=== PATIENT | female | born 1945 | race Caucasian/White ===

== ENCOUNTER → 2016-05-19 | Outpatient (CLI) | payer MEDICARE, BC ==
[2016-05-19 16:35] LABS: Blood Urea Nitrogen 18 mg/dL (7-17); Non-African American GFR(MDRD) >60 (>60 ml/min/1.73 sqM)
--- NOTE | 2016-05-19 19:07 | CT ---
EXAMINATION TYPE: CT abdomen pelvis w con DATE OF EXAM: 05/19/2016 6:02 PM HISTORY: Lower Abdominal and pelvic pain for [address] DLP: 3894.5mGycm Automated Exposure Control for Dose Reduction was Utilized. CONTRAST: CT scan of the abdomen and pelvis is performed with oral and with IV Contrast, patient injected with 100 mL of Omnipaque 300. COMPARISON: None. FINDINGS: LUNG BASES: There is 2.3 x 1.6 cm low dense lesion posterior left lung base appears to split pleura s ign suggestive of small localized fluid collection. No intraluminal air is seen to suggest empyema wh ich cannot be completely excluded on this study. Clinical correlation advised. LIVER/GB: Cholecystectomy clips are noted PANCREAS: No significant abnormality is seen. SPLEEN: No significant abnormality is seen. ADRENALS: No significant abnormality is seen. KIDNEYS: There are some simple appearing small cysts scattered throughout both kidneys BOWEL: Oral contrast reaches level of the transverse colon. There is no suspicious small or large bow el dilatation. UTERUS/ADNEXA: No gross abnormality seen. LYMPH NODES: No greater than 1cm abdominal or pelvic lymph nodes are appreciated. OSSEOUS STRUCTURES: Some multilevel spurring in the visualized lower thoracic spine is present. OTHER: There has been prior ventral wall hernia repair. There is persistent widemouth eventration wit hout distinct hernia defect in the midline of the mid to lower abdominal wall. Overlying vertical sca r and multiple coils related to surgical repair are noted. IMPRESSION: 1. There has been prior ventral wall hernia repair surgery with widemouth eventration identified at s ite of surgery but no definitive defect suggests recurrent ventral wall hernia. Eventration contains nonobstructed small bowel loops. 2. Attention to left lung base as noted above.
== END ==
LOC: RADCTMAIN 16:00
PROVIDERS: ATTEND Internal Medicine Geriatric Medicine
DX: R10.30 Lower abdominal pain, unspecified (principal); Z98.890 Other specified postprocedural states
CPT/HCPCS: 82565; 84520; 74177; 36415; Q9967

== ENCOUNTER 2016-05-29 08:58 | Emergency (ER) | payer MEDICARE, BC ==
[2016-05-29] MEDS ORDERED: SODIUM CHLORIDE 0.9% 1,000 ML IV STA (09:09)
[2016-05-29] MEDS ORDERED: METOCLOPRAMIDE 5 MG/ML 2 ML VIAL IVP STA (09:09)
[2016-05-29] MEDS ORDERED: DICYCLOMINE 10 MG/ML 2 ML AMP IM STA (09:09)
--- NOTE | 2016-05-29 09:12 | ED ---
General Adult HPI - General Chief complaint: Nausea/Vomiting/Diarrhea Stated complaint: Flu symptoms Time Seen by Provider: 05/29/16 09:05 Source: patient, RN notes reviewed Mode of arrival: wheelchair Limitations: no limitations - History of Present Illness Initial comments: 71-year-old female presents to the emergency Department chief complaint of nausea vomiting and diarrhea. Patient states she's had the symptoms for about 5 days. Patient states she only has vomiting after she eats but she was able to keep a piece of toast down last night. Patient states that she continues to have the diarrhea. Patient states she does not really have abdominal pain she just feels off. Patient states she does have diabetes and she noticed that her sugars became almost like because she is not eating. Patient states she's had on-and-off fevers at this as well. Patient denies any pain at this time. Patient states she is not getting better so she thought that she should be seen. Patient denies any recent fever, chills, shortness of breath, chest pain, back pain, abdominal pain, numbness or tingling, dysuria or hematuria, constipation, headaches or visual changes, or any other current symptoms. - Related Data Home Medications Medication Instructions Recorded Confirmed Atorvastatin [Lipitor] 20 mg PO HS 11/12/15 05/29/16 Insulin Glargine [Lantus] 60 unit SQ HS 11/12/15 05/29/16 Gabapentin [Neurontin] 300 mg PO TID 05/29/16 05/29/16 Losartan Potassium 100 mg PO DAILY 05/29/16 05/29/16 metFORMIN HCL 1,000 mg PO HS 05/29/16 05/29/16 Previous Rx's Medication Instructions Recorded Ciprofloxacin HCl [Cipro] 500 mg PO Q12HR #14 tablet 05/29/16 Dicyclomine [Bentyl] 10 mg PO TID #20 capsule 05/29/16 Ondansetron Odt [Zofran ODT] 4 mg PO Q8HR PRN #20 tab 05/29/16 Allergies Allergy/AdvReac Type Severity Reaction Status Date / Time cephalexin Allergy Rash/Hives, Verified 05/29/16 10:55 redness, swelling Review of Systems ROS Statement: Those systems with pertinent positive or pertinent negative responses have been documented in the HPI. ROS Other: All systems not noted in ROS Statement are negative. Past Medical History Past Medical History: Cancer, Diabetes Mellitus, Hyperlipidemia, Hypertension Additional Past Medical History / Comment(s): hx. lung cancer 2007, recent kidney infection now resolved History of Any Multi-Drug Resistant Organisms: None Reported Past Surgical History: Cholecystectomy, Hernia Repair Additional Past Surgical History / Comment(s): partial lobectomy 2008 Past Anesthesia/Blood Transfusion Reactions: No Reported Reaction Past Psychological History: No Psychological Hx Reported Smoking Status: Never smoker Past Alcohol Use History: None Reported Past Drug Use History: None Reported - Past Family History Mother Family Medical History: Cancer General Exam - General Exam Comments Initial Comments: General: The patient is awake and alert, in no distress, and does not appear acutely ill. Eye: Pupils are equal, round and reactive to light, extra-ocular movements are intact; there is normal conjunctiva bilaterally. No signs of icterus. Ears, nose, mouth and throat: There are moist mucous membranes and no oral lesions. Neck: The neck is supple, there is no tenderness. Cardiovascular: There is a regular rate and rhythm. No murmur, rub or gallop is appreciated. Respiratory: Lungs are clear to auscultation, respirations are non-labored, breath sounds are equal. No wheezes, stridor, rales, or rhonchi. Gastrointestinal: Soft, non-distended, non-tender abdomen without masses or organomegaly noted. There is no rebound or guarding present. No CVA tenderness. Bowel sounds are unremarkable. Back: There is no tenderness to palpation in the midline. There is no obvious deformity. No rashes noted. Musculoskeletal: Normal ROM, no tenderness, There is no pedal edema. There is no calf tenderness or swelling. Sensation intact. Pulses equal bilaterally 2+. Neurological: CN II-XII intact, There are no obvious motor or sensory deficits. Coordination appears grossly intact. Speech is normal. Skin: Skin is warm and dry and no rashes or lesions are noted. Psychiatric: Cooperative, appropriate mood & affect, normal judgment. Limitations: no limitations Course Vital Signs 05/29/16 09:00 Temperature 97.5 F L Pulse Rate 87 Respiratory 16 Rate Blood Pressure 162/83 O2 Sat by Pulse 93 L Oximetry EKG Findings - EKG Comments: EKG Findings:: normal sinus rhythm 83 bpm, normal axis, no atopy, no S-T depressions or elevations, Medical Decision Making - Medical Decision Making 71-year-old emergency room chief complaint of nausea vomiting and diarrhea. This time CAT scan results were reviewed. At this time the patient's CAT scan does not show any new or changing symptoms. We did discuss all patient's findings and she states that she has been informed of the past. At this time patient's blood work is also negative she is negative for C. diff. This time we discussed patient most likely has a gastroenteritis type picture. We discussed with give her nausea medication for home and cramping abdominal pain medication. We discussed close follow-up with her doctor and return parameters. Patient stated that she understood and all her questions have been answered. She will be discharged home. - Lab Data Result diagrams: 05/29/16 09:30 05/29/16 09:30 Lab Results 05/29/16 05/29/16 05/29/16 Range/Units 09:30 09:30 09:30 WBC (3.8-10.6) k/uL RBC (3.80-5.40) m/uL Hgb (11.4-16.0) gm/dL Hct (34.0-46.0) % MCV (80.0-100.0) fL MCH (25.0-35.0) pg MCHC (31.0-37.0) g/dL RDW (11.5-15.5) % Plt Count (150-450) k/uL Neutrophils % % Lymphocytes % % Monocytes % % Eosinophils % % Basophils % % Neutrophils # (1.3-7.7) k/uL Lymphocytes # (1.0-4.8) k/uL Monocytes # (0-1.0) k/uL Eosinophils # (0-0.7) k/uL Basophils # (0-0.2) k/uL Sodium 143 (137-145) mmol/L Potassium 4.1 (3.5-5.1) mmol/L Chloride 107 (98-107) mmol/L Carbon Dioxide 26 (22-30) mmol/L Anion Gap 10 mmol/L BUN 22 H (7-17) mg/dL Creatinine 0.92 (0.52-1.04) mg/dL Est GFR (MDRD) Af Amer >60 (>60 ml/min/1.73 sqM) Est GFR (MDRD) Non-Af 60 (>60 ml/min/1.73 sqM) Glucose 99 (74-99) mg/dL Plasma Lactic Acid Terrell 1.0 (0.7-2.0) mmol/L Calcium 9.5 (8.4-10.2) mg/dL Total Bilirubin 1.3 (0.2-1.3) mg/dL AST 34 (14-36) U/L ALT 36 (9-52) U/L Alkaline Phosphatase 176 H (38-126) U/L Troponin I (0.000-0.034) ng/mL Total Protein 7.3 (6.3-8.2) g/dL Albumin 3.8 (3.5-5.0) g/dL Amylase <30 L (30-110) U/L Lipase 71 (23-300) U/L Urine Color Urine Appearance (Clear) Urine pH (5.0-8.0) Ur Specific Stanton (1.001-1.035) Urine Protein (Negative) Urine Glucose (UA) (Negative) Urine Ketones (Negative) Urine Blood (Negative) Urine Nitrite (Negative) Urine Bilirubin (Negative) Urine Urobilinogen (<2.0) mg/dL Ur Leukocyte Esterase (Negative) Urine RBC (0-5) /hpf Urine WBC (0-5) /hpf Ur Squamous Epith Cells (0-4) /hpf Urine Bacteria (None) /hpf Hyaline Casts (0-2) /lpf Urine Mucus (None) /hpf Acetone, Qual Negative (Negative) C. difficile (EIA) Intrp (Negative) Influenza Type A RNA Not Detected (Not Detectd) Influenza Type B (PCR) Not Detected (Not Detectd) 05/29/16 05/29/16 05/29/16 Range/Units 09:30 09:30 11:17 WBC 8.4 (3.8-10.6) k/uL RBC 4.61 (3.80-5.40) m/uL Hgb 13.4 (11.4-16.0) gm/dL Hct 42.1 (34.0-46.0) % MCV 91.4 (80.0-100.0) fL MCH 29.1 (25.0-35.0) pg MCHC 31.8 (31.0-37.0) g/dL RDW 14.9 (11.5-15.5) % Plt Count 288 (150-450) k/uL Neutrophils % 71 % Lymphocytes % 21 % Monocytes % 5 % Eosinophils % 1 % Basophils % 0 % Neutrophils # 5.9 (1.3-7.7) k/uL Lymphocytes # 1.8 (1.0-4.8) k/uL Monocytes # 0.4 (0-1.0) k/uL Eosinophils # 0.1 (0-0.7) k/uL Basophils # 0.0 (0-0.2) k/uL Sodium (137-145) mmol/L Potassium (3.5-5.1) mmol/L Chloride (98-107) mmol/L Carbon Dioxide (22-30) mmol/L Anion Gap mmol/L BUN (7-17) mg/dL Creatinine (0.52-1.04) mg/dL Est GFR (MDRD) Af Amer (>60 ml/min/1.73 sqM) Est GFR (MDRD) Non-Af (>60 ml/min/1.73 sqM) Glucose (74-99) mg/dL Plasma Lactic Acid Terrell (0.7-2.0) mmol/L Calcium (8.4-10.2) mg/dL Total Bilirubin (0.2-1.3) mg/dL AST (14-36) U/L ALT (9-52) U/L Alkaline Phosphatase (38-126) U/L Troponin I <0.012 (0.000-0.034) ng/mL Total Protein (6.3-8.2) g/dL Albumin (3.5-5.0) g/dL Amylase (30-110) U/L Lipase (23-300) U/L Urine Color Urine Appearance (Clear) Urine pH (5.0-8.0) Ur Specific Stanton (1.001-1.035) Urine Protein (Negative) Urine Glucose (UA) (Negative) Urine Ketones (Negative) Urine Blood (Negative) Urine Nitrite (Negative) Urine Bilirubin (Negative) Urine Urobilinogen (<2.0) mg/dL Ur Leukocyte Esterase (Negative) Urine RBC (0-5) /hpf Urine WBC (0-5) /hpf Ur Squamous Epith Cells (0-4) /hpf Urine Bacteria (None) /hpf Hyaline Casts (0-2) /lpf Urine Mucus (None) /hpf Acetone, Qual (Negative) C. difficile (EIA) Intrp Negative (Negative) Influenza Type A RNA (Not Detectd) Influenza Type B (PCR) (Not Detectd) 05/29/16 Range/Units 12:18 WBC (3.8-10.6) k/uL RBC (3.80-5.40) m/uL Hgb (11.4-16.0) gm/dL Hct (34.0-46.0) % MCV (80.0-100.0) fL MCH (25.0-35.0) pg MCHC (31.0-37.0) g/dL RDW (11.5-15.5) % Plt Count (150-450) k/uL Neutrophils % % Lymphocytes % % Monocytes % % Eosinophils % % Basophils % % Neutrophils # (1.3-7.7) k/uL Lymphocytes # (1.0-4.8) k/uL Monocytes # (0-1.0) k/uL Eosinophils # (0-0.7) k/uL Basophils # (0-0.2) k/uL Sodium (137-145) mmol/L Potassium (3.5-5.1) mmol/L Chloride (98-107) mmol/L Carbon Dioxide (22-30) mmol/L Anion Gap mmol/L BUN (7-17) mg/dL Creatinine (0.52-1.04) mg/dL Est GFR (MDRD) Af Amer (>60 ml/min/1.73 sqM) Est GFR (MDRD) Non-Af (>60 ml/min/1.73 sqM) Glucose (74-99) mg/dL Plasma Lactic Acid Terrell (0.7-2.0) mmol/L Calcium (8.4-10.2) mg/dL Total Bilirubin (0.2-1.3) mg/dL AST (14-36) U/L ALT (9-52) U/L Alkaline Phosphatase (38-126) U/L Troponin I (0.000-0.034) ng/mL Total Protein (6.3-8.2) g/dL Albumin (3.5-5.0) g/dL Amylase (30-110) U/L Lipase (23-300) U/L Urine Color Yellow Urine Appearance Cloudy H (Clear) Urine pH 5.5 (5.0-8.0) Ur Specific Stanton 1.021 (1.001-1.035) Urine Protein 1+ H (Negative) Urine Glucose (UA) Negative (Negative) Urine Ketones 1+ H (Negative) Urine Blood Negative (Negative) Urine Nitrite Negative (Negative) Urine Bilirubin 1+ H (Negative) Urine Urobilinogen 2.0 (<2.0) mg/dL Ur Leukocyte Esterase Negative (Negative) Urine RBC 1 (0-5) /hpf Urine WBC 1 (0-5) /hpf Ur Squamous Epith Cells 3 (0-4) /hpf Urine Bacteria Rare H (None) /hpf Hyaline Casts 26 H (0-2) /lpf Urine Mucus Few H (None) /hpf Acetone, Qual (Negative) C. difficile (EIA) Intrp (Negative) Influenza Type A RNA (Not Detectd) Influenza Type B (PCR) (Not Detectd) - Radiology Data Radiology results: report reviewed, image reviewed Disposition Clinical Impression: Diarrhea, Nausea & vomiting, UTI (urinary tract infection) Disposition: HOME SELF-CARE Condition: Stable Instructions: Acute Diarrhea (ED) Additional Instructions: Please use medication as discussed. Please follow up with family doctor if symptoms have not improved over the next two days. Please return to the emergency room if your symptoms increase or worsen or for any other concerns. Prescriptions: Ciprofloxacin HCl [Cipro] 500 mg PO Q12HR #14 tablet Dicyclomine [Bentyl] 10 mg PO TID #20 capsule Ondansetron Odt [Zofran ODT] 4 mg PO Q8HR PRN #20 tab PRN Reason: Nausea Referrals: Mitra Malik MD [Primary Care Provider] - 1-2 days Time of Disposition: 13:04
[2016-05-29 10:02] LABS: Basophils % (A) 0 %; CH 29.4; CHCM 32.4; Eosinophils # (A) 0.1 k/uL (0-0.7); Eosinophils % (A) 1 %; HCT 42.1 % (34.0-46.0); HDW 2.81; HGB 13.4 gm/dL (11.4-16.0); Luc # (Auto) 0.14; Luc % (Auto) 2; Lymphocytes # (A) 1.8 k/uL (1.0-4.8); Lymphocytes % (A) 21 %; MCH 29.1 pg (25.0-35.0); MCHC 31.8 g/dL (31.0-37.0); MCV 91.4 fL (80.0-100.0); Mean Platelet Volume 6.9; Monocytes # (A) 0.4 k/uL (0-1.0); Monocytes % (A) 5 %; Neutrophils # (A) 5.9 k/uL (1.3-7.7); Neutrophils % (A) 71 %; RBC 4.61 m/uL (3.80-5.40); RDW 14.9 % (11.5-15.5); WBC 8.4 k/uL (3.8-10.6); WBC (Perox) 8.43
[2016-05-29 10:21] LABS: ALT 36 U/L (9-52); AST 34 U/L (14-36); Alkaline Phosphatase 176 U/L (38-126); Amylase <30 U/L (30-110); Anion Gap 10 mmol/L; Blood Urea Nitrogen 22 mg/dL (7-17); Calcium 9.5 mg/dL (8.4-10.2); Carbon Dioxide 26 mmol/L (22-30); Chloride 107 mmol/L (98-107); Glucose 99 mg/dL (74-99); Non-African American GFR(MDRD) 60 (>60 ml/min/1.73 sqM); Potassium 4.1 mmol/L (3.5-5.1); Sodium 143 mmol/L (137-145); Total Bilirubin 1.3 mg/dL (0.2-1.3); Total Protein 7.3 g/dL (6.3-8.2)
--- NOTE | 2016-05-29 11:00 | CT ---
EXAMINATION TYPE: CT abdomen pelvis wo con DATE OF EXAM: 05/29/2016 10:33 AM COMPARISON: 05/19/2016 HISTORY: 71-year-old female Generalized abdominal pain. Flu like symptoms CT DLP: 2558.60 mGycm. Automated exposure control for dose reduction was used. TECHNIQUE: Contiguous axial scanning of the abdomen and pelvis without IV contrast. Coronal and sagit bronson reconstructions performed. FINDINGS: The heart is mildly enlarged without pericardial effusion. A 4 mm right lower lobe pulmonary nodule i s unchanged from 05/19/2016 as is the 3.1 cm localized low density masslike lesion posterior left cost ophrenic angle possibly loculated pleural fluid. Noncontrast appearance of the liver, adrenal glands, spleen, and atrophic pancreas show no gross abno rmality. No dilated small bowel, free fluid, or free air. A couple sigmoid diverticula. No pericolonic inflammatory change. Suggestion of prior ventral abdominal wall hernia repair. However, there is redemonstrated rectus abd ominis diastases of the infraumbilical portion with a focal bulging and separation of the rectus abdo minis muscles by 9.8 cm. Some small bowel loops are present within the bulging defect. No obstructive changes or abnormal fluid collection is seen. There is some low-density areas in the left retroperitoneum, one at the level of the aortic bifurcati on measuring 6.8 x 4.0 x 2.4 cm measured on coronal and axial series. This measured 6.8 x 3.5 x 2.2 c m on 05/19/2016, not significantly changed. Additional similar area is seen in the left superior retro peritoneum just below the level of the kidneys measuring 4.8 x 2.2 x 2.1 cm versus 4.3 x 2.6 x 2.2 cm on 05/19/2016. Again, not significantly changed. Redemonstrated subcentimeter hypodense lesions within the kidneys to small for accurate CT characteri zation, likely cysts. Bladder is nondistended. Uterus is visualized. No adnexal mass seen. No abnormal fluid collection pel vis. Bones: Degenerative changes at the hips and lower lumbar spine. No osseous destructive process. IMPRESSION: 1. Redemonstrated prior infraumbilical ventral abdominal wall hernia repair though with persisting r ectus diastases. The bulging defect containing some small bowel loops as seen previously. No obstruct dai or inflammatory changes. 2. A couple hypodense masslike areas along the left retroperitoneum measuring up to 6.8 cm, not sign ificantly changed from 05/19/2016. Exact etiology is unclear. Findings could represent postinflammator y residua suggest from a prior episode of pancreatitis. Other differential considerations include lym phangiomas and schwannomas. A 3 month follow-up exam can be performed to reassess. If further imaging evaluation is desired at this time, contrast enhanced MRI can be considered. 3. Stable low density 3.1 cm collection in the left posterior costophrenic angle possibly loculated fluid. Clinical correlation needed to exclude a small empyema as mentioned previously. 4. A 4 mm right lower lobe pulmonary nodule is also unchanged from recent exam. This can also be woodrow ssessed at 3 months with the addition of a contrast enhanced CT chest.
[2016-05-29 12:45] LABS: Appearance,Urine Cloudy (Clear); Bacteria,Urine Rare /hpf; Bilirubin,Urine 1+ (Negative); Glucose,Urine (UA) Negative (Negative); Ketones,Urine 1+ (Negative); Leukocyte Esterase,Urine Negative (Negative); Mucus,Urine Few /hpf; Nitrite,Urine Negative (Negative); PH, Urine 5.5 (5.0-8.0); Particle Count 14824; Protein,Urine 1+ (Negative); RBC,Urine 1 /hpf (0-5); Specific Gravity,Urine 1.021 (1.001-1.035); Squamous Epithelial Cell,Urine 3 /hpf (0-4); UA Billing (MACRO vs. MICRO) MICRO; WBC,Urine 1 /hpf (0-5)
[2016-05-29 13:46] VITALS: BP 136/63; PULSE 68; RESP 18; TEMP 98.2
== END 2016-05-29 13:51 | disposition home or self-care (01) ==
LOC: EC 08:58
DX: R11.2 Nausea with vomiting, unspecified (principal); R19.7 Diarrhea, unspecified; N39.0 Urinary tract infection, site not specified; I10 Essential (primary) hypertension; E11.9 Type 2 diabetes mellitus without complications; E78.5 Hyperlipidemia, unspecified; Z85.118 Personal history of other malignant neoplasm of bronchus and lung; Z90.49 Acquired absence of other specified parts of digestive tract; Z79.4 Long term (current) use of insulin; Z79.84 Long term (current) use of oral hypoglycemic drugs; Z79.899 Other long term (current) drug therapy; Z88.1 Allergy status to other antibiotic agents
CPT/HCPCS: 96361 ×5; 96372 ×2; 96374 ×2; 99284 ×2; 36415; 93005; 80053; 82150; 82009; 83605; 83690; 84484; 85025; 81001; 87040; 87324; 87086; 87045; 87046; 87502; 74176; J0500; J2765

== ENCOUNTER → 2016-05-31 | Outpatient (CLI) | payer MEDICARE, BC ==
--- NOTE | 2016-05-31 14:08 | CT ---
EXAMINATION TYPE: CT chest w con DATE OF EXAM: 05/31/2016 1:41 PM COMPARISON: NONE HISTORY: Mal Tavares of [place] Bronch of Lung Cancer CT DLP: 802 mGycm, Automated exposure control for dose reduction was used. CONTRAST: Performed injected with 100 ml mL of Omnipaque 300. TECHNIQUE: Axial images were obtained at 5 mm thick sections. Reconstructed images are reviewed on t he computer in the coronal plane. FINDINGS: Portion of the thyroid visualized is normal. There appears to be a small loculated fluid collection in the posterior medial left lung base. This w as present previously may be slightly larger measuring 3.6 cm. There is a 0.5 cm nodular density in t he periphery of the right lower lung field. Series 3 image 31. Pleural-based nodularity is along the posterior lateral right lung measuring 0.5 cm in depth. Series 3 image 23. There is a 0.6 cm nodulari ty within the right middle lobe. Series 3 image 18. No enlarged mediastinal or hilar adenopathy is evident. The ascending aorta diameter at the level o f the main pulmonary artery is 4.0 cm. The main pulmonary artery diameter at the bifurcation is 2.8 cm. There is a pretracheal lymph node measuring 1.4 cm in transverse dimension. This has central low dens ity likely related to a fatty hilum. A few shotty lymph nodes are also present within the mediastinum . Limited CT sections are obtained through the upper abdomen. There is a 2.0 cm cyst measuring 0 Hounsf ield units on the posterior superior right kidney. Cholecystectomy clips are present. IMPRESSIONS: 1. Stable appearing small nodularities within the right lung. 2. Slight enlargement of a low-density posterior medial lung bases collection. 3. Prominent lymph node with a large fatty hilum within the mediastinum.
== END | disposition home or self-care (01) ==
LOC: RADCTMAIN 12:28
PROVIDERS: ATTEND Internal Medicine
DX: R91.8 Other nonspecific abnormal finding of lung field (principal); R93.8 Abnormal findings on diagnostic imaging of other specified body structures; C34.90 Malignant neoplasm of unspecified part of unspecified bronchus or lung
CPT/HCPCS: 71260; Q9967

== ENCOUNTER → 2019-04-24 | Outpatient (CLI) | payer MEDICARE, BC ==
--- NOTE | 2019-04-24 15:25 | BD ---
EXAMINATION TYPE: Axial Bone Density DATE OF EXAM: 04/24/2019 COMPARISON: NONE CLINICAL HISTORY: Height: 63 inches Weight: 290 FRAX RISK QUESTIONS: Alcohol (3 or more units per day): no Family History (Parent hip fracture): no Glucocorticoids (More than 3mos): no (Ex: prednisone, prednisolone, methylprednisolone, dexamethasone, and hydrocortisone). History of Fracture in Adulthood: no Secondary Osteoporosis: 1. Type 1 Diabetes: no 2. Hyperthyroidism: no 3. Menopause before 45: no 4. Malnutrition: no 5. Chronic liver disease: no Rheumatoid Arthritis: no Current Tobacco Use: no RISK FACTORS HISTORY OF: Family History of Osteoporosis: no Active: somewhat Diet low in dairy products/other sources of calcium: no Postmenopausal woman: yes Take estrogen and/or progesterone medications: no Lost more than 2 inches in height since high school: no Frequent falls: no Poor Health: fair Hyperparathyroidism: no Adrenal Insufficiency: no MEDICATIONS: Prednisone or other steroids: no Thyroid Medications:no Osteoporosis Medications: no Additional Medications: blood pressure med, diabetes med Additional History: history of lung CA 14 years ago; type 2 diabetic EXAM MEASUREMENTS: Bone mineral densitometry was performed using the [employer] System. Bone mineral density as measured about the Lumbar spine is: ----- L1-L4(G/cm2): 1.135 T Score Values are as follows: ----- L2: -1.5 ----- L3: -0.1 ----- L4: 0.0 ----- L1-L4: -0.4 Bone mineral density BASELINE Bone mineral density about the R hip (g/cm2): 0.769 Bone mineral density about the L hip (g/cm2): 0.837 T Score values are as follows: -----R Neck: -1.9 -----L Neck: -1.4 -----R Total: -1.3 -----L Total: -0.6 Bone mineral density BASELINE IMPRESSION: Osteopenia (T Score between -2.5 and -1). There is slightly increased risk of fracture and the patient may be considered for treatment. Re-Screen 2-5 years. NOTE: T-SCORE=SD OF THE YOUNG ADULT MEAN.
--- NOTE | 2019-04-25 10:56 | MM ---
Reason for exam: screening (asymptomatic). Last mammogram was performed 4 years ago. History: Patient is postmenopausal and has history of other cancer at age 60. Benign excisional biopsy of the left breast, 1967. Physical Findings: A clinical breast exam by your physician is recommended on an annual basis and results should be correlated with mammographic findings. MG 3D Screening Mammo W/Cad Bilateral CC and MLO view(s) were taken. Prior study comparison: April 09, 2015, bilateral MG 3d screening mammo w/cad. July 02, 2013, bilateral MG screening mammo w CAD. Finding: There are typically benign circumscribed round oval few stable masses in both breasts. No suspicious abnormality. No significant changes in finding since April 09, 2015 and July 02, 2013. ASSESSMENT: Benign, BI-RAD 2 RECOMMENDATION: Routine screening mammogram of both breasts in 1 year.
== END ==
LOC: RADMAMWWP 07:54
PROVIDERS: ATTEND Internal Medicine
DX: Z12.31 Encounter for screening mammogram for malignant neoplasm of breast (principal); M85.80 Other specified disorders of bone density and structure, unspecified site
CPT/HCPCS: 77063; 77067; 77080

== ENCOUNTER 2019-12-14 20:21 | Emergency (ER) | payer MEDICARE, BC ==
[2019-12-14 20:44] LABS: Glucose,Whole Blood 99 mg/dL (75-99)
[2019-12-14 21:42] LABS: Glucose,Whole Blood 83 mg/dL (75-99)
[2019-12-14 21:47] LABS: Anisocytosis Slight; Basophils % (A) 0 %; Eosinophils # (A) 0.1 k/uL (0-0.7); Eosinophils % (A) 1 %; HCT 36.5 % (34.0-46.0); HGB 11.7 gm/dL (11.4-16.0); Hypochromasia Slight; Lymphocytes # (A) 2.1 k/uL (1.0-4.8); Lymphocytes % (A) 19 %; MCH 33.4 pg (25.0-35.0); MCHC 32.1 g/dL (31.0-37.0); MCV 103.9 fL (80.0-100.0); Macrocytosis Moderate; Mean Platelet Volume 7.2; Monocytes # (A) 0.5 k/uL (0-1.0); Monocytes % (A) 4 %; Neutrophils # (A) 8.4 k/uL (1.3-7.7); Neutrophils % (A) 75 %; Platelet Count 316 k/uL (150-450); RBC 3.52 m/uL (3.80-5.40); RDW 16.8 % (11.5-15.5); WBC 11.3 k/uL (3.8-10.6)
[2019-12-14 21:54] LABS: Albumin 3.2 g/dL (3.5-5.0); Calcium 8.7 mg/dL (8.4-10.2); Potassium 4.5 mmol/L (3.5-5.1); Total Protein 6.6 g/dL (6.3-8.2)
[2019-12-14 22:00] LABS: Amorphous Sediment,Urine Rare /hpf; Appearance,Urine Turbid (Clear); Bacteria,Urine Many /hpf; Bilirubin,Urine Negative (Negative); Blood,Urine Moderate (Negative); Color,Urine Yellow; Glucose,Urine (UA) Negative (Negative); Ketones,Urine Negative (Negative); Leukocyte Esterase,Urine Large (Negative); Nitrite,Urine Negative (Negative); Protein,Urine Trace (Negative); RBC,Urine 44 /hpf (0-5); Specific Gravity,Urine 1.014 (1.001-1.035); Squamous Epithelial Cell,Urine 6 /hpf (0-4); WBC,Urine 48 /hpf (0-5)
--- NOTE | 2019-12-14 22:14 | ED ---
Recheck HPI - General Chief Complaint: Recheck/Abnormal Lab/Rx Stated Complaint: diabetic, type 2 Time Seen by Provider: 12/14/19 20:56 Source: patient Mode of arrival: wheelchair Limitations: no limitations - History of Present Illness Initial Comments: 74 year-old female patient presents to the emergency department today for evaluation of low blood sugar. Patient states throughout the day today she has had a few low readings. States when she woke this morning is around 50, later in the afternoon is 76. Patient states starts to get shaky when he gets low. States she is eating and drinking without difficulty. Denies any nausea or vomiting. Denies any weight loss. States that she did take her usual oral medication as well as her Lantus this evening. Currently having no symptoms. She is concerned she may have a UTI due to frequency and dysuria. Denies any fever or chills. Denies back pain. Patient denies any recent rash, cough, josette rtness of breath, chest pain, abdominal pain, diarrhea, constipation, back pain, numbness, tingling, dizziness, weakness, headache, visual changes, or any other complaints. - Related Data Home Medications Medication Instructions Recorded Confirmed Insulin Glargine [Lantus] 60 unit SQ PC-SUPPER 11/12/15 12/14/19 Losartan Potassium 100 mg PO W/SUPPER 05/29/16 12/14/19 Atorvastatin [Lipitor] 40 mg PO W/SUPPER 12/14/19 12/14/19 Metoprolol Succinate [Toprol XL] 25 mg PO W/SUPPER 12/14/19 12/14/19 Repaglinide 1 mg PO BID-W/MEALS 12/14/19 12/14/19 Previous Rx's Medication Instructions Recorded Nitrofurantoin Monohyd/M-Cryst 100 mg PO Q12HR #14 cap 12/14/19 [Macrobid] Allergies Allergy/AdvReac Type Severity Reaction Status Date / Time cephalexin Allergy Rash/Hives, Verified 12/14/19 21:59 redness, swelling Review of Systems ROS Statement: Those systems with pertinent positive or pertinent negative responses have been documented in the HPI. ROS Other: All systems not noted in ROS Statement are negative. Past Medical History Past Medical History: Cancer, Diabetes Mellitus, Hyperlipidemia, Hypertension Additional Past Medical History / Comment(s): hx. lung cancer 2007, recent kidney infection now resolved History of Any Multi-Drug Resistant Organisms: None Reported Past Surgical History: Cholecystectomy, Hernia Repair Additional Past Surgical History / Comment(s): partial lobectomy 2008 Past Anesthesia/Blood Transfusion Reactions: No Reported Reaction Past Psychological History: No Psychological Hx Reported Smoking Status: Never smoker Past Alcohol Use History: None Reported Past Drug Use History: None Reported - Past Family History Mother Family Medical History: Cancer General Exam Limitations: no limitations General appearance: alert, in no apparent distress, other (This is a well-developed, well-nourished elderly female patient in no acute distress. Vital signs upon presentation are temperature 98.2F, pulse 86, respirations 20, blood pressure 196/91, pulse ox 96% on room air.) Respiratory exam: Present: normal lung sounds bilaterally. Absent: respiratory distress, wheezes, rales, rhonchi, stridor Cardiovascular Exam: Present: regular rate, normal rhythm, normal heart sounds. Absent: systolic murmur, diastolic murmur, rubs, gallop, clicks GI/Abdominal exam: Present: soft, normal bowel sounds. Absent: distended, tenderness, guarding, rebound, rigid Neurological exam: Present: alert, oriented X3, CN II-XII intact Psychiatric exam: Present: normal affect, normal mood Skin exam: Present: warm, dry, intact, normal color. Absent: rash Course Vital Signs 12/14/19 12/14/19 20:38 22:43 Temperature 98.2 F 98.6 F Pulse Rate 86 79 Respiratory 20 18 Rate Blood Pressure 196/91 139/89 O2 Sat by Pulse 96 98 Oximetry Medical Decision Making - Medical Decision Making 74 year-old female patient presents to the emergency department today for evaluation of low blood sugar. Physical examination was unremarkable. Labs reviewed and did reveal normal blood sugar at this time. We did do several Accu-Cheks which were also normal. Urinalysis was positive for infection. We'll start Macrobid for her last cultures. She will be discharged with instructions to check blood sugar frequently throughout the night. She is instructed to skip her oral doses of medication tomorrow and to follow-up with her primary care physician as soon as possible. Return parameters were discussed in detail. She verbalizes understanding and agrees with this plan. - Lab Data Result diagrams: 12/14/19 21:24 12/14/19 21:24 Lab Results 12/14/19 12/14/19 12/14/19 Range/Units 20:42 21:24 21:24 WBC 11.3 H (3.8-10.6) k/uL RBC 3.52 L (3.80-5.40) m/uL Hgb 11.7 (11.4-16.0) gm/dL Hct 36.5 (34.0-46.0) % MCV 103.9 H (80.0-100.0) fL MCH 33.4 (25.0-35.0) pg MCHC 32.1 (31.0-37.0) g/dL RDW 16.8 H (11.5-15.5) % Plt Count 316 (150-450) k/uL Neutrophils % 75 % Lymphocytes % 19 % Monocytes % 4 % Eosinophils % 1 % Basophils % 0 % Neutrophils # 8.4 H (1.3-7.7) k/uL Lymphocytes # 2.1 (1.0-4.8) k/uL Monocytes # 0.5 (0-1.0) k/uL Eosinophils # 0.1 (0-0.7) k/uL Basophils # 0.0 (0-0.2) k/uL Hypochromasia Slight Anisocytosis Slight Macrocytosis Moderate Sodium (137-145) mmol/L Potassium (3.5-5.1) mmol/L Chloride (98-107) mmol/L Carbon Dioxide (22-30) mmol/L Anion Gap mmol/L BUN (7-17) mg/dL Creatinine (0.52-1.04) mg/dL Est GFR (CKD-EPI)AfAm (>60 ml/min/1.73 sqM) Est GFR (CKD-EPI)NonAf (>60 ml/min/1.73 sqM) Glucose (74-99) mg/dL POC Glucose (mg/dL) 99 (75-99) mg/dL POC Glu Mental Health Practitioner ID Calcium (8.4-10.2) mg/dL Total Bilirubin (0.2-1.3) mg/dL AST (14-36) U/L ALT (4-34) U/L Alkaline Phosphatase (38-126) U/L Total Protein (6.3-8.2) g/dL Albumin (3.5-5.0) g/dL Urine Color Yellow Urine Appearance Turbid H (Clear) Urine pH 6.0 (5.0-8.0) Ur Specific [place] 1.014 (1.001-1.035) Urine Protein Trace H (Negative) Urine Glucose (UA) Negative (Negative) Urine Ketones Negative (Negative) Urine Blood Moderate H (Negative) Urine Nitrite Negative (Negative) Urine Bilirubin Negative (Negative) Urine Urobilinogen 6.0 (<2.0) mg/dL Ur Leukocyte Esterase Large H (Negative) Urine RBC 44 H (0-5) /hpf Urine WBC 48 H (0-5) /hpf Ur Squamous Epith Cells 6 H (0-4) /hpf Amorphous Sediment Rare H (None) /hpf Urine Bacteria Many H (None) /hpf 12/14/19 12/14/19 12/14/19 Range/Units 21:24 21:41 22:34 WBC (3.8-10.6) k/uL RBC (3.80-5.40) m/uL Hgb (11.4-16.0) gm/dL Hct (34.0-46.0) % MCV (80.0-100.0) fL MCH (25.0-35.0) pg MCHC (31.0-37.0) g/dL RDW (11.5-15.5) % Plt Count (150-450) k/uL Neutrophils % % Lymphocytes % % Monocytes % % Eosinophils % % Basophils % % Neutrophils # (1.3-7.7) k/uL Lymphocytes # (1.0-4.8) k/uL Monocytes # (0-1.0) k/uL Eosinophils # (0-0.7) k/uL Basophils # (0-0.2) k/uL Hypochromasia Anisocytosis Macrocytosis Sodium 139 (137-145) mmol/L Potassium 4.5 (3.5-5.1) mmol/L Chloride 105 (98-107) mmol/L Carbon Dioxide 31 H (22-30) mmol/L Anion Gap 3 mmol/L BUN 17 (7-17) mg/dL Creatinine 1.03 (0.52-1.04) mg/dL Est GFR (CKD-EPI)AfAm 61 (>60 ml/min/1.73 sqM) Est GFR (CKD-EPI)NonAf 53 (>60 ml/min/1.73 sqM) Glucose 86 (74-99) mg/dL POC Glucose (mg/dL) 83 101 H (75-99) mg/dL POC Glu Mental Health Practitioner ID Ren Ponce Steven Calcium 8.7 (8.4-10.2) mg/dL Total Bilirubin 1.0 (0.2-1.3) mg/dL AST 32 (14-36) U/L ALT 16 (4-34) U/L Alkaline Phosphatase 210 H (38-126) U/L Total Protein 6.6 (6.3-8.2) g/dL Albumin 3.2 L (3.5-5.0) g/dL Urine Color Urine Appearance (Clear) Urine pH (5.0-8.0) Ur Specific [place] (1.001-1.035) Urine Protein (Negative) Urine Glucose (UA) (Negative) Urine Ketones (Negative) Urine Blood (Negative) Urine Nitrite (Negative) Urine Bilirubin (Negative) Urine Urobilinogen (<2.0) mg/dL Ur Leukocyte Esterase (Negative) Urine RBC (0-5) /hpf Urine WBC (0-5) /hpf Ur Squamous Epith Cells (0-4) /hpf Amorphous Sediment (None) /hpf Urine Bacteria (None) /hpf Disposition Clinical Impression: Diabetic hypoglycemia, Urinary tract infection Disposition: HOME SELF-CARE Condition: Good Instructions (If sedation given, give patient instructions): Urinary Tract Infection in Women (ED), Hypoglycemia in a Person with Diabetes (ED), What to Do if Your Blood Sugar is Low (ED) Additional Instructions: Take medications as directed. Follow-up with your primary care physician for recheck in 1-2 days. Check blood sugar frequency throughout the night tonight. Return to the emergency department immediately for any new, worsening, or concerning symptoms. Prescriptions: Nitrofurantoin Monohyd/M-Cryst [Macrobid] 100 mg PO Q12HR #14 cap Is patient prescribed a controlled substance at d/c from ED?: No Referrals: Mitra Malik MD [Primary Care Provider] - 1-2 days Time of Disposition: 22:19
[2019-12-14] MEDS ORDERED: NITROFURANTOIN MONOHYD/M-CRYST 100 MG CAP PO STA (22:17)
[2019-12-14 22:36] LABS: Glucose,Whole Blood 101 mg/dL (75-99)
[2019-12-14 22:45] VITALS: BP 139/89; PULSE 79; RESP 18; TEMP 98.6
== END 2019-12-14 22:45 | disposition home or self-care (01) ==
LOC: EC 20:21
DX: E11.649 Type 2 diabetes mellitus with hypoglycemia without coma (principal); N39.0 Urinary tract infection, site not specified; I10 Essential (primary) hypertension; E78.5 Hyperlipidemia, unspecified; Z79.899 Other long term (current) drug therapy; Z79.4 Long term (current) use of insulin; Z88.1 Allergy status to other antibiotic agents; Z85.118 Personal history of other malignant neoplasm of bronchus and lung
CPT/HCPCS: 36415; 80053; 81001; 85025; 87086; 99283

== ENCOUNTER → 2020-01-02 | Outpatient (CLI) | payer MEDICARE, BC ==
--- NOTE | 2020-01-02 09:09 | CT ---
EXAMINATION TYPE: CT chest w con DATE OF EXAM: 01/02/2020 COMPARISON: 05/31/2016 HISTORY: Right lung cancer CT DLP: 781 mGycm Automated exposure control for dose reduction was used. CONTRAST: CT scan of the chest is performed with IV Contrast, patient injected with 100 ml mL of Isovue 300. FINDINGS: LUNGS: Stable pleural-based loculated collection left lung base measuring 2.8 cm versus 3.6 cm previo usly. Pleural-based nodularity right upper lobe image 25 measures 9 mm and is stable relative to the prior study. Small left parenchymal nodule right lower lobe measures 3 mm image 33 and is also unchan ged. No additional nodules identified. Postoperative changes about the right hilum. MEDIASTINUM: There are no greater than 1 cm hilar or mediastinal lymph nodes. No pericardial effusi on is seen. Thoracic aorta is of normal caliber. The heart is not enlarged. UPPER ABDOMEN: No significant abnormality appreciated. OTHER: No additional significant abnormality is seen. IMPRESSION: 1. Postoperative changes about the right hilum without definite evidence for recurrence. As noted the re couple of scattered nodules as well as a small loculated collection left lung base which is slight ly smaller in size
== END | disposition home or self-care (01) ==
LOC: RADCTMAIN 07:06
PROVIDERS: ATTEND Internal Medicine
DX: R91.8 Other nonspecific abnormal finding of lung field (principal); Z98.890 Other specified postprocedural states; C34.91 Malignant neoplasm of unspecified part of right bronchus or lung
CPT/HCPCS: 71260; Q9967

== ENCOUNTER 2020-11-23 12:12 | Inpatient (IN) | payer MEDICARE, BC ==
[2020-11-23] MEDS ORDERED: SODIUM CHLORIDE 0.9% 500 ML 500 ML IV STA (12:23)
--- NOTE | 2020-11-23 12:27 | ED ---
General Adult HPI - General Stated complaint: Weakness Time Seen by Provider: 11/23/20 12:15 Source: patient, RN notes reviewed, old records reviewed - History of Present Illness Initial comments: This is a 75-year-old female presents emergency department with past medical history significant for cancer over 10 years ago. Patient states over the last 3 days she's been feeling extremely weak and she thinks it might be a urinary tract infection because she's had burning with urination. Patient states she has had the cold vaccine but did not get the blister. Patient denies any fever chills or cough per patient denies any chest pain difficult breathing shortest breath per patient denies any back pain. Patient denies any abdominal pain patient denies nausea vomiting diarrhea. - Related Data Home Medications Medication Instructions Recorded Confirmed Losartan Potassium 100 mg PO HS 05/29/16 11/23/20 Atorvastatin [Lipitor] 40 mg PO HS 12/14/19 11/23/20 Metoprolol Succinate [Toprol XL] 25 mg PO HS 12/14/19 11/23/20 Repaglinide 1 mg PO AC-BID 12/14/19 11/23/20 Insulin Glargine,Hum.rec.anlog 60 unit SQ HS 11/23/20 11/23/20 [Lantus Solostar Pen] Allergies Allergy/AdvReac Type Severity Reaction Status Date / Time cephalexin Allergy Rash/Hives, Verified 11/23/20 14:20 redness, swelling Review of Systems ROS Statement: Those systems with pertinent positive or pertinent negative responses have been documented in the HPI. ROS Other: All systems not noted in ROS Statement are negative. Past Medical History Past Medical History: Cancer, Diabetes Mellitus, Hyperlipidemia, Hypertension Additional Past Medical History / Comment(s): hx. lung cancer 2006, recent kidney infection now resolved History of Any Multi-Drug Resistant Organisms: None Reported Past Surgical History: Cholecystectomy, Hernia Repair Additional Past Surgical History / Comment(s): partial lobectomy 2008 Past Anesthesia/Blood Transfusion Reactions: No Reported Reaction Past Psychological History: No Psychological Hx Reported Smoking Status: Never smoker Past Alcohol Use History: None Reported Past Drug Use History: None Reported - Past Family History Mother Family Medical History: Cancer General Exam - General Exam Comments Initial Comments: GENERAL: Patient is well-developed and well-nourished. Patient is nontoxic and well- hydrated and is in mild distress. ENT: Neck is soft and supple. No significant lymphadenopathy is noted. Oropharynx is clear. Moist mucous membranes. Neck has full range of motion without eliciting any pain. EYES: The sclera were anicteric and conjunctiva were pink and moist. Extraocular movements were intact and pupils were equal round and reactive to light. Eyelids were unremarkable. PULMONARY: Unlabored respirations. Good breath sounds bilaterally. No audible rales rhonchi or wheezing was noted. CARDIOVASCULAR: There is a regular rate and rhythm without any murmurs gallops or rubs. ABDOMEN: Soft and nontender with normal bowel sounds. SKIN: Skin is clear with no lesions or rashes and otherwise unremarkable. NEUROLOGIC: Patient is alert and oriented x3. Cranial nerves II through XII are grossly intact. Motor and sensory are also intact. Normal speech, volume and content. Symmetrical smile. MUSCULOSKELETAL: Normal extremities with adequate strength and full range of motion. No lower extremity swelling or edema. No calf tenderness. LYMPHATICS: No significant lymphadenopathy is noted PSYCHIATRIC: Normal psychiatric evaluation. Course Vital Signs 11/23/20 12:18 Temperature 97.6 F Pulse Rate 68 Respiratory 22 Rate Blood Pressure 202/85 O2 Sat by Pulse 95 Oximetry Medical Decision Making - Medical Decision Making EKG shows normal sinus rhythm at 67 bpm MI interval is 144 tresses 86 Q-T in tervals 408 QTC is 431 per patient's EKG shows no ST segment elevation or depression. Chest x-ray shows acute pulmonary edema. Patient states she's had no history of this. I gave the patient Nitropaste Vasotec and Lasix at this point in time. I spoke with Dr. Malik he agreed to admit the patient admitted the patient wrote admitting orders. I continued Lasix and Nitropaste on the floor. - Lab Data Result diagrams: 11/23/20 12:28 11/23/20 12:28 Lab Results 11/23/20 11/23/20 11/23/20 Range/Units 12:28 12:28 12:28 WBC 9.3 (3.8-10.6) k/uL RBC 3.17 L (3.80-5.40) m/uL Hgb 10.0 L (11.4-16.0) gm/dL Hct 31.6 L (34.0-46.0) % MCV 99.6 (80.0-100.0) fL MCH 31.5 (25.0-35.0) pg MCHC 31.6 (31.0-37.0) g/dL RDW 17.1 H (11.5-15.5) % Plt Count 236 (150-450) k/uL MPV 7.6 Neutrophils % 82 % Lymphocytes % 12 % Monocytes % 4 % Eosinophils % 2 % Basophils % 0 % Neutrophils # 7.6 (1.3-7.7) k/uL Lymphocytes # 1.1 (1.0-4.8) k/uL Monocytes # 0.3 (0-1.0) k/uL Eosinophils # 0.1 (0-0.7) k/uL Basophils # 0.0 (0-0.2) k/uL Anisocytosis Slight Macrocytosis Slight Sodium 141 (137-145) mmol/L Potassium 4.4 (3.5-5.1) mmol/L Chloride 106 (98-107) mmol/L Carbon Dioxide 34 H (22-30) mmol/L Anion Gap 1 mmol/L BUN 20 H (7-17) mg/dL Creatinine 0.72 (0.52-1.04) mg/dL Est GFR (CKD-EPI)AfAm >90 (>60 ml/min/1.73 sqM) Est GFR (CKD-EPI)NonAf 82 (>60 ml/min/1.73 sqM) Glucose 76 (74-99) mg/dL Plasma Lactic Acid [place] (0.7-2.0) mmol/L Calcium 8.2 L (8.4-10.2) mg/dL Total Bilirubin 1.1 (0.2-1.3) mg/dL AST 23 (14-36) U/L ALT 16 (4-34) U/L Alkaline Phosphatase 197 H (38-126) U/L Total Protein 5.8 L (6.3-8.2) g/dL Albumin 2.7 L (3.5-5.0) g/dL Urine Color Yellow Urine Appearance Clear (Clear) Urine pH 5.5 (5.0-8.0) Ur Specific [place] 1.015 (1.001-1.035) Urine Protein Trace H (Negative) Urine Glucose (UA) Negative (Negative) Urine Ketones Negative (Negative) Urine Blood Negative (Negative) Urine Nitrite Negative (Negative) Urine Bilirubin Negative (Negative) Urine Urobilinogen <2.0 (<2.0) mg/dL Ur Leukocyte Esterase Negative (Negative) Coronavirus (PCR) (Not Detectd) 11/23/20 11/23/20 Range/Units 12:28 12:28 WBC (3.8-10.6) k/uL RBC (3.80-5.40) m/uL Hgb (11.4-16.0) gm/dL Hct (34.0-46.0) % MCV (80.0-100.0) fL MCH (25.0-35.0) pg MCHC (31.0-37.0) g/dL RDW (11.5-15.5) % Plt Count (150-450) k/uL MPV Neutrophils % % Lymphocytes % % Monocytes % % Eosinophils % % Basophils % % Neutrophils # (1.3-7.7) k/uL Lymphocytes # (1.0-4.8) k/uL Monocytes # (0-1.0) k/uL Eosinophils # (0-0.7) k/uL Basophils # (0-0.2) k/uL Anisocytosis Macrocytosis Sodium (137-145) mmol/L Potassium (3.5-5.1) mmol/L Chloride (98-107) mmol/L Carbon Dioxide (22-30) mmol/L Anion Gap mmol/L BUN (7-17) mg/dL Creatinine (0.52-1.04) mg/dL Est GFR (CKD-EPI)AfAm (>60 ml/min/1.73 sqM) Est GFR (CKD-EPI)NonAf (>60 ml/min/1.73 sqM) Glucose (74-99) mg/dL Plasma Lactic Acid [place] 0.6 L (0.7-2.0) mmol/L Calcium (8.4-10.2) mg/dL Total Bilirubin (0.2-1.3) mg/dL AST (14-36) U/L ALT (4-34) U/L Alkaline Phosphatase (38-126) U/L Total Protein (6.3-8.2) g/dL Albumin (3.5-5.0) g/dL Urine Color Urine Appearance (Clear) Urine pH (5.0-8.0) Ur Specific [place] (1.001-1.035) Urine Protein (Negative) Urine Glucose (UA) (Negative) Urine Ketones (Negative) Urine Blood (Negative) Urine Nitrite (Negative) Urine Bilirubin (Negative) Urine Urobilinogen (<2.0) mg/dL Ur Leukocyte Esterase (Negative) Coronavirus (PCR) Not Detected (Not Detectd) Critical Care Time Critical Care Time: Yes Total Critical Care Time: 35 Disposition Clinical Impression: Hypertensive urgency, Acute pulmonary edema, Anemia Disposition: ADMITTED IP TO THIS HOSP Referrals: Mitra Malik MD [Primary Care Provider] - 1-2 days Time of Disposition: 14:35
[2020-11-23 13:12] LABS: Appearance,Urine Clear (Clear); Bilirubin,Urine Negative (Negative); Blood,Urine Negative (Negative); Color,Urine Yellow; Glucose,Urine (UA) Negative (Negative); Ketones,Urine Negative (Negative); Leukocyte Esterase,Urine Negative (Negative); Nitrite,Urine Negative (Negative); PH, Urine 5.5 (5.0-8.0); Protein,Urine Trace (Negative); Specific Gravity,Urine 1.015 (1.001-1.035); Urobilinogen,Urine <2.0 mg/dL (<2.0)
[2020-11-23 13:23] LABS: ALT 16 U/L (4-34); AST 23 U/L (14-36); African American GFR (CKD) >90 (>60 ml/min/1.73 sqM); Albumin 2.7 g/dL (3.5-5.0); Alkaline Phosphatase 197 U/L (38-126); Anion Gap 1 mmol/L; Blood Urea Nitrogen 20 mg/dL (7-17); Calcium 8.2 mg/dL (8.4-10.2); Carbon Dioxide 34 mmol/L (22-30); Chloride 106 mmol/L (98-107); Glucose 76 mg/dL (74-99); Non-African American GFR(CKD) 82 (>60 ml/min/1.73 sqM); Potassium 4.4 mmol/L (3.5-5.1); Sodium 141 mmol/L (137-145); Total Bilirubin 1.1 mg/dL (0.2-1.3); Total Protein 5.8 g/dL (6.3-8.2)
[2020-11-23 13:24] LABS: Anisocytosis Slight; Basophils % (A) 0 %; Eosinophils # (A) 0.1 k/uL (0-0.7); Eosinophils % (A) 2 %; HCT 31.6 % (34.0-46.0); Lymphocytes # (A) 1.1 k/uL (1.0-4.8); Lymphocytes % (A) 12 %; MCH 31.5 pg (25.0-35.0); MCHC 31.6 g/dL (31.0-37.0); MCV 99.6 fL (80.0-100.0); Macrocytosis Slight; Mean Platelet Volume 7.6; Monocytes # (A) 0.3 k/uL (0-1.0); Monocytes % (A) 4 %; Neutrophils # (A) 7.6 k/uL (1.3-7.7); Neutrophils % (A) 82 %; Platelet Count 236 k/uL (150-450); RBC 3.17 m/uL (3.80-5.40); RDW 17.1 % (11.5-15.5); WBC 9.3 k/uL (3.8-10.6)
--- NOTE | 2020-11-23 13:27 | XR ---
EXAMINATION TYPE: XR chest 2V DATE OF EXAM: 11/23/2020 COMPARISON: Chest x-ray November 13, 2015. Chest CT January 02, 2020 HISTORY: History of lung cancer with weakness TECHNIQUE: Frontal and lateral views of the chest are obtained. FINDINGS: Exam suboptimal secondary to large body habitus. Persisting cardiomegaly with new moderate central vascular congestion and small bilateral pleural effusions including fluid layering along the fissures along with mild/moderate interstitial edema on background chronic parenchymal changes. [place] us structures are intact IMPRESSION: Findings consistent with CHF exacerbation as there is cardiomegaly with moderate central vascular congestion along with mild to moderate interstitial edema and small bilateral pleural effus ions are all identified.
[2020-11-23] MEDS ORDERED: hydrALAZINE HCL 20 MG/ML 1 ML VIAL IVP STA (13:48)
[2020-11-23] MEDS ORDERED: NITROGLYCERIN OINT 1 INCH/GM PACKET TOPICAL STA (14:29)
[2020-11-23] MEDS ORDERED: FUROSEMIDE 10 MG/ML 4 ML VIAL IV STA (14:29)
[2020-11-23] MEDS ORDERED: ENALAPRILAT 1.25 MG/ML 1 ML VIAL IVP STA (14:29)
[2020-11-23] MEDS: ENALAPRILAT 1.25 MG/ML 1 ML VIAL IVP SCH ×2 (15:17→21:07)
[2020-11-23] MEDS: FUROSEMIDE 10 MG/ML 4 ML VIAL IV SCH ×2 (15:17→23:00)
[2020-11-23 17:40] LABS: Glucose,Whole Blood 61 mg/dL (75-99)
[2020-11-23 17:40] LABS: Glucose,Whole Blood 69 mg/dL (75-99)
[2020-11-23 17:50] LABS: Glucose,Whole Blood 116 mg/dL (75-99)
[2020-11-23] MEDS: NITROGLYCERIN OINT 1 INCH/GM PACKET TOPICAL SCH ×2 (18:15→21:26)
[2020-11-23 20:41] LABS: Glucose,Whole Blood 136 mg/dL (75-99)
[2020-11-23] MEDS ORDERED: hydrALAZINE HCL 20 MG/ML 1 ML VIAL IVP PRN (20:53)
[2020-11-23] MEDS ORDERED: MELATONIN 5 MG TABLET PO PRN (20:53)
[2020-11-23] MEDS ORDERED: INSULIN DETEMIR (LEVEMIR) 100 UNIT/ML SYR SQ SCH (21:00)
[2020-11-23] MEDS ORDERED: REPAGLINIDE 1 MG TAB PO SCH (21:00)
[2020-11-23] MEDS ORDERED: LOSARTAN 50 MG TAB PO SCH (21:00)
[2020-11-23] MEDS: INSULIN ASPART (NovoLOG) 100 UNIT/ML VIAL SQ SCH (21:10)
[2020-11-23] MEDS: METOPROLOL SUCCINATE (ER) 25 MG TAB.ER.24H PO SCH (21:26)
[2020-11-23] MEDS: ATORVASTATIN 40 MG TAB PO SCH (21:26)
[2020-11-24 05:46] LABS: Glucose,Whole Blood 48 mg/dL (75-99)
[2020-11-24] MEDS: INSULIN ASPART (NovoLOG) 100 UNIT/ML VIAL SQ SCH ×4 (05:53→20:43)
[2020-11-24] MEDS: FUROSEMIDE 10 MG/ML 4 ML VIAL IV SCH (06:22)
[2020-11-24 06:28] LABS: Glucose,Whole Blood 63 mg/dL (75-99)
[2020-11-24 06:28] LABS: Glucose,Whole Blood 89 mg/dL (75-99)
[2020-11-24] MEDS: NITROGLYCERIN OINT 1 INCH/GM PACKET TOPICAL SCH (09:39)
[2020-11-24] MEDS: VALSARTAN 160 MG TAB PO SCH ×2 (10:49→20:43)
[2020-11-24 11:39] LABS: Glucose,Whole Blood 141 mg/dL (75-99)
--- NOTE | 2020-11-24 12:06 | P.CRDCN ---
History of Present Illness History of present illness: HISTORY OF PRESENTING ILLNESS This is a pleasant 75-year-old female past medical history significant for lung cancer, partial lobectomy, type 2 diabetes, hyperlipidemia, hypertension. 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 We have been asked to see in consultation for acute pulmonary edema and hypertensive urgency. Patient presents to the emergency department with symptoms of weakness, fatigue and dysuria. She denies any symptoms of chest pain, shortness of breath, palpitations, fevers, chills, cough, nausea, vomiting, abdominal pain, syncope. She denies history of [place], stroke, coronary disease. She denies tobacco use. She states she is compliant with her medication. On admission patient was hypertensive blood pressure 202/85, heart rate 60, afebrile, maintaining saturations on 2 L nasal cannula. Patient was given a 500 mL IV fluids bolus, started on IV Lasix, given IV h ydralazine, IV Vasotec, and home dose of losartan, and nitro paste. Patient with 3.7 L urine output yesterday and 1.3L urine output today at this time. DIAGNOSTICS EKG reveals sinus rhythm, heart rate 67 with nonspecific T-wave abnormalities Chest xray findings consistent with CHF exacerbation, cardiomegaly, moderate central vascular congestion, mild to moderate interstitial edema, small bilate ral pleural effusions. Laboratory reviewed, WBC 9.3, hemoglobin 10, platelets 236, sodium 141, potas sium 4.1, BUN 20, serum creatinine 0.7, proBNP 1670, troponin negative 1, albumin 2.7, UA negative, COVID-19 PCR negative Current daily medications include atorvastatin 40 mg daily, losartan 100 mg n ightly, metoprolol succinate 25 mg nightly, insulin REVIEW OF SYSTEMS At the time of my exam: CONSTITUTIONAL: +weakness Denies fever or chills. CARDIOVASCULAR: Denies chest pain, shortness of breath, orthopnea, PND or palpitations. RESPIRATORY: Denies cough. GASTROINTESTINAL: Denies abdominal pain, diarrhea, constipation, nausea or vomiting. MUSCULOSKELETAL: Denies myalgias. NEUROLOGIC: Denies numbness, tingling, headacbe or weakness. ENDOCRINE: Denies fatigue, weight change, polydipsia or polyurina. GENITOURINARY: +burning, Denies hematuria or urgency with micturation. HEMATOLOGIC: Denies history of anemia or bleeding. PHYSICAL EXAMINATION Blood pressure 151/70, heart 73, afebrile, T-max percent 2 L nasal cannula CONSTITUTIONAL: No apparent distress. HEENT: Head is normocephalic. Pupils are equal, round. Sclerae anicteric. Mucous membranes of the mouth are moist. No JVD. No carotid bruit. CHEST EXAMINATION: Lungs are clear to auscultation. No chest wall tenderness is noted on palpation or with deep breathing. HEART EXAMINATION: Regular rate and rhythm. S1, S2 heard. ABDOMEN: Soft, nontender. Positive bowel sounds. EXTREMITIES: 2+ peripheral pulses, mild bilateral lower extremity edema and no calf tenderness. NEUROLOGIC EXAMINATION: Patient is awake, alert and oriented x3. ASSESSMENT Hypertensive urgency Acute heart failure exacerbation, unclear diastolic vs systolic- echocardiogram pending History of lung cancer Type 2 Diabetes Hyperlipidemia History of hypertension PLAN -Obtain 2D echocardiogram -Discontinue Losartan, Start Valsartan 160mg BID -Stop nitroglycerin paste -Patient with significant urine output, appears clinically improved on exam, will stop IV Lasix and start PO Lasix 40mg daily -Continue metoprolol succinate -Monitor patient's blood pressure -Monitor patient's renal function and electrolytes -Further recommendations based on clinical course Nurse Practitioner note has been reviewed, I agree with a documented findings and plan of care. Patient was seen and examined. Past Medical History Past Medical History: Cancer, Diabetes Mellitus, Hyperlipidemia, Hypertension Additional Past Medical History / Comment(s): hx. lung cancer 2006, recent kidney infection now resolved History of Any Multi-Drug Resistant Organisms: None Reported Past Surgical History: Cholecystectomy, Hernia Repair Additional Past Surgical History / Comment(s): partial lobectomy 2007 Past Anesthesia/Blood Transfusion Reactions: No Reported Reaction Past Psychological History: No Psychological Hx Reported Smoking Status: Never smoker Past Alcohol Use History: None Reported Past Drug Use History: None Reported - Past Family History Mother Family Medical History: Cancer Medications and Allergies Home Medications Medication Instructions Recorded Confirmed Type Losartan Potassium 100 mg PO HS 05/29/16 11/23/20 History Atorvastatin [Lipitor] 40 mg PO HS 12/14/19 11/23/20 History Metoprolol Succinate [Toprol XL] 25 mg PO HS 12/14/19 11/23/20 History Repaglinide 1 mg PO AC-BID 12/14/19 11/23/20 History Insulin Glargine,Hum.rec.anlog 60 unit SQ HS 11/23/20 11/23/20 History [Lantus Solostar Pen] Allergies Allergy/AdvReac Type Severity Reaction Status Date / Time cephalexin Allergy Rash/Hives, Verified 11/23/20 14:20 redness, swelling Physical Exam Vitals: Vital Signs Temp Pulse Pulse Resp BP BP Pulse Ox 11/24/20 08:40 97.9 F 11/24/20 08:26 73 20 151/78 97 11/24/20 08:00 20 11/24/20 04:00 98.2 F 63 18 125/61 96 11/24/20 02:00 77 18 11/23/20 23:27 98.2 F 77 18 151/65 95 11/23/20 20:00 98.2 F 81 18 173/79 94 L 11/23/20 16:33 74 24 153/79 97 11/23/20 16:00 98.1 F 76 79 18 154/69 194/76 98 11/23/20 15:30 85 22 156/73 99 11/23/20 15:00 76 20 144/69 96 11/23/20 14:30 71 24 167/74 100 11/23/20 14:00 60 22 197/77 99 11/23/20 13:30 64 22 197/85 98 11/23/20 13:00 78 22 196/92 95 11/23/20 12:25 24 11/23/20 12:18 97.6 F 68 22 202/85 95 Intake and Output 11/23/20 11/24/20 11/24/20 22:59 06:59 14:59 Intake Total 360 490 240 Output Total 1500 2200 Balance -1140 -1710 240 Intake: IV 10 0.9 10 Oral 360 480 240 Output: Urine 1500 2200 Other: Voiding Method Indwelling Catheter Indwelling Catheter Indwelling Catheter Weight 136.078 kg 180 kg Results 11/23/20 12:28 11/23/20 12:28 Cardiac Enzymes 11/23/20 11/23/20 Range/Units 12:28 14:33 AST 23 (14-36) U/L Troponin I <0.012 (0.000-0.034) ng/mL CBC 11/23/20 Range/Units 12:28 WBC 9.3 (3.8-10.6) k/uL RBC 3.17 L (3.80-5.40) m/uL Hgb 10.0 L (11.4-16.0) gm/dL Hct 31.6 L (34.0-46.0) % Plt Count 236 (150-450) k/uL Comprehensive Metabolic Panel 11/23/20 Range/Units 12:28 Sodium 141 (137-145) mmol/L Potassium 4.4 (3.5-5.1) mmol/L Chloride 106 (98-107) mmol/L Carbon Dioxide 34 H (22-30) mmol/L BUN 20 H (7-17) mg/dL Creatinine 0.72 (0.52-1.04) mg/dL Glucose 76 (74-99) mg/dL Calcium 8.2 L (8.4-10.2) mg/dL AST 23 (14-36) U/L ALT 16 (4-34) U/L Alkaline Phosphatase 197 H (38-126) U/L Total Protein 5.8 L (6.3-8.2) g/dL Albumin 2.7 L (3.5-5.0) g/dL Current Medications Generic Name Dose Route Start Last Admin Trade Name Freq PRN Reason Stop Dose Admin Atorvastatin Calcium 40 mg 11/23/20 21:00 11/23/20 21:26 Atorvastatin 40 Mg Tab PO 40 mg HS FAITH Administration Furosemide 40 mg 11/25/20 09:00 Furosemide 40 Mg Tab PO DAILY FAITH Hydralazine HCl 20 mg 11/23/20 20:53 Hydralazine Hcl 20 Mg/Ml 1 Ml Vial IVP Q4HR PRN Blood Pressure - High Insulin Aspart 0 unit 11/23/20 21:00 11/24/20 05:53 Insulin Aspart (Novolog) 100 Unit/Ml Vial SQ Not Given ACHS [facility] Protocol Insulin Detemir 36 unit 11/24/20 21:00 Insulin Detemir (Levemir) 100 Unit/Ml Syr SQ HS FAITH Melatonin 5 mg 11/23/20 20:53 11/23/20 23:00 Melatonin 5 Mg Tablet PO 5 mg HS PRN Administration Insomnia Metoprolol Succinate 25 mg 11/23/20 21:00 11/23/20 21:26 Metoprolol Succinate (Er) 25 Mg Tab.Er.24h PO 25 mg HS FAITH Administration Valsartan 160 mg 11/24/20 10:30 11/24/20 10:49 Valsartan 160 Mg Tab PO 160 mg BID FAITH Administration Intake and Output 11/23/20 11/24/20 11/24/20 22:59 06:59 14:59 Intake Total 360 490 240 Output Total 1500 2200 Balance -1140 -1710 240 Intake: IV 10 0.9 10 Oral 360 480 240 Output: Urine 1500 2200 Other: Voiding Method Indwelling Catheter Indwelling Catheter Indwelling Catheter Weight 136.078 kg 180 kg 11/23/20 12:28 11/23/20 12:28
[2020-11-24 15:49] VITALS: BMI 52.0
[2020-11-24 16:24] LABS: Glucose,Whole Blood 174 mg/dL (75-99)
[2020-11-24 20:16] LABS: Glucose,Whole Blood 173 mg/dL (75-99)
[2020-11-24] MEDS: INSULIN DETEMIR (LEVEMIR) 100 UNIT/ML SYR SQ SCH (20:43)
[2020-11-24] MEDS: METOPROLOL SUCCINATE (ER) 25 MG TAB.ER.24H PO SCH (20:43)
[2020-11-24] MEDS: ATORVASTATIN 40 MG TAB PO SCH (20:43)
[2020-11-25 05:56] LABS: Glucose,Whole Blood 68 mg/dL (75-99)
[2020-11-25 06:16] LABS: Glucose,Whole Blood 75 mg/dL (75-99)
[2020-11-25] MEDS: INSULIN ASPART (NovoLOG) 100 UNIT/ML VIAL SQ SCH ×4 (06:18→20:37)
[2020-11-25 08:47] LABS: ALT 15 U/L (4-34); AST 23 U/L (14-36); African American GFR (CKD) >90 (>60 ml/min/1.73 sqM); Albumin 2.6 g/dL (3.5-5.0); Alkaline Phosphatase 186 U/L (38-126); Anion Gap 3 mmol/L; Blood Urea Nitrogen 20 mg/dL (7-17); Calcium 8.5 mg/dL (8.4-10.2); Carbon Dioxide 39 mmol/L (22-30); Chloride 98 mmol/L (98-107); Glucose 66 mg/dL (74-99); Non-African American GFR(CKD) 80 (>60 ml/min/1.73 sqM); Potassium 4.4 mmol/L (3.5-5.1); Sodium 140 mmol/L (137-145); Total Bilirubin 1.1 mg/dL (0.2-1.3); Total Protein 5.6 g/dL (6.3-8.2)
[2020-11-25] MEDS: VALSARTAN 160 MG TAB PO SCH ×2 (08:55→20:37)
[2020-11-25] MEDS: FUROSEMIDE 40 MG TAB PO SCH (08:55)
--- NOTE | 2020-11-25 09:42 | P.HPIM ---
History of Present Illness H&P Date: 11/24/20 HISTORY OF PRESENT ILLNESS This is a 75-year-old female patient of with past medical history of hypertension and hypertensive cardio vascular disease, hyperlipidemia, diabetes mellitus type 2 with diabetic polyneuropathy, obesity with obstructive sleep apnea obesity hypoventilation syndrome, history of non-small cell lung cancer status post right lobectomy, COPD, chronic hypoxic respiratory failure on home O2 at 2 L nasal cannula. Patient is not currently taking Lasix at home as she states she ran out. She does not think that she has increased sodium intake but has been getting Meals on Wheels which usually does not have salt added. She developed shortness of breath on Tuesday and was feeling horrible over the weekend and waited until yesterday to come into the hospital for evaluation. She has been started on IV Lasix and states that she is urinating well. She denies having any chest pain. She does have shortness of breath which is slightly improved today. She does complain of her feet swelling. Kay catheter was placed in the emergency center. Regarding farxiga which patient was started on in the office, this was too expensive at the time and she now states that she is in the donut hole. Patient presented to [facility] emergency center for evaluation. She was found to be afebrile, heart rate 68, blood pressure initial ly 202/85, pulse ox 95% on room air. EKG was a sinus rhythm with nonspecific T- wave abnormalities. WBC 9.3, hemoglobin 10, platelet count 236. Sodium 141, potassium 4.1, chloride 106, CO2 34. BUN 20, creatinine 0.7. ProBNP 1670. Troponin negative 1. Hemoglobin A1c 5.8. Lactic acid 0.6. AST 23, ALT 16, alkaline phosphatase 197. Albumin 2.7. Urinalysis was negative for infection. Covid 19 PCR not detected. Chest x-ray revealed CHF, cardiomegaly, moderate central vascular congestion, mild to moderate interstitial edema, small bilateral pleural effusions. Patient was started on IV Lasix, Nitro-Bid and admitted to the cardiac stepdown unit, consult with cardiology requested. REVIEW OF SYSTEMS Constitutional: No fever, no chills, no night sweats. No weight change. Reports weakness, Reports fatigue or lethargy. No daytime sleepiness. EENT: No headache. No blurred vision or double vision, no loss of vision. No loss of Hearing, no ringing in the ears, no dizziness. No nasal drainage or congestion. No epistaxis. No sore throat. Lungs: Reports shortness of breath, cough, no sputum production. No wheezing. Cardiovascular: No chest pain, reports lower extremity edema. No palpitations. No paroxysmal nocturnal dyspnea. No orthopnea. No lightheadedness or dizziness. No syncopal episodes. Abdominal: No abdominal pain. No nausea, vomiting. No diarrhea. No constipation. No bloody or tarry stools.. No loss of appetite. Genitourinary: No dysuria, increased frequency, urgency. No urinary retention. Musculoskeletal: No myalgias. No muscle weakness, no gait dysfunction, no frequent falls. No back pain. No neck pain. Integumentary: No wounds, no lesions. No rash or pruritus. No unusual bruising. Neurologic: No aphasia. No facial droop. No change in mentation. No head injury. No headache. No paralysis. No paresthesia. Psychiatric: Reports depression. Reports anxiety. No mood swings. Endocrine: No abnormal blood sugars. No weight change. No excessive sweating or thirst. No cold intolerance. MEDICAL HISTORY Hypertension with hypertensive cardiovascular disease Hyperlipidemia Diabetes mellitus type 2 Diabetic polyneuropathy Obesity with obstructive sleep apnea and obesity hypoventilation syndrome History of non-small cell lung cancer status post right lobectomy COPD Hypoxic respiratory failure on home O2 at 2 L nasal cannula Morbid obesity with BMI of 44 SURGICAL HISTORY Partial lobectomy in 2008 Cholecystectomy Hernia repair Left nasal skin cancer excision SOCIAL HISTORY No tobacco use, no alcohol, marijuana or illicit drug use. Patient's recently moved to [facility] where he is being transitioned to long-term care. DME and place includes oxygen, nebulizer, glucometer, walker. FAMILY HISTORY Father at age 71 from emphysema. Mother at age 52 from cervical cancer. Patient has 3 brothers and one has from myocardial infarction, one with motor vehicle accident and third was stabbed to . Patient has 2 sisters and one from a myocardial infarction and the other one from dementia. Patient has one son that at age 52 from myocardial infarction. Patient has one daughter healthy with no major medical problems. PHYSICAL EXAMINATION Gen: This is a 75-year-old female, morbidly obese, resting in bed with minimal respiratory distress. HEENT: Head is atraumatic, normocephalic. Pupils equal, round. Sclerae is anicteric. Conjunctivae pink. Oral mucous membranes slightly dry. NECK: Supple. No JVD. No lymphadenopathy. No thyromegaly. LUNGS: Diminished breath sounds throughout, minimal expiratory wheeze. No intercostal retractions. Mild accessory muscle usage HEART: First heart sound is depressed, second heart sound is normal, 2/6 systolic ejection murmur at the left sternal border. No S3, no S4, no JVP. ABDOMEN: Soft. Bowel sounds are present. No masses. No tenderness. EXTREMITIES: No pedal edema. No calf tenderness. 1+ bilateral lower extremity edema NEUROLOGICAL: Patient is awake, alert and oriented x3. Cranial nerves 2 through 12 are grossly intact. ASSESSMENT AND PLAN 1. Acute diastolic heart failure patient is on IV Lasix 40 mg every 8 hours, echocardiogram ordered, cardiology consult, monitor I&O and daily weights, monitor electrolytes and renal function. 2. Hypertensive urgency. Patient was started on nitroglycerin ointment in the emergency center. Continue losartan 100 mg daily, Toprol-XL 25 mg at bedtime. 3. Hypertension, hypertensive cardiovascular disease. Continue as in #2. 4. Hyperlipidemia. Continue Lipitor 40 mg at bedtime. 5. Diabetes mellitus type 2 uncontrolled with hypoglycemia. Lantus decreased to 36 units at bedtime, continue NovoLog scale before meals and at bedtime. Hold Prandin. Patient had tried first farxiga and was unable to afford. May reassess this in the office. 6. Diabetic neuropathy. 7. Obesity with obstructive sleep apnea and obesity hypoventilation syndrome. 8. Chronic hypoxic respiratory failure on home O2 at 2 L nasal cannula. 9. COPD, stable without exacerbation. 10. History of non-small cell lung cancer status post right lobectomy, stable. 11. GI prophylaxis. Protonix. 12. DVT prophylaxis. Heparin subcu. 13 COVID-19 testing negative. Patient has been hospitalized during a pandemic. Patient will be admitted to the hospital for a minimum of 2 night stay. DISCHARGE PLAN To be determined. PT and OT consults. Impression and plan of care have been directed as dictated by the signing ph ysician. Patricia Villegas nurse practitioner acting as scribe for signing physician. Past Medical History Past Medical History: Cancer, Diabetes Mellitus, Hyperlipidemia, Hypertension Additional Past Medical History / Comment(s): hx. lung cancer 2007, recent kidney infection now resolved History of Any Multi-Drug Resistant Organisms: None Reported Past Surgical History: Cholecystectomy, Hernia Repair Additional Past Surgical History / Comment(s): partial lobectomy 2008 Past Anesthesia/Blood Transfusion Reactions: No Reported Reaction Past Psychological History: No Psychological Hx Reported Smoking Status: Never smoker Past Alcohol Use History: None Reported Past Drug Use History: None Reported - Past Family History Mother Family Medical History: Cancer Medications and Allergies Home Medications Medication Instructions Recorded Confirmed Type Losartan Potassium 100 mg PO HS 05/29/16 11/23/20 History Atorvastatin [Lipitor] 40 mg PO HS 12/14/19 11/23/20 History Metoprolol Succinate [Toprol XL] 25 mg PO HS 12/14/19 11/23/20 History Repaglinide 1 mg PO AC-BID 12/14/19 11/23/20 History Insulin Glargine,Hum.rec.anlog 60 unit SQ HS 11/23/20 11/23/20 History [Lantus Solostar Pen] Allergies Allergy/AdvReac Type Severity Reaction Status Date / Time cephalexin Allergy Rash/Hives, Verified 11/23/20 14:20 redness, swelling Physical Exam Vitals: Vital Signs Temp Pulse Pulse Resp BP BP Pulse Ox 11/24/20 04:00 98.2 F 63 18 125/61 96 11/24/20 02:00 77 18 11/23/20 23:27 98.2 F 77 18 151/65 95 11/23/20 20:00 98.2 F 81 18 173/79 94 L 11/23/20 16:33 74 24 153/79 97 11/23/20 16:00 98.1 F 76 79 18 154/69 194/76 98 11/23/20 15:30 85 22 156/73 99 11/23/20 15:00 76 20 144/69 96 11/23/20 14:30 71 24 167/74 100 11/23/20 14:00 60 22 197/77 99 11/23/20 13:30 64 22 197/85 98 11/23/20 13:00 78 22 196/92 95 11/23/20 12:25 24 11/23/20 12:18 97.6 F 68 22 202/85 95 Intake and Output 11/23/20 11/24/20 11/24/20 22:59 06:59 14:59 Intake Total 360 490 Output Total 1500 2200 Balance -1140 -1710 Intake: IV 10 0.9 10 Oral 360 480 Output: Urine 1500 2200 Other: Voiding Method Indwelling Catheter Indwelling Catheter Weight 136.078 kg 180 kg Results CBC & Chem 7: 11/23/20 12:28 11/25/20 07:34 Labs: Abnormal Lab Results - Last 24 Hours (Table) 11/23/20 11/23/20 11/23/20 Range/Units 12:28 12:28 12:28 RBC 3.17 L (3.80-5.40) m/uL Hgb 10.0 L (11.4-16.0) gm/dL Hct 31.6 L (34.0-46.0) % RDW 17.1 H (11.5-15.5) % Carbon Dioxide 34 H (22-30) mmol/L BUN 20 H (7-17) mg/dL POC Glucose (mg/dL) (75-99) mg/dL Plasma Lactic Acid Terrell (0.7-2.0) mmol/L Calcium 8.2 L (8.4-10.2) mg/dL Alkaline Phosphatase 197 H (38-126) U/L Total Protein 5.8 L (6.3-8.2) g/dL Albumin 2.7 L (3.5-5.0) g/dL Urine Protein Trace H (Negative) 11/23/20 11/23/20 11/23/20 Range/Units 12:28 17:10 17:27 RBC (3.80-5.40) m/uL Hgb (11.4-16.0) gm/dL Hct (34.0-46.0) % RDW (11.5-15.5) % Carbon Dioxide (22-30) mmol/L BUN (7-17) mg/dL POC Glucose (mg/dL) 69 L 61 L (75-99) mg/dL Plasma Lactic Acid Terrell 0.6 L (0.7-2.0) mmol/L Calcium (8.4-10.2) mg/dL Alkaline Phosphatase (38-126) U/L Total Protein (6.3-8.2) g/dL Albumin (3.5-5.0) g/dL Urine Protein (Negative) 11/23/20 11/23/20 11/24/20 Range/Units 17:47 20:36 05:44 RBC (3.80-5.40) m/uL Hgb (11.4-16.0) gm/dL Hct (34.0-46.0) % RDW (11.5-15.5) % Carbon Dioxide (22-30) mmol/L BUN (7-17) mg/dL POC Glucose (mg/dL) 116 H 136 H 48 L (75-99) mg/dL Plasma Lactic Acid Terrell (0.7-2.0) mmol/L Calcium (8.4-10.2) mg/dL Alkaline Phosphatase (38-126) U/L Total Protein (6.3-8.2) g/dL Albumin (3.5-5.0) g/dL Urine Protein (Negative) 11/24/20 Range/Units 06:01 RBC (3.80-5.40) m/uL Hgb (11.4-16.0) gm/dL Hct (34.0-46.0) % RDW (11.5-15.5) % Carbon Dioxide (22-30) mmol/L BUN (7-17) mg/dL POC Glucose (mg/dL) 63 L (75-99) mg/dL Plasma Lactic Acid Terrell (0.7-2.0) mmol/L Calcium (8.4-10.2) mg/dL Alkaline Phosphatase (38-126) U/L Total Protein (6.3-8.2) g/dL Albumin (3.5-5.0) g/dL Urine Protein (Negative) Thrombosis Risk Factor Assmnt - Choose All That Apply Each Risk Factor Represents 3 Points: Age 75 years or older, Family history of DVT/PE Thrombosis Risk Factor Assessment Total Risk Factor Score: 6 Thrombosis Risk Factor Assessment Level: High Risk
--- NOTE | 2020-11-25 09:49 | P.PN ---
Subjective Progress Note Date: 11/25/20 HISTORY OF PRESENT ILLNESS This is a 75-year-old female patient of with past medical history of hypertension and hypertensive cardio vascular disease, hyperlipidemia, diabetes mellitus type 2 with diabetic polyneuropathy, obesity with obstructive sleep apnea obesity hypoventilation syndrome, history of non-small cell lung cancer status post right lobectomy, COPD, chronic hypoxic respiratory failure on home O2 at 2 L nasal cannula. Patient is not currently taking Lasix at home as she states she ran out. She does not think that she has increased sodium intake but has been getting Meals on Wheels which usually does not have salt added. She developed shortness of breath on Tuesday and was feeling horrible over the weekend and waited until yesterday to come into the hospital for evaluation. She has been started on IV Lasix and states that she is urinating well. She denies having any chest pain. She does have shortness of breath which is slightly improved today. She does complain of her feet swelling. Kya catheter was placed in the emergency center. Regarding farxiga which patient was started on in the office, this was too expensive at the time and she now states that she is in the donut hole. Patient presented to [facility] emergency center for evaluation. She was found to be afebrile, heart rate 68, blood pressure initially 202/85, pulse ox 95% on room air. EKG was a sinus rhythm with nonspecific T-wave abnormalities. WBC 9.3, hemoglobin 10, platelet count 236. Sodium 141, potassium 4.1, chloride 106, CO2 34. BUN 20, creatinine 0.7. ProBNP 1670. Troponin negative 1. Hemoglobin A1c 5.8. Lactic acid 0.6. AST 23, ALT 16, alkaline phosphatase 197. Albumin 2.7. Urinalysis was negative for infection. Covid 19 PCR not detected. Chest x-ray revealed CHF, cardiomegaly, moderate central vascular congestion, mild to moderate interstitial edema, small bilateral pleural effusions. Patient was started on IV Lasix, Nitro-Bid and admitted to the cardiac stepdown unit, consult with cardiology requested. 11/25: Patient has been seen by cardiology and losartan has been changed to valsartan and nitro paste discontinued. IV Lasix changed to oral Lasix at 40 mg daily. Echocardiogram has been obtained and report is pending. Blood sugar was low this morning at 68 for breakfast but we'll plan to continue Lantus at the decreased dose of 36 units at bedtime. She has been afebrile, heart rate 71, blood pressure 159/69, pulse ox 98% on 2 L nasal cannula. Kay catheter will be removed today. Patient has decreased edema to the lower extremity, continues to have significant shortness of breath with very minimal activity. She states she did take a shower this morning. No bowel movement today but did have one ye sterday. Patient has home O2 but is requesting an [employer] portable O2 concentrator for home. log yard manager consult added for this. Patient plan is to return home without home care. Documented weights are inconsistent. Plan to monitor patient another day and probable discharge home tomorrow. REVIEW OF SYSTEMS Constitutional: No fever, no chills, no night sweats. No weight change. Reports weakness, Reports fatigue or lethargy. No daytime sleepiness. EENT: No headache. No blurred vision or double vision, no loss of vision. No loss of Hearing, no ringing in the ears, no dizziness. No nasal drainage or congestion. No epistaxis. No sore throat. Lungs: Reports shortness of breath, cough, no sputum production. No wheezing. Reports shortness of breath with minimal activity. Cardiovascular: No chest pain, reports lower extremity edema. No palpitations. No paroxysmal nocturnal dyspnea. No orthopnea. No lightheadedness or dizziness. No syncopal episodes. Abdominal: No abdominal pain. No nausea, vomiting. No diarrhea. No constipation. No bloody or tarry stools.. No loss of appetite. Genitourinary: No dysuria, increased frequency, urgency. No urinary retention. Musculoskeletal: No myalgias. No muscle weakness, no gait dysfunction, no frequent falls. No back pain. No neck pain. Integumentary: No wounds, no lesions. No rash or pruritus. No unusual bruising. Neurologic: No aphasia. No facial droop. No change in mentation. No head injury. No headache. No paralysis. No paresthesia. Psychiatric: Reports depression. Reports anxiety. No mood swings. Endocrine: Noted abnormal blood sugars. No weight change. No excessive sweating or thirst. PHYSICAL EXAMINATION Gen: This is a 75-year-old female, morbidly obese, resting in bed with minimal respiratory distress. HEENT: Head is atraumatic, normocephalic. Pupils equal, round. Sclerae is anicteric. Conjunctivae pink. Oral mucous membranes slightly dry. NECK: Supple. No JVD. No lymphadenopathy. No thyromegaly. LUNGS: Diminished breath sounds throughout, minimal expiratory wheeze. Mild intercostal retractions. Mild accessory muscle usage HEART: First heart sound is depressed, second heart sound is normal, 2/6 systolic ejection murmur at the left sternal border. No S3, no S4, no JVP. ABDOMEN: Soft. Bowel sounds are present. No masses. No tenderness. EXTREMITIES: No pedal edema. No calf tenderness. Trace bilateral lower extremity edema NEUROLOGICAL: Patient is awake, alert and oriented x3. Cranial nerves 2 through 12 are grossly intact. ASSESSMENT AND PLAN 1. Acute diastolic heart failure. IV Lasix transitioned to oral 40 mg daily, echocardiogram report is pending, cardiology consult, monitor I&O and daily weights, monitor electrolytes and renal function. 2. Hypertensive urgency. Patient was started on nitroglycerin ointment in the emergency center. Continue losartan transitioned to valsartan at 160 mg daily, Toprol-XL 25 mg at bedtime. 3. Hypertension, hypertensive cardiovascular disease. Continue as in #2. 4. Hyperlipidemia. Continue Lipitor 40 mg at bedtime. 5. Diabetes mellitus type 2 uncontrolled with hypoglycemia. Continue decreased dose of Lantus 36 units at bedtime, continue NovoLog scale before meals and at bedtime. Hold Prandin. Patient had tried farxiga and was unable to afford. May reassess this in the office. 6. Diabetic neuropathy. 7. Obesity with obstructive sleep apnea and obesity hypoventilation syndrome. 8. Chronic hypoxic respiratory failure on home O2 at 2 L nasal cannula. Patient is requesting [employer] portable concentrator. log yard manager consult added for this. 9. COPD, stable without exacerbation. 10. History of non-small cell lung cancer status post right lobectomy, stable. 11. GI prophylaxis. Protonix. 12. DVT prophylaxis. Heparin subcu. 13. COVID-19 testing negative. Patient has been hospitalized during a pandemic . DISCHARGE PLAN Home on Tuesday. PT and OT consults. Impression and plan of care have been directed as dictated by the signing physician. Patricia Villegas nurse practitioner acting as scribe for signing physician. Objective - Vital Signs Vital signs: Vital Signs Temp 97.8 F 11/24/20 20:00 Pulse 71 11/25/20 03:36 Resp 18 11/25/20 03:36 BP 124/67 11/25/20 03:36 Pulse Ox 98 11/25/20 03:36 Intake & Output 11/24/20 11/25/20 11/25/20 18:59 06:59 18:59 Intake Total 960 Output Total 1950 1500 Balance -990 -1500 Weight 137.3 kg 118.5 kg Intake: Oral 960 Output: Urine 1950 1500 Other: Voiding Method Indwelling Catheter Indwelling Catheter # Voids 1 - Labs CBC & Chem 7: 11/23/20 12:28 11/25/20 07:34 Labs: Abnormal Lab Results - Last 24 Hours (Table) 11/24/20 11/24/20 11/24/20 Range/Units 11:37 16:22 20:15 POC Glucose (mg/dL) 141 H 174 H 173 H (75-99) mg/dL 11/25/20 Range/Units 05:54 POC Glucose (mg/dL) 68 L (75-99) mg/dL
[2020-11-25 12:25] LABS: Glucose,Whole Blood 97 mg/dL (75-99)
--- NOTE | 2020-11-25 14:10 | P.PN ---
Subjective Progress Note Date: 11/25/20 HISTORY OF PRESENT ILLNESS: This is a pleasant 75-year-old female past medical history significant for lung cancer, partial lobectomy, type 2 diabetes, hyperlipidemia, hypertension. She does not follow with a mill tender. We have been asked to see in consultation for acute pulmonary edema and hypertensive urgency. Patient presents to the emergency department with symptoms of weakness, fatigue and dysuria. She denies any symptoms of chest pain, shortness of breath, palpitations, fevers, chills, cough, nausea, vomiting, abdominal pain, syncope. She denies history of MO, s desike, coronary disease. She denies tobacco use. She states she is compliant with her medication. On admission patient was hypertensive blood pressure 202/85, heart rate 60, afebrile, maintaining saturations on 2 L nasal cannula. Patient was given a 500 mL IV fluids bolus, started on IV Lasix, given IV hydralazine, IV Vasotec, and home dose of losartan, and nitro paste. Patient with 3.7 L urine output yesterday and 1.3L urine output today at this time. DIAGNOSTICS EKG reveals sinus rhythm, heart rate 67 with nonspecific T-wave abnormalities Chest xray findings consistent with CHF exacerbation, cardiomegaly, moderate central vascular congestion, mild to moderate interstitial edema, small bilateral pleural effusions. Laboratory reviewed, WBC 9.3, hemoglobin 10, platelets 236, sodium 141, potassium 4.1, BUN 20, serum creatinine 0.7, proBNP 1670, troponin negative 1, albumin 2.7, UA negative, COVID-19 PCR negative Current daily medications include atorvastatin 40 mg daily, losartan 100 mg nightly, metoprolol succinate 25 mg nightly, insulin 11/25/2020 Patient examined at the bedside with Dr. Montesinos. Patient denies chest pain or pressure. She denies shortness of breath. Patient's blood pressures have significantly improved. Echocardiogram completed revealed ejection fraction 55- 60%. PHYSICAL EXAM: VITAL SIGNS: Reviewed. GENERAL: Well-developed in no acute distress. NECK: Supple. No JVD or thyromegaly LUNGS: Respirations even and unlabored. Lungs essentially clear to auscultation bilaterally. HEART: Regular rate and rhythm. S1 and S2 heard. EXTREMITIES: Normal range of motion. No clubbing or cyanosis. Peripheral pulses intact. No lower extremity edema ASSESSMENT: Hypertensive urgency Acute diastolic heart failure exacerbation History of lung cancer Type 2 Diabetes Hyperlipidemia History of hypertension PLAN: Continue current cardiac medications Patient is stable from a cardiac standpoint Patient may follow up outpatient with Dr. Montesinos in 4-6 weeks We will sign off Please reconsult if needed. Nurse practitioner note has been reviewed by physician. Signing provider agrees with the documented findings, assessment, and plan of care. Objective - Vital Signs Vital signs: Vital Signs Temp 97.4 F L 11/25/20 12:00 Pulse 69 11/25/20 12:00 Resp 20 11/25/20 12:00 BP 185/71 11/25/20 12:00 Pulse Ox 97 11/25/20 12:00 Intake & Output 11/24/20 11/25/20 11/25/20 18:59 06:59 18:59 Intake Total 960 118 Output Total 1950 1500 725 Balance -990 -1500 -607 Weight 137.3 kg 118.5 kg Intake: Oral 960 118 Output: Urine 1950 1500 725 Uretheral (Kay) 225 Other: Voiding Method Indwelling Catheter Indwelling Catheter Indwelling Catheter # Voids 1 - Labs CBC & Chem 7: 11/23/20 12:28 11/25/20 07:34 Labs: Abnormal Lab Results - Last 24 Hours (Table) 11/24/20 11/24/20 11/25/20 Range/Units 16:22 20:15 05:54 Carbon Dioxide (22-30) mmol/L BUN (7-17) mg/dL Glucose (74-99) mg/dL POC Glucose (mg/dL) 174 H 173 H 68 L (75-99) mg/dL Alkaline Phosphatase (38-126) U/L Total Protein (6.3-8.2) g/dL Albumin (3.5-5.0) g/dL 11/25/20 Range/Units 07:34 Carbon Dioxide 39 H (22-30) mmol/L BUN 20 H (7-17) mg/dL Glucose 66 L (74-99) mg/dL POC Glucose (mg/dL) (75-99) mg/dL Alkaline Phosphatase 186 H (38-126) U/L Total Protein 5.6 L (6.3-8.2) g/dL Albumin 2.6 L (3.5-5.0) g/dL
[2020-11-25 16:46] LABS: Glucose,Whole Blood 148 mg/dL (75-99)
[2020-11-25] MEDS: HEPARIN SODIUM,PORCINE/PF 5,000 UNIT/0.5 ML SYRINGE SQ SCH (17:07)
[2020-11-25 19:41] LABS: Glucose,Whole Blood 165 mg/dL (75-99)
[2020-11-25] MEDS: METOPROLOL SUCCINATE (ER) 25 MG TAB.ER.24H PO SCH (20:37)
[2020-11-25] MEDS: ATORVASTATIN 40 MG TAB PO SCH (20:37)
[2020-11-25] MEDS: INSULIN DETEMIR (LEVEMIR) 100 UNIT/ML SYR SQ SCH (22:02)
[2020-11-26] MEDS: HEPARIN SODIUM,PORCINE/PF 5,000 UNIT/0.5 ML SYRINGE SQ SCH ×3 (00:17→16:17)
[2020-11-26 03:56] LABS: Glucose,Whole Blood 92 mg/dL (75-99)
[2020-11-26 06:50] LABS: Glucose,Whole Blood 98 mg/dL (75-99)
[2020-11-26] MEDS ORDERED: PANTOPRAZOLE 40 MG TABLET PO SCH (07:30)
[2020-11-26] MEDS: INSULIN ASPART (NovoLOG) 100 UNIT/ML VIAL SQ SCH ×2 (07:34→12:16)
[2020-11-26] MEDS: VALSARTAN 160 MG TAB PO SCH (08:54)
[2020-11-26] MEDS: FUROSEMIDE 40 MG TAB PO SCH (08:54)
[2020-11-26 11:43] LABS: Glucose,Whole Blood 141 mg/dL (75-99)
--- NOTE | 2020-11-26 14:14 | P.DS ---
Providers Date of admission: 11/23/20 14:37 Expected date of discharge: 11/26/20 Attending physician: Mitra Malik Primary care physician: Mitra Malik Hospital Course: HISTORY OF PRESENT ILLNESS This is a 75-year-old female patient of with past medical history of hypertension and hypertensive cardio vascular disease, hyperlipidemia, diabetes mellitus type 2 with diabetic polyneuropathy, obesity with obstructive sleep apnea obesity hypoventilation syndrome, history of non-small cell lung cancer status post right lobectomy, COPD, chronic hypoxic respiratory failure on home O2 at 2 L nasal cannula. Patient is not currently taking Lasix at home as she states she ran out. She does not think that she has increased sodium intake but has been getting Meals on Wheels which usually does not have salt added. She developed shortness of breath on Tuesday and was feeling horrible over the weekend and waited until yesterday to come into the hospital for evaluation. She has been started on IV Lasix and states that she is urinating well. She denies having any chest pain. She does have shortness of breath which is slightly improved today. She does complain of her feet swelling. Kay catheter was placed in the emergency center. Regarding farxiga which patient was started on in the office, this was too expensive at the time and she now states that she is in the donut hole. Patient presented to [facility] emergency center for evaluation. She was found to be afebrile, heart rate 68, blood pressure initially 202/85, pulse ox 95% on room air. EKG was a sinus rhythm with nonspecific T-wave abnormalities. WBC 9.3, hemoglobin 10, platelet count 236. Sodium 141, potassium 4.1, chloride 106, CO2 34. BUN 20, creatinine 0.7. ProBNP 1670. Troponin negative 1. Hemoglobin A1c 5.8. Lactic acid 0.6. AST 23, ALT 16, alkaline phosphatase 197. Albumin 2.7. Urinalysis was negative for infection. Covid 19 PCR not detected. Chest x-ray revealed CHF, cardiomegaly, moderate central vascular congestion, mild to moderate interstitial edema, small bilateral pleural effusions. Patient was started on IV Lasix, Nitro-Bid and admitted to the cardiac stepdown unit, consult with cardiology requested. 11/25: Patient has been seen by cardiology and losartan has been changed to valsartan and nitro paste discontinued. IV Lasix changed to oral Lasix at 40 mg daily. Echocardiogram has been obtained and report is pending. Blood sugar was low this morning at 68 for breakfast but we'll plan to continue Lantus at the decreased dose of 36 units at bedtime. She has been afebrile, heart rate 71, blood pressure 159/69, pulse ox 98% on 2 L nasal cannula. Kay catheter will be removed today. Patient has decreased edema to the lower extremity, continues to have significant shortness of breath with very minimal activity. She states she did take a shower this morning. No bowel movement today but did have one yesterday. Patient has home O2 but is requesting an [employer] portable O2 concentrator for home. import customer service manager consult added for this. Patient plan is to return home without home care. Documented weights are inconsistent. Plan to monitor patient another day and probable discharge home tomorrow. 11/26: Patient denies any new complaints but has generalized stability and shortness of breath with minimal activity. She is interested in subacute rehab. Cardiology has signed off her case as of yesterday with plan to follow-up with Dr. Montesinos in 4-6 weeks. Blood sugars are running 98-165 which is improved and patient will remain on the lower dose of long-acting insulin. Patient will be discharged to [facility] today in stable condition. ASSESSMENT AND PLAN 1. Acute diastolic heart failure. 2. Hypertensive urgency. 3. Hypertension, hypertensive cardiovascular disease. 4. Hyperlipidemia. 5. Diabetes mellitus type 2 uncontrolled with hypoglycemia. 6. Diabetic neuropathy. 7. Obesity with obstructive sleep apnea and obesity hypoventilation syndrome. 8. Chronic hypoxic respiratory failure on home O2 at 2 L nasal cannula. 9. COPD, stable without exacerbation. 10. History of non-small cell lung cancer status post right lobectomy, stable. 11. COVID-19 testing negative. Patient has been hospitalized during a pandemic. DISCHARGE PLAN [facility]. Impression and plan of care have been directed as dictated by the signing physician. Patricia Villegas nurse practitioner acting as scribe for signing physician. Patient Condition at Discharge: Good Plan - Discharge Summary New Discharge Prescriptions: New Valsartan [Diovan] 160 mg PO BID #60 tab Melatonin 5 mg PO HS PRN tablet PRN Reason: Insomnia INSULIN ASPART (NovoLOG) [NovoLOG (formulary)] 0 unit SQ ACHS ml Furosemide [Lasix] 40 mg PO DAILY #30 tab Continue Metoprolol Succinate [Toprol XL] 25 mg PO HS Atorvastatin [Lipitor] 40 mg PO HS Changed Insulin Glargine,Hum.rec.anlog [Lantus Solostar Pen] 36 unit SQ HS #0 Discontinued Losartan Potassium 100 mg PO HS Repaglinide 1 mg PO AC-BID Discharge Medication List Atorvastatin [Lipitor] 40 mg PO HS 12/14/19 [History] Metoprolol Succinate [Toprol XL] 25 mg PO HS 12/14/19 [History] Furosemide [Lasix] 40 mg PO DAILY #30 tab 11/26/20 [Rx] INSULIN ASPART (NovoLOG) [NovoLOG (formulary)] 0 unit SQ ACHS ml 11/26/20 [Rx] Insulin Glargine,Hum.rec.anlog [Lantus Solostar Pen] 36 unit SQ HS #0 11/26/20 [Rx] Melatonin 5 mg PO HS PRN tablet 11/26/20 [Rx] Valsartan [Diovan] 160 mg PO BID #60 tab 11/26/20 [Rx] Follow up Appointment(s)/Referral(s): Mitra Malik MD [Primary Care Provider] - 1 Week (at [facility]) Discharge Disposition: TRANSFER TO SNF/ECF
[2020-11-26 14:20] VITALS: BP 176/78; PULSE 78; RESP 18; TEMP 98
--- NOTE | 2020-11-27 12:43 | ECHOF ---
Referral Reason:LV function MEASUREMENTS -------- HEIGHT: 162.6 cm WEIGHT: 179.6 kg BP: 125/61 RVIDd: 3.9 cm (< 3.3) IVSd: 1.5 cm (0.6 - 1.1) LVIDd: 5.2 cm (3.9 - 5.3) LVPWd: 1.3 cm (0.6 - 1.1) IVSs: 1.7 cm LVIDs: 3.4 cm LVPWs: 1.6 cm Ao Diam: 3.2 cm (2.0 - 3.7) AV Cusp: 1.2 cm (1.5 - 2.6) LA Diam: 3.9 cm (2.7 - 3.8) MV EXCURSION: 17.297 mm (> 18.000) MV EF SLOPE: 62 mm/s (70 - 150) EPSS: 0.8 cm MV E Ollie: 0.76 m/s MV DecT: 244 ms MV A Ollie: 1.00 m/s MV E/A Ratio: 0.76 AV maxP.43 mmHg AV meanP.35 mmHg RAP: 5.00 mmHg RVSP: 17.06 mmHg FINDINGS -------- Sinus rhythm. This was a technically difficult study with suboptimal views. The left ventricular size is normal. There is moderate concentric left ventricular hypertrophy. O verall left ventricular systolic function is normal with, an EF between 55 - 60 %. The right ventricle is mild to moderately enlarged. The left atrial size is normal. The right atrium was not well visualized. 5.0mg of Lumason was utilized for enhancement of images Interatrial and interventricular septum intact. The aortic valve was not well visualized. Trace to mild aortic regurgitation. There is mild aorti c stenosis present. Peak/mean gradient across the Aortic Valve is 24.43mmHg / 13.35mmHg. The mitral valve was not well visualized. There is trace mitral regurgitation. The tricuspid valve was not well visualized. Mild tricuspid regurgitation present. There is no ev idence of pulmonary hypertension. The right ventricular systolic pressure, as measured by Doppler, is 17.06mmHg. The pulmonic valve was not well visualized. The aortic root size is normal. IVC Not well visulized. There is a trivial pericardial effusion present. CONCLUSIONS -------- 1. The left ventricular size is normal. 2. There is moderate concentric left ventricular hypertrophy. 3. Overall left ventricular systolic function is normal with, an EF between 55 - 60 %. 4. The right ventricle is mild to moderately enlarged. 5. The left atrial size is normal. 6. Trace to mild aortic regurgitation. 7. There is mild aortic stenosis present. 8. Peak/mean gradient across the Aortic Valve is 24.43mmHg / 13.35mmHg. 9. The mitral valve was not well visualized. 10. There is trace mitral regurgitation. 11. The tricuspid valve was not well visualized. 12. Mild tricuspid regurgitation present. 13. There is a trivial pericardial effusion present. SECTION WEAVER: Gill Leon RDCS
== END 2020-11-26 17:24 | DRG 304 ==
LOC: EC 12:12 → 3SCARD 14:37 → 4SSUR 11-25 23:47
PROVIDERS: ADMIT Internal Medicine; ATTEND Internal Medicine
DX: I16.0 Hypertensive urgency (principal); I50.33 Acute on chronic diastolic (congestive) heart failure; J96.11 Chronic respiratory failure with hypoxia; E66.2 Morbid (severe) obesity with alveolar hypoventilation; Z68.43 Body mass index [BMI] 50.0-59.9, adult; E11.649 Type 2 diabetes mellitus with hypoglycemia without coma; E11.42 Type 2 diabetes mellitus with diabetic polyneuropathy; D64.9 Anemia, unspecified; I11.0 Hypertensive heart disease with heart failure; J44.9 Chronic obstructive pulmonary disease, unspecified; Z79.4 Long term (current) use of insulin; Z20.822 Contact with and (suspected) exposure to COVID-19; G47.33 Obstructive sleep apnea (adult) (pediatric); E78.5 Hyperlipidemia, unspecified; Z99.81 Dependence on supplemental oxygen; Z79.84 Long term (current) use of oral hypoglycemic drugs; Z79.899 Other long term (current) drug therapy; Z85.118 Personal history of other malignant neoplasm of bronchus and lung; Z90.2 Acquired absence of lung [part of]; Z87.440 Personal history of urinary (tract) infections; Z90.49 Acquired absence of other specified parts of digestive tract; Z87.19 Personal history of other diseases of the digestive system; Z85.828 Personal history of other malignant neoplasm of skin; Z98.890 Other specified postprocedural states; Z71.3 Dietary counseling and surveillance; Z88.1 Allergy status to other antibiotic agents; Z82.5 Family history of asthma and other chronic lower respiratory diseases; Z80.49 Family history of malignant neoplasm of other genital organs; Z82.49 Family history of ischemic heart disease and other diseases of the circulatory system; Z81.8 Family history of other mental and behavioral disorders
CPT/HCPCS: 36415; 71046; 80053; 81003; 83036; 83605; 83880; 84484; 85025; 87635; 93005; 93306; 96374; 99291

== ENCOUNTER → 2023-01-18 | Outpatient (CLI) | payer MEDICARE, BC ==
--- NOTE | 2023-01-18 21:45 | US ---
EXAMINATION TYPE: US venous doppler duplex LE RT DATE OF EXAM: 01/18/2023 11:02 AM COMPARISON: NONE CLINICAL INDICATION: Female, 77 years old with history of M79.604 RIGHT LEG PAIN; Right leg pain x ye sterday. No injury. No redness or swelling. Not on blood thinners. No hx DVT. SIDE PERFORMED: Right TECHNIQUE: The lower extremity deep venous system is examined utilizing real time linear array sonog stuart with graded compression, doppler sonography and color-flow sonography. VESSELS IMAGED: Common Femoral Vein Deep Femoral Vein Greater Saphenous Vein * Femoral Vein Popliteal Vein Small Saphenous Vein * Proximal Calf Veins (* superficial vessels) Right Leg: Negative for DVT IMPRESSION: 1. Right lower extremity ultrasound negative for deep venous thrombosis.
== END | disposition home or self-care (01) ==
LOC: RADUSWWP 10:39
PROVIDERS: ATTEND Internal Medicine
DX: M79.604 Pain in right leg (principal)

== ENCOUNTER 2023-01-20 06:46 | Inpatient (IN) | payer MEDICARE, BC ==
--- NOTE | 2023-01-20 07:19 | ED ---
Fall HPI - General Chief Complaint: Fall Stated Complaint: Fall Time Seen by Provider: 01/20/23 06:49 Source: patient, EMS, RN notes reviewed Mode of arrival: EMS Limitations: no limitations - History of Present Illness Initial Comments: 77-year-old female presents emergency Department chief complaint of a fall. Patient states she fell onto her right hip. Patient had no head injury no loss conscious. Patient complains pain that region unable to move her right hip. She is not requesting any pain meds states she has her pain control at this time. Patient denies any blood thinners. - Related Data Home Medications Medication Instructions Recorded Confirmed Atorvastatin [Lipitor] 40 mg PO HS 12/14/19 01/20/23 Aspirin EC [Ecotrin Low Dose] 81 mg PO DAILY 10/15/22 01/20/23 Ezetimibe [Zetia] 10 mg PO DAILY 10/15/22 01/20/23 Insulin Glargine,Hum.rec.anlog 54 unit SQ HS 10/15/22 01/20/23 [Lantus Solostar Pen] Irbesartan [Avapro] 300 mg PO DAILY 10/15/22 01/20/23 Baclofen 10 mg PO BID PRN 01/20/23 01/20/23 Sennosides [Senokot] 8.6 mg PO BID PRN 01/20/23 01/20/23 Torsemide [Demadex] 20 mg PO DAILY 01/20/23 01/20/23 Previous Rx's Medication Instructions Recorded carvediloL [Coreg] 6.25 mg PO BID-W/MEALS #60 tab 10/20/22 Famotidine [Pepcid] 20 mg PO DAILY #30 tab 10/22/22 Budesonide-Formot 160-4.5 Mcg 2 puff INHALATION BID #1 each 10/24/22 [Symbicort 160-4.5 Mcg Inhaler] Ipratropium-Albuterol Nebulize 3 ml INHALATION RT-QID #360 ml 10/24/22 [Duoneb 0.5 mg-3 mg/3 ml Soln] Allergies Allergy/AdvReac Type Severity Reaction Status Date / Time cephalexin Allergy Rash/Hives, Verified 01/20/23 07:58 redness, swelling Review of Systems ROS Statement: Those systems with pertinent positive or pertinent negative responses have been documented in the HPI. ROS Other: All systems not noted in ROS Statement are negative. Past Medical History Past Medical History: Cancer, Diabetes Mellitus, Hyperlipidemia, Hypertension Additional Past Medical History / Comment(s): hx. lung cancer 2007, recent kidney infection now resolved History of Any Multi-Drug Resistant Organisms: None Reported Past Surgical History: Cholecystectomy, Hernia Repair Additional Past Surgical History / Comment(s): partial lobectomy 2007 Past Anesthesia/Blood Transfusion Reactions: No Reported Reaction Past Psychological History: No Psychological Hx Reported Smoking Status: Never smoker Past Alcohol Use History: None Reported Past Drug Use History: None Reported - Past Family History Mother Family Medical History: Cancer General Exam Limitations: no limitations General appearance: alert, in no apparent distress Head exam: Present: atraumatic, normocephalic, normal inspection Eye exam: Present: normal appearance, PERRL, EOMI. Absent: scleral icterus, conjunctival injection, periorbital swelling Respiratory exam: Present: normal lung sounds bilaterally. Absent: respiratory distress, wheezes, rales, rhonchi, stridor Cardiovascular Exam: Present: regular rate, normal rhythm, normal heart sounds. Absent: systolic murmur, diastolic murmur, rubs, gallop, clicks Extremities exam: Present: other (Right leg shortened, rotated, tenderness the right hip neurovascular intact. Limited range of motion) Neurological exam: Present: alert, oriented X3 Course Vital Signs 01/20/23 01/20/23 01/20/23 06:47 08:16 09:00 Temperature 97.4 F L Pulse Rate 62 63 68 Respiratory 18 16 16 Rate Blood Pressure 109/74 109/79 145/68 O2 Sat by Pulse 96 98 95 Oximetry Medical Decision Making - Medical Decision Making Was pt. sent in by a medical professional or institution (, PA, INDUSTRIAL MANAGEMENT TEACHER, urgent care, hospital, or intermediate...) When possible be specific @ -No Did you speak to anyone other than the patient for history (EMS, parent, family, police, friend...)? What history was obtained from this source @ -No Did you review nursing and triage notes (agree or disagree)? Why? @ -I reviewed and agree with nursing and triage notes Were old charts reviewed (outside hosp., previous admission, EMS record, old EKG, old radiological studies, urgent care reports/EKG's, intermediate records)? Report findings @ -No old charts were reviewed Differential Diagnosis (chest pain, altered mental status, abdominal pain women, abdominal pain men, vaginal bleeding, weakness, fever, dyspnea, syncope, headache, dizziness, GI bleed, back pain, seizure, CVA, palpatations, mental health, musculoskeletal)? @ -[Fall, hip contusion, hip fracture EKG interpreted by me (3pts min.). @ -As above X-rays interpreted by me (1pt min.). @ -Chest x-ray one view shows no acute process, x-ray right hip and AP pelvis showing right IT fracture, x-ray right femur shows right proximal femur fracture CT interpreted by me (1pt min.). @ -None done U/S interpreted by me (1pt. min.). @ -None done What testing was considered but not performed or refused? (CT, X-rays, U/S, labs)? Why? @ -None What meds were considered but not given or refused? Why? @ -None Did you discuss the management of the patient with other professionals (professionals i.e. , PA, INDUSTRIAL MANAGEMENT TEACHER, lab, RT, psych nurse, neonatal social worker, turret lathe operator, teacher, accounting officer, case management specialist)? Give summary @ -Case discussed with orthopedics accepts admission. Was smoking cessation discussed for >3mins.? @ -No Was critical care preformed (if so, how long)? @ -No Were there social determinants of health that impacted care today? How? (Homelessness, low income, unemployed, alcoholism, drug addiction, transportation, low edu. Level, literacy, decrease access to med. care, senior care, rehab)? @ -No Was there de-escalation of care discussed even if they declined (Discuss DNR or withdrawal of care, Hospice)? DNR status @ -No What co-morbidities impacted this encounter? (DM, HTN, Smoking, COPD, CAD, Cancer, CVA, ARF, Chemo, Hep., AIDS, mental health diagnosis, sleep apnea, morbid obesity)? @ -None Was patient admitted / discharged? Hospital course, mention meds given and route, prescriptions, significant lab abnormalities, going to OR and other pertinent info. @ -Admitted patient has a right IT fracture. Patient be admitted to orthopedics with consult to internal medicine/medical management and surgical clearance Undiagnosed new problem with uncertain prognosis? @ -No Drug Therapy requiring intensive monitoring for toxicity (Heparin, Nitro, Insulin, Cardizem)? @ -No Were any procedures done? @ -No Diagnosis/symptom? @ -Fall, right IT fracture Acute, or Chronic, or Acute on Chronic? @ -Acute Uncomplicated (without systemic symptoms) or Complicated (systemic symptoms)? @ -Complicated Side effects of treatment? @ -No Exacerbation, Progression, or Severe Exacerbation? @ -No Poses a threat to life or bodily function? How? (Chest pain, [place], [place], pneumonia, PE, COPD, DKA, ARF, appy, cholecystitis, CVA, Diverticulitis, Homicidal, Suicidal, threat to staff... and all critical care pts) @ -Yes patient has surgical risk - Lab Data Result diagrams: 01/20/23 07:57 01/20/23 07:57 - EKG Data -: EKG Interpreted by Me EKG Comments: EKG performed at 18:06 sinus rhythm with rate of 66 PA 148 QRS 98 QT /QTC 433/447 Disposition Clinical Impression: Fall, Closed right hip fracture Disposition: ADMITTED IP TO THIS HOSP Condition: Fair Time of Disposition: 07:19
[2023-01-20] MEDS ORDERED: ONDANSETRON 4 MG/2 ML VIAL IVP PRN (07:21)
[2023-01-20] MEDS ORDERED: HYDROcodone/APAP 5-325MG 1 EACH TAB PO PRN (07:21)
[2023-01-20] MEDS ORDERED: NALOXONE 0.4 MG/ML 1 ML VIAL IV PRN (07:21)
--- NOTE | 2023-01-20 07:31 | XR ---
EXAMINATION TYPE: XR Hip RT and AP Pelvis, XR Femur RT 1 View DATE OF EXAM: 01/20/2023 CLINICAL HISTORY: pain TECHNIQUE: AP and frogleg views of the right hip are obtained. 2 views of the right femur are also s ubmitted. COMPARISON: None. FINDINGS: Right sided intertrochanteric fracture noted. There is involvement of the greater and lesse r trochanters. Severe degenerative joint space narrowing. No additional fracture seen within the fiel d-of-view. IMPRESSION: 1. Sided intertrochanteric fracture.
--- NOTE | 2023-01-20 07:40 | XR ---
EXAMINATION TYPE: XR chest 1V DATE OF EXAM: 01/20/2023 HISTORY: Shortness of breath. COMPARISON: 10/17/2022 TECHNIQUE: Single view of the chest is submitted. FINDINGS: Demonstrated are scattered senescent parenchymal change. There is no evidence for focal infiltrate. Parenchymal scarring right medial lung base is unchanged. The heart is stable. Hilar and mediastinal structures are within normal limits. Degenerative changes are seen of the dorsal spine. IMPRESSION: 1. Chronic changes without evidence for acute pulmonary disease.
[2023-01-20 08:09] LABS: Basophils % (A) 0 %; Eosinophils # (A) 0.2 k/uL (0-0.7); Eosinophils % (A) 1 %; HCT 39.3 % (34.0-46.0); HGB 12.8 gm/dL (11.4-16.0); Lymphocytes # (A) 1.6 k/uL (1.0-4.8); Lymphocytes % (A) 7 %; MCH 32.5 pg (25.0-35.0); MCHC 32.6 g/dL (31.0-37.0); MCV 99.6 fL (80.0-100.0); Mean Platelet Volume 7.7; Monocytes # (A) 0.6 k/uL (0-1.0); Monocytes % (A) 3 %; Neutrophils # (A) 19.9 k/uL (1.3-7.7); Neutrophils % (A) 89 %; Platelet Count 281 k/uL (150-450); RBC 3.94 m/uL (3.80-5.40); RDW 13.5 % (11.5-15.5); WBC 22.5 k/uL (3.8-10.6)
[2023-01-20 08:19] LABS: ALT 19 U/L (4-34); AST 25 U/L (14-36); African American GFR (CKD) 54 (>60 ml/min/1.73 sqM); Albumin 3.4 g/dL (3.5-5.0); Alkaline Phosphatase 210 U/L (38-126); Anion Gap 4 mmol/L; Blood Urea Nitrogen 29 mg/dL (7-17); Calcium 9.2 mg/dL (8.4-10.2); Carbon Dioxide 38 mmol/L (22-30); Chloride 100 mmol/L (98-107); Glucose 172 mg/dL (74-99); Magnesium 1.6 mg/dL (1.6-2.3); Non-African American GFR(CKD) 46 (>60 ml/min/1.73 sqM); Potassium 4.7 mmol/L (3.5-5.1); Sodium 142 mmol/L (137-145); Total Bilirubin 1.3 mg/dL (0.2-1.3); Total Protein 6.2 g/dL (6.3-8.2)
[2023-01-20 08:29] LABS: INR 0.9 (<1.2); Prothrombin Time 10.2 sec (10.0-12.5)
[2023-01-20 08:55] LABS: Partial Thromboplastin Time 21.7 sec (22.0-30.0)
[2023-01-20] MEDS: HYDROmorphone 0.5 MG/0.5 ML SYRINGE IVP PRN ×2 (09:10→22:11)
--- NOTE | 2023-01-20 09:21 | P.HPOR ---
History of Present Illness H&P Date: 01/20/23 Chief Complaint: Recent fall with trauma History of Presenting Illness Patient is a pleasant 77-year-old female who presented to the ER after a fall at home. Patient reports that she was ambulated into the restroom when she fell di rectly onto her right hip. Patient denies hitting her head or any loss of consciousness. Patient reports that she does live with her grandson. Patient denies any numbness or tingling to the right lower extremity. She states she is normally independent, using no assistive devices. Patient does have a past medical history of lung cancer in 2006, diabetes, hyperlipidemia, and hypertension. She reports that she has an orthopedic history of a left knee replacement performed in 2003 at [facility] by Dr. Anderson. Informed patient that the left hip x-ray demonstrated an acute right femoral in tertrochanteric fracture with mild displacement. Discussed with patient the need for surgical intervention of a right hip IT nail fixation, risks and benefits have been discussed. Patient would like to proceed with surgical intervention. Consent will be obtained prior to procedure. Review of Systems Pertinent positives and negatives as discussed in HPI, a complete review of systems was performed and all other systems are negative. Physical Examination Inspection: Negative for any open fractures, ecchymosis, significant erythema/ulcers. Sensation: Sensation is equal, symmetric, bilaterally intact throughout the upper and lower extremities Palpation: Nontender to palpation throughout bilateral upper and left lower extremity and throughout spine exam, Tender to palpation over the right hip. Range of motion: Patient does have full range of motion bilateral upper and left lower extremities on exam, Patient has limited range of motion of the right hip due to fracture and pain. Right lower extremity is externally rotated. Motor: 5/5 in all major motor groups in the bilateral upper and 4/5 in the left lower extremity, 3/5 in the right lower extremity. Plantar flexion, Dorsi flexion, EHL, and FHL is intact. Special tests: Log roll maneuver of the right lower extremity reproduces pain. Neurovascular: Radial pulse intact, 2+ bilaterally. Cap refill under 3 seconds in digits upper extremities. Assessment and Plan Fall with trauma Left femoral intertrochanteric fracture Multiple comorbidities -Consult place for Dr. Malik for medical management and surgical clearance -Surgery scheduled for tomorrow 01/21/2023 for right hip IM nail fixation -Nothing by mouth at midnight -Kay catheter to be placed due to immobilization -Continue with pain management, IV morphine, tramadol, may utilize ice packs. -Appreciate Team management and recommendations I reviewed and discussed this case with my attending Dr. Hughes, whom has reviewed this chart and films and is in agreement with assessment and plan of care as outlined above. I have personally seen and examined the patient, performed the documentation and the assessment and plan as written. Number of minutes spent on the visit: 20m. Past Medical History Past Medical History: Cancer, Diabetes Mellitus, Hyperlipidemia, Hypertension Additional Past Medical History / Comment(s): hx. lung cancer 2006, recent kidney infection now resolved History of Any Multi-Drug Resistant Organisms: None Reported Past Surgical History: Cholecystectomy, Hernia Repair Additional Past Surgical History / Comment(s): partial lobectomy 2007 Past Anesthesia/Blood Transfusion Reactions: No Reported Reaction Past Psychological History: No Psychological Hx Reported Smoking Status: Never smoker Past Alcohol Use History: None Reported Past Drug Use History: None Reported - Past Family History Mother Family Medical History: Cancer Medications and Allergies Home Medications Medication Instructions Recorded Confirmed Type Atorvastatin [Lipitor] 40 mg PO HS 12/14/19 01/20/23 History Aspirin EC [Ecotrin Low Dose] 81 mg PO DAILY 10/15/22 01/20/23 History Ezetimibe [Zetia] 10 mg PO DAILY 10/15/22 01/20/23 History Insulin Glargine,Hum.rec.anlog 54 unit SQ HS 10/15/22 01/20/23 History [Lantus Solostar Pen] Irbesartan [Avapro] 300 mg PO DAILY 10/15/22 01/20/23 History carvediloL [Coreg] 6.25 mg PO BID-W/MEALS #60 tab 10/20/22 01/20/23 Rx Famotidine [Pepcid] 20 mg PO DAILY #30 tab 10/22/22 01/20/23 Rx Budesonide-Formot 160-4.5 Mcg 2 puff INHALATION BID #1 each 10/24/22 01/20/23 Rx [Symbicort 160-4.5 Mcg Inhaler] Ipratropium-Albuterol Nebulize 3 ml INHALATION RT-QID #360 ml 10/24/22 01/20/23 Rx [Duoneb 0.5 mg-3 mg/3 ml Soln] Baclofen 10 mg PO BID PRN 01/20/23 01/20/23 History Sennosides [Senokot] 8.6 mg PO BID PRN 01/20/23 01/20/23 History Torsemide [Demadex] 20 mg PO DAILY 01/20/23 01/20/23 History Allergies Allergy/AdvReac Type Severity Reaction Status Date / Time cephalexin Allergy Rash/Hives, Verified 01/20/23 07:58 redness, swelling Results - Labs Labs: Abnormal Lab Results - Last 24 Hours (Table) 01/20/23 Range/Units 07:57 WBC 22.5 H (3.8-10.6) k/uL Neutrophils # 19.9 H (1.3-7.7) k/uL H & H 01/20/23 Range/Units 07:57 Hgb 12.8 (11.4-16.0) gm/dL Hct 39.3 (34.0-46.0) % Result Diagrams: 01/20/23 07:57 01/20/23 07:57
[2023-01-20 09:23] LABS: Amorphous Sediment,Urine Rare /hpf; Appearance,Urine Cloudy (Clear); Bacteria,Urine Rare /hpf; Bilirubin,Urine Negative (Negative); Blood,Urine Negative (Negative); Color,Urine Light Yellow; Glucose,Urine (UA) Negative (Negative); Hyaline Casts,Urine 9 /lpf (0-2); Ketones,Urine Negative (Negative); Leukocyte Esterase,Urine Negative (Negative); Mucus,Urine Rare /hpf; Nitrite,Urine Negative (Negative); Protein,Urine Negative (Negative); RBC,Urine <1 /hpf (0-5); Specific Gravity,Urine 1.011 (1.001-1.035); Squamous Epithelial Cell,Urine 2 /hpf (0-4); Urobilinogen,Urine <2.0 mg/dL (<2.0); WBC,Urine 1 /hpf (0-5)
[2023-01-20] MEDS ORDERED: SENNOSIDES 8.6 MG TAB PO PRN (19:28)
[2023-01-20] MEDS ORDERED: BACLOFEN 10 MG TAB PO PRN (19:28)
[2023-01-20 20:09] LABS: Glucose,Whole Blood 148 mg/dL (70-110)
[2023-01-20] MEDS ORDERED: DEXTROSE 5%-0.45% NACL 1,000 ML IV SCH (20:15)
[2023-01-20] MEDS ORDERED: NON FORMULARY DRUG (Insulin Glargine,Hum.Rec.Anlog [Lantus Solostar Pen] 100 UNIT/ML Each) SQ SCH (21:00)
[2023-01-20] MEDS: ATORVASTATIN 40 MG TAB PO SCH (21:32)
[2023-01-20] MEDS: SYMBICORT 160-4.5 MCG INHALER INHALATION SCH (21:36)
[2023-01-20] MEDS: IPRATROPIUM-ALBUTEROL 3 ML NEB INHALATION SCH (21:37)
[2023-01-20 21:39] LABS: Glucose,Whole Blood 170 mg/dL (70-110)
[2023-01-20] MEDS: INSULIN ASPART (NovoLOG) 100 UNIT/ML VIAL SQ SCH (21:42)
[2023-01-20] MEDS: INSULIN DETEMIR (LEVEMIR) 100 UNIT/ML SYR SQ SCH (22:25)
[2023-01-20 23:44] LABS: Glucose,Whole Blood 213 mg/dL (70-110)
[2023-01-21] MEDS ORDERED: SODIUM CHLORIDE 0.9% 500 ML 500 ML IV ONE ×2 (00:18→02:30)
[2023-01-21] MEDS: DEXTROSE 5%-0.45% NACL 1,000 ML IV SCH ×3 (02:45→23:31)
[2023-01-21] MEDS ORDERED: KETOROLAC 15 MG/ML 1 ML VIAL IVP PRN (03:14)
--- NOTE | 2023-01-21 06:27 | P.CONS ---
History of Present Illness - Reason for Consult Consult date: 01/20/23 Medical management Requesting physician: Todd Hughes - Chief Complaint Right IT hip fracture - History of Present Illness HISTORY OF PRESENT ILLNESS: This is a 77-year-old female with a previous medical history significant for hypertension and hypertensive cardiovascular disease, hyperlipidemia, diabetes mellitus type 2, obesity, osteoarthritis, chronic low b ack pain, chronic kidney disease stage 3b, patient was seen in my office for annual on his visit on 12/17/2022, she was complaining of increased pain in the right lower extremity was described as a pain in the right hip as well as increased pain in the back of the leg radiating to the knee suggestive of radiculopathy due to spondylosis of the lumbar spine as well as osteoarthritis of the right hip, she was placed on baclofen 10 mg to take it at night before bedtime along with the Tylenol and she was advised to place heat pads on the lumbar spine as well, and reevaluate in about a week from now, she was given x- rays for evaluation as well, patient apparently was doing fine up until according to her daughter was at the bedside she has been more sleepy so she was started on baclofen, currently her grandson lives with her, patient woke up in the morning at 5:00 in the morning today and she wants to go to the bathroom and apparently she had an accident and slipped and her PT, and she landed on the right side of her hip, patient could not get up by herself, her grandson came to try to help her out she did not want to go to the hospital they were both apparently developed however her son eventually called EMS who came and brought her to the ER had an x-ray of the pelvis and the right hip showed right sided intertrochanteric fracture with involvement of both greater and lesser trochanters she was admitted under orthopedic surgery for asked to see the patient for preoperative medical clearance and medical management. REVIEW OF SYSTEMS: Constitutional: No documented fever, no chills, no night sweats. No weight change. No weakness, fatigue or lethargy. No daytime sleepiness. EENT: No headache. No blurred vision or double vision, no loss of vision. No loss of Hearing, no ringing in the ears, no dizziness. No nasal drainage or congestion. No epistaxis. No sore throat. Lungs: minimal shortness of breath, no cough, no sputum production. No wheezing. Reports dyspnea with activity. Cardiovascular: No chest pain, no lower extremity edema. No palpitations. No paroxysmal nocturnal dyspnea. No orthopnea. No lightheadedness or dizziness. No syncopal episodes. Abdominal: Reports no abdominal pain. No nausea, vomiting. No diarrhea. No constipation. No bloody or tarry stools reports loss of appetite. Genitourinary: No dysuria, increased frequency, urgency. No urinary retention. Musculoskeletal: No myalgias. positive for muscle weakness, positive for gait dysfunction, no frequent falls. positive for back pain. No neck pain. Integumentary: No wounds, no lesions. No rash or pruritus. No unusual bruising. No change in hair or nails. Neurologic: No aphasia. No facial droop. No change in mentation. No head injury. No headache. No paralysis. No paresthesia. Psychiatric: No depression. No anxiety. No mood swings. Endocrine: No abnormal blood sugars. No weight change. PAST MEDICAL HISTORY: Hypertension and hypertensive cardiovascular disease. Hyperlipidemia. Obesity. Diabetes mellitus type 2. COPD. History of lung cancer status post lobectomy 2007. Osteoarthritis. Osteoporosis. Spondylosis of the lumbar spine. PAST SURGICAL HISTORY: Partial lobectomy 2008 Cholecystectomy Hernia repair Skin cancer from the nose SOCIAL HISTORY: Patient is lifelong nonsmoker, she denies any alcohol ingestion, she uses a walker for ambulation, currently her grandson lives with her. FAMILY HISTORY: Father at age 71 from emphysema, mother at age of 52 from cervical cancer, patient had 3 brothers one from [place] one from motor vehicle accident and the third one on the side step to , patient had 2 sisters one from [place] and the other one from dementia, patient has one daughter and one son are healthy, her daughter lives in [facility] PHYSICAL EXAMINATION: General: 77-year-old female laying in bed with right hip pain. HEENT: Head is atraumatic, normocephalic, pupils were equal round reactive to light and recommendation, extraocular muscle movement were intact, sclera nonicteric, conjunctivae were pale, mucous membranes of the mouth are somewhat dry. Neck: Supple, no JVP, normal carotid upstroke bilaterally, no lymphadenopathy. Chest: Decreased breath sounds at the bases, few rhonchi, no expiratory wheezes, no chest wall tenderness, no intercostal retractions. Heart: First heart sound is normal, second heart sound is normal there is systolic ejection murmur 2/6 in the left sternal border Abdomen: Soft, nontender, nondistended, positive bowel sounds. Extremities: There is no edema no calf tenderness DP +1 bilaterally, right lower extremity is shorter and externally rotated Neurologic examination: Patient is awake alert and oriented X3, cranial nerves II-12 appear grossly intact, muscle power were 5 out of 5 in upper extremities and 5 out of 5 in bilateral lower extremities, deep tendon reflexes normal bilaterally. ASSESSMENT AND PLAN: 1. Status post a slip and fall with right intertrochanteric hip fracture with involvement of the greater and lesser trochanters. Patient has been admitted under orthopedic surgery, she is scheduled to go for surgical intervention tomorrow morning, patient did have a chest x-ray that did not show evidence of acute of normalities, total EKG showed normal sinus rhythm with frequent PVCs, patient does not appear to have any acute heart failure at this time, she does not have any unstable angina, patient did have an echocardiogram and her last hospital admission within few month ago, she did have a normal ejection fraction, therefore there is indication for the proposed surgical intervention at this point, patient is going for moderate risk surgery risk is a bit more than average due to her underlying comorbidities and her weight, surgery may carry the risk of few Occasions that the patient is aware of wheezing to malathi d. 2. Hypertension and hypertensive cardiovascular disease. Continue patient on carvedilol 6.25 mg orally twice every day, losartan 100 mg once every day, monitor the patient very closely. 3. Mixed hyperlipidemia. Continue patient on atorvastatin 40 mg daily, as well as ezetimibe 10 mg once every day. 4. COPD. Continue patient on Symbicort 160/4.5 g 2 puffs in remission twice every day, continue DuoNeb treatment nebulization 4 times every day, continue oxygen support. 5. Chronic diastolic heart failure appears stable at this time. Continue carvedilol 6.25 mg orally twice every day as well as losartan 100 mg orally once every day. 6. History of remote lung cancer status post partial lobectomy in 2007 7. Osteoarthritis. Continue current pain management. 8. Osteopenia/osteoporosis 9. Diabetes mellitus type 2. Decrease Lantus to 40 units at bedtime, start the patient on IV fluid in the form of D5 half-normal saline at 75 mL an hour, monitor the patient very closely , we'll start the patient on sliding scale insulin. 10. DVT prophylaxis. We will start the patient on Lovenox 30 mg subcutaneously every 12 hours postoperatively. 11. GI prophylaxis. Continue famotidine 20 mg orally once every day 12. Chronic kidney disease stage III. Appears stable at this time, avoid hypotension and nephrotoxins 13. Thank you for the consultation we will follow the patient along with you. Past Medical History Past Medical History: Cancer, Diabetes Mellitus, Hyperlipidemia, Hypertension Additional Past Medical History / Comment(s): hx. lung cancer 2006, recent kidney infection now resolved History of Any Multi-Drug Resistant Organisms: None Reported Past Surgical History: Cholecystectomy, Hernia Repair Additional Past Surgical History / Comment(s): partial lobectomy 2007 Past Anesthesia/Blood Transfusion Reactions: No Reported Reaction Past Psychological History: No Psychological Hx Reported Smoking Status: Never smoker Past Alcohol Use History: None Reported Past Drug Use History: None Reported - Past Family History Mother Family Medical History: Cancer Medications and Allergies Home Medications Medication Instructions Recorded Confirmed Type Atorvastatin [Lipitor] 40 mg PO HS 12/14/19 01/20/23 History Aspirin EC [Ecotrin Low Dose] 81 mg PO DAILY 10/15/22 01/20/23 History Ezetimibe [Zetia] 10 mg PO DAILY 10/15/22 01/20/23 History Insulin Glargine,Hum.rec.anlog 54 unit SQ HS 10/15/22 01/20/23 History [Lantus Solostar Pen] Irbesartan [Avapro] 300 mg PO DAILY 10/15/22 01/20/23 History carvediloL [Coreg] 6.25 mg PO BID-W/MEALS #60 tab 10/20/22 01/20/23 Rx Famotidine [Pepcid] 20 mg PO DAILY #30 tab 10/22/22 01/20/23 Rx Budesonide-Formot 160-4.5 Mcg 2 puff INHALATION BID #1 each 10/24/22 01/20/23 Rx [Symbicort 160-4.5 Mcg Inhaler] Ipratropium-Albuterol Nebulize 3 ml INHALATION RT-QID #360 ml 10/24/22 01/20/23 Rx [Duoneb 0.5 mg-3 mg/3 ml Soln] Baclofen 10 mg PO BID PRN 01/20/23 01/20/23 History Sennosides [Senokot] 8.6 mg PO BID PRN 01/20/23 01/20/23 History Torsemide [Demadex] 20 mg PO DAILY 01/20/23 01/20/23 History Allergies Allergy/AdvReac Type Severity Reaction Status Date / Time cephalexin Allergy Rash/Hives, Verified 01/20/23 07:58 redness, swelling Physical Exam Vitals: Vital Signs Temp Pulse Resp BP Pulse Ox 01/20/23 18:37 61 20 136/72 99 01/20/23 17:00 60 16 116/60 98 01/20/23 16:00 80 16 117/65 98 01/20/23 15:00 60 16 132/70 95 01/20/23 13:00 53 L 16 109/74 96 01/20/23 11:00 60 20 106/60 95 01/20/23 10:00 97.6 F 52 L 18 109/74 98 01/20/23 09:00 68 16 145/68 95 01/20/23 08:16 63 16 109/79 98 01/20/23 06:47 97.4 F L 62 18 109/74 96 Intake and Output 01/20/23 01/20/23 01/20/23 06:59 14:59 22:59 Other: Weight 125.645 kg Results CBC & Chem 7: 01/20/23 07:57 01/20/23 07:57 Labs: Abnormal Lab Results - Last 24 Hours (Table) 01/20/23 01/20/23 01/20/23 Range/Units 07:57 07:57 07:57 WBC 22.5 H (3.8-10.6) k/uL Neutrophils # 19.9 H (1.3-7.7) k/uL APTT 21.7 L (22.0-30.0) sec Carbon Dioxide 38 H (22-30) mmol/L BUN 29 H (7-17) mg/dL Creatinine 1.13 H (0.52-1.04) mg/dL Glucose 172 H (74-99) mg/dL Alkaline Phosphatase 210 H (38-126) U/L Total Protein 6.2 L (6.3-8.2) g/dL Albumin 3.4 L (3.5-5.0) g/dL Urine Appearance (Clear) Amorphous Sediment (None) /hpf Urine Bacteria (None) /hpf Hyaline Casts (0-2) /lpf Urine Mucus (None) /hpf 01/20/23 Range/Units 08:17 WBC (3.8-10.6) k/uL Neutrophils # (1.3-7.7) k/uL APTT (22.0-30.0) sec Carbon Dioxide (22-30) mmol/L BUN (7-17) mg/dL Creatinine (0.52-1.04) mg/dL Glucose (74-99) mg/dL Alkaline Phosphatase (38-126) U/L Total Protein (6.3-8.2) g/dL Albumin (3.5-5.0) g/dL Urine Appearance Cloudy H (Clear) Amorphous Sediment Rare H (None) /hpf Urine Bacteria Rare H (None) /hpf Hyaline Casts 9 H (0-2) /lpf Urine Mucus Rare H (None) /hpf
[2023-01-21] MEDS: IPRATROPIUM-ALBUTEROL 3 ML NEB INHALATION SCH ×4 (08:07→19:44)
[2023-01-21] MEDS: SYMBICORT 160-4.5 MCG INHALER INHALATION SCH ×2 (08:07→19:44)
[2023-01-21] MEDS: carvediloL 6.25 MG TAB PO SCH ×2 (08:09→17:43)
[2023-01-21 08:10] LABS: Basophils % (A) 0 %; Eosinophils # (A) 0.1 k/uL (0-0.7); Eosinophils % (A) 1 %; HCT 34.8 % (34.0-46.0); HGB 11.3 gm/dL (11.4-16.0); Hypochromasia Slight; Lymphocytes # (A) 1.1 k/uL (1.0-4.8); Lymphocytes % (A) 8 %; MCH 33.1 pg (25.0-35.0); MCHC 32.6 g/dL (31.0-37.0); MCV 101.5 fL (80.0-100.0); Macrocytosis Slight; Mean Platelet Volume 7.8; Monocytes # (A) 0.6 k/uL (0-1.0); Monocytes % (A) 5 %; Neutrophils # (A) 11.6 k/uL (1.3-7.7); Neutrophils % (A) 86 %; Platelet Count 231 k/uL (150-450); RBC 3.42 m/uL (3.80-5.40); RDW 13.5 % (11.5-15.5); WBC 13.4 k/uL (3.8-10.6)
[2023-01-21] MEDS: EZETIMIBE 10 MG TAB PO SCH (08:22)
[2023-01-21] MEDS: FAMOTIDINE 20 MG TAB PO SCH (08:22)
[2023-01-21 08:33] LABS: ALT 105 U/L (4-34); AST 103 U/L (14-36); African American GFR (CKD) 18 (>60 ml/min/1.73 sqM); Albumin 2.8 g/dL (3.5-5.0); Albumin/Globulin Ratio 1.1; Alkaline Phosphatase 203 U/L (38-126); Anion Gap 10 mmol/L; Blood Urea Nitrogen 48 mg/dL (7-17); Carbon Dioxide 27 mmol/L (22-30); Chloride 102 mmol/L (98-107); Globulin 2.6 g/dL; Glucose 190 mg/dL (74-99); Non-African American GFR(CKD) 16 (>60 ml/min/1.73 sqM); Potassium 4.8 mmol/L (3.5-5.1); Sodium 139 mmol/L (137-145); Total Bilirubin 1.6 mg/dL (0.2-1.3); Total Protein 5.4 g/dL (6.3-8.2)
[2023-01-21 08:37] LABS: Glucose,Whole Blood 176 mg/dL (70-110)
[2023-01-21] MEDS: INSULIN ASPART (NovoLOG) 100 UNIT/ML VIAL SQ SCH ×4 (08:43→23:35)
[2023-01-21] MEDS ORDERED: LOSARTAN 50 MG TAB PO SCH (09:00)
[2023-01-21] MEDS ORDERED: HYDROmorphone 0.5 MG/0.5 ML SYRINGE IVP ONE (09:01)
[2023-01-21 12:38] LABS: Glucose,Whole Blood 191 mg/dL (70-110)
--- NOTE | 2023-01-21 14:26 | P.PN ---
Subjective Progress Note Date: 01/21/23 HISTORY OF PRESENT ILLNESS: This is a 77-year-old female with a previous medical history signif icant for hypertension and hypertensive cardiovascular disease, hyperlipidemia, diabetes mellitus type 2, obesity, osteoarthritis, chronic low back pain, chronic kidney disease stage 3b, patient was seen in my office for annual on his visit on 12/17/2022, she was complaining of increased pain in the right lower extremity was described as a pain in the right hip as well as increased pain in the back of the leg radiating to the knee suggestive of radiculopathy due to spondylosis of the lumbar spine as well as osteoarthritis of the right hip, she was placed on baclofen 10 mg to take it at night before bedtime along with the Tylenol and she was advised to place heat pads on the lumbar spine as well, and reevaluate in about a week from now, she was given x-rays for evaluation as well, patient apparently was doing fine up until yesterday according to her daughter was at the bedside she has been more sleepy so she was started on baclofen, currently her grandson lives with her, patient woke up in the morning at 5:00 in the morning today and she wants to go to the bathroom and apparently she had an accident and slipped and her PT, and she landed on the right side of her hip, patient could not get up by herself, her grandson came to try to help her out she did not want to go to the hospital they were both apparently developed however her son eventually called EMS who came and brought her to the ER had an x-ray of the pelvis and the right hip showed right sided intertrochanteric fracture with involvement of both greater and lesser trochanters she was admitted under orthopedic surgery for asked to see the patient for preoperative medical clearance and medical management. 01/21: Patient is scheduled for right hip IM nail fixation today. Blood pressure 127/65, heart rate in the 70s, pulse ox 97% on room air. Repeat blood work reveals hemoglobin of 11.3, WBC 13.4, platelet count 231. Lactulose are normal. BUN 40 creatinine 2.75. Liver function tests have Ifrah as well with total bilirubin 1.6, AST 103, ALT 105, alkaline phosphatase is 203. Labile glucose running between 176 and 213. REVIEW OF SYSTEMS: Constitutional: No documented fever, no chills, no night sweats. No weight change. No weakness, fatigue or lethargy. No daytime sleepiness. EENT: No headache. No blurred vision or double vision, no loss of vision. No loss of Hearing, no ringing in the ears, no dizziness. No nasal drainage or congestion. No epistaxis. No sore throat. Lungs: minimal shortness of breath, no cough, no sputum production. No wheezing. Reports dyspnea with activity. Cardiovascular: No chest pain, no lower extremity edema. No palpitations. No paroxysmal nocturnal dyspnea. No orthopnea. No lightheadedness or dizziness. No syncopal episodes. Abdominal: Reports no abdominal pain. No nausea, vomiting. No diarrhea. No constipation. No bloody or tarry stools reports loss of appetite. Genitourinary: No dysuria, increased frequency, urgency. No urinary retention. Musculoskeletal: No myalgias. positive for muscle weakness, positive for gait dysfunction, no frequent falls. positive for back pain. No neck pain. Integumentary: No wounds, no lesions. No rash or pruritus. No unusual bruising. No change in hair or nails. Neurologic: No aphasia. No facial droop. No change in mentation. No head injury. No headache. No paralysis. No paresthesia. Psychiatric: No depression. No anxiety. No mood swings. Endocrine: No abnormal blood sugars. No weight change. PHYSICAL EXAMINATION: General: 77-year-old female laying in bed with right hip pain. HEENT: Head is atraumatic, normocephalic, pupils were equal round reactive to light and recommendation, extraocular muscle movement were intact, sclera nonicteric, conjunctivae were pale, mucous membranes of the mouth are somewhat dry. Neck: Supple, no JVP, normal carotid upstroke bilaterally, no lymphadenopathy. Chest: Decreased breath sounds at the bases, few rhonchi, no expiratory wheezes, no chest wall tenderness, no intercostal retractions. Heart: First heart sound is normal, second heart sound is normal there is systolic ejection murmur 2/6 in the left sternal border Abdomen: Soft, nontender, nondistended, positive bowel sounds. Extremities: There is no edema no calf tenderness DP +1 bilaterally, right lower extremity is shorter and externally rotated Neurologic examination: Patient is awake alert and oriented X3, cranial nerves II-12 appear grossly intact, muscle power were 5 out of 5 in upper extremities and 5 out of 5 in bilateral lower extremities, deep tendon reflexes normal bilaterally. ASSESSMENT AND PLAN: 1. Status post a slip and fall with right intertrochanteric hip fracture with involvement of the greater and lesser trochanters. Patient has been admitted under orthopedic surgery, she is scheduled to go for surgical intervention tomorrow morning, patient did have a chest x-ray that did not show evidence of acute of normalities, total EKG showed normal sinus rhythm with frequent PVCs, patient does not appear to have any acute heart failure at this time, she does not have any unstable angina, patient did have an echocardiogram and her last hospital admission within few month ago, she did have a normal ejection fraction, therefore there is indication for the proposed surgical intervention at this point, patient is going for moderate risk surgery risk is a bit more than average due to her underlying comorbidities and her weight, surgery may carry the risk of few Occasions that the patient is aware of wheezing to proceed.Current pain management, PT and OT per orthopedics. Incentive spirometry to reduce incidence of atelectasis and hospital-acquired pneumonia. 2. Acute kidney injury. She'll be started on IV fluids, losartan discontinued and monitor renal function closely. 3. Hypertension and hypertensive cardiovascular disease. Continue patient on carvedilol 6.25 mg orally twice every day, losartan 100 mg once every day, monitor the patient very closely. 4. Mixed hyperlipidemia. Continue patient on atorvastatin 40 mg daily, as well as ezetimibe 10 mg once every day. 5. COPD. Continue patient on Symbicort 160/4.5 g 2 puffs in remission twice every day, continue DuoNeb treatment nebulization 4 times every day, continue oxygen support. 6. Chronic diastolic heart failure appears stable at this time. Continue carvedilol 6.25 mg orally twice every day as well as losartan 100 mg orally once every day. 7. History of remote lung cancer status post partial lobectomy in 2007 8. Osteoarthritis. Continue current pain management. 9. Osteopenia/osteoporosis 10. Diabetes mellitus type 2. Decrease Lantus to 40 units at bedtime, start the patient on IV fluid in the form of D5 half-normal saline at 75 mL an hour, monitor the patient very closely , we'll start the patient on sliding scale insulin. 11. DVT prophylaxis. We will start the patient on Lovenox 30 mg subcutaneously every 12 hours postoperatively. 12. GI prophylaxis. Continue famotidine 20 mg orally once every day 13. Chronic kidney disease stage III. Appears stable at this time, avoid hypotension and nephrotoxins 14. Thank you for the consultation we will follow the patient along with you. Impression and plan of care have been directed as dictated by the signing physician. Patricia Villegas nurse practitioner acting as scribe for signing physician. Objective - Vital Signs Vital signs: Vital Signs Temp 97.6 F 01/20/23 10:00 Pulse 75 01/21/23 13:31 Resp 18 01/21/23 13:31 BP 127/65 01/21/23 13:31 Pulse Ox 97 01/21/23 13:31 FiO2 - Labs CBC & Chem 7: 01/21/23 07:39 01/21/23 07:39 Labs: Abnormal Lab Results - Last 24 Hours (Table) 01/20/23 01/20/23 01/20/23 Range/Units 20:07 21:37 23:36 WBC (3.8-10.6) k/uL RBC (3.80-5.40) m/uL Hgb (11.4-16.0) gm/dL MCV (80.0-100.0) fL Neutrophils # (1.3-7.7) k/uL BUN (7-17) mg/dL Creatinine (0.52-1.04) mg/dL Glucose (74-99) mg/dL POC Glucose (mg/dL) 148 H 170 H 213 H (70-110) mg/dL Calcium (8.4-10.2) mg/dL Total Bilirubin (0.2-1.3) mg/dL AST (14-36) U/L ALT (4-34) U/L Alkaline Phosphatase (38-126) U/L Total Protein (6.3-8.2) g/dL Albumin (3.5-5.0) g/dL 01/21/23 01/21/23 01/21/23 Range/Units 07:39 07:39 08:35 WBC 13.4 H (3.8-10.6) k/uL RBC 3.42 L (3.80-5.40) m/uL Hgb 11.3 L (11.4-16.0) gm/dL MCV 101.5 H (80.0-100.0) fL Neutrophils # 11.6 H (1.3-7.7) k/uL BUN 48 H (7-17) mg/dL Creatinine 2.75 H (0.52-1.04) mg/dL Glucose 190 H (74-99) mg/dL POC Glucose (mg/dL) 176 H (70-110) mg/dL Calcium 8.0 L (8.4-10.2) mg/dL Total Bilirubin 1.6 H (0.2-1.3) mg/dL AST 103 H (14-36) U/L ALT 105 H (4-34) U/L Alkaline Phosphatase 203 H (38-126) U/L Total Protein 5.4 L (6.3-8.2) g/dL Albumin 2.8 L (3.5-5.0) g/dL 01/21/23 Range/Units 12:36 WBC (3.8-10.6) k/uL RBC (3.80-5.40) m/uL Hgb (11.4-16.0) gm/dL MCV (80.0-100.0) fL Neutrophils # (1.3-7.7) k/uL BUN (7-17) mg/dL Creatinine (0.52-1.04) mg/dL Glucose (74-99) mg/dL POC Glucose (mg/dL) 191 H (70-110) mg/dL Calcium (8.4-10.2) mg/dL Total Bilirubin (0.2-1.3) mg/dL AST (14-36) U/L ALT (4-34) U/L Alkaline Phosphatase (38-126) U/L Total Protein (6.3-8.2) g/dL Albumin (3.5-5.0) g/dL
[2023-01-21 16:50] LABS: Glucose,Whole Blood 116 mg/dL (70-110)
[2023-01-21] MEDS ORDERED: LACTATED RINGERS 1,000 ML IV ONE ×2 (18:10→19:30)
[2023-01-21 18:21] LABS: Glucose,Whole Blood 110 mg/dL (70-110)
[2023-01-21] MEDS ORDERED: ONDANSETRON 4 MG/2 ML VIAL IVP ONE (18:27)
[2023-01-21] MEDS ORDERED: DEXAMETHASONE SOD PHOSPHATE 4 MG/ML 1 ML VIAL IVP ONE (18:28)
[2023-01-21] MEDS ORDERED: fentaNYL (PF) 50 MCG/ML 2 ML AMP ONE (18:37)
[2023-01-21] MEDS ORDERED: ePHEDrine 50 MG/ML 1 ML VIAL ONE (18:37)
[2023-01-21] MEDS ORDERED: SUCCINYLCHOLINE CHLORIDE 200 MG/10 ML VIAL IV ONE (18:37)
[2023-01-21] MEDS ORDERED: PROPOFOL 10 MG/ML 20 ML VIAL IV ONE (18:37)
[2023-01-21] MEDS ORDERED: LIDOCAINE 1% INJ 10MG/ML (20 ML MDV) ONE (18:37)
[2023-01-21] MEDS ORDERED: SODIUM CHLORIDE 0.9% 50 ML with ceFAZolin 2,000 MG IV ONE ×2 (18:52)
[2023-01-21] MEDS ORDERED: NALOXONE 0.4 MG/ML 1 ML VIAL IV PRN (20:19)
[2023-01-21] MEDS ORDERED: MAGNESIUM HYDROXIDE 2,400 MG/30 ML CUP PO PRN (20:19)
--- NOTE | 2023-01-21 20:55 | XR ---
EXAMINATION TYPE: XR Hip Limited RT DATE OF EXAM: 01/21/2023 COMPARISON: None HISTORY: Hip pain TECHNIQUE: AP right hip FINDINGS: Hip pinning has been placed into the femoral head. Medullary fixation lisa is present. No ne w fractures are evident. There is loss of joint space at the right hip. IMPRESSION: 1. Status post right hip pin. No new fractures evident
[2023-01-21] MEDS ORDERED: SENNOSIDES-DOCUSATE SODIUM 1 EACH TAB PO SCH (21:00)
--- NOTE | 2023-01-21 21:33 | XR ---
Fluoroscopy INDICATION: Pain FINDINGS: Fluoroscopy time: 53 seconds. Total dose area product (DAP) in uGy*m?, mGy*cm? (or similar): 7.3675 Images obtained: 4. IMPRESSION: 1. Documentation of fluoroscopy.
[2023-01-21 21:36] LABS: Glucose,Whole Blood 92 mg/dL (70-110)
--- NOTE | 2023-01-21 21:45 | P.OP ---
Date of Procedure: 01/21/23 Preoperative Diagnosis: Right hip intertrochanteric proximal femur fracture Postoperative Diagnosis: Right hip intertrochanteric proximal femur fracture Procedure(s) Performed: Right hip intertrochanteric proximal femur fracture intramedullary nailing Implants: 1.) [id number] IMN 2.) 40x5mm distal locking screw 3.) A 10.5x 100mm lag screw Anesthesia: spinal Surgeon: Todd [facility] [employer] Guest Service Agent #1: Dorina Lara Estimated Blood Loss (ml): 300 Pathology: none sent Condition: stable Disposition: PACU Description of Procedure: This is a 77 year old female who sustained a right intertrochanteric hip fracture after a fall from standing and presents today for surgical intervention. Risks and benefits of surgery were discussed with the patient including bleeding, damage to surrounding tissue, infection, need for further s urgery as well as risks of anesthesia including pulmonary embolism and even and the patient wished to proceed with surgical intervention. The patient was seen in the pre-operative area by myself. Consent and H&P were completed and updated. The correct extremity was marked in the pre-operative area by myself and all other questions were answered. Operative Narrative: The patient was brought to the operating room by the department of anesthesia. Spinal anesthesia was performed. The patient was then transferred to the [place] traction table. All sung prominences were well padded. Timeout was performed indicating the correct patient, procedure and laterality and all in the room were in agreement. Closed reduction maneuver was performed consisting of traction, adduction and internal rotation. The patient was then prepped and draped in normal sterile fashion. A 5cm longitudinal incision was made 3 finger breadths above the level of the greater trochanter. The gluteal fascia was split with scalpel and blunt fingertip dissection was taken down to the tip of the greater trochanter. A starting awl was then used to initiate the starting point at the tip of the greater trochanter, inline with the medullary canal on AP and lateral views. Awl was then advanced. Ball tip guide wire was then entered through the awl and intramedullary placement was confirmed on X-ray. Opening reamer was then used to ream over the guide wire down to the level of the lesser trochanter. A 12.5 mm reamer was then used to ream the entire length of the femur. A Raisa [id number] IMN was then inserted over the ball tip guidewire and impacted to the appropriate depth. Lag screw guide was then placed and skin incision was made along the lateral aspect of the femur, IT fascia was split and guidewire sleeve was inserted down to bone. Threaded k-wire was then advanced through the femoral neck to subchondral bone of the femoral head without penetrating the cortex and confirmed on AP/Lat views. Size was measured at 100mm. Drill was then set to 100mm and over drilling was performed. A 10.5x 100mm lag screw was then inserted to an appropriate TAD distance. Guide pin was then removed. Set screw was then placed proximally and a quarter back turn was performed and there was a small amount of play when lag screw was twisted indicating correct seating of the set screw in the lag screw rivets. Distal locking attachment was then set to static locking. Drilling was performed and measured with depth gauge. A 40x5mm distal locking screw was then placed. Final imaging was taken confirming appropriate reduction of fracture. Wounds were irrigated with sterile saline. Gluteal and IT fascia was closed with 0 vicryl suture, followed by subcutaneous closure with 2-0 vicryl suture and parul and a sterile optifoam dressing. The patient was then awoken by the department of anesthesia and transferred to PACU in stable condition. Dorina Burgos NP was present for the case and assisted in hardware placement and fracture reduction. -Todd Hughes DO Orthopedic Surgeon
[2023-01-21] MEDS: SODIUM CHLORIDE 0.9% 1,000 ML IV SCH (22:38)
[2023-01-21 23:06] LABS: Glucose,Whole Blood 138 mg/dL (70-110)
[2023-01-21] MEDS: ceFAZolin 3 GM in SODIUM CHLORIDE 0.9% 100 ML IVPB SCH (23:28)
[2023-01-21] MEDS: ATORVASTATIN 40 MG TAB PO SCH (23:28)
[2023-01-21] MEDS: INSULIN DETEMIR (LEVEMIR) 100 UNIT/ML SYR SQ SCH (23:37)
[2023-01-22] MEDS: SODIUM CHLORIDE 0.9% 1,000 ML IV SCH ×2 (04:24→10:04)
[2023-01-22 06:51] LABS: Glucose,Whole Blood 251 mg/dL (70-110)
[2023-01-22] MEDS: INSULIN ASPART (NovoLOG) 100 UNIT/ML VIAL SQ SCH ×4 (07:05→21:17)
[2023-01-22] MEDS: carvediloL 6.25 MG TAB PO SCH ×2 (07:05→18:44)
[2023-01-22] MEDS ORDERED: ENOXAPARIN 40 MG/0.4 ML SYRINGE SQ SCH (09:00)
[2023-01-22] MEDS: SYMBICORT 160-4.5 MCG INHALER INHALATION SCH ×2 (09:22→18:52)
[2023-01-22] MEDS: IPRATROPIUM-ALBUTEROL 3 ML NEB INHALATION SCH ×4 (09:22→18:52)
[2023-01-22 09:37] LABS: Basophils # (A) 0.03 X 10*3/uL (0.00-0.10); Basophils % (A) 0.1 %; Eosinophils # (A) 0 X 10*3/uL (0.04-0.35); Eosinophils % (A) 0 %; HCT 29.5 % (37.2-46.3); HGB 9.6 g/dL (12.0-15.0); Lymphocytes # (A) 0.58 X 10*3/uL (0.90-5.00); Lymphocytes % (A) 2.8 %; MCH 32.7 pg (27.0-32.0); MCHC 32.5 g/dL (32.0-37.0); MCV 100.3 FL (80.0-97.0); Mean Platelet Volume 10.3 FL (9.5-12.2); Monocytes # (A) 0.73 X 10*3/uL (0.20-1.00); Monocytes % (A) 3.5 %; NRBC Per 100 WBC 0 X 10*3/uL (0.00-0.01); Platelet Count 180 X 10*3/uL (140-440); RBC 2.94 X 10*6/uL (4.10-5.20); WBC 21.06 X 10*3/uL (4.50-10.00)
--- NOTE | 2023-01-22 09:42 | P.PN ---
Subjective Progress Note Date: 01/22/23 HISTORY OF PRESENT ILLNESS: This is a 77-year-old female with a previous medical history signif icant for hypertension and hypertensive cardiovascular disease, hyperlipidemia, diabetes mellitus type 2, obesity, osteoarthritis, chronic low back pain, chronic kidney disease stage 3b, patient was seen in my office for annual on his visit on 12/17/2022, she was complaining of increased pain in the right lower extremity was described as a pain in the right hip as well as increased pain in the back of the leg radiating to the knee suggestive of radiculopathy due to spondylosis of the lumbar spine as well as osteoarthritis of the right hip, she was placed on baclofen 10 mg to take it at night before bedtime along with the Tylenol and she was advised to place heat pads on the lumbar spine as well, and reevaluate in about a week from now, she was given x-rays for evaluation as well, patient apparently was doing fine up until yesterday according to her daughter was at the bedside she has been more sleepy so she was started on baclofen, currently her grandson lives with her, patient woke up in the morning at 5:00 in the morning today and she wants to go to the bathroom and apparently she had an accident and slipped and her PT, and she landed on the right side of her hip, patient could not get up by herself, her grandson came to try to help her out she did not want to go to the hospital they were both apparently developed however her son eventually called EMS who came and brought her to the ER had an x-ray of the pelvis and the right hip showed right sided intertrochanteric fracture with involvement of both greater and lesser trochanters she was admitted under orthopedic surgery for asked to see the patient for preoperative medical clearance and medical management. 01/21: Patient is scheduled for right hip IM nail fixation today. Blood pressure 127/65, heart rate in the 70s, pulse ox 97% on room air. Repeat blood work reveals hemoglobin of 11.3, WBC 13.4, platelet count 231. Lactulose are normal. BUN 40 creatinine 2.75. Liver function tests have Ifrah as well with total bilirubin 1.6, AST 103, ALT 105, alkaline phosphatase is 203. Labile glucose running between 176 and 213. 01/22: Patient is seen today in follow-up. She states she is not having any yessi n. She has a Kay catheter was slightly dark urine. She's been on IV fluids due to acute kidney injury and we will add in a consult for nephrology. Heart rate is 108, blood pressure 113/60, pulse ox 94% on 2 L. Morning laboratory studies are pending. Patient is on Lovenox for DVT prophylaxis. REVIEW OF SYSTEMS: Constitutional: No documented fever, no chills, no night sweats. No weight penelope nge. No weakness, fatigue or lethargy. No daytime sleepiness. EENT: No headache. No blurred vision or double vision, no loss of vision. No loss of Hearing, no ringing in the ears, no dizziness. No nasal drainage or congestion. No epistaxis. No sore throat. Lungs: minimal shortness of breath, no cough, no sputum production. No wheezing. Reports dyspnea with activity. Cardiovascular: No chest pain, no lower extremity edema. No palpitations. No paroxysmal nocturnal dyspnea. No orthopnea. No lightheadedness or dizziness. No syncopal episodes. Abdominal: Reports no abdominal pain. No nausea, vomiting. No diarrhea. No constipation. No bloody or tarry stools reports loss of appetite. Genitourinary: No dysuria, increased frequency, urgency. No urinary retention. Musculoskeletal: No myalgias. positive for muscle weakness, positive for gait dysfunction, no frequent falls. positive for back pain. No neck pain. Integumentary: No wounds, no lesions. No rash or pruritus. No unusual bruising. No change in hair or nails. Neurologic: No aphasia. No facial droop. No change in mentation. No head injury. No headache. No paralysis. No paresthesia. Psychiatric: No depression. No anxiety. No mood swings. Endocrine: No abnormal blood sugars. No weight change. PHYSICAL EXAMINATION: General: 77-year-old female laying in bed no acute distress. HEENT: Head is atraumatic, normocephalic, pupils were equal round reactive to light and recommendation, extraocular muscle movement were intact, sclera nonicteric, conjunctivae were pale, mucous membranes of the mouth are somewhat dry. Neck: Supple, no JVP, normal carotid upstroke bilaterally, no lymphadenopathy. Chest: Decreased breath sounds at the bases, few rhonchi, no expiratory wheezes, no chest wall tenderness, no intercostal retractions. Heart: First heart sound is normal, second heart sound is normal there is systolic ejection murmur 2/6 in the left sternal border Abdomen: Soft, nontender, nondistended, positive bowel sounds. Extremities: There is no edema no calf tenderness DP +1 bilaterally, dressing in place to the right hip Neurologic examination: Patient is awake alert and oriented X3, cranial nerves II-12 appear grossly intact, muscle power were 5 out of 5 in upper extremities and 5 out of 5 in bilateral lower extremities, deep tendon reflexes normal bilaterally. ASSESSMENT AND PLAN: 1. Status post a slip and fall with right intertrochanteric hip fracture with involvement of the greater and lesser trochanters status post IM nail. Continue incentive serology to reduce incidence of atelectasis and hospital-acquired pneumonia, continue pain management per orthopedics, continue activity, PT and OT per orthopedics. Continue DVT prophylaxis with aspirin 81 mg twice daily. 2. Acute kidney injury. She'll be started on IV fluids, losartan discontinued and monitor renal function closely. Consult added for nephrology. 3. Hypertension and hypertensive cardiovascular disease. Continue patient on carvedilol 6.25 mg orally twice every day, losartan 100 mg once every day-on h old, monitor the patient very closely. 4. Mixed hyperlipidemia. Continue patient on atorvastatin 40 mg daily, as well as ezetimibe 10 mg once every day. 5. COPD. Continue patient on Symbicort 160/4.5 g 2 puffs in remission twice every day, continue DuoNeb treatment nebulization 4 times every day, continue oxygen support. 6. Chronic diastolic heart failure appears stable at this time. Continue carvedilol 6.25 mg orally twice every day, Hold losartan 100 mg orally once every day. 7. History of remote lung cancer status post partial lobectomy in 2007 8. Osteoarthritis. Continue current pain management. 9. Osteopenia/osteoporosis 10. Diabetes mellitus type 2. Continue Lantus to 40 units at bedtime, sliding scale insulin. 11. DVT prophylaxis. Continue subcu Lovenox. 12. GI prophylaxis. Continue famotidine 20 mg orally once every day 13. Chronic kidney disease stage III. Appears stable at this time, avoid hypotension and nephrotoxins Impression and plan of care have been directed as dictated by the signing physician. Patricia Villegas nurse practitioner acting as scribe for signing physician. Objective - Vital Signs Vital signs: Vital Signs Temp 98.4 F 01/22/23 07:27 Pulse 92 01/22/23 09:22 Resp 19 01/22/23 07:27 BP 113/60 01/22/23 07:27 Pulse Ox 94 L 01/22/23 07:27 FiO2 Intake & Output 01/21/23 01/22/23 01/22/23 18:59 06:59 18:59 Intake Total 850 750 800 Output Total 450 Balance 850 300 800 Weight 125.645 kg Intake: IV 850 750 Intake, IV Titration 800 Amount Dextrose 5%-0.45% NaCl 1, 800 000 ml @ 100 mls/hr IV . Q10H [facility] Rx#:[id number] Output: Urine 150 Estimated Blood Loss 300 Other: Voiding Method Indwelling Catheter - Labs CBC & Chem 7: 01/21/23 07:39 01/21/23 07:39 Labs: Abnormal Lab Results - Last 24 Hours (Table) 01/21/23 01/21/23 01/21/23 Range/Units 12:36 16:48 23:05 POC Glucose (mg/dL) 191 H 116 H 138 H (70-110) mg/dL 01/22/23 Range/Units 06:49 POC Glucose (mg/dL) 251 H (70-110) mg/dL
[2023-01-22] MEDS: EZETIMIBE 10 MG TAB PO SCH (10:03)
[2023-01-22] MEDS: DEXTROSE 5%-0.45% NACL 1,000 ML IV SCH (10:03)
[2023-01-22] MEDS: FAMOTIDINE 20 MG TAB PO SCH (10:03)
[2023-01-22] MEDS: ceFAZolin 3 GM in SODIUM CHLORIDE 0.9% 100 ML IVPB SCH (10:19)
[2023-01-22 11:20] LABS: Glucose,Whole Blood 212 mg/dL (70-110)
[2023-01-22] MEDS: HYDROcodone/APAP 7.5-325MG 1 EACH TAB PO PRN ×2 (11:28→21:14)
[2023-01-22 11:45] LABS: ALT 170 U/L (4-34); AST 221 U/L (14-36); African American GFR (CKD) 16 (>60 ml/min/1.73 sqM); Albumin 2.4 g/dL (3.5-5.0); Anion Gap 9 mmol/L; Blood Urea Nitrogen 58 mg/dL (7-17); Calcium 7.2 mg/dL (8.4-10.2); Carbon Dioxide 24 mmol/L (22-30); Chloride 100 mmol/L (98-107); Globulin 2.5 g/dL; Glucose 210 mg/dL (74-99); Non-African American GFR(CKD) 14 (>60 ml/min/1.73 sqM); Potassium 4.8 mmol/L (3.5-5.1); Sodium 133 mmol/L (137-145); Total Bilirubin 1.6 mg/dL (0.2-1.3); Total Protein 4.9 g/dL (6.3-8.2)
[2023-01-22 11:46] LABS: Alkaline Phosphatase 318 U/L (38-126)
--- NOTE | 2023-01-22 14:27 | P.PN ---
Subjective Progress Note Date: 01/22/23 Principal diagnosis: Right hip IT fracture The patient was seen and examined by myself today. She is resting comfortably in bed. Physical therapy has not been by yet but is ordered. She's been moving the toes and ankles and states her pain has been controlled. She denies any numbness or tingling. Objective - Vital Signs Vital signs: Vital Signs Temp 97.4 F L 01/22/23 12:50 Pulse 90 01/22/23 13:13 Resp 19 01/22/23 12:50 BP 117/72 01/22/23 12:50 Pulse Ox 95 01/22/23 12:50 FiO2 Intake & Output 01/21/23 01/22/23 01/22/23 18:59 06:59 18:59 Intake Total 850 750 800 Output Total 450 Balance 850 300 800 Weight 125.645 kg Intake: IV 850 750 Intake, IV Titration 800 Amount Dextrose 5%-0.45% NaCl 1, 800 000 ml @ 100 mls/hr IV . Q10H [facility] Rx#:[id number] Output: Urine 150 Estimated Blood Loss 300 Other: Voiding Method Indwelling Catheter Indwelling Catheter - Exam RLE: Dressings are clean, dry and intact with no shadowing. EHL, FHL, ankle plantarflexion, ankle dorsiflexion 5/5 Strength. Cap refill to toes less than 3 seconds. 2+ out of 4. Dorsal pedal pulses palpated. - Labs CBC & Chem 7: 01/22/23 07:03 01/22/23 07:03 Labs: Abnormal Lab Results - Last 24 Hours (Table) 01/21/23 01/21/23 01/22/23 Range/Units 16:48 23:05 06:49 WBC (4.50-10.00) X 10*3/uL RBC (4.10-5.20) X 10*6/uL Hgb (12.0-15.0) g/dL Hct (37.2-46.3) % MCV (80.0-97.0) FL MCH (27.0-32.0) pg Neutrophils # (1.80-7.70) X 10*3/uL Lymphocytes # (0.90-5.00) X 10*3/uL Eosinophils # (0.04-0.35) X 10*3/uL Sodium (137-145) mmol/L BUN (7-17) mg/dL Creatinine (0.52-1.04) mg/dL Glucose (74-99) mg/dL POC Glucose (mg/dL) 116 H 138 H 251 H (70-110) mg/dL Calcium (8.4-10.2) mg/dL Total Bilirubin (0.2-1.3) mg/dL AST (14-36) U/L ALT (4-34) U/L Alkaline Phosphatase (38-126) U/L Total Protein (6.3-8.2) g/dL Albumin (3.5-5.0) g/dL 01/22/23 01/22/23 01/22/23 Range/Units 07:03 07:03 11:19 WBC 21.06 H (4.50-10.00) X 10*3/uL RBC 2.94 L (4.10-5.20) X 10*6/uL Hgb 9.6 L (12.0-15.0) g/dL Hct 29.5 L (37.2-46.3) % MCV 100.3 H (80.0-97.0) FL MCH 32.7 H (27.0-32.0) pg Neutrophils # 19.60 H (1.80-7.70) X 10*3/uL Lymphocytes # 0.58 L (0.90-5.00) X 10*3/uL Eosinophils # 0 L (0.04-0.35) X 10*3/uL Sodium 133 L (137-145) mmol/L BUN 58 H (7-17) mg/dL Creatinine 3.00 H (0.52-1.04) mg/dL Glucose 210 H (74-99) mg/dL POC Glucose (mg/dL) 212 H (70-110) mg/dL Calcium 7.2 L (8.4-10.2) mg/dL Total Bilirubin 1.6 H (0.2-1.3) mg/dL AST 221 H (14-36) U/L ALT 170 H (4-34) U/L Alkaline Phosphatase 318 H (38-126) U/L Total Protein 4.9 L (6.3-8.2) g/dL Albumin 2.4 L (3.5-5.0) g/dL Assessment and Plan Assessment: 1.) POD 1 Right hip IT fracture cephalomedullary nailing Plan: 1.) WBAT with walker 2.) PT 3.) DVT prophylaxis with Lovenox 4.) Pain control -Todd Hughes DO Orthopedic Surgeon
[2023-01-22 16:45] LABS: Glucose,Whole Blood 219 mg/dL (70-110)
--- NOTE | 2023-01-22 18:34 | FL ---
Fluoroscopy INDICATION: Pain FINDINGS: Fluoroscopy time: 53 seconds. Total dose area product (DAP) in uGy*m?, mGy*cm? (or similar): 7.3675 Images obtained: 2. IMPRESSION: 1. Documentation of fluoroscopy.
[2023-01-22 20:15] LABS: Glucose,Whole Blood 243 mg/dL (70-110)
[2023-01-22] MEDS: ATORVASTATIN 40 MG TAB PO SCH (21:14)
[2023-01-22] MEDS: INSULIN DETEMIR (LEVEMIR) 100 UNIT/ML SYR SQ SCH (21:17)
[2023-01-23 05:54] LABS: Glucose,Whole Blood 154 mg/dL (70-110)
[2023-01-23] MEDS: HYDROcodone/APAP 7.5-325MG 1 EACH TAB PO PRN ×3 (06:29→18:47)
[2023-01-23] MEDS: INSULIN ASPART (NovoLOG) 100 UNIT/ML VIAL SQ SCH ×4 (06:30→21:02)
[2023-01-23] MEDS: SODIUM CHLORIDE 0.9% 1,000 ML IV SCH ×2 (08:40→18:47)
[2023-01-23] MEDS: ENOXAPARIN 30 MG/0.3 ML SYRINGE SQ SCH (08:41)
[2023-01-23] MEDS: carvediloL 6.25 MG TAB PO SCH (08:41)
[2023-01-23] MEDS: FAMOTIDINE 20 MG TAB PO SCH (08:41)
[2023-01-23] MEDS: EZETIMIBE 10 MG TAB PO SCH (08:41)
[2023-01-23] MEDS: SYMBICORT 160-4.5 MCG INHALER INHALATION SCH ×2 (09:35→21:28)
[2023-01-23] MEDS: IPRATROPIUM-ALBUTEROL 3 ML NEB INHALATION SCH ×4 (09:35→21:29)
[2023-01-23 10:35] LABS: HCT 29.4 % (34.0-46.0); Hypochromasia Slight; MCH 32.6 pg (25.0-35.0); Macrocytosis Slight; Mean Platelet Volume 8.4; Platelet Count 146 k/uL (150-450); RBC 2.89 m/uL (3.80-5.40); RDW 13.7 % (11.5-15.5); WBC 9.8 k/uL (3.8-10.6)
[2023-01-23 10:55] LABS: HGB 9.4 gm/dL (11.4-16.0)
[2023-01-23 11:37] LABS: Glucose,Whole Blood 187 mg/dL (70-110)
--- NOTE | 2023-01-23 11:59 | P.NPCON ---
History of Present Illness - Reason for Consult acute renal failure - History of Present Illness patient is a 77-year-old female with history of hypertension, type 2 diabetes, obesity. Patient was admitted to the hospital with complaints of pain in the right lower extremity and hip area. She was found to have right intertrochanteric fracture and is status post right hip intramedullary nailing for proximal femur fracture on 01/21/2023. CK D stage III documented with previous creatinine ranging between 1.1-1.2 mg/dL but as low as 0.8 on 10/15/2022 Patient's creatinine increased from 1.1 on 01/20/2023 to 3.0 yesterday. Patient has an indwelling Kay catheter with 24-hour output documented at 300 mL. Blood pressure is noted to be low with systolic blood pressure in the 70s and 80s on 01/21/2023. Patient was also maintained on Toradol and losartan which are now appropriately discontinued. Review of Systems As per HPI Past Medical History Past Medical History: Cancer, Diabetes Mellitus, Hyperlipidemia, Hypertension Additional Past Medical History / Comment(s): hx. lung cancer 2006, recent kid lorenzo infection now resolved History of Any Multi-Drug Resistant Organisms: None Reported Past Surgical History: Cholecystectomy, Hernia Repair Additional Past Surgical History / Comment(s): partial lobectomy 2007 Past Anesthesia/Blood Transfusion Reactions: No Reported Reaction Past Psychological History: No Psychological Hx Reported Smoking Status: Never smoker Past Alcohol Use History: None Reported Past Drug Use History: None Reported - Past Family History Mother Family Medical History: Cancer Medications and Allergies Home Medications Medication Instructions Recorded Confirmed Type Atorvastatin [Lipitor] 40 mg PO HS 12/14/19 01/20/23 History Aspirin EC [Ecotrin Low Dose] 81 mg PO DAILY 10/15/22 01/20/23 History Ezetimibe [Zetia] 10 mg PO DAILY 10/15/22 01/20/23 History Insulin Glargine,Hum.rec.anlog 54 unit SQ HS 10/15/22 01/20/23 History [Lantus Solostar Pen] Irbesartan [Avapro] 300 mg PO DAILY 10/15/22 01/20/23 History carvediloL [Coreg] 6.25 mg PO BID-W/MEALS #60 tab 10/20/22 01/20/23 Rx Famotidine [Pepcid] 20 mg PO DAILY #30 tab 10/22/22 01/20/23 Rx Budesonide-Formot 160-4.5 Mcg 2 puff INHALATION BID #1 each 10/24/22 01/20/23 Rx [Symbicort 160-4.5 Mcg Inhaler] Ipratropium-Albuterol Nebulize 3 ml INHALATION RT-QID #360 ml 10/24/22 01/20/23 Rx [Duoneb 0.5 mg-3 mg/3 ml Soln] Baclofen 10 mg PO BID PRN 01/20/23 01/20/23 History Sennosides [Senokot] 8.6 mg PO BID PRN 01/20/23 01/20/23 History Torsemide [Demadex] 20 mg PO DAILY 01/20/23 01/20/23 History Allergies Allergy/AdvReac Type Severity Reaction Status Date / Time cephalexin Allergy Rash/Hives, Verified 01/20/23 07:58 redness, swelling Physical Exam Vitals: Vital Signs Temp Pulse Pulse Pulse Resp BP BP 01/23/23 09:45 101 H 01/23/23 09:38 01/23/23 09:36 99 01/23/23 08:28 98.0 F 77 19 145/67 01/23/23 02:47 97.7 F 88 16 111/68 01/22/23 20:13 97.6 F 79 18 107/53 01/22/23 18:59 87 01/22/23 18:52 88 01/22/23 16:53 88 01/22/23 16:42 88 01/22/23 13:13 90 01/22/23 13:00 88 01/22/23 12:50 97.4 F L 77 19 117/72 Pulse Ox 01/23/23 09:45 01/23/23 09:38 95 01/23/23 09:36 01/23/23 08:28 94 L 01/23/23 02:47 95 01/22/23 20:13 98 01/22/23 18:59 01/22/23 18:52 01/22/23 16:53 01/22/23 16:42 01/22/23 13:13 01/22/23 13:00 01/22/23 12:50 95 Intake and Output 1201/23/23 01/23/23 22:59 06:59 14:59 Output Total 300 350 Balance -300 -350 Output: Urine 300 350 Other: Voiding Method Indwelling Catheter Patient is awake, comfortable, in no acute distress Alert oriented 3 Examination of the heart S1 and S2 Examination of the lungs bilateral breath sounds are heard Abdomen is soft obese nontender Examination of lower extremities shows no significant edema [employer] [employer] exam grossly intact Results - Lab Results Most recent lab results Calcium 7.2 mg/dL (8.4-10.2) L 01/22/23 07:03 Magnesium 1.6 mg/dL (1.6-2.3) 01/20/23 07:57 01/23/23 08:57 01/22/23 07:03 Assessment and Plan Assessment: 1. Acute kidney injury, ATN currently with indwelling Kay catheter. Urine output is low if this is documented accurately. Etiology of ATN is hypotension in the setting of use of NSAIDs and angiotensin receptor blockers, both are currently appropriately discontinued. Ultrasound of the kidneys is pending. UA was benign on 01/20/2023. 2. Status post intramedullary nailing for right hip femoral fracture on 01/21/2023 3. Hypertension currently off of losartan and maintained on low-dose carvedilol Plan: Continue off of losartan Continue to avoid NSAIDs Follow-up on ultrasound of the kidneys Continue with IV fluids Decrease Coreg further to 3.125 mg twice a day. Thank you for the consultation. We will continue to follow the patient with you during her hospitalization
[2023-01-23 12:12] LABS: ALT 60 U/L (4-34); AST 89 U/L (14-36); African American GFR (CKD) 17 (>60 ml/min/1.73 sqM); Albumin 2.5 g/dL (3.5-5.0); Alkaline Phosphatase 271 U/L (38-126); Anion Gap 13 mmol/L; Blood Urea Nitrogen 73 mg/dL (7-17); Calcium 7.3 mg/dL (8.4-10.2); Carbon Dioxide 19 mmol/L (22-30); Chloride 100 mmol/L (98-107); Globulin 2.5 g/dL; Glucose 146 mg/dL (74-99); Non-African American GFR(CKD) 15 (>60 ml/min/1.73 sqM); Potassium 4.6 mmol/L (3.5-5.1); Sodium 132 mmol/L (137-145); Total Bilirubin 0.8 mg/dL (0.2-1.3)
--- NOTE | 2023-01-23 13:56 | P.PN ---
Subjective Progress Note Date: 01/23/23 HISTORY OF PRESENT ILLNESS: This is a 77-year-old female with a previous medical history signif icant for hypertension and hypertensive cardiovascular disease, hyperlipidemia, diabetes mellitus type 2, obesity, osteoarthritis, chronic low back pain, chronic kidney disease stage 3b, patient was seen in my office for annual on his visit on 12/17/2022, she was complaining of increased pain in the right lower extremity was described as a pain in the right hip as well as increased pain in the back of the leg radiating to the knee suggestive of radiculopathy due to spondylosis of the lumbar spine as well as osteoarthritis of the right hip, she was placed on baclofen 10 mg to take it at night before bedtime along with the Tylenol and she was advised to place heat pads on the lumbar spine as well, and reevaluate in about a week from now, she was given x-rays for evaluation as well, patient apparently was doing fine up until yesterday according to her daughter was at the bedside she has been more sleepy so she was started on baclofen, currently her grandson lives with her, patient woke up in the morning at 5:00 in the morning today and she wants to go to the bathroom and apparently she had an accident and slipped and her PT, and she landed on the right side of her hip, patient could not get up by herself, her grandson came to try to help her out she did not want to go to the hospital they were both apparently developed however her son eventually called EMS who came and brought her to the ER had an x-ray of the pelvis and the right hip showed right sided intertrochanteric fracture with involvement of both greater and lesser trochanters she was admitted under orthopedic surgery for asked to see the patient for preoperative medical clearance and medical management. 01/21: Patient is scheduled for right hip IM nail fixation today. Blood pressure 127/65, heart rate in the 70s, pulse ox 97% on room air. Repeat blood work reveals hemoglobin of 11.3, WBC 13.4, platelet count 231. Lactulose are normal. BUN 40 creatinine 2.75. Liver function tests have Ifrah as well with total bilirubin 1.6, AST 103, ALT 105, alkaline phosphatase is 203. Labile glucose running between 176 and 213. 01/22: Patient is seen today in follow-up. She states she is not having any yessi n. She has a Kay catheter was slightly dark urine. She's been on IV fluids due to acute kidney injury and we will add in a consult for nephrology. Heart rate is 108, blood pressure 113/60, pulse ox 94% on 2 L. Morning laboratory studies are pending. Patient is on Lovenox for DVT prophylaxis. 01/23: Patient is laying down in bed appears to be a bit more short of breath today, she continues to have the middle of urine output, she continues to be on IV fluid, nephrology consultation was placed but is not done yet, continue to monitor the patient CMP, avoid nephrotoxins, patient was taken off Toradol, she was taken off losartan, we will continue to monitor the patient very closely, physical therapy evaluation, patient has been admitted under orthopedic surgery and will continue to follow the patient very closely. REVIEW OF SYSTEMS: Constitutional: No documented fever, no chills, no night sweats. No weight change. No weakness, fatigue or lethargy. No daytime sleepiness. EENT: No headache. No blurred vision or double vision, no loss of vision. No loss of Hearing, no ringing in the ears, no dizziness. No nasal drainage or congestion. No epistaxis. No sore throat. Lungs: minimal shortness of breath, no cough, no sputum production. No wheezing. Reports dyspnea with activity. Cardiovascular: No chest pain, no lower extremity edema. No palpitations. No paroxysmal nocturnal dyspnea. No orthopnea. No lightheadedness or dizziness. No syncopal episodes. Abdominal: Reports no abdominal pain. No nausea, vomiting. No diarrhea. No constipation. No bloody or tarry stools reports loss of appetite. Genitourinary: No dysuria, increased frequency, urgency. No urinary retention. Musculoskeletal: No myalgias. positive for muscle weakness, positive for gait dysfunction, no frequent falls. positive for back pain. No neck pain. Integumentary: No wounds, no lesions. No rash or pruritus. No unusual bruising. No change in hair or nails. Neurologic: No aphasia. No facial droop. No change in mentation. No head injury. No headache. No paralysis. No paresthesia. Psychiatric: No depression. No anxiety. No mood swings. Endocrine: No abnormal blood sugars. No weight change. PHYSICAL EXAMINATION: General: 77-year-old female laying in bed no acute distress. HEENT: Head is atraumatic, normocephalic, pupils were equal round reactive to light and recommendation, extraocular muscle movement were intact, sclera nonicteric, conjunctivae were pale, mucous membranes of the mouth are somewhat dry. Neck: Supple, no JVP, normal carotid upstroke bilaterally, no lymphadenopathy. Chest: Decreased breath sounds at the bases, few rhonchi, no expiratory wheezes, no chest wall tenderness, no intercostal retractions. Heart: First heart sound is normal, second heart sound is normal there is systolic ejection murmur 2/6 in the left sternal border Abdomen: Soft, nontender, nondistended, positive bowel sounds. Extremities: There is no edema no calf tenderness DP +1 bilaterally, dressing in place to the right hip Neurologic examination: Patient is awake alert and oriented X3, cranial nerves II-12 appear grossly intact, muscle power were 5 out of 5 in upper extremities and 5 out of 5 in bilateral lower extremities, deep tendon reflexes normal bilaterally. ASSESSMENT AND PLAN: 1. Status post a slip and fall with right intertrochanteric hip fracture with involvement of the greater and lesser trochanters status post IM nail. Continue incentive serology to reduce incidence of atelectasis and hospital-acquired pneumonia, continue pain management per orthopedics, continue activity, PT and OT per orthopedics. Continue DVT prophylaxis with aspirin 81 mg twice daily. 2. Acute kidney injury on chronic kidney disease stage 3a. 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 Discontinued started yesterday, continue IV fluid resuscitation the form of normal saline at 75 mL an hour, monitor input and output, nephrology consultation was placed. 3. Hypertension and hypertensive cardiovascular disease. Continue patient on carvedilol 6.25 mg orally twice every day, we will continue to monitor the patient blood pressure very closely. 4. Mixed hyperlipidemia. Continue patient on atorvastatin 40 mg daily, as well as ezetimibe 10 mg once every day. 5. COPD. Continue patient on Symbicort 160/4.5 g 2 puffs in remission twice every day, continue DuoNeb treatment nebulization 4 times every day, continue oxygen support. 6. Chronic diastolic heart failure appears stable at this time. Continue carvedilol 6.25 mg orally twice every day. 7. History of remote lung cancer status post partial lobectomy in 2007 8. Osteoarthritis. Continue current pain management. 9. Osteopenia/osteoporosis.stable at this time. The patient will need to be placed on Prolia as outpatient 10. Diabetes mellitus type 2. Continue Lantus to 40 units at bedtime, sliding scale insulin. 11. DVT prophylaxis. Continue Lovenox 30 milligrams subcutaneously every 24 hours. 12. GI prophylaxis. Continue famotidine 20 mg orally once every day 13. Guarded prognosis. Objective - Vital Signs Vital signs: Vital Signs Temp 98.0 F 01/23/23 08:28 Pulse 101 H 01/23/23 09:45 Resp 19 01/23/23 08:28 BP 145/67 01/23/23 08:28 Pulse Ox 95 01/23/23 09:38 FiO2 Intake & Output 01/22/23 01/23/23 01/23/23 18:59 06:59 18:59 Intake Total 800 Output Total 300 350 Balance 500 -350 Weight 125.645 kg Intake: Intake, IV Titration 800 Amount Dextrose 5%-0.45% NaCl 1, 800 000 ml @ 100 mls/hr IV . Q10H [facility] Rx#:[id number] Output: Urine 300 350 Other: Voiding Method Indwelling Catheter Indwelling Catheter - Labs CBC & Chem 7: 01/23/23 08:57 01/22/23 07:03 Labs: Abnormal Lab Results - Last 24 Hours (Table) 01/22/23 01/22/23 01/22/23 Range/Units 07:03 16:43 20:14 RBC (3.80-5.40) m/uL Hgb (11.4-16.0) gm/dL Hct (34.0-46.0) % MCV (80.0-100.0) fL Plt Count (150-450) k/uL Sodium 133 L (137-145) mmol/L BUN 58 H (7-17) mg/dL Creatinine 3.00 H (0.52-1.04) mg/dL Glucose 210 H (74-99) mg/dL POC Glucose (mg/dL) 219 H 243 H (70-110) mg/dL Calcium 7.2 L (8.4-10.2) mg/dL Total Bilirubin 1.6 H (0.2-1.3) mg/dL AST 221 H (14-36) U/L ALT 170 H (4-34) U/L Alkaline Phosphatase 318 H (38-126) U/L Total Protein 4.9 L (6.3-8.2) g/dL Albumin 2.4 L (3.5-5.0) g/dL 01/23/23 01/23/23 Range/Units 05:51 08:57 RBC 2.89 L (3.80-5.40) m/uL Hgb 9.4 L D (11.4-16.0) gm/dL Hct 29.4 L (34.0-46.0) % MCV 102.0 H (80.0-100.0) fL Plt Count 146 L (150-450) k/uL Sodium (137-145) mmol/L BUN (7-17) mg/dL Creatinine (0.52-1.04) mg/dL Glucose (74-99) mg/dL POC Glucose (mg/dL) 154 H (70-110) mg/dL Calcium (8.4-10.2) mg/dL Total Bilirubin (0.2-1.3) mg/dL AST (14-36) U/L ALT (4-34) U/L Alkaline Phosphatase (38-126) U/L Total Protein (6.3-8.2) g/dL Albumin (3.5-5.0) g/dL
--- NOTE | 2023-01-23 14:35 | XR ---
EXAMINATION TYPE: XR chest 1V DATE OF EXAM: 01/23/2023 COMPARISON: 01/20/2023 INDICATION: Difficulty in breathing TECHNIQUE: Single frontal view of the chest is obtained. FINDINGS: The heart size is enlarged. The pulmonary vasculature is normal. Some patchy infiltrate in the right lower lobe. Some retrocardiac infiltrate is developing. There is partial silhouetting the left diaphragm. IMPRESSION: 1. Worsening bibasilar infiltrates. Follow-up is recommended.
--- NOTE | 2023-01-23 15:08 | US ---
EXAMINATION TYPE: US kidneys/renal and bladder DATE OF EXAM: 01/23/2023 COMPARISON: CT 2016 CLINICAL INDICATION: Female, 77 years old with history of katiuska; KATIUSKA EXAM MEASUREMENTS: Right Kidney: 11.5 x 6.0 x 5.9 cm Left Kidney: 11.6 x 5.8 x 6.5 cm Very limited due to gas and patient body habitus. Right Kidney: Hypoechoic area seen upper pole likely a simple cyst measurin.5 x 2.8 x 3.1 cm. Hypoechoic area seen lateral lower pole likely a cyst measurin.9 x 2.0 x 1.6 cm. Left Kidney: No hydronephrosis or masses seen. Limited. Bladder: Unable to visualize. Bilateral Jets seen: No IMPRESSION: Right renal cysts
[2023-01-23] MEDS: traMADol 50 MG TAB PO PRN ×2 (15:28→21:01)
[2023-01-23 16:45] LABS: Glucose,Whole Blood 195 mg/dL (70-110)
[2023-01-23] MEDS: carvediloL 3.125 MG TAB PO SCH (17:15)
--- NOTE | 2023-01-23 19:41 | P.PN ---
Subjective Progress Note Date: 01/23/23 Principal diagnosis: Fall with trauma Right IT fracture Patient seen and examined this morning. Patient is resting comfortably in bed. She reports she has not worked with physical therapy over the weekend. RN presented in room and stated that they had gotten her to the chair yesterday, Tolerated activity well although with an unsteady gait with walker. Kay catheter is intact and patent. Patient reports that her pain is moderately controlled on current regimen. Medications will be reviewed, discussed with patient and limited options due to acute kidney injury. Surgical incisions to the right hip and thigh, dressings are clean dry and intact. Informed patient that physical therapy and occupational therapy will be N to work with her tomorrow morning. Patient is looking forward to progress with her recovery. Patient is wanting to go home with home care. Discussed with her possible subacute rehab pending physical therapy evaluation. No acute concerns at this time Objective - Vital Signs Vital signs: Vital Signs Temp 98.0 F 01/23/23 08:28 Pulse 101 H 01/23/23 09:45 Resp 19 01/23/23 08:28 BP 145/67 01/23/23 08:28 Pulse Ox 95 01/23/23 09:38 FiO2 Intake & Output 01/22/23 01/23/23 01/23/23 18:59 06:59 18:59 Intake Total 800 Output Total 300 350 Balance 500 -350 Weight 125.645 kg Intake: Intake, IV Titration 800 Amount Dextrose 5%-0.45% NaCl 1, 800 000 ml @ 100 mls/hr IV . Q10H [facility] Rx#:[id number] Output: Urine 300 350 Other: Voiding Method Indwelling Catheter Indwelling Catheter - Exam Right lower extremity: Dressings are clean, dry and intact with no shadowing. EHL, FHL, ankle plantarflexion, ankle dorsiflexion 5/5 Strength. Cap refill to toes less than 3 seconds. 2+ out of 4. Dorsal pedal pulses palpated. - Labs CBC & Chem 7: 01/23/23 08:57 01/23/23 08:57 Labs: Abnormal Lab Results - Last 24 Hours (Table) 01/22/23 01/22/23 01/22/23 Range/Units 07:03 11:19 16:43 RBC (3.80-5.40) m/uL Hgb (11.4-16.0) gm/dL Hct (34.0-46.0) % MCV (80.0-100.0) fL Plt Count (150-450) k/uL Sodium 133 L (137-145) mmol/L BUN 58 H (7-17) mg/dL Creatinine 3.00 H (0.52-1.04) mg/dL Glucose 210 H (74-99) mg/dL POC Glucose (mg/dL) 212 H 219 H (70-110) mg/dL Calcium 7.2 L (8.4-10.2) mg/dL Total Bilirubin 1.6 H (0.2-1.3) mg/dL AST 221 H (14-36) U/L ALT 170 H (4-34) U/L Alkaline Phosphatase 318 H (38-126) U/L Total Protein 4.9 L (6.3-8.2) g/dL Albumin 2.4 L (3.5-5.0) g/dL 01/22/23 01/23/23 01/23/23 Range/Units 20:14 05:51 08:57 RBC 2.89 L (3.80-5.40) m/uL Hgb 9.4 L D (11.4-16.0) gm/dL Hct 29.4 L (34.0-46.0) % MCV 102.0 H (80.0-100.0) fL Plt Count 146 L (150-450) k/uL Sodium (137-145) mmol/L BUN (7-17) mg/dL Creatinine (0.52-1.04) mg/dL Glucose (74-99) mg/dL POC Glucose (mg/dL) 243 H 154 H (70-110) mg/dL Calcium (8.4-10.2) mg/dL Total Bilirubin (0.2-1.3) mg/dL AST (14-36) U/L ALT (4-34) U/L Alkaline Phosphatase (38-126) U/L Total Protein (6.3-8.2) g/dL Albumin (3.5-5.0) g/dL Assessment and Plan Assessment: Postop day 2: Right hip IM nail fixation Fall with trauma Right IT fracture Plan: -Appreciate taxation consultant and team management. -Activity: Ambulate QID, OOB all meals, up and about, limit lifting bending twi sting to less than 5 lbs. Use walker or cane if needed for stability. -Daily PT/OT, increase ambulation strength and balance. -Pain control: Adequate at this time -Meds: reviewed -GI ppx: senna, Miralax -Kay Catheter per Nephrology recommendations -DVT PPX: Lovenox -Hygiene: Shower today. Maintain dressing clean and dry. -Encourage IS 10x/hr -Dispo: Anticipate discharge home with home care versus subacute rehab when medically cleared. *I reviewed and discussed this case with my attending Dr. Hughes, whom has reviewed this chart and films and is in agreement with assessment and plan of care as outlined above. I have personally seen and examined the patient, performed the documentation and the assessment and plan as written. Number of minutes spent on the visit: 20m.
[2023-01-23 20:15] LABS: Glucose,Whole Blood 229 mg/dL (70-110)
[2023-01-23] MEDS: ATORVASTATIN 40 MG TAB PO SCH (21:02)
[2023-01-23] MEDS: INSULIN DETEMIR (LEVEMIR) 100 UNIT/ML SYR SQ SCH (21:02)
[2023-01-24] MEDS: HYDROcodone/APAP 7.5-325MG 1 EACH TAB PO PRN ×3 (03:51→21:07)
[2023-01-24 05:35] LABS: Glucose,Whole Blood 137 mg/dL (70-110)
[2023-01-24] MEDS: INSULIN ASPART (NovoLOG) 100 UNIT/ML VIAL SQ SCH ×4 (06:12→21:08)
[2023-01-24] MEDS: traMADol 50 MG TAB PO PRN ×2 (06:25→17:03)
[2023-01-24] MEDS: carvediloL 3.125 MG TAB PO SCH ×2 (06:25→18:20)
--- NOTE | 2023-01-24 07:17 | P.PN ---
Subjective Progress Note Date: 01/24/23 Principal diagnosis: Fall with trauma Right IT fracture Patient seen and examined this morning. Patient is resting comfortably in bed. She reports her pain is managed on current regimen. Kay catheter is intact and patent. Surgical incisions to the right hip and thigh, dressings are clean dry and intact. Informed patient that physical therapy and occupational therapy will be in to work with her this morning. Patient is looking forward to progress with her recovery. Nursing staff is reporting patient is a max x2 assist to chair at bedside. Patient will benefit from IONA at discharge. No acute concerns at this time Objective - Vital Signs Vital signs: Vital Signs Temp 97.5 F L 01/24/23 01:13 Pulse 86 01/24/23 01:13 Resp 18 01/24/23 01:13 BP 150/79 01/24/23 01:13 Pulse Ox 97 01/24/23 01:13 FiO2 Intake & Output 01/23/23 01/24/23 01/24/23 18:59 06:59 18:59 Intake Total 900 Output Total 1050 1000 Balance -150 -1000 Intake: Intake, IV Titration 900 Amount Sodium Chloride 0.9% 1, 900 000 ml @ 75 mls/hr IV . [id number] [facility] Rx#:[id number] Output: Urine 1050 1000 Other: Voiding Method Indwelling Catheter Indwelling Catheter - Exam Right lower extremity: Dressings are clean, dry and intact with no shadowing. EHL, FHL, ankle plantarflexion, ankle dorsiflexion 5/5 Strength. Cap refill to toes less than 3 seconds. 2+ out of 4. Dorsal pedal pulses palpated. - Labs CBC & Chem 7: 01/23/23 08:57 01/23/23 08:57 Labs: Abnormal Lab Results - Last 24 Hours (Table) 01/23/23 01/23/23 01/23/23 Range/Units 08:57 08:57 11:35 RBC 2.89 L (3.80-5.40) m/uL Hgb 9.4 L D (11.4-16.0) gm/dL Hct 29.4 L (34.0-46.0) % MCV 102.0 H (80.0-100.0) fL Plt Count 146 L (150-450) k/uL Sodium 132 L (137-145) mmol/L Carbon Dioxide 19 L (22-30) mmol/L BUN 73 H (7-17) mg/dL Creatinine 2.88 H (0.52-1.04) mg/dL Glucose 146 H (74-99) mg/dL POC Glucose (mg/dL) 187 H (70-110) mg/dL Calcium 7.3 L (8.4-10.2) mg/dL AST 89 H (14-36) U/L ALT 60 H (4-34) U/L Alkaline Phosphatase 271 H (38-126) U/L Total Protein 5.0 L (6.3-8.2) g/dL Albumin 2.5 L (3.5-5.0) g/dL 01/23/23 01/23/23 01/24/23 Range/Units 16:44 20:13 05:34 RBC (3.80-5.40) m/uL Hgb (11.4-16.0) gm/dL Hct (34.0-46.0) % MCV (80.0-100.0) fL Plt Count (150-450) k/uL Sodium (137-145) mmol/L Carbon Dioxide (22-30) mmol/L BUN (7-17) mg/dL Creatinine (0.52-1.04) mg/dL Glucose (74-99) mg/dL POC Glucose (mg/dL) 195 H 229 H 137 H (70-110) mg/dL Calcium (8.4-10.2) mg/dL AST (14-36) U/L ALT (4-34) U/L Alkaline Phosphatase (38-126) U/L Total Protein (6.3-8.2) g/dL Albumin (3.5-5.0) g/dL Assessment and Plan Assessment: Postop day 3: Right hip IM nail fixation Fall with trauma Right IT fracture Plan: -Appreciate design and sales consultant and team management. -Activity: Ambulate QID, OOB all meals, up and about, limit lifting bending twisting to less than 5 lbs. Use walker or cane if needed for stability. -Daily PT/OT, increase ambulation strength and balance. -Pain control: Adequate at this time -Meds: reviewed -GI ppx: senna, Miralax -Kay Catheter per Nephrology recommendations -DVT PPX: Lovenox -Hygiene: Shower today. Maintain dressing clean and dry. -Encourage IS 10x/hr -Dispo: Patient is cleared from Orthopedic standpoint for discharge when medically stable. *I reviewed and discussed this case with my attending Dr. Hughes, whom has reviewed this chart and films and is in agreement with assessment and plan of care as outlined above. I have personally seen and examined the patient, performed the documentation and the assessment and plan as written. Number of minutes spent on the visit: 20m.
[2023-01-24] MEDS: FAMOTIDINE 20 MG TAB PO SCH (08:20)
[2023-01-24] MEDS: EZETIMIBE 10 MG TAB PO SCH (08:20)
[2023-01-24] MEDS: ENOXAPARIN 30 MG/0.3 ML SYRINGE SQ SCH (08:20)
[2023-01-24 08:38] LABS: Basophils # (A) 0.02 X 10*3/uL (0.00-0.10); Basophils % (A) 0.2 %; Eosinophils # (A) 0.25 X 10*3/uL (0.04-0.35); Eosinophils % (A) 2.9 %; HCT 27.8 % (37.2-46.3); HGB 8.8 g/dL (12.0-15.0); Lymphocytes # (A) 1.02 X 10*3/uL (0.90-5.00); Lymphocytes % (A) 11.7 %; MCHC 31.7 g/dL (32.0-37.0); MCV 101.1 FL (80.0-97.0); Mean Platelet Volume 10.8 FL (9.5-12.2); Monocytes # (A) 0.86 X 10*3/uL (0.20-1.00); Monocytes % (A) 9.9 %; NRBC Per 100 WBC 0 X 10*3/uL (0.00-0.01); Neutrophils # (A) 6.51 X 10*3/uL (1.80-7.70); Neutrophils % (A) 74.8 %; Platelet Count 141 X 10*3/uL (140-440); RBC 2.75 X 10*6/uL (4.10-5.20); RDW 13.2 % (11.5-14.5)
[2023-01-24] MEDS: SYMBICORT 160-4.5 MCG INHALER INHALATION SCH ×2 (09:14→21:12)
[2023-01-24] MEDS: IPRATROPIUM-ALBUTEROL 3 ML NEB INHALATION SCH ×4 (09:14→21:12)
[2023-01-24 09:21] LABS: ALT 35 U/L (8-44); AST 52 U/L (13-35); Albumin 2.5 g/dL (3.8-4.9); Albumin/Globulin Ratio 1.14 Ratio (1.60-3.17); Alkaline Phosphatase 282 U/L (41-126); BUN/Creat Ratio 25.65 Ratio (12.00-20.00); Blood Urea Nitrogen 66.7 mg/dL (9.0-27.0); Calcium 7.9 mg/dL (8.7-10.3); Carbon Dioxide 21.3 mmol/L (21.6-31.8); Chloride 100 mmol/L (96-109); Globulin 2.2 g/dL (1.6-3.3); Glucose 131 mg/dL (70-110); Potassium 5.2 mmol/L (3.5-5.5); Sodium 132 mmol/L (135-145); Total Bilirubin 0.6 mg/dL (0.3-1.2); Total Protein 4.7 g/dL (6.2-8.2)
[2023-01-24 11:40] LABS: Glucose,Whole Blood 193 mg/dL (70-110)
--- NOTE | 2023-01-24 11:43 | P.PN ---
Subjective Patient is seen for f/u for KATIUSKA. Maintained on IVF. Renal function is improving. UOP 2.0 Lfor 24 hrs. No significant complaints today. Objective - Vital Signs Vital signs: Vital Signs Temp 97.4 F L 01/24/23 07:33 Pulse 92 01/24/23 09:28 Resp 19 01/24/23 08:20 BP 149/66 01/24/23 07:33 Pulse Ox 96 01/24/23 09:17 FiO2 Intake & Output 01/23/23 01/24/23 01/24/23 18:59 06:59 18:59 Intake Total 900 Output Total 1050 1000 Balance -150 -1000 Intake: Intake, IV Titration 900 Amount Sodium Chloride 0.9% 1, 900 000 ml @ 75 mls/hr IV . [id number] [facility] Rx#:[id number] Output: Urine 1050 1000 Other: Voiding Method Indwelling Catheter Indwelling Catheter Indwelling Catheter - Exam Patient is awake, comfortable, in no acute distress Alert oriented 3 Examination of the heart S1 and S2 Examination of the lungs bilateral breath sounds are heard Abdomen is soft obese nontender Examination of lower extremities shows no significant edema [employer] exam grossly intact - Labs CBC & Chem 7: 01/24/23 05:58 01/24/23 05:58 Labs: Abnormal Lab Results - Last 24 Hours (Table) 01/23/23 01/23/23 01/23/23 Range/Units 08:57 16:44 20:13 RBC (4.10-5.20) X 10*6/uL Hgb (12.0-15.0) g/dL Hct (37.2-46.3) % MCV (80.0-97.0) [place] MCHC (32.0-37.0) g/dL Sodium 132 L (137-145) mmol/L Carbon Dioxide 19 L (22-30) mmol/L BUN 73 H (7-17) mg/dL Creatinine 2.88 H (0.52-1.04) mg/dL Est GFR (CKD-EPI) (>=60) BUN/Creatinine Ratio (12.00-20.00) Ratio Glucose 146 H (74-99) mg/dL POC Glucose (mg/dL) 195 H 229 H (70-110) mg/dL Calcium 7.3 L (8.4-10.2) mg/dL AST 89 H (14-36) U/L ALT 60 H (4-34) U/L Alkaline Phosphatase 271 H (38-126) U/L Total Protein 5.0 L (6.3-8.2) g/dL Albumin 2.5 L (3.5-5.0) g/dL Albumin/Globulin Ratio (1.60-3.17) Ratio 01/24/23 01/24/23 01/24/23 Range/Units 05:34 05:58 05:58 RBC 2.75 L (4.10-5.20) X 10*6/uL Hgb 8.8 L (12.0-15.0) g/dL Hct 27.8 L (37.2-46.3) % MCV 101.1 H (80.0-97.0) FL MCHC 31.7 L (32.0-37.0) g/dL Sodium 132 L (137-145) mmol/L Carbon Dioxide 21.3 L (22-30) mmol/L BUN 66.7 H (7-17) mg/dL Creatinine 2.6 H (0.52-1.04) mg/dL Est GFR (CKD-EPI) 18 L (>=60) BUN/Creatinine Ratio 25.65 H (12.00-20.00) Ratio Glucose 131 H (74-99) mg/dL POC Glucose (mg/dL) 137 H (70-110) mg/dL Calcium 7.9 L (8.4-10.2) mg/dL AST 52 H (14-36) U/L ALT (4-34) U/L Alkaline Phosphatase 282 H (38-126) U/L Total Protein 4.7 L (6.3-8.2) g/dL Albumin 2.5 L (3.5-5.0) g/dL Albumin/Globulin Ratio 1.14 L (1.60-3.17) Ratio Assessment and Plan Assessment: 1. Acute kidney injury, ATN, non oliguric, currently with indwelling Kay catheter. Urine output has imprvoved. Etiology of ATN is hypotension in the setting of use of NSAIDs and angiotensin receptor blockers, both are currently appropriately discontinued. Ultrasound of the kidneys shows no evidence of hydronephrosis. UA was benign on 01/20/2023. 2. Status post intramedullary nailing for right hip femoral fracture on 01/21/2023 3. Hypertension currently off of losartan and maintained on low-dose carvedilol Plan: Continue off of losartan Continue to avoid NSAIDs Continue with IV fluids Decreased Coreg further to 3.125 mg twice a day. avoid any nephrotoxic agents.
[2023-01-24 16:46] LABS: Glucose,Whole Blood 219 mg/dL (70-110)
[2023-01-24 19:53] LABS: Glucose,Whole Blood 210 mg/dL (70-110)
[2023-01-24] MEDS: SODIUM CHLORIDE 0.9% 1,000 ML IV SCH (21:03)
[2023-01-24] MEDS: INSULIN DETEMIR (LEVEMIR) 100 UNIT/ML SYR SQ SCH (21:08)
[2023-01-24] MEDS: ATORVASTATIN 40 MG TAB PO SCH (21:08)
[2023-01-25] MEDS: traMADol 50 MG TAB PO PRN ×2 (01:04→06:46)
[2023-01-25] MEDS: HYDROcodone/APAP 7.5-325MG 1 EACH TAB PO PRN ×3 (03:02→15:48)
[2023-01-25 05:59] LABS: Glucose,Whole Blood 174 mg/dL (70-110)
[2023-01-25] MEDS: SODIUM CHLORIDE 0.9% 1,000 ML IV SCH ×2 (06:21→12:42)
[2023-01-25] MEDS: carvediloL 3.125 MG TAB PO SCH ×2 (06:46→17:17)
[2023-01-25] MEDS: INSULIN ASPART (NovoLOG) 100 UNIT/ML VIAL SQ SCH ×3 (06:50→17:17)
--- NOTE | 2023-01-25 07:17 | P.PN ---
Subjective Progress Note Date: 01/24/23 HISTORY OF PRESENT ILLNESS: This is a 77-year-old female with a previous medical history signif icant for hypertension and hypertensive cardiovascular disease, hyperlipidemia, diabetes mellitus type 2, obesity, osteoarthritis, chronic low back pain, chronic kidney disease stage 3b, patient was seen in my office for annual on his visit on 12/17/2022, she was complaining of increased pain in the right lower extremity was described as a pain in the right hip as well as increased pain in the back of the leg radiating to the knee suggestive of radiculopathy due to spondylosis of the lumbar spine as well as osteoarthritis of the right hip, she was placed on baclofen 10 mg to take it at night before bedtime along with the Tylenol and she was advised to place heat pads on the lumbar spine as well, and reevaluate in about a week from now, she was given x-rays for evaluation as well, patient apparently was doing fine up until yesterday according to her daughter was at the bedside she has been more sleepy so she was started on baclofen, currently her grandson lives with her, patient woke up in the morning at 5:00 in the morning today and she wants to go to the bathroom and apparently she had an accident and slipped and her PT, and she landed on the right side of her hip, patient could not get up by herself, her grandson came to try to help her out she did not want to go to the hospital they were both apparently developed however her son eventually called EMS who came and brought her to the ER had an x-ray of the pelvis and the right hip showed right sided intertrochanteric fracture with involvement of both greater and lesser trochanters she was admitted under orthopedic surgery for asked to see the patient for preoperative medical clearance and medical management. 01/21: Patient is scheduled for right hip IM nail fixation today. Blood pressure 127/65, heart rate in the 70s, pulse ox 97% on room air. Repeat blood work reveals hemoglobin of 11.3, WBC 13.4, platelet count 231. Lactulose are normal. BUN 40 creatinine 2.75. Liver function tests have Ifrah as well with total bilirubin 1.6, AST 103, ALT 105, alkaline phosphatase is 203. Labile glucose running between 176 and 213. 01/22: Patient is seen today in follow-up. She states she is not having any yessi n. She has a Kay catheter was slightly dark urine. She's been on IV fluids due to acute kidney injury and we will add in a consult for nephrology. Heart rate is 108, blood pressure 113/60, pulse ox 94% on 2 L. Morning laboratory studies are pending. Patient is on Lovenox for DVT prophylaxis. 01/23: Patient is laying down in bed appears to be a bit more short of breath today, she continues to have the middle of urine output, she continues to be on IV fluid, nephrology consultation was placed but is not done yet, continue to monitor the patient CMP, avoid nephrotoxins, patient was taken off Toradol, she was taken off losartan, we will continue to monitor the patient very closely, physical therapy evaluation, patient has been admitted under orthopedic surgery and will continue to follow the patient very closely. 01/24: Patient denies any new concerns. Her pain is controlled. She's been afebrile, heart rate 75, blood pressure 149/66, pulse ox 95% on 2 L nasal cannula. Repeat blood work reveals hemoglobin of 8.8. Sodium 132, potassium 5.2. BUN 66 creatinine 2.6. Discharge planning is for [facility]. If repeat blood work in the morning is showing improving renal function, plan for discharge to [facility]. Nephrology is following. Patient has remained off losartan and continued on IV fluids. Chest x-ray performed yesterday revealed worsening bibasilar infiltrates. Renal ultrasound revealed right renal cyst. REVIEW OF SYSTEMS: Constitutional: No documented fever, no chills, no night sweats. No weight change. No weakness, fatigue or lethargy. No daytime sleepiness. EENT: No headache. No blurred vision or double vision, no loss of vision. No loss of Hearing, no ringing in the ears, no dizziness. No nasal drainage or congestion. No epistaxis. No sore throat. Lungs: minimal shortness of breath, no cough, no sputum production. No wheezing. Reports dyspnea with activity. Cardiovascular: No chest pain, no lower extremity edema. No palpitations. No paroxysmal nocturnal dyspnea. No orthopnea. No lightheadedness or dizziness. No syncopal episodes. Abdominal: Reports no abdominal pain. No nausea, vomiting. No diarrhea. No constipation. No bloody or tarry stools reports loss of appetite. Genitourinary: No dysuria, increased frequency, urgency. No urinary retention. Musculoskeletal: No myalgias. positive for muscle weakness, positive for gait dysfunction, no frequent falls. positive for back pain. No neck pain. Integumentary: No wounds, no lesions. No rash or pruritus. No unusual bruising. No change in hair or nails. Neurologic: No aphasia. No facial droop. No change in mentation. No head injury. No headache. No paralysis. No paresthesia. Psychiatric: No depression. No anxiety. No mood swings. Endocrine: No abnormal blood sugars. No weight change. PHYSICAL EXAMINATION: General: 77-year-old female laying in bed no acute distress. HEENT: Head is atraumatic, normocephalic, pupils were equal round reactive to l ight and recommendation, extraocular muscle movement were intact, sclera nonicteric, conjunctivae were pale, mucous membranes of the mouth are somewhat dry. Neck: Supple, no JVP, normal carotid upstroke bilaterally, no lymphadenopathy. Chest: Decreased breath sounds at the bases, few rhonchi, no expiratory wheezes, no chest wall tenderness, no intercostal retractions. Heart: First heart sound is normal, second heart sound is normal there is systolic ejection murmur 2/6 in the left sternal border Abdomen: Soft, nontender, nondistended, positive bowel sounds. Extremities: There is no edema no calf tenderness DP +1 bilaterally, dressing in place to the right hip Neurologic examination: Patient is awake alert and oriented X3, cranial nerves II-12 appear grossly intact, muscle power were 5 out of 5 in upper extremities and 5 out of 5 in bilateral lower extremities, deep tendon reflexes normal bilaterally. ASSESSMENT AND PLAN: 1. Status post a slip and fall with right intertrochanteric hip fracture with involvement of the greater and lesser trochanters status post IM nail. Continue incentive serology to reduce incidence of atelectasis and hospital-acquired pneumonia, continue pain management per orthopedics, continue activity, PT and OT per orthopedics. Continue DVT prophylaxis with aspirin 81 mg twice daily. 2. Acute kidney injury on chronic kidney disease stage 3a. Likely due to vasomotor nephropathy . Discontinued started yesterday, continue IV fluid resuscitation the form of normal saline at 75 mL an hour, monitor input and output, nephrology consultation was placed. 3. Hypertension and hypertensive cardiovascular disease. Continue patient on carvedilol 6.25 mg orally twice every day, we will continue to monitor the patient blood pressure very closely. 4. Mixed hyperlipidemia. Continue patient on atorvastatin 40 mg daily, as well as ezetimibe 10 mg once every day. 5. COPD. Continue patient on Symbicort 160/4.5 g 2 puffs in remission twice every day, continue DuoNeb treatment nebulization 4 times every day, continue oxygen support. 6. Chronic diastolic heart failure appears stable at this time. Continue carvedilol 6.25 mg orally twice every day. 7. History of remote lung cancer status post partial lobectomy in 2007 8. Osteoarthritis. Continue current pain management. 9. Osteopenia/osteoporosis.stable at this time. The patient will need to be placed on Prolia as outpatient 10. Diabetes mellitus type 2. Continue Lantus to 40 units at bedtime, sliding scale insulin. 11. DVT prophylaxis. Continue Lovenox 30 milligrams subcutaneously every 24 hours. 12. GI prophylaxis. Continue famotidine 20 mg orally once every day 13. Guarded prognosis. Impression and plan of care have been directed as dictated by the signing physician. Patricia Villegas nurse practitioner acting as scribe for signing physician. Objective - Vital Signs Vital signs: Vital Signs Temp 97.4 F L 01/24/23 07:33 Pulse 72 01/24/23 12:34 Resp 19 01/24/23 08:20 BP 149/66 01/24/23 07:33 Pulse Ox 96 01/24/23 09:17 FiO2 Intake & Output 01/23/23 01/24/23 01/24/23 18:59 06:59 18:59 Intake Total 900 Output Total 1050 1000 900 Balance -150 -1000 -900 Intake: Intake, IV Titration 900 Amount Sodium Chloride 0.9% 1, 900 000 ml @ 75 mls/hr IV . [id number] [facility] Rx#:[id number] Output: Urine 1050 1000 900 Other: Voiding Method Indwelling Catheter Indwelling Catheter Indwelling Catheter - Labs CBC & Chem 7: 01/24/23 05:58 01/24/23 05:58 Labs: Abnormal Lab Results - Last 24 Hours (Table) 01/23/23 01/23/23 01/24/23 Range/Units 16:44 20:13 05:34 RBC (4.10-5.20) X 10*6/uL Hgb (12.0-15.0) g/dL Hct (37.2-46.3) % MCV (80.0-97.0) FL MCHC (32.0-37.0) g/dL Sodium (135-145) mmol/L Carbon Dioxide (21.6-31.8) mmol/L BUN (9.0-27.0) mg/dL Creatinine (0.6-1.5) mg/dL Est GFR (CKD-EPI) (>=60) BUN/Creatinine Ratio (12.00-20.00) Ratio Glucose (70-110) mg/dL POC Glucose (mg/dL) 195 H 229 H 137 H (70-110) mg/dL Calcium (8.7-10.3) mg/dL AST (13-35) U/L Alkaline Phosphatase (41-126) U/L Total Protein (6.2-8.2) g/dL Albumin (3.8-4.9) g/dL Albumin/Globulin Ratio (1.60-3.17) Ratio 01/24/23 01/24/23 01/24/23 Range/Units 05:58 05:58 11:39 RBC 2.75 L (4.10-5.20) X 10*6/uL Hgb 8.8 L (12.0-15.0) g/dL Hct 27.8 L (37.2-46.3) % MCV 101.1 H (80.0-97.0) FL MCHC 31.7 L (32.0-37.0) g/dL Sodium 132 L (135-145) mmol/L Carbon Dioxide 21.3 L (21.6-31.8) mmol/L BUN 66.7 H (9.0-27.0) mg/dL Creatinine 2.6 H (0.6-1.5) mg/dL Est GFR (CKD-EPI) 18 L (>=60) BUN/Creatinine Ratio 25.65 H (12.00-20.00) Ratio Glucose 131 H (70-110) mg/dL POC Glucose (mg/dL) 193 H (70-110) mg/dL Calcium 7.9 L (8.7-10.3) mg/dL AST 52 H (13-35) U/L Alkaline Phosphatase 282 H (41-126) U/L Total Protein 4.7 L (6.2-8.2) g/dL Albumin 2.5 L (3.8-4.9) g/dL Albumin/Globulin Ratio 1.14 L (1.60-3.17) Ratio
[2023-01-25 07:48] VITALS: RESP 20
[2023-01-25] MEDS: ENOXAPARIN 30 MG/0.3 ML SYRINGE SQ SCH (08:37)
[2023-01-25] MEDS: FAMOTIDINE 20 MG TAB PO SCH (08:38)
[2023-01-25] MEDS: EZETIMIBE 10 MG TAB PO SCH (08:38)
[2023-01-25] MEDS: SYMBICORT 160-4.5 MCG INHALER INHALATION SCH (08:43)
[2023-01-25] MEDS: IPRATROPIUM-ALBUTEROL 3 ML NEB INHALATION SCH ×3 (08:43→15:25)
[2023-01-25] MEDS: NYSTATIN 100,000 UNIT/GM POWD 15 GM TOPICAL SCH ×2 (10:51→15:14)
[2023-01-25 11:21] LABS: ALT 30 U/L (8-44); AST 33 U/L (13-35); Albumin 2.6 g/dL (3.8-4.9); Albumin/Globulin Ratio 1.24 Ratio (1.60-3.17); Alkaline Phosphatase 274 U/L (41-126); BUN/Creat Ratio 32.68 Ratio (12.00-20.00); Blood Urea Nitrogen 62.1 mg/dL (9.0-27.0); Calcium 8.4 mg/dL (8.7-10.3); Carbon Dioxide 23.2 mmol/L (21.6-31.8); Chloride 105 mmol/L (96-109); Globulin 2.1 g/dL (1.6-3.3); Glucose 153 mg/dL (70-110); Potassium 5.3 mmol/L (3.5-5.5); Sodium 137 mmol/L (135-145); Total Bilirubin 0.5 mg/dL (0.3-1.2); Total Protein 4.7 g/dL (6.2-8.2)
--- NOTE | 2023-01-25 11:28 | P.PN ---
Subjective Patient is seen for f/u for [facility]. Maintained on IVF. Renal function is improving. Serum creatinine down to 1.9 mg/dL today. UOP 2.9 Lfor 24 hrs. No significant complaints today. Objective - Vital Signs Vital signs: Vital Signs Temp 98.2 F 01/25/23 07:33 Pulse 92 01/25/23 08:55 Resp 20 01/25/23 07:33 BP 124/67 01/25/23 07:33 Pulse Ox 96 01/25/23 07:33 FiO2 Intake & Output 01/24/23 01/25/23 01/25/23 18:59 06:59 18:59 Intake Total 900 Output Total 1600 1300 Balance -1600 -400 Intake: Intake, IV Titration 900 Amount Sodium Chloride 0.9% 1, 900 000 ml @ 75 mls/hr IV . [id number] [facility] Rx#:[id number] Output: Urine 1600 1300 Other: Voiding Method Indwelling Catheter Indwelling Catheter Indwelling Catheter - Exam Patient is awake, comfortable, in no acute distress Alert oriented 3 Examination of the heart S1 and S2 Examination of the lungs bilateral breath sounds are heard Abdomen is soft obese nontender Examination of lower extremities shows no significant edema [employer] exam grossly intact - Labs CBC & Chem 7: 01/24/23 05:58 01/25/23 06:34 Labs: Abnormal Lab Results - Last 24 Hours (Table) 01/24/23 01/24/23 01/24/23 Range/Units 11:39 16:44 19:52 BUN (9.0-27.0) mg/dL Creatinine (0.6-1.5) mg/dL Est GFR (CKD-EPI) (>=60) BUN/Creatinine Ratio (12.00-20.00) Ratio Glucose (70-110) mg/dL POC Glucose (mg/dL) 193 H 219 H 210 H (70-110) mg/dL Calcium (8.7-10.3) mg/dL Alkaline Phosphatase (41-126) U/L Total Protein (6.2-8.2) g/dL Albumin (3.8-4.9) g/dL Albumin/Globulin Ratio (1.60-3.17) Ratio 01/25/23 01/25/23 Range/Units 05:58 06:34 BUN 62.1 H (9.0-27.0) mg/dL Creatinine 1.9 H (0.6-1.5) mg/dL Est GFR (CKD-EPI) 27 L (>=60) BUN/Creatinine Ratio 32.68 H (12.00-20.00) Ratio Glucose 153 H (70-110) mg/dL POC Glucose (mg/dL) 174 H (70-110) mg/dL Calcium 8.4 L (8.7-10.3) mg/dL Alkaline Phosphatase 274 H (41-126) U/L Total Protein 4.7 L (6.2-8.2) g/dL Albumin 2.6 L (3.8-4.9) g/dL Albumin/Globulin Ratio 1.24 L (1.60-3.17) Ratio Assessment and Plan Assessment: 1. Acute kidney injury, ATN, non oliguric, currently with indwelling Kay catheter. Urine output has improved. Etiology of ATN is hypotension in the setting of use of NSAIDs and angiotensin receptor blockers, both are currently appropriately discontinued. Ultrasound of the kidneys shows no evidence of hydronephrosis. UA was benign on 01/20/2023. 2. Status post intramedullary nailing for right hip femoral fracture on 01/21/2023 3. Hypertension currently off of losartan and maintained on low-dose carvedilol Plan: Continue off of losartan Continue to avoid NSAIDs Stable for discharge from nephrology standpoint.
[2023-01-25 11:38] LABS: Glucose,Whole Blood 181 mg/dL (70-110)
[2023-01-25 13:52] VITALS: BP 121/64; TEMP 97.7
[2023-01-25 15:50] VITALS: PULSE 92
--- NOTE | 2023-01-25 15:52 | P.DS ---
Providers Date of admission: 01/20/23 07:31 Expected date of discharge: 01/25/23 Attending physician: Mitra Malik Consults: 01/20/23 07:21 Consult Physician Urgent Consulting Provider: Todd Hughes Consult Reason/Comments: Medical management, surgical clearance Do you want consulting provider notified?: Yes 01/22/23 09:35 Consult Physician Routine Consulting Provider: Liya Haines Consult Reason/Comments: jeanna Do you want consulting provider notified?: Yes Primary care physician: Mitra Malik Hospital Course: HISTORY OF PRESENT ILLNESS: This is a 77-year-old female with a previous medical history significant for hypertension and hypertensive cardiovascular disease, hyperlipidemia, diabetes mellitus type 2, obesity, osteoarthritis, chronic low back pain, chronic kidney disease stage 3b, patient was seen in my office for annual on his visit on 12/17/2022, she was complaining of increased pain in the right lower extremity was described as a pain in the right hip as well as increased pain in the back of the leg radiating to the knee suggestive of radiculopathy due to spondylosis of the lumbar spine as well as osteoarthritis of the right hip, she was placed on baclofen 10 mg to take it at night before bedtime along with the Tylenol and she was advised to place heat pads on the lumbar spine as well, and reevaluate in about a week from now, she was given x- rays for evaluation as well, patient apparently was doing fine up until yesterday according to her daughter was at the bedside she has been more sleepy so she was started on baclofen, currently her grandson lives with her, patient woke up in the morning at 5:00 in the morning today and she wants to go to the bathroom and apparently she had an accident and slipped and her PT, and she l anded on the right side of her hip, patient could not get up by herself, her grandson came to try to help her out she did not want to go to the hospital they were both apparently developed however her son eventually called EMS who came and brought her to the ER had an x-ray of the pelvis and the right hip showed right sided intertrochanteric fracture with involvement of both greater and lesser trochanters she was admitted under orthopedic surgery for asked to see the patient for preoperative medical clearance and medical management. 01/21: Patient is scheduled for right hip IM nail fixation today. Blood pressure 127/65, heart rate in the 70s, pulse ox 97% on room air. Repeat blood work reveals hemoglobin of 11.3, WBC 13.4, platelet count 231. Lactulose are normal. BUN 40 creatinine 2.75. Liver function tests have Ifrah as well with total bilirubin 1.6, AST 103, ALT 105, alkaline phosphatase is 203. Labile glucose running between 176 and 213. 01/22: Patient is seen today in follow-up. She states she is not having any pain. She has a Kay catheter was slightly dark urine. She's been on IV fluids due to acute kidney injury and we will add in a consult for nephrology. Heart rate is 108, blood pressure 113/60, pulse ox 94% on 2 L. Morning laboratory studies are pending. Patient is on Lovenox for DVT prophylaxis. 01/23: Patient is laying down in bed appears to be a bit more short of breath today, she continues to have the middle of urine output, she continues to be on IV fluid, nephrology consultation was placed but is not done yet, continue to monitor the patient CMP, avoid nephrotoxins, patient was taken off Toradol, she was taken off losartan, we will continue to monitor the patient very closely, physical therapy evaluation, patient has been admitted under orthopedic surgery and will continue to follow the patient very closely. 01/24: Patient denies any new concerns. Her pain is controlled. She's been afebrile, heart rate 75, blood pressure 149/66, pulse ox 95% on 2 L nasal cannula. Repeat blood work reveals hemoglobin of 8.8. Sodium 132, potassium 5.2. BUN 66 creatinine 2.6. Discharge planning is for [facility]. If repeat blood work in the morning is showing improving renal function, plan for discharge to [facility]. Nephrology is following. Patient has remained off losartan and continued on IV fluids. Chest x-ray performed yesterday revealed worsening bibasilar infiltrates. Renal ultrasound revealed right renal cyst. 01/25: Repeat blood work reveals electrolytes are normal. BUN 62 creatinine 1.9. Labile blood glucose running between 174 and 210. Total bilirubin 0.5, AST 33, ALT 30, alkaline phosphatase 274. Patient has been seen today by nephrology and cleared for discharge. Discharge plan is for subacute rehab at [facility]. Pat ient will be discharged today in stable condition. DISCHARGE DIAGNOSES: 1. Status post a slip and fall with right intertrochanteric hip fracture with involvement of the greater and lesser trochanters status post IM nail. 2. Acute kidney injury on chronic kidney disease stage 3a. Likely due to vasomotor nephropathy . 3. Hypertension and hypertensive cardiovascular disease. 4. Mixed hyperlipidemia. 5. COPD. 6. Chronic diastolic heart failure appears stable at this time. 7. History of remote lung cancer status post partial lobectomy in 2007 8. Osteoarthritis. 9. Osteopenia/osteoporosis. 10. Diabetes mellitus type 2. Discharge plan: [facility] for subacute rehab Greater than 35 minutes was utilized and coordinating patient's discharge. Impression and plan of care have been directed as dictated by the signing physician. Patricia Villegas nurse practitioner acting as scribe for signing physician. Patient Condition at Discharge: Stable Plan - Discharge Summary Discharge Rx Participant: Yes New Discharge Prescriptions: New Enoxaparin [Lovenox] 30 mg SQ DAILY #14 each Nystatin 100,000 Unit/gm Powd [Mycostatin Powder] 1 applic TOPICAL TID 10 Days each HYDROcodone/APAP 7.5-325MG [[place] 7.5-325] 1 each PO Q6H PRN #12 tab PRN Reason: Pain Scale 6 To 10 traMADol HCl [Ultram] 50 mg PO Q6HR PRN #12 tab PRN Reason: Pain Scale 1 To 5 INSULIN ASPART (NovoLOG) [NovoLOG (formulary)] 0 unit SQ ACHS each Continue Atorvastatin [Lipitor] 40 mg PO HS Aspirin EC [Ecotrin Low Dose] 81 mg PO DAILY Ezetimibe [Zetia] 10 mg PO DAILY Famotidine [Pepcid] 20 mg PO DAILY #30 tab Ipratropium-Albuterol Nebulize [Duoneb 0.5 mg-3 mg/3 ml Soln] 3 ml INHALATION RT-QID #360 ml Sennosides [Senokot] 8.6 mg PO BID #0 Insulin Glargine,Hum.rec.anlog [Lantus Solostar Pen] 54 unit SQ HS carvediloL [Coreg] 6.25 mg PO BID-W/MEALS #60 tab Budesonide-Formot 160-4.5 Mcg [Symbicort 160-4.5 Mcg Inhaler] 2 puff INHALATION BID #1 each Baclofen 10 mg PO BID PRN PRN Reason: Muscle Spasm Torsemide [Demadex] 20 mg PO DAILY Discontinued Irbesartan [Avapro] 300 mg PO DAILY Discharge Medication List Atorvastatin [Lipitor] 40 mg PO HS 12/14/19 [History] Aspirin EC [Ecotrin Low Dose] 81 mg PO DAILY 10/15/22 [History] Ezetimibe [Zetia] 10 mg PO DAILY 10/15/22 [History] Insulin Glargine,Hum.rec.anlog [Lantus Solostar Pen] 54 unit SQ HS 10/15/22 [History] carvediloL [Coreg] 6.25 mg PO BID-W/MEALS #60 tab 10/20/22 [Rx] Famotidine [Pepcid] 20 mg PO DAILY #30 tab 10/22/22 [Rx] Budesonide-Formot 160-4.5 Mcg [Symbicort 160-4.5 Mcg Inhaler] 2 puff INHALATION BID #1 each 10/24/22 [Rx] Ipratropium-Albuterol Nebulize [Duoneb 0.5 mg-3 mg/3 ml Soln] 3 ml INHALATION RT-QID #360 ml 10/24/22 [Rx] Baclofen 10 mg PO BID PRN 01/20/23 [History] Torsemide [Demadex] 20 mg PO DAILY 01/20/23 [History] Enoxaparin [Lovenox] 30 mg SQ DAILY #14 each 01/25/23 [Rx] HYDROcodone/APAP 7.5-325MG [[place] 7.5-325] 1 each PO Q6H PRN #12 tab 01/25/23 [Rx] INSULIN ASPART (NovoLOG) [NovoLOG (formulary)] 0 unit SQ ACHS each 01/25/23 [Rx] Nystatin 100,000 Unit/gm Powd [Mycostatin Powder] 1 applic TOPICAL TID 10 Days each 01/25/23 [Rx] Sennosides [Senokot] 8.6 mg PO BID #0 01/25/23 [Rx] traMADol HCl [Ultram] 50 mg PO Q6HR PRN #12 tab 01/25/23 [Rx] Follow up Appointment(s)/Referral(s): Todd Hughes DO [Doctor of Osteopathic Medicine] - 2 Weeks Mitra Malik MD [Primary Care Provider] - 1 Week (AT [facility]) Activity/Diet/Wound Care/Special Instructions: Activity: Weight bear as tolerated with walker. Daily PT/OT Continue with Lovenox subcutaneous for 2 weeks post op Take pain medication as prescribed. Utilize ice packs as needed. Maintain surgical incisions clean and dry, Dressings may be removed once there is no drainage noted. Any questions please contact our office [phone] Discharge Disposition: TRANSFER TO SNF/ECF
[2023-01-25 16:07] LABS: Glucose,Whole Blood 177 mg/dL (70-110)
== END 2023-01-25 19:17 | DRG 480 ==
LOC: EC 06:46 → 4SSUR 07:31
PROVIDERS: ADMIT Internal Medicine; ATTEND Internal Medicine
PROC: 0QS636Z Reposition Right Upper Femur with Intramedullary Internal Fixation Device, Percutaneous Approach (ICD-10-PCS; principal; 2023-01-21 12:30)
PROC: 3E0T3BZ Introduction of Anesthetic Agent into Peripheral Nerves and Plexi, Percutaneous Approach (ICD-10-PCS; principal; 2023-01-21 12:30)
DX: S72.141A Displaced intertrochanteric fracture of right femur, initial encounter for closed fracture (principal); N17.0 Acute kidney failure with tubular necrosis; I13.0 Hypertensive heart and chronic kidney disease with heart failure and stage 1 through stage 4 chronic kidney disease, or unspecified chronic kidney disease; I50.32 Chronic diastolic (congestive) heart failure; W01.0XXA Fall on same level from slipping, tripping and stumbling without subsequent striking against object, initial encounter; I25.10 Atherosclerotic heart disease of native coronary artery without angina pectoris; E11.22 Type 2 diabetes mellitus with diabetic chronic kidney disease; N18.32 Chronic kidney disease, stage 3b; M81.0 Age-related osteoporosis without current pathological fracture; E78.2 Mixed hyperlipidemia; N28.1 Cyst of kidney, acquired; M19.90 Unspecified osteoarthritis, unspecified site; Y92.009 Unspecified place in unspecified non-institutional (private) residence as the place of occurrence of the external cause; Z79.82 Long term (current) use of aspirin; Z79.51 Long term (current) use of inhaled steroids; Z79.899 Other long term (current) drug therapy; Z85.118 Personal history of other malignant neoplasm of bronchus and lung; Z85.828 Personal history of other malignant neoplasm of skin; Z90.2 Acquired absence of lung [part of]; Z96.652 Presence of left artificial knee joint; Z90.49 Acquired absence of other specified parts of digestive tract; Z88.1 Allergy status to other antibiotic agents; M85.88 Other specified disorders of bone density and structure, other site; T44.5X5A Adverse effect of predominantly beta-adrenoreceptor agonists, initial encounter; T39.395A Adverse effect of other nonsteroidal anti-inflammatory drugs [NSAID], initial encounter; X58.XXXA Exposure to other specified factors, initial encounter; Z87.19 Personal history of other diseases of the digestive system
CPT/HCPCS: 51702; 71045; 73501; 73502; 76770; 80053; 81001; 83605; 83735; 85025; 85027; 85610; 85730; 93005; 94640; 94760; 96361; 96374; 96375; 96376; 99285

== ENCOUNTER 2023-06-17 07:55 | Day surgery (SDC) | payer MEDICARE, BC ==
[~2023-06-17 07:55] MED LIST: LIDOCAINE 1% (10MG/ML) FOR IV START INTRADERMA PRN
[2023-06-17 08:28] LABS: Glucose,Whole Blood 59 mg/dL (70-110)
[2023-06-17] MEDS: LACTATED RINGERS 1,000 ML IV SCH (08:32)
[2023-06-17] MEDS: DEXTROSE 50% SYRINGE 50 ML IVP ONE (08:32)
[2023-06-17] MEDS ORDERED: PROPOFOL 10 MG/ML 20 ML VIAL IV ONE (08:46)
[2023-06-17 08:52] VITALS: TEMP 97.4
[2023-06-17 08:53] VITALS: RESP 16
--- NOTE | 2023-06-17 09:05 | P.PCN ---
Date of Procedure: 06/17/23 Procedure(s) Performed: BRIEF HISTORY: Patient is a 78-year-old pleasant female scheduled for an elective colonoscopy as a part of screening for colon cancer. PROCEDURE PERFORMED: Colonoscopy with biopsy and snare polypectomy. PREOPERATIVE DIAGNOSIS: Screening for colon cancer IV sedation per Anesthesia. PROCEDURE: After informed consent was obtained, the patient, was brought into the endoscopy unit. IV sedation was administered by Anesthesia under continuous monitoring. Digital rectal examination was normal. Initially the Olympus CF-160 flexible video colonoscope was then inserted in the rectum, gradually advanced into the cecum without any difficulty. Careful examination was performed as the scope was gradually being withdrawn. Ileocecal valve and the appendiceal orifice were visualized and appeared normal. Prep was excellent. Mucosa of the cecum, ascending colon, appeared normal. In the transverse colon there where 2 polyps measuring 3 mm in size both of each removed by cold biopsy. In the descending colon there was a 6 mm polyp that was removed by cold snare polypectomy. In the sigmoid colon there was another 3 mm polyp that was removed by cold biopsy. Scattered left-sided diverticulosis seen. Rest of the, sigmoid colon, and rectum appeared normal. Retroflexion was performed in the rectum and no lesions were seen. The patient tolerated the procedure well. IMPRESSION: 3 mm diameter transverse colon polyp status post cold biopsy 6 mm descending colon polyp s/p cold snare polypectomy 3 mm sigmoid colon polyp status post cold biopsy Scattered diverticulosis. RECOMMENDATIONS: Findings of this examination were discussed with the patient as well as his family. She was advised to follow-up with the biopsy results. If the biopsy of his adenoma she was advised to have repeat colonoscopy in 3 years..
[2023-06-17 09:14] LABS: Glucose,Whole Blood 83 mg/dL (70-110)
[2023-06-17 09:39] VITALS: BP 133/83; PULSE 64
== END 2023-06-17 09:40 | disposition home or self-care (01) ==
LOC: ORWHC2ENDO 07:55
PROVIDERS: ATTEND Internal Medicine Gastroenterology
DX: Z12.11 Encounter for screening for malignant neoplasm of colon (principal); D12.3 Benign neoplasm of transverse colon; D12.4 Benign neoplasm of descending colon; K63.3 Ulcer of intestine; K57.30 Diverticulosis of large intestine without perforation or abscess without bleeding; I10 Essential (primary) hypertension; E78.5 Hyperlipidemia, unspecified; J44.9 Chronic obstructive pulmonary disease, unspecified; Z85.118 Personal history of other malignant neoplasm of bronchus and lung; E11.9 Type 2 diabetes mellitus without complications; Z79.84 Long term (current) use of oral hypoglycemic drugs; Z79.51 Long term (current) use of inhaled steroids; Z79.899 Other long term (current) drug therapy; Z88.1 Allergy status to other antibiotic agents
CPT/HCPCS: 88305; 45380; 45385; J2704

== ENCOUNTER 2023-11-10 19:45 | Inpatient (IN) | payer MEDICARE, BC ==
--- NOTE | 2023-11-10 20:15 | ED ---
Weakness HPI - General Chief complaint: Weakness Stated complaint: Weakness Time Seen by Provider: 11/10/23 20:04 Source: patient, EMS, RN notes reviewed, old records reviewed Mode of arrival: EMS Limitations: no limitations - History of Present Illness Initial comments: This is a 78-year-old female presenting with daughter for evaluation regarding weakness increasing weakness and debility. Patient symptoms began a year ago with a right hip fracture and over the past year have been progressively worsening but the last 2 weeks patient is unable to get out of bed patient occasionally does have back pain, family had patient out to dinner earlier in the week and she was unable to participate and daughter became even increasingly concerned bring her to the emergency department today due to finding her in her bed for the last 2 days MD Complaint: generalized weakness, lack of energy, difficulty walking -: week(s) Location: generalized Severity: severe Consistency: constant Improves with: none Worsens with: none Context: history of similar, depression Associated Symptoms: denies other symptoms - Related Data Home Medications Medication Instructions Recorded Confirmed Aspirin EC [Ecotrin Low Dose] 81 mg PO DAILY 10/15/22 11/10/23 Ezetimibe [Zetia] 10 mg PO DAILY 10/15/22 11/10/23 Torsemide [Demadex] 20 mg PO DAILY 01/20/23 11/10/23 Atorvastatin [Lipitor] 80 mg PO DAILY 11/10/23 11/10/23 Losartan Potassium 50 mg PO DAILY 11/10/23 11/10/23 carvediloL [Coreg] 6.25 mg PO BID 11/10/23 11/10/23 Previous Rx's Medication Instructions Recorded Acetaminophen Tab [Tylenol] 650 mg PO Q6HR PRN tab 11/18/23 Enoxaparin [Lovenox] 30 mg SQ Q12HR #60 each 11/18/23 Ferrous Sulfate [Iron (65 MG 325 mg PO BID-W/MEALS tab 11/18/23 Elemental)] HYDROcodone/APAP 7.5-325MG [[place] 1 each PO Q6HR #12 tab 11/18/23 7.5-325] INSULIN ASPART (NovoLOG) [NovoLOG 0 unit SQ ACHS each 11/18/23 (formulary)] Insulin Detemir (Levemir) [Levemir] 50 unit SQ HS each 11/18/23 Ipratropium-Albuterol Nebulize 3 ml INHALATION RT-QID PRN each 11/18/23 [Duoneb 0.5 mg-3 mg/3 ml Soln] Allergies Allergy/AdvReac Type Severity Reaction Status Date / Time cephalexin Allergy Rash/Hives, Verified 11/15/23 14:51 redness, swelling Review of Systems ROS Statement: Those systems with pertinent positive or pertinent negative responses have been documented in the HPI. ROS Other: All systems not noted in ROS Statement are negative. Past Medical History Past Medical History: Cancer, Diabetes Mellitus, Hyperlipidemia, Hypertension Additional Past Medical History / Comment(s): hx. lung cancer 2006, current R femur fracture History of Any Multi-Drug Resistant Organisms: None Reported Past Surgical History: Cholecystectomy, Hernia Repair, Joint Replacement Additional Past Surgical History / Comment(s): partial lobectomy 2007, R femur surgery/hardware, total L knee Past Anesthesia/Blood Transfusion Reactions: No Reported Reaction Past Psychological History: No Psychological Hx Reported Smoking Status: Never smoker - Past Family History Mother Family Medical History: Cancer General Exam Limitations: no limitations General appearance: alert, in no apparent distress Head exam: Present: atraumatic, normocephalic, normal inspection Eye exam: Present: normal appearance, PERRL, EOMI. Absent: scleral icterus, conjunctival injection, periorbital swelling ENT exam: Present: normal exam, mucous membranes moist Neck exam: Present: normal inspection. Absent: tenderness, meningismus, lymphadenopathy Respiratory exam: Present: normal lung sounds bilaterally. Absent: respiratory distress, wheezes, rales, rhonchi, stridor Cardiovascular Exam: Present: regular rate, normal rhythm, normal heart sounds. Absent: systolic murmur, diastolic murmur, rubs, gallop, clicks GI/Abdominal exam: Present: soft, normal bowel sounds. Absent: distended, tenderness, guarding, rebound, rigid Extremities exam: Present: normal inspection, full ROM, normal capillary refill. Absent: tenderness, pedal edema, joint swelling, calf tenderness Back exam: Present: normal inspection Neurological exam: Present: alert, oriented X3, CN II-XII intact Psychiatric exam: Present: normal affect, normal mood Skin exam: Present: warm, dry, intact, normal color. Absent: rash Course Vital Signs 11/10/23 11/10/23 11/10/23 19:58 20:59 23:34 Temperature 98.9 F Pulse Rate 87 72 Respiratory 20 20 18 Rate Blood Pressure 149/90 168/74 O2 Sat by Pulse 96 93 L Oximetry 11/11/23 11/11/23 02:03 04:26 Temperature Pulse Rate 74 72 Respiratory 18 18 Rate Blood Pressure 148/71 166/78 O2 Sat by Pulse 93 L 94 L Oximetry - Reevaluation(s) Reevaluation #1: 11/10/23 21:22 Medical records reviewed Reevaluation #2: 11/10/23 21:22 Patient symptoms are improved Reevaluation #3: 11/10/23 21:23 Patient symptoms are unchanged Reevaluation #4: Was pt. sent in by a medical professional or institution (, [facility], [employer]PER[employer]OR, urgent care, hospital, or usp...) When possible be specific @ -no Did you speak to anyone other than the patient for history (EMS, parent, family, police, friend...)? What history was obtained from this source @ -no Did you review nursing and triage notes (agree or disagree)? Why? @ -agree Are old charts reviewed (outside hosp., previous admission, EMS record, old EKG, old radiological studies, urgent care reports/EKG's, usp records)? Report findings @ -yes Differential Diagnosis (chest pain, altered mental status, abdominal pain women, abdominal pain men, vaginal bleeding, weakness, fever, dyspnea, syncope, headache, dizziness, GI bleed, back pain, seizure, CVA, palpatations, mental health, musculoskeletal)? @ -prior EKG interpreted by me (3pts min.). @ -yes X-rays interpreted by me (1pt min.). @ -no CT interpreted by me (1pt min.). @ -yes negative for acute disease U/S interpreted by me (1pt. min.). @ -no What testing was considered but not performed or refused? (CT, X-rays, U/S, labs)? Why? @ -none What meds were considered but not given or refused? Why? @ -none Did you discuss the management of the patient with other professionals (shey saha i.e. [facility] Aguilar, [employer] ASSEMBLY SUPERVISOR, lab, RT, psych nurse, marriage and family social worker, wire drawing machine tender, teacher, patient transport officer, medical case worker)? Give summary @ -no Was smoking cessation discussed for >3mins.? @ -no Was critical care preformed (if so, how long)? @ -no Were there social determinants of health that impacted care today? How? (Homelessness, low income, unemployed, alcoholism, drug addiction, transportation, low edu. Level, literacy, decrease access to med. care, long term, rehab)? @ -none Was there de-escalation of care discussed even if they declined (Discuss DNR or withdrawal of care, Hospice)? DNR status @ -no What co-morbidities impacted this encounter? (DM, HTN, Smoking, COPD, CAD, Cancer, CVA, ARF, Chemo, Hep., AIDS, mental health diagnosis, sleep apnea, morbid obesity)? @ -none Was patient admitted / discharged? Hospital course, mention meds given and route, prescriptions, significant lab abnormalities, going to OR and other pertinent info. @ - 78 female to the ER for evaluation of severe debility and weakness. Patient has been disabled increasingly for the last few weeks unable to get out of bed and will admit for significant malnutrition and weakness need for placement Admitted Undiagnosed new problem with uncertain prognosis? @ -no Drug Therapy requiring intensive monitoring for toxicity (Heparin, Nitro, Insulin, Cardizem)? @ -no Were any procedures done? @ -no Diagnosis/symptom? @ -Severe debility malnutrition and weakness Acute, or Chronic, or Acute on Chronic? @ -Acute Uncomplicated (without systemic symptoms) or Complicated (systemic symptoms)? @ -Complicated Side effects of treatment? @ -no Exacerbation, Progression, or Severe Exacerbation? @ -exacerbation Poses a threat to life or bodily function? How? (Chest pain, USA, SD, pneumonia, PE, COPD, DKA, ARF, appy, cholecystitis, CVA, Diverticulitis, Homicidal, Suicidal, threat to staff... and all critical care pts) @ -yes extremes of age Reevaluation #5: Differential Weakness: Hypoglycemia, shock, sepsis, hyponatremia, anemia, infection, SD, ETOH, adverse medicine reaction, overdose, stroke, this is not meant to be an all-inclusive list. EKG Findings - EKG Comments: EKG Findings:: EKG is A-fib 75 QRS 97 QTc 407 - EKG Results: EKG: interpreted by ERMD Medical Decision Making - Medical Decision Making 78 female to the ER for evaluation of severe debility and weakness. Patient has been disabled increasingly for the last few weeks unable to get out of bed and will admit for significant malnutrition and weakness need for placement - Lab Data Result diagrams: 11/18/23 07:05 11/18/23 07:05 Lab Results 11/10/23 11/10/23 11/10/23 Range/Units 20:05 20:05 20:05 WBC 9.6 (3.8-10.6) k/uL RBC 3.80 (3.80-5.40) m/uL Hgb 11.9 (11.4-16.0) gm/dL Hct 37.5 (34.0-46.0) % MCV 98.8 (80.0-100.0) fL MCH 31.3 (25.0-35.0) pg MCHC 31.7 (31.0-37.0) g/dL RDW 14.3 (11.5-15.5) % Plt Count 248 (150-450) k/uL MPV 7.4 Neutrophils % 76 % Lymphocytes % 17 % Monocytes % 5 % Eosinophils % 1 % Basophils % 0 % Neutrophils # 7.2 (1.3-7.7) k/uL Lymphocytes # 1.6 (1.0-4.8) k/uL Monocytes # 0.5 (0-1.0) k/uL Eosinophils # 0.1 (0-0.7) k/uL Basophils # 0.0 (0-0.2) k/uL Hypochromasia Moderate PT 10.3 (10.0-12.5) sec INR 0.9 (<1.2) APTT 18.6 L (22.0-30.0) sec D-Dimer 4.32 H (<0.60) mg/L FEU Sodium 138 (137-145) mmol/L Potassium 5.3 H (3.5-5.1) mmol/L Chloride 104 (98-107) mmol/L Carbon Dioxide 34 H (22-30) mmol/L Anion Gap 0 mmol/L BUN 30 H (7-17) mg/dL Creatinine 0.96 (0.52-1.04) mg/dL Est GFR (CKD-EPI)AfAm 65 (>60 ml/min/1.73 sqM) Est GFR (CKD-EPI)NonAf 56 (>60 ml/min/1.73 sqM) Glucose 82 (74-99) mg/dL POC Glucose (mg/dL) (70-110) mg/dL POC Glu [employer] ID Plasma Lactic Acid Terrell (0.7-2.0) mmol/L Calcium 8.8 (8.4-10.2) mg/dL Phosphorus 3.1 (2.5-4.5) mg/dL Magnesium 1.8 (1.6-2.3) mg/dL Total Bilirubin 1.0 (0.2-1.3) mg/dL AST 25 (14-36) U/L ALT 15 (4-34) U/L Alkaline Phosphatase 235 H (38-126) U/L Troponin I (0.000-0.034) ng/mL NT-Pro-B Natriuret Pep 1100 pg/mL Total Protein 5.5 L (6.3-8.2) g/dL Albumin 2.7 L (3.5-5.0) g/dL Urine Color Urine Appearance (Clear) Urine pH (5.0-8.0) Ur Specific [place] (1.001-1.035) Urine Protein (Negative) Urine Glucose (UA) (Negative) Urine Ketones (Negative) Urine Blood (Negative) Urine Nitrite (Negative) Urine Bilirubin (Negative) Urine Urobilinogen (<2.0) mg/dL Ur Leukocyte Esterase (Negative) Urine RBC (0-5) /hpf Urine WBC (0-5) /hpf Ur Squamous Epith Cells (0-4) /hpf Amorphous Sediment (None) /hpf Urine Bacteria (None) /hpf Urine Mucus (None) /hpf 11/10/23 11/10/23 11/10/23 Range/Units 20:05 20:05 21:31 WBC (3.8-10.6) k/uL RBC (3.80-5.40) m/uL Hgb (11.4-16.0) gm/dL Hct (34.0-46.0) % MCV (80.0-100.0) fL MCH (25.0-35.0) pg MCHC (31.0-37.0) g/dL RDW (11.5-15.5) % Plt Count (150-450) k/uL MPV Neutrophils % % Lymphocytes % % Monocytes % % Eosinophils % % Basophils % % Neutrophils # (1.3-7.7) k/uL Lymphocytes # (1.0-4.8) k/uL Monocytes # (0-1.0) k/uL Eosinophils # (0-0.7) k/uL Basophils # (0-0.2) k/uL Hypochromasia PT (10.0-12.5) sec INR (<1.2) APTT (22.0-30.0) sec D-Dimer (<0.60) mg/L FEU Sodium (137-145) mmol/L Potassium (3.5-5.1) mmol/L Chloride (98-107) mmol/L Carbon Dioxide (22-30) mmol/L Anion Gap mmol/L BUN (7-17) mg/dL Creatinine (0.52-1.04) mg/dL Est GFR (CKD-EPI)AfAm (>60 ml/min/1.73 sqM) Est GFR (CKD-EPI)NonAf (>60 ml/min/1.73 sqM) Glucose (74-99) mg/dL POC Glucose (mg/dL) (70-110) mg/dL POC Glu [employer] ID Plasma Lactic Acid [place]rell 1.2 (0.7-2.0) mmol/L Calcium (8.4-10.2) mg/dL Phosphorus (2.5-4.5) mg/dL Magnesium (1.6-2.3) mg/dL Total Bilirubin (0.2-1.3) mg/dL AST (14-36) U/L ALT (4-34) U/L Alkaline Phosphatase (38-126) U/L Troponin I <0.012 (0.000-0.034) ng/mL NT-Pro-B Natriuret Pep pg/mL Total Protein (6.3-8.2) g/dL Albumin (3.5-5.0) g/dL Urine Color Light Red Urine Appearance Turbid H (Clear) Urine pH 7.5 (5.0-8.0) Ur Specific [place] 1.026 (1.001-1.035) Urine Protein 1+ H (Negative) Urine Glucose (UA) Negative (Negative) Urine Ketones Negative (Negative) Urine Blood Moderate H (Negative) Urine Nitrite Negative (Negative) Urine Bilirubin Negative (Negative) Urine Urobilinogen 6.0 (<2.0) mg/dL Ur Leukocyte Esterase Large H (Negative) Urine RBC 120 H (0-5) /hpf Urine WBC 42 H (0-5) /hpf Ur Squamous Epith Cells 3 (0-4) /hpf Amorphous Sediment Many H (None) /hpf Urine Bacteria Many H (None) /hpf Urine Mucus Rare H (None) /hpf 11/11/23 11/11/23 11/11/23 Range/Units 01:03 01:06 01:38 WBC (3.8-10.6) k/uL RBC (3.80-5.40) m/uL Hgb (11.4-16.0) gm/dL Hct (34.0-46.0) % MCV (80.0-100.0) fL MCH (25.0-35.0) pg MCHC (31.0-37.0) g/dL RDW (11.5-15.5) % Plt Count (150-450) k/uL MPV Neutrophils % % Lymphocytes % % Monocytes % % Eosinophils % % Basophils % % Neutrophils # (1.3-7.7) k/uL Lymphocytes # (1.0-4.8) k/uL Monocytes # (0-1.0) k/uL Eosinophils # (0-0.7) k/uL Basophils # (0-0.2) k/uL Hypochromasia PT (10.0-12.5) sec INR (<1.2) APTT (22.0-30.0) sec D-Dimer (<0.60) mg/L FEU Sodium (137-145) mmol/L Potassium (3.5-5.1) mmol/L Chloride (98-107) mmol/L Carbon Dioxide (22-30) mmol/L Anion Gap mmol/L BUN (7-17) mg/dL Creatinine (0.52-1.04) mg/dL Est GFR (CKD-EPI)AfAm (>60 ml/min/1.73 sqM) Est GFR (CKD-EPI)NonAf (>60 ml/min/1.73 sqM) Glucose (74-99) mg/dL POC Glucose (mg/dL) 45 L* 45 L* 55 L (70-110) mg/dL POC Glu [employer] Rogerio Morfin, Rogerio Lee, Rogerio Plasma Lactic Acid [place] (0.7-2.0) mmol/L Calcium (8.4-10.2) mg/dL Phosphorus (2.5-4.5) mg/dL Magnesium (1.6-2.3) mg/dL Total Bilirubin (0.2-1.3) mg/dL AST (14-36) U/L ALT (4-34) U/L Alkaline Phosphatase (38-126) U/L Troponin I (0.000-0.034) ng/mL NT-Pro-B Natriuret Pep pg/mL Total Protein (6.3-8.2) g/dL Albumin (3.5-5.0) g/dL Urine Color Urine Appearance (Clear) Urine pH (5.0-8.0) Ur Specific [place] (1.001-1.035) Urine Protein (Negative) Urine Glucose (UA) (Negative) Urine Ketones (Negative) Urine Blood (Negative) Urine Nitrite (Negative) Urine Bilirubin (Negative) Urine Urobilinogen (<2.0) mg/dL Ur Leukocyte Esterase (Negative) Urine RBC (0-5) /hpf Urine WBC (0-5) /hpf Ur Squamous Epith Cells (0-4) /hpf Amorphous Sediment (None) /hpf Urine Bacteria (None) /hpf Urine Mucus (None) /hpf 11/11/23 11/11/23 11/11/23 Range/Units 01:56 02:36 06:09 WBC (3.8-10.6) k/uL RBC (3.80-5.40) m/uL Hgb (11.4-16.0) gm/dL Hct (34.0-46.0) % MCV (80.0-100.0) fL MCH (25.0-35.0) pg MCHC (31.0-37.0) g/dL RDW (11.5-15.5) % Plt Count (150-450) k/uL MPV Neutrophils % % Lymphocytes % % Monocytes % % Eosinophils % % Basophils % % Neutrophils # (1.3-7.7) k/uL Lymphocytes # (1.0-4.8) k/uL Monocytes # (0-1.0) k/uL Eosinophils # (0-0.7) k/uL Basophils # (0-0.2) k/uL Hypochromasia PT (10.0-12.5) sec INR (<1.2) APTT (22.0-30.0) sec D-Dimer (<0.60) mg/L FEU Sodium (137-145) mmol/L Potassium (3.5-5.1) mmol/L Chloride (98-107) mmol/L Carbon Dioxide (22-30) mmol/L Anion Gap mmol/L BUN (7-17) mg/dL Creatinine (0.52-1.04) mg/dL Est GFR (CKD-EPI)AfAm (>60 ml/min/1.73 sqM) Est GFR (CKD-EPI)NonAf (>60 ml/min/1.73 sqM) Glucose (74-99) mg/dL POC Glucose (mg/dL) 66 L 84 122 H (70-110) mg/dL POC Glu [employer] Rogerio Morfin Kyle Rausch, Nora Plasma Lactic Acid [place] (0.7-2.0) mmol/L Calcium (8.4-10.2) mg/dL Phosphorus (2.5-4.5) mg/dL Magnesium (1.6-2.3) mg/dL Total Bilirubin (0.2-1.3) mg/dL AST (14-36) U/L ALT (4-34) U/L Alkaline Phosphatase (38-126) U/L Troponin I (0.000-0.034) ng/mL NT-Pro-B Natriuret Pep pg/mL Total Protein (6.3-8.2) g/dL Albumin (3.5-5.0) g/dL Urine Color Urine Appearance (Clear) Urine pH (5.0-8.0) Ur Specific [place] (1.001-1.035) Urine Protein (Negative) Urine Glucose (UA) (Negative) Urine Ketones (Negative) Urine Blood (Negative) Urine Nitrite (Negative) Urine Bilirubin (Negative) Urine Urobilinogen (<2.0) mg/dL Ur Leukocyte Esterase (Negative) Urine RBC (0-5) /hpf Urine WBC (0-5) /hpf Ur Squamous Epith Cells (0-4) /hpf Amorphous Sediment (None) /hpf Urine Bacteria (None) /hpf Urine Mucus (None) /hpf - Radiology Data Radiology results: report reviewed (CT BRAIN CHEST LS pelvis negative for acute disease), image reviewed Disposition Clinical Impression: Dehydration, Hyperkalemia, Fall, Congestive heart failure, Weakness, Debility Disposition: ADMITTED IP TO THIS HOSP Condition: Fair Is patient prescribed a controlled substance at d/c from ED?: No Time of Disposition: 21:20
[2023-11-10 20:51] LABS: Basophils % (A) 0 %; Eosinophils # (A) 0.1 k/uL (0-0.7); Eosinophils % (A) 1 %; HCT 37.5 % (34.0-46.0); HGB 11.9 gm/dL (11.4-16.0); Hypochromasia Moderate; Lymphocytes # (A) 1.6 k/uL (1.0-4.8); Lymphocytes % (A) 17 %; MCH 31.3 pg (25.0-35.0); MCHC 31.7 g/dL (31.0-37.0); MCV 98.8 fL (80.0-100.0); Mean Platelet Volume 7.4; Monocytes # (A) 0.5 k/uL (0-1.0); Monocytes % (A) 5 %; Neutrophils # (A) 7.2 k/uL (1.3-7.7); Neutrophils % (A) 76 %; Platelet Count 248 k/uL (150-450); RDW 14.3 % (11.5-15.5); WBC 9.6 k/uL (3.8-10.6)
[2023-11-10] MEDS: SODIUM CHLORIDE 0.9% 1,000 ML IV STA (20:57)
[2023-11-10 20:59] LABS: ALT 15 U/L (4-34); AST 25 U/L (14-36); African American GFR (CKD) 65 (>60 ml/min/1.73 sqM); Albumin 2.7 g/dL (3.5-5.0); Alkaline Phosphatase 235 U/L (38-126); Anion Gap 0 mmol/L; Blood Urea Nitrogen 30 mg/dL (7-17); Calcium 8.8 mg/dL (8.4-10.2); Carbon Dioxide 34 mmol/L (22-30); Chloride 104 mmol/L (98-107); Glucose 82 mg/dL (74-99); Magnesium 1.8 mg/dL (1.6-2.3); Non-African American GFR(CKD) 56 (>60 ml/min/1.73 sqM); Phosphorus 3.1 mg/dL (2.5-4.5); Potassium 5.3 mmol/L (3.5-5.1); Sodium 138 mmol/L (137-145); Total Protein 5.5 g/dL (6.3-8.2)
[2023-11-10 21:06] LABS: NT-Pro-B-Type Natriuretic Pept 1100 pg/mL
[2023-11-10 21:22] LABS: INR 0.9 (<1.2); Prothrombin Time 10.3 sec (10.0-12.5)
[2023-11-10 21:31] LABS: Partial Thromboplastin Time 18.6 sec (22.0-30.0)
[2023-11-10 22:30] LABS: Amorphous Sediment,Urine Many /hpf; Appearance,Urine Turbid (Clear); Bacteria,Urine Many /hpf; Bilirubin,Urine Negative (Negative); Blood,Urine Moderate (Negative); Color,Urine Light Red; Glucose,Urine (UA) Negative (Negative); Ketones,Urine Negative (Negative); Leukocyte Esterase,Urine Large (Negative); Mucus,Urine Rare /hpf; Nitrite,Urine Negative (Negative); PH, Urine 7.5 (5.0-8.0); Protein,Urine 1+ (Negative); RBC,Urine 120 /hpf (0-5); Specific Gravity,Urine 1.026 (1.001-1.035); Squamous Epithelial Cell,Urine 3 /hpf (0-4); WBC,Urine 42 /hpf (0-5)
--- NOTE | 2023-11-10 22:51 | CT ---
EXAMINATION TYPE: CT angio chest CT DLP: 1089.4 mGycm, Automated exposure control for dose reduction was used. DATE OF EXAM: 11/10/2023 9:55 PM COMPARISON: CT lumbar spine from the same day. CLINICAL INDICATION:Female, 78 years old with history of DVT. TECHNIQUE/CONTRAST: CTA scan of the thorax is performed with IV Contrast, patient injected with 80 mL of Isovue 370, MIP images are created and reviewed these are created on a separate workstation.. FINDINGS: Pulmonary Artery: There is no evidence of an obvious central filling defect within the pulmonary vasc ulature to suggest acute pulmonary embolism. Limited evaluation of the segmental and subsegmental bra nches secondary to bolus timing and quality. The pulmonary artery is of normal size. Lungs/Pleura: Surgical changes of the right lung. Nonspecific cystic focus is seen abutting the left lung base medial pleura measuring approximately 2.8 cm. There is a solid nodule seen in the right upp er lobe with mild spiculation measuring 7 mm. Additional 4 mm right lower lobe pulmonary nodule is ap preciated. No evidence of focal consolidation, pleural effusion or pneumothorax. Airway: Large airways are patent. Heart: Heart is within normal limits for size. Vasculature: No evidence of aortic aneurysm. Mediastinum: No gross evidence of adenopathy. Musculoskeletal: No acute osseous abnormalities Soft Tissues/lymph nodes: Unremarkable. Lower neck: No significant findings. Upper Abdomen: Bilateral kidney cystic changes. IMPRESSION: 1. No evidence of central pulmonary embolism. Limited evaluation of the segmental and subsegmental br anches. Correlate with DVT is clinical suspicion for pulmonary embolism persists. 2. Right upper lobe 7 mm pulmonary nodule with additional right lower lobe 4 mm pulmonary nodule inci dentally noted. Recommend CT chest follow-up in 6-12 months to assess for any interval changes. [facility], Workstation: [id number], 11/10/2023 10:49 PM
--- NOTE | 2023-11-10 22:59 | CT ---
EXAMINATION TYPE: CT lumbar spine wo con CT DLP: Combined DLP of 3703.8 mGycm, Automated exposure control for dose reduction was used. DATE OF EXAM: 11/10/2023 9:31 PM COMPARISON: CT pelvis and CTA chest from the same day. CLINICAL INDICATION:Female, 78 years old with history of pain; PHH, Weakness worsen over the past few weeks. Today felt that she was unable to stand or walk on her own. TECHNIQUE: Multiple axial images were obtained from the midportion of T11 through the sacroiliac haylie nts. Soft tissue and bone windows in coronal and sagittal planes were obtained and reviewed. 3-D ref ormats of the bones were created on a separate workstation and submitted for review. Contrast used: mL of , (None, if empty). Oral contrast used: (None, if empty). FINDINGS: Alignment: There are 5 lumbar type vertebral bodies within normal alignment. Bone: Osteopenia. No acute fractures Discs: T12-L1: No spinal canal or neural foraminal stenosis is identified. L1-L2: No spinal canal or neural foraminal stenosis is identified. L2-L3: Circumferential disc bulging is seen with effacement of the anterior thecal sac. No neural for aminal stenosis. L3-L4: Circumferential disc bulging is seen with mild spinal canal stenosis. No neural foraminal sten osis. L4-L5: Circumferential disc bulging is seen with moderate spinal canal stenosis. Mild left neural for aminal stenosis. . The right neural foramen is patent L5-S1: No spinal canal or neural foraminal stenosis is identified. Other: Please see CTA chest and CT abdomen pelvis from the same day for further details. IMPRESSION: 1. No evidence of acute fracture. 2. Mild multilevel disc degenerative disease most pronounced at L4-L5 where there is moderate spinal canal stenosis. For better evaluation of the spinal canal consider MRI lumbar spine if clinically warranted. [facility], , 11/10/2023 10:57 PM
--- NOTE | 2023-11-10 23:16 | CT ---
EXAMINATION TYPE: CT pelvis wo con CT DLP: 3703.8 mGycm, Automated exposure control for dose reduction was used. DATE OF EXAM: 11/10/2023 9:31 PM COMPARISON: CT lumbar spine from the same day CLINICAL INDICATION:Female, 78 years old with history of pain; Weakness worsen over the past few week s. Today felt that she was unable to stand or walk on her own. TECHNIQUE: Axial CT pelvis wo con;Sagittal and coronal reformats were created on a separate workstat ion. Contrast used: mL of , (none if empty) Oral contrast used: without Oral Contrast (none if empty) FINDINGS: PELVIS BLADDER: Unremarkable REPRODUCTIVE: In the area of the left adnexa there is a indeterminate focus measuring 3.2 cm. BOWEL: Visualized portions of the bowel are within normal limits. No evidence of bowel obstruction. PERITONEUM/RETROPERITONEUM: No evidence of pneumoperitoneum or free fluid. VASCULATURE: No evidence of aortic aneurysm. MUSCULOSKELETAL: There is an acute appearing oblique basicervical right femoral neck fracture which s eems to involve the lesser and greater trochanter. There is some comminution and mild displacement ap preciated. There are subtle periosteal erosive osseous changes present. Right proximal femoral nail f ixation hardware appears grossly intact. LYMPH NODES: No gross evidence for lymphadenopathy. SOFT TISSUE/ABDOMINAL WALL: There is moderate soft tissue swelling involving the anterior abdominal s ubcutaneous tissues. There are postsurgical changes with mesh suggested along the anterior abdominal wall. There is mild swelling seen along the right hip and right lateral thigh soft tissues with no or ganized fluid collection seen at this time to suggest hematoma. IMPRESSION: 1. Right femoral neck obliquely oriented fracture which seems to extend into the greater and lesser trochanter with some mild displacement and comminution. Subtle erosive changes are seen which may rel ate to periosteal reaction from fracture however underlying infectious process cannot be entirely exc luded. Correlate with clinical evaluation. 2. Mild soft tissue swelling seen along the right hip/right thigh as well as the anterior abdominal s ubcutaneous tissues. 3. Indeterminate focus seen in the left adnexa may represent enlarged ovary versus other lesion. This can be further characterized with pelvic ultrasound. [facility], , 11/10/2023 11:13 PM
--- NOTE | 2023-11-10 23:19 | US ---
EXAMINATION TYPE: US venous doppler duplex LE BI DATE OF EXAM: 11/10/2023 9:38 PM COMPARISON: US 01/18/2023 CLINICAL INDICATION: Female, 78 years old with history of dvt; Patient states weakness. No swelling, pain, or redness per patient. No hx DVT. Not on thinners SIDE PERFORMED: Bilateral TECHNIQUE: The lower extremity deep venous system is examined utilizing real time linear array sonog stuart with graded compression, doppler sonography and color-flow sonography. VESSELS IMAGED: Common Femoral Vein Deep Femoral Vein Greater Saphenous Vein * Femoral Vein Popliteal Vein Small Saphenous Vein * Proximal Calf Veins (* superficial vessels) Slightly limited due to patient body habitus Right Leg: Appears negative for DVT Left Leg: Appears negative for DVT Grayscale, color doppler, spectral doppler imaging performed of the deep veins of the bilateral lower extremities. There is normal flow, compressibility, vascular waveforms. IMPRESSION: No ultrasound evidence for acute DVT in either lower extremity. [facility], , 11/10/2023 11:17 PM
[2023-11-11] MEDS: ACETAMINOPHEN TAB 325 MG TAB PO STA (00:58)
[2023-11-11 01:08] LABS: Glucose,Whole Blood 45 mg/dL (70-110)
[2023-11-11 01:08] LABS: Glucose,Whole Blood 45 mg/dL (70-110)
[2023-11-11 01:39] LABS: Glucose,Whole Blood 55 mg/dL (70-110)
[2023-11-11 01:57] LABS: Glucose,Whole Blood 66 mg/dL (70-110)
[2023-11-11] MEDS ORDERED: NALOXONE 0.4 MG/ML 1 ML VIAL IV PRN (02:23)
[2023-11-11 02:38] LABS: Glucose,Whole Blood 84 mg/dL (70-110)
[2023-11-11] MEDS ORDERED: DEXTROSE 50% SYRINGE 50 ML IVP PRN ×2 (04:26)
--- NOTE | 2023-11-11 04:37 | CT ---
EXAM: CT Head Without Intravenous Contrast CLINICAL HISTORY: ITS.REASON CT Reason: weak TECHNIQUE: Axial computed tomography images of the head/brain without intravenous contrast. CTDI is 49 mGy and DLP is 1239 mGy-cm. This CT exam was performed using one or more of the following dose reduction techniques: automated exposure control, adjustment of the mA and/or kV according to patient size, and/or use of iterative reconstruction technique. COMPARISON: No relevant prior studies available. FINDINGS: Brain: No hemorrhage, herniation, or mass effect. Chronic microvascular ischemic changes. Ventricles: No hydrocephalus. Age related cerebral volume loss. Bones/joints: Unremarkable. Soft tissues: Unremarkable. Sinuses: No air fluid levels. Mastoid air cells: Clear. IMPRESSION: No acute hemorrhage, hydrocephalus, or mass effect.
[2023-11-11 06:11] LABS: Glucose,Whole Blood 122 mg/dL (70-110)
[2023-11-11] MEDS: carvediloL 6.25 MG TAB PO SCH (06:54)
[2023-11-11] MEDS: ASPIRIN 81 MG PO SCH (09:50)
[2023-11-11] MEDS: EZETIMIBE 10 MG TAB PO SCH (09:50)
[2023-11-11] MEDS: ATORVASTATIN 80 MG TAB PO SCH (09:50)
[2023-11-11] MEDS: TORSEMIDE 20 MG TAB PO SCH (09:50)
[2023-11-11] MEDS: LOSARTAN 50 MG TAB PO SCH (09:50)
[2023-11-11] MEDS: INSULIN DETEMIR (LEVEMIR) 100 UNIT/ML SYR SQ SCH ×2 (10:42→21:50)
[2023-11-11 11:13] LABS: Glucose,Whole Blood 127 mg/dL (70-110)
[2023-11-11] MEDS: INSULIN ASPART (NovoLOG) 100 UNIT/ML VIAL SQ SCH (13:09)
--- NOTE | 2023-11-11 14:26 | P.HPIM ---
History of Present Illness H&P Date: 11/11/23 Chief Complaint: Weakness not able to ambulate/right intertrochanteric hip f racture HISTORY OF PRESENT ILLNESS: This is a 78-year-old female with a previous medical history significant for hypertension and hypertensive cardiovascular disease, hyperlipidemia, diabetes mellitus type 2, obesity, osteoarthritis, chronic low back pain, chronic kidney disease stage 3b, patient underwent a intramedullary nailing for a right intertrochanter Fracture about a year ago and she went to [facility] for subacute rehabilitation for quite some time, then she has been doing fine, using a walker at home, apparently the patient could not put a lot of pressure using a walker 2 weeks ago and she has been laying in bed not able to do a lot of things, up till yesterday when her daughter came and saw her in bed not able to do anything, they have decided to bring her to the ER for evaluation she has a battery of testing including CT scan of the brain without contrast that did not show evidence of acute intracranial bleed, patient did have a CT scan of the lumbar spine that showed degenerative disc disease without evidence of fracture patient also did have a CT of the pelvis that showed evidence of right femoral neck oblique fracture extended into the greater and lesser tro chanter with comminution, there was some description of erosive changes in that area, could be related to the fracture versus infectious process, patient was admitted to the hospital under my service, consult with orthopedic surgery initially Dr. Garcia was switched to consult since Dr. Santiago is not available to the on-call Ortho bleeding service this will be Dr. Bañuelos REVIEW OF SYSTEMS: Constitutional: No documented fever, no chills, no night sweats. No weight change. No weakness, fatigue or lethargy. No daytime sleepiness. EENT: No headache. No blurred vision or double vision, no loss of vision. No loss of Hearing, no ringing in the ears, no dizziness. No nasal drainage or congestion. No epistaxis. No sore throat. Lungs: minimal shortness of breath, no cough, no sputum production. No wheezing. Reports dyspnea with activity. Cardiovascular: No chest pain, no lower extremity edema. No palpitations. No paroxysmal nocturnal dyspnea. No orthopnea. No lightheadedness or dizziness. No syncopal episodes. Abdominal: Reports no abdominal pain. No nausea, vomiting. No diarrhea. No constipation. No bloody or tarry stools reports loss of appetite. Genitourinary: No dysuria, increased frequency, urgency. No urinary retention. Musculoskeletal: No myalgias. positive for muscle weakness, positive for gait dysfunction, no frequent falls. positive for back pain. No neck pain. Integumentary: No wounds, no lesions. No rash or pruritus. No unusual bruising. No change in hair or nails. Neurologic: No aphasia. No facial droop. No change in mentation. No head injury. No headache. No paralysis. No paresthesia. Psychiatric: No depression. No anxiety. No mood swings. Endocrine: No abnormal blood sugars. No weight change. PAST MEDICAL HISTORY: Hypertension and hypertensive cardiovascular disease. Hyperlipidemia. Obesity. Diabetes mellitus type 2. COPD. History of lung cancer status post lobectomy 2007. Osteoarthritis. Osteoporosis. Spondylosis of the lumbar spine. PAST SURGICAL HISTORY: Partial lobectomy 2007 Cholecystectomy Hernia repair Skin cancer from the nose SOCIAL HISTORY: Patient is lifelong nonsmoker, she denies any alcohol ingestion, she uses a walker for ambulation, currently her grandson lives with her. FAMILY HISTORY: Father at age 71 from emphysema, mother at age of 52 from cervical cancer, patient had 3 brothers one from [place] one from motor vehicle accident and the third one on the side step to , patient had 2 sisters one from [place] and the other one from dementia, patient has one daughter and one son are healthy, her daughter lives in [facility] PHYSICAL EXAMINATION: General: 78-year-old female laying in bed in no apparent distress. HEENT: Head is atraumatic, normocephalic, pupils were equal round reactive to light and recommendation, extraocular muscle movement were intact, sclera nonicteric, conjunctivae were pale, mucous membranes of the mouth are somewhat dry. Neck: Supple, no JVP, normal carotid upstroke bilaterally, no lymphadenopathy. Chest: Decreased breath sounds at the bases, few rhonchi, no expiratory wheezes, no chest wall tenderness, no intercostal retractions. Heart: First heart sound is normal, second heart sound is normal there is systolic ejection murmur 2/6 in the left sternal border Abdomen: Soft, nontender, nondistended, positive bowel sounds. Extremities: There is no edema no calf tenderness DP +1 bilaterally, Neurologic examination: Patient is awake alert and oriented X3, cranial nerves II-12 appear grossly intact, muscle power were 5 out of 5 in upper extremities and patient is barely able to pick her right lower extremity off the mattress however she does not have any tenderness with range of motion, left lower extremity is 4 out of 5. ASSESSMENT AND PLAN: 1. Right intertrochanteric oblique fracture not really sure if this is a new versus an old fracture that she had in the past according to the CT scan of the pelvis did show evidence of extension into the greater and lesser trochanter, patient is not able to bear any weight on the right lower extremity, I will consult orthopedic surgery for further evaluation I spoke with the physician clerical dentist assistant that works with Dr. Bañuelos and he will get back to me as soon as he clears it through his orthopedic surgeon on-call. 2. Hypertension and hypertensive cardiovascular disease. Continue patient on carvedilol 6.25 mg orally twice every day, losartan 100 mg once every day, monitor the patient very closely. 3. Mixed hyperlipidemia. Continue patient on atorvastatin 40 mg daily, as well as ezetimibe 10 mg once every day. 4. COPD. Continue patient on Symbicort 160/4.5 g 2 puffs in remission twice every day, we will start DuoNeb 3 mL nebulization 4 times every day as needed. 5. Chronic diastolic heart failure appears stable at this time. Continue carvedilol 6.25 mg orally twice every day as well as losartan 50 mg orally once every day, continue patient on torsemide 20 mg orally once every day. 6. History of remote lung cancer status post partial lobectomy in 2007 7. Osteoarthritis. Continue current pain management. Start the patient on Tylenol 650 mg orally every 4 hours as needed 8. Osteopenia/osteoporosis 9. Diabetes mellitus type 2. Decrease Levemir to 40 units at bedtime, along with a sliding scale insulin. 10. DVT prophylaxis. We will start the patient on Lovenox 40 mg subcutaneously every 12 hours postoperatively. 11. GI prophylaxis. Continue famotidine 20 mg orally once every day 12. Chronic kidney disease stage III. Appears stable at this time, avoid hypotension and nephrotoxins 13. Medical debility. Physical therapy evaluation 14. Admit to inpatient. Estimated length of stay 2 midnights. 15. Patient is full code. 16. Social work consultation for discharge planning to subacute rehabilitation. Past Medical History Past Medical History: Cancer, Diabetes Mellitus, Hyperlipidemia, Hypertension Additional Past Medical History / Comment(s): hx. lung cancer 2006, current R femur fracture History of Any Multi-Drug Resistant Organisms: None Reported Past Surgical History: Cholecystectomy, Hernia Repair, Joint Replacement Additional Past Surgical History / Comment(s): partial lobectomy 2007, R femur surgery/hardware, total L knee Past Anesthesia/Blood Transfusion Reactions: No Reported Reaction Past Psychological History: No Psychological Hx Reported Additional Psychological History / Comment(s): Pt's grandson resides with her. She uses a walker. Smoking Status: Never smoker Past Alcohol Use History: None Reported Past Drug Use History: None Reported - Past Family History Mother Family Medical History: Cancer Medications and Allergies Home Medications Medication Instructions Recorded Confirmed Type Aspirin EC [Ecotrin Low Dose] 81 mg PO DAILY 10/15/22 11/10/23 History Ezetimibe [Zetia] 10 mg PO DAILY 10/15/22 11/10/23 History Insulin Glargine,Hum.rec.anlog 54 unit SQ DAILY 10/15/22 11/10/23 History [Lantus Solostar Pen] Torsemide [Demadex] 20 mg PO DAILY 01/20/23 11/10/23 History Atorvastatin [Lipitor] 80 mg PO DAILY 11/10/23 11/10/23 History Losartan Potassium 50 mg PO DAILY 11/10/23 11/10/23 History carvediloL [Coreg] 6.25 mg PO BID 11/10/23 11/10/23 History Allergies Allergy/AdvReac Type Severity Reaction Status Date / Time cephalexin Allergy Rash/Hives, Verified 11/10/23 21:11 redness, swelling Physical Exam Vitals: Vital Signs Temp Pulse Pulse Resp BP BP Pulse Ox 11/11/23 07:26 97.5 F L 76 18 162/84 91 L 11/11/23 05:24 97.2 F L 66 178/79 94 L 11/11/23 04:26 72 18 166/78 94 L 11/11/23 02:03 74 18 148/71 93 L 11/10/23 23:34 72 18 168/74 93 L 11/10/23 20:59 20 11/10/23 19:58 98.9 F 87 20 149/90 96 Intake and Output 11/10/23 11/11/23 11/11/23 22:59 06:59 14:59 Other: Weight 129.274 kg 129.274 kg Results CBC & Chem 7: 11/10/23 20:05 11/10/23 20:05 Labs: Abnormal Lab Results - Last 24 Hours (Table) 11/10/23 11/10/23 11/10/23 Range/Units 20:05 20:05 21:31 APTT 18.6 L (22.0-30.0) sec D-Dimer 4.32 H (<0.60) mg/L FEU Potassium 5.3 H (3.5-5.1) mmol/L Carbon Dioxide 34 H (22-30) mmol/L BUN 30 H (7-17) mg/dL POC Glucose (mg/dL) (70-110) mg/dL Alkaline Phosphatase 235 H (38-126) U/L Total Protein 5.5 L (6.3-8.2) g/dL Albumin 2.7 L (3.5-5.0) g/dL Urine Appearance Turbid H (Clear) Urine Protein 1+ H (Negative) Urine Blood Moderate H (Negative) Ur Leukocyte Esterase Large H (Negative) Urine RBC 120 H (0-5) /hpf Urine WBC 42 H (0-5) /hpf Amorphous Sediment Many H (None) /hpf Urine Bacteria Many H (None) /hpf Urine Mucus Rare H (None) /hpf 11/11/23 11/11/23 11/11/23 Range/Units 01:03 01:06 01:38 APTT (22.0-30.0) sec D-Dimer (<0.60) mg/L FEU Potassium (3.5-5.1) mmol/L Carbon Dioxide (22-30) mmol/L BUN (7-17) mg/dL POC Glucose (mg/dL) 45 L* 45 L* 55 L (70-110) mg/dL Alkaline Phosphatase (38-126) U/L Total Protein (6.3-8.2) g/dL Albumin (3.5-5.0) g/dL Urine Appearance (Clear) Urine Protein (Negative) Urine Blood (Negative) Ur Leukocyte Esterase (Negative) Urine RBC (0-5) /hpf Urine WBC (0-5) /hpf Amorphous Sediment (None) /hpf Urine Bacteria (None) /hpf Urine Mucus (None) /hpf 11/11/23 11/11/23 11/11/23 Range/Units 01:56 06:09 11:09 APTT (22.0-30.0) sec D-Dimer (<0.60) mg/L FEU Potassium (3.5-5.1) mmol/L Carbon Dioxide (22-30) mmol/L BUN (7-17) mg/dL POC Glucose (mg/dL) 66 L 122 H 127 H (70-110) mg/dL Alkaline Phosphatase (38-126) U/L Total Protein (6.3-8.2) g/dL Albumin (3.5-5.0) g/dL Urine Appearance (Clear) Urine Protein (Negative) Urine Blood (Negative) Ur Leukocyte Esterase (Negative) Urine RBC (0-5) /hpf Urine WBC (0-5) /hpf Amorphous Sediment (None) /hpf Urine Bacteria (None) /hpf Urine Mucus (None) /hpf Thrombosis Risk Factor Assmnt - Choose All That Apply Each Factor Represents 1 point: Abnormal pulmonary function (COPD), Medical pt on bed rest, Obesity (BMI >25) Other Risk Factors: Yes Each Risk Factor Represents 3 Points: Age 75 years or older Thrombosis Risk Factor Assessment Total Risk Factor Score: 6 Thrombosis Risk Factor Assessment Level: High Risk
[2023-11-11] MEDS: ACETAMINOPHEN TAB 325 MG TAB PO PRN (15:12)
--- NOTE | 2023-11-11 15:55 | P.PN ---
Progress Note - Text Progress Note Date: 11/11/23 Full consult pending. Images and chart reviewed along with notes. Pt is 78 yo female who had IT fracture 1 year ago fixed with IMN. Since then she has been weaker and now cannot walk well. The IMN has cut out. This is not a new fracture just hardware and bone failure likey due to age, bone quality, comorbid conditions. She will need revision of this to a long stem hemiarthroplasty. She will need work up to assess her fitness for a 2.5 hr surgery. Will discuss with family tomorrow their wishes. Likely to happen Tuesday or Tuesday depending on OR schedule and availability. Thank you for this consult.
[2023-11-11 16:49] LABS: Glucose,Whole Blood 134 mg/dL (70-110)
[2023-11-11 21:16] LABS: Glucose,Whole Blood 131 mg/dL (70-110)
[2023-11-12 05:43] LABS: Glucose,Whole Blood 170 mg/dL (70-110)
[2023-11-12 09:19] LABS: Basophils # (A) 0.04 X 10*3/uL (0.00-0.10); Basophils % (A) 0.4 %; Eosinophils # (A) 0.25 X 10*3/uL (0.04-0.35); Eosinophils % (A) 2.7 %; HCT 33.3 % (37.2-46.3); HGB 10.8 g/dL (12.0-15.0); Lymphocytes # (A) 2.07 X 10*3/uL (0.90-5.00); Lymphocytes % (A) 22.2 %; MCHC 32.4 g/dL (32.0-37.0); MCV 98.5 FL (80.0-97.0); Mean Platelet Volume 10.6 FL (9.5-12.2); Monocytes % (A) 6.4 %; NRBC Per 100 WBC 0 X 10*3/uL (0.00-0.01); Neutrophils # (A) 6.36 X 10*3/uL (1.80-7.70); Neutrophils % (A) 68.2 %; Platelet Count 236 X 10*3/uL (140-440); RBC 3.38 X 10*6/uL (4.10-5.20); RDW 14.8 % (11.5-14.5); WBC 9.33 X 10*3/uL (4.50-10.00)
[2023-11-12 09:46] LABS: ALT 14 U/L (8-44); AST 21 U/L (13-35); Albumin 2.6 g/dL (3.8-4.9); Albumin/Globulin Ratio 1.08 Ratio (1.60-3.17); Alkaline Phosphatase 245 U/L (41-126); BUN/Creat Ratio 22.64 Ratio (12.00-20.00); Blood Urea Nitrogen 24.9 mg/dL (9.0-27.0); Calcium 8.7 mg/dL (8.7-10.3); Carbon Dioxide 31.5 mmol/L (21.6-31.8); Chloride 105 mmol/L (96-109); Globulin 2.4 g/dL (1.6-3.3); Glucose 178 mg/dL (70-110); Potassium 4.8 mmol/L (3.5-5.5); Sodium 142 mmol/L (135-145); Total Bilirubin 0.6 mg/dL (0.3-1.2)
[2023-11-12] MEDS: ENOXAPARIN 40 MG/0.4 ML SYRINGE SQ SCH (10:51)
--- NOTE | 2023-11-12 11:52 | P.PN ---
Subjective Progress Note Date: 11/12/23 HISTORY OF PRESENT ILLNESS: This is a 78-year-old female with a previous medical history signif icant for hypertension and hypertensive cardiovascular disease, hyperlipidemia, diabetes mellitus type 2, obesity, osteoarthritis, chronic low back pain, chronic kidney disease stage 3b, patient underwent a intramedullary nailing for a right intertrochanter Fracture about a year ago and she went to [facility] for subacute rehabilitation for quite some time, then she has been doing fine, using a walker at home, apparently the patient could not put a lot of pressure using a walker 2 weeks ago and she has been laying in bed not able to do a lot of things, up till yesterday when her daughter came and saw her in bed not able to do anything, they have decided to bring her to the ER for evaluation she has a battery of testing including CT scan of the brain without contrast that did not show evidence of acute intracranial bleed, patient did have a CT scan of the lumbar spine that showed degenerative disc disease without evidence of fracture patient also did have a CT of the pelvis that showed evidence of right femoral neck oblique fracture extended into the greater and lesser trochanter with co mminution, there was some description of erosive changes in that area, could be related to the fracture versus infectious process, patient was admitted to the hospital under my service, consult with orthopedic surgery initially Dr. Garcia was switched to consult since Dr. Santiago is not available to the on-call Orthopedic service this will be Dr. Bañuelos. 11/11: Consultation was bowels back to [facility] after long conversation with Dr. Bañuelos yesterday, since the patient was seen by Dr. Emerson in the past, knowing that he is not available at this point in time, or Jose will accept the patient at this point in time, due to a failure of the nail and the patient ambulated to ambulate likely will require to have a right hemiarthroplasty at this point in time, we will consult cardiology for medical clearance, meanwhile patient will be maintained on her current medication, will continue to follow-up with the patient very closely. REVIEW OF SYSTEMS: Constitutional: No documented fever, no chills, no night sweats. No weight change. No weakness, fatigue or lethargy. No daytime sleepiness. EENT: No headache. No blurred vision or double vision, no loss of vision. No loss of Hearing, no ringing in the ears, no dizziness. No nasal drainage or congestion. No epistaxis. No sore throat. Lungs: minimal shortness of breath, no cough, no sputum production. No wheezing. Reports dyspnea with activity. Cardiovascular: No chest pain, no lower extremity edema. No palpitations. No paroxysmal nocturnal dyspnea. No orthopnea. No lightheadedness or dizziness. No syncopal episodes. Abdominal: Reports no abdominal pain. No nausea, vomiting. No diarrhea. No constipation. No bloody or tarry stools reports loss of appetite. Genitourinary: No dysuria, increased frequency, urgency. No urinary retention. Musculoskeletal: No myalgias. positive for muscle weakness, positive for gait dysfunction, no frequent falls. positive for back pain. No neck pain. Integumentary: No wounds, no lesions. No rash or pruritus. No unusual bruising. No change in hair or nails. Neurologic: No aphasia. No facial droop. No change in mentation. No head injury. No headache. No paralysis. No paresthesia. Psychiatric: No depression. No anxiety. No mood swings. Endocrine: No abnormal blood sugars. No weight change. PHYSICAL EXAMINATION: General: 78-year-old female laying in bed in no apparent distress. HEENT: Head is atraumatic, normocephalic, pupils were equal round reactive to light and recommendation, extraocular muscle movement were intact, sclera nonicteric, conjunctivae were pale, mucous membranes of the mouth are somewhat dry. Neck: Supple, no JVP, normal carotid upstroke bilaterally, no lymphadenopathy. Chest: Decreased breath sounds at the bases, few rhonchi, no expiratory wheezes, no chest wall tenderness, no intercostal retractions. Heart: First heart sound is normal, second heart sound is normal there is systolic ejection murmur 2/6 in the left sternal border Abdomen: Soft, nontender, nondistended, positive bowel sounds. Extremities: There is no edema no calf tenderness DP +1 bilaterally, Neurologic examination: Patient is awake alert and oriented X3, cranial nerves II-12 appear grossly intact, muscle power were 5 out of 5 in upper extremities and patient is barely able to pick her right lower extremity off the mattress however she does not have any tenderness with range of motion, left lower extremity is 4 out of 5. ASSESSMENT AND PLAN: 1. Right intertrochanteric oblique fracture suggestive of a failed intrame dullary screw that she had before according to the CT scan of the pelvis did show evidence of extension into the greater and lesser trochanter, patient is not able to bear any weight on the right lower extremity, I will consult orthopedic surgery for further evaluation I spoke with Dr. Bañuelos yesterday who stated that the patient should be seen by [facility], the consultation was switched back to them and we will continue to monitor the patient very closely. Obtain cardiology consultation for medical clearance as the patient is going for 3-hour surgery under general anesthesia. 2. Hypertension and hypertensive cardiovascular disease. Continue patient on carvedilol 6.25 mg orally twice every day, losartan 100 mg once every day, monitor the patient very closely. 3. Mixed hyperlipidemia. Continue patient on atorvastatin 40 mg daily, as well as ezetimibe 10 mg once every day. 4. COPD. we will start DuoNeb 3 mL nebulization 4 times every day as needed. 5. Chronic diastolic heart failure appears stable at this time. Continue carvedilol 6.25 mg orally twice every day as well as losartan 50 mg orally once every day, continue patient on torsemide 20 mg orally once every day. 6. History of remote lung cancer status post partial lobectomy in 2007 7. Osteoarthritis. Continue current pain management. Continue the patient on Tylenol 650 mg orally every 4 hours as needed 8. Osteopenia/osteoporosis. Patient would benefit from Prolia injection 60 mg subcutaneously every 6 months as an outpatient. 9. Diabetes mellitus type 2. Decrease Levemir to 40 units at bedtime, along with a sliding scale insulin. 10. DVT prophylaxis. Continue on Lovenox 40 mg subcutaneously once every day. 11. GI prophylaxis. Continue famotidine 20 mg orally once every day 12. Chronic kidney disease stage III. Appears stable at this time, avoid hypotension and nephrotoxins 13. Medical debility. Physical therapy evaluation will be put on hold until after orthopedic evaluation. 14. 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 likely subacute rehabilitation in order after surgical intervention Objective - Vital Signs Vital signs: Vital Signs Temp 98.0 F 11/12/23 07:23 Pulse 73 11/12/23 07:23 Resp 17 11/12/23 07:23 BP 164/74 11/12/23 07:23 Pulse Ox 92 L 11/12/23 07:23 FiO2 Intake & Output 11/11/23 11/12/23 11/12/23 18:59 06:59 18:59 Output Total 2400 Balance -2400 Output: Urine 2400 Other: Voiding Method Incontinent Incontinent External Catheter External Catheter # Voids 1 # Bowel Movements 1 - Labs CBC & Chem 7: 11/12/23 05:22 11/12/23 05:22 Labs: Abnormal Lab Results - Last 24 Hours (Table) 11/11/23 11/11/23 11/11/23 Range/Units 11:09 14:34 14:34 RBC (4.10-5.20) X 10*6/uL Hgb (12.0-15.0) g/dL Hct (37.2-46.3) % MCV (80.0-97.0) FL RDW (11.5-14.5) % ESR 49 H (0-30) mm/Hr Est GFR (CKD-EPI) (>=60) BUN/Creatinine Ratio (12.00-20.00) Ratio Glucose (70-110) mg/dL POC Glucose (mg/dL) 127 H (70-110) mg/dL Alkaline Phosphatase (41-126) U/L C-Reactive Protein 1.9 H (<1.0) mg/dL Total Protein (6.2-8.2) g/dL Albumin (3.8-4.9) g/dL Albumin/Globulin Ratio (1.60-3.17) Ratio 11/11/23 11/11/23 11/12/23 Range/Units 16:48 21:15 05:22 RBC 3.38 L (4.10-5.20) X 10*6/uL Hgb 10.8 L (12.0-15.0) g/dL Hct 33.3 L (37.2-46.3) % MCV 98.5 H (80.0-97.0) FL RDW 14.8 H (11.5-14.5) % ESR (0-30) mm/Hr Est GFR (CKD-EPI) (>=60) BUN/Creatinine Ratio (12.00-20.00) Ratio Glucose (70-110) mg/dL POC Glucose (mg/dL) 134 H 131 H (70-110) mg/dL Alkaline Phosphatase (41-126) U/L C-Reactive Protein (<1.0) mg/dL Total Protein (6.2-8.2) g/dL Albumin (3.8-4.9) g/dL Albumin/Globulin Ratio (1.60-3.17) Ratio 11/12/23 11/12/23 Range/Units 05:22 05:41 RBC (4.10-5.20) X 10*6/uL Hgb (12.0-15.0) g/dL Hct (37.2-46.3) % MCV (80.0-97.0) FL RDW (11.5-14.5) % ESR (0-30) mm/Hr Est GFR (CKD-EPI) 51 L (>=60) BUN/Creatinine Ratio 22.64 H (12.00-20.00) Ratio Glucose 178 H (70-110) mg/dL POC Glucose (mg/dL) 170 H (70-110) mg/dL Alkaline Phosphatase 245 H (41-126) U/L C-Reactive Protein (<1.0) mg/dL Total Protein 5.0 L (6.2-8.2) g/dL Albumin 2.6 L (3.8-4.9) g/dL Albumin/Globulin Ratio 1.08 L (1.60-3.17) Ratio
[2023-11-12 12:01] LABS: Glucose,Whole Blood 125 mg/dL (70-110)
[2023-11-12] MEDS: IPRATROPIUM-ALBUTEROL 3 ML NEB INHALATION PRN (12:04)
--- NOTE | 2023-11-12 13:35 | P.CNOR ---
History of Present Illness - [facility] Consult date: 11/12/23 Requesting physician: Mitra Malik Consult reason: fracture, other (Right femoral neck fracture) History of present illness: History of Presenting Illness Patient is a pleasant 78-year-old female presenting to the ER brought in by her family for evaluation regarding weakness increasing weakness and debility. Our services has been consulted for a right femoral neck fracture. Patient is known to our service due to a previous femur fracture that occurred in December 2022 after a fall and surgery was performed by Dr. Hughes. Patient reports she was discharged after her surgery to [facility] at [facility] and did very well. She was ambulating with a walker and started at [facility] outpatient. She states her pain in her right lower extremity never really went away. Patient states her pain started increasing over the past few months and became significant over the past three weeks. She states she began staying in bed more often and is currently only getting out of bed via wheelchair to use restroom. She states prior to her fall she was normally independent, using no assistive devices, although she states she wears a left in her right shoe. Patient does have a past medical history of lung cancer in 2006, diabetes, hyperlipidemia, and hypertension. She reports that she has an orthopedic history of a left knee replacement performed in 2003 at [facility] by Dr. Anderson. Review of Systems Pertinent positives and negatives as discussed in HPI, a complete review of systems was performed and all other systems are negative. Physical Examination General: The patient is awake and alert, in no acute distress Skin: Skin is warm and dry with no obvious rashes or lesions. Eye: Pupils are equal, round and reactive to light, extra-ocular movements are intact; there is normal conjunctiva bilaterally. Neck: The neck is supple, there is no tenderness and ROM intact. Cardiovascular: There is a regular rate and rhythm. No murmur, rub or gallop is appreciated. Respiratory: Respirations are non-labored, breath sounds are equal. Gastrointestinal: Soft, slightly distended, tender abdomen to palpation Back: There is no tenderness to palpation in the midline, paralumbar, parathoracic or buttocks region. There is no obvious deformity. Musculoskeletal: Right: Shoulder abduction 5/5, elbow flexors 5/5, wrist dorsiflexors 5/5. finger abductor 5/5, hand stemmer 5/5, hip flexor 3/5, knee flexor 4/5, ankle dorsiflexor 5/5, ankle plantarflexion 5/5 and extensor hallucis 5/5. Left: Shoulder abduction 5/5, elbow flexors 5/5, wrist dorsiflexors 5/5. finger abductor 5/5, hand stemmer 5/5, hip flexor 5/5, knee flexor 5/5, ankle dorsiflexor 5/5, ankle plantarflexion 5/5 and extensor isaak lucis 5/5. Neurological: CN 2-12 intact. There are no obvious motor or sensory deficits. Movement and coordination equal and intact. Sensory exam to light touch intact C5-T1 and intact from L2-S1. Reflexes 2/4 in bilateral upper and lower extremities. Negative Hoffmans, babinski, and clonus signs. Psychiatric: Cooperative, appropriate mood & affect, normal judgment. Assessment and Plan Right lower extremity pain Right femoral neck fracture-Chronic Failed hardware of Right IMN Review of imaging by Dr. Newby demonstrates hardware failure of the right IMN and we recommend surgical intervention of removal of right [place] Gamma Nail with Right hip hemiarthroplasty. This will be scheduled for 11/15/23. -Appreciate consult and team management -Need Cardiac and Medical surgical clearance -Patient to be NPO at [facility] on Tuesday. -Continue with external randall cath. -NWB of the right lower extremity at this time. I reviewed and discussed this case with my attending Dr. Newby, whom has reviewed this chart and films and is in agreement with assessment and plan of care as outlined above. I have personally seen and examined the patient, performed the documentation and the assessment and plan as written. Number of minutes spent on the visit: 30m. Past Medical History Past Medical History: Cancer, Diabetes Mellitus, Hyperlipidemia, Hypertension Additional Past Medical History / Comment(s): hx. lung cancer 2006, current R femur fracture History of Any Multi-Drug Resistant Organisms: None Reported Past Surgical History: Cholecystectomy, Hernia Repair, Joint Replacement Additional Past Surgical History / Comment(s): partial lobectomy 2007, R femur surgery/hardware, total L knee Past Anesthesia/Blood Transfusion Reactions: No Reported Reaction Past Psychological History: No Psychological Hx Reported Additional Psychological History / Comment(s): Pt's grandson resides with her. She uses a walker. Smoking Status: Never smoker Past Alcohol Use History: None Reported Past Drug Use History: None Reported - Past Family History Mother Family Medical History: Cancer Medications and Allergies Home Medications Medication Instructions Recorded Confirmed Type Aspirin EC [Ecotrin Low Dose] 81 mg PO DAILY 10/15/22 11/10/23 History Ezetimibe [Zetia] 10 mg PO DAILY 10/15/22 11/10/23 History Insulin Glargine,Hum.rec.anlog 54 unit SQ DAILY 10/15/22 11/10/23 History [Lantus Solostar Pen] Torsemide [Demadex] 20 mg PO DAILY 01/20/23 11/10/23 History Atorvastatin [Lipitor] 80 mg PO DAILY 11/10/23 11/10/23 History Losartan Potassium 50 mg PO DAILY 11/10/23 11/10/23 History carvediloL [Coreg] 6.25 mg PO BID 11/10/23 11/10/23 History Allergies Allergy/AdvReac Type Severity Reaction Status Date / Time cephalexin Allergy Rash/Hives, Verified 11/10/23 21:11 redness, swelling Results - Labs Labs: Abnormal Lab Results - Last 24 Hours (Table) 11/11/23 11/11/23 11/11/23 Range/Units 11:09 14:34 14:34 RBC (4.10-5.20) X 10*6/uL Hgb (12.0-15.0) g/dL Hct (37.2-46.3) % MCV (80.0-97.0) FL RDW (11.5-14.5) % ESR 49 H (0-30) mm/Hr Est GFR (CKD-EPI) (>=60) BUN/Creatinine Ratio (12.00-20.00) Ratio Glucose (70-110) mg/dL POC Glucose (mg/dL) 127 H (70-110) mg/dL Alkaline Phosphatase (41-126) U/L C-Reactive Protein 1.9 H (<1.0) mg/dL Total Protein (6.2-8.2) g/dL Albumin (3.8-4.9) g/dL Albumin/Globulin Ratio (1.60-3.17) Ratio 11/11/23 11/11/23 11/12/23 Range/Units 16:48 21:15 05:22 RBC 3.38 L (4.10-5.20) X 10*6/uL Hgb 10.8 L (12.0-15.0) g/dL Hct 33.3 L (37.2-46.3) % MCV 98.5 H (80.0-97.0) FL RDW 14.8 H (11.5-14.5) % ESR (0-30) mm/Hr Est GFR (CKD-EPI) (>=60) BUN/Creatinine Ratio (12.00-20.00) Ratio Glucose (70-110) mg/dL POC Glucose (mg/dL) 134 H 131 H (70-110) mg/dL Alkaline Phosphatase (41-126) U/L C-Reactive Protein (<1.0) mg/dL Total Protein (6.2-8.2) g/dL Albumin (3.8-4.9) g/dL Albumin/Globulin Ratio (1.60-3.17) Ratio 11/12/23 11/12/23 Range/Units 05:22 05:41 RBC (4.10-5.20) X 10*6/uL Hgb (12.0-15.0) g/dL Hct (37.2-46.3) % MCV (80.0-97.0) FL RDW (11.5-14.5) % ESR (0-30) mm/Hr Est GFR (CKD-EPI) 51 L (>=60) BUN/Creatinine Ratio 22.64 H (12.00-20.00) Ratio Glucose 178 H (70-110) mg/dL POC Glucose (mg/dL) 170 H (70-110) mg/dL Alkaline Phosphatase 245 H (41-126) U/L C-Reactive Protein (<1.0) mg/dL Total Protein 5.0 L (6.2-8.2) g/dL Albumin 2.6 L (3.8-4.9) g/dL Albumin/Globulin Ratio 1.08 L (1.60-3.17) Ratio H & H 11/10/23 11/12/23 Range/Units 20:05 05:22 Hgb 11.9 10.8 L (11.4-16.0) gm/dL Hct 37.5 33.3 L (34.0-46.0) % Coagulation 11/10/23 Range/Units 20:05 INR 0.9 (<1.2) Result Diagrams: 11/12/23 05:22 11/12/23 05:22
[2023-11-12 17:22] LABS: Glucose,Whole Blood 153 mg/dL (70-110)
[2023-11-12 21:16] LABS: Glucose,Whole Blood 212 mg/dL (70-110)
[2023-11-13 05:55] LABS: Glucose,Whole Blood 164 mg/dL (70-110)
[2023-11-13 10:01] LABS: Basophils # (A) 0.04 X 10*3/uL (0.00-0.10); Basophils % (A) 0.4 %; Eosinophils # (A) 0.24 X 10*3/uL (0.04-0.35); Eosinophils % (A) 2.2 %; HCT 33.9 % (37.2-46.3); HGB 10.7 g/dL (12.0-15.0); Lymphocytes # (A) 2.41 X 10*3/uL (0.90-5.00); MCH 31.1 pg (27.0-32.0); MCHC 31.6 g/dL (32.0-37.0); MCV 98.5 FL (80.0-97.0); Mean Platelet Volume 10.6 FL (9.5-12.2); Monocytes # (A) 0.77 X 10*3/uL (0.20-1.00); NRBC Per 100 WBC 0 X 10*3/uL (0.00-0.01); Neutrophils # (A) 7.48 X 10*3/uL (1.80-7.70); Neutrophils % (A) 68.2 %; Platelet Count 251 X 10*3/uL (140-440); RBC 3.44 X 10*6/uL (4.10-5.20); RDW 14.6 % (11.5-14.5); WBC 10.96 X 10*3/uL (4.50-10.00)
[2023-11-13 10:02] LABS: ALT 16 U/L (8-44); AST 18 U/L (13-35); Albumin 2.7 g/dL (3.8-4.9); Albumin/Globulin Ratio 1.17 Ratio (1.60-3.17); Alkaline Phosphatase 253 U/L (41-126); BUN/Creat Ratio 31.22 Ratio (12.00-20.00); Blood Urea Nitrogen 28.1 mg/dL (9.0-27.0); Calcium 8.4 mg/dL (8.7-10.3); Carbon Dioxide 32.7 mmol/L (21.6-31.8); Chloride 101 mmol/L (96-109); Globulin 2.3 g/dL (1.6-3.3); Glucose 154 mg/dL (70-110); Potassium 4.7 mmol/L (3.5-5.5); Sodium 140 mmol/L (135-145); Total Bilirubin 0.6 mg/dL (0.3-1.2)
--- NOTE | 2023-11-13 11:00 | P.PN ---
Subjective Progress Note Date: 11/13/23 Principal diagnosis: Right femoral neck fracture Patient seen and examined this morning. Patient is resting comfortably in bed. Patient continues to report increased pain of the right lower extremity with activity. Discussed with patient our recommendation of surgical intervention due to hardware failure, removal of the Raisa gamma nail with right hip hemiarthroplasty. Patient verbalizes understanding. Surgical procedure is planned for 11/15/2023. Patient does report that her pain is managed on current regimen. Continue with the use of the external Randall catheter at this time. Encouraged use of incentive spirometer 10 times per hour while awake. No acute concerns at this time. Objective - Vital Signs Vital signs: Vital Signs Temp 98.1 F 11/13/23 08:05 Pulse 72 11/13/23 08:05 Resp 17 11/13/23 08:05 BP 115/50 11/13/23 08:05 Pulse Ox 94 L 11/13/23 08:05 FiO2 Intake & Output 11/12/23 11/13/23 11/13/23 18:59 06:59 18:59 Output Total 1000 650 Balance -1000 -650 Output: Urine 1000 650 Other: # Voids 1 1 # Bowel Movements 1 1 - Exam Physical Examination General: The patient is awake and alert, in no acute distress Skin: Skin is warm and dry with no obvious rashes or lesions. Eye: Pupils are equal, round and reactive to light, extra-ocular movements are intact; there is normal conjunctiva bilaterally. Neck: The neck is supple, there is no tenderness and ROM intact. Cardiovascular: There is a regular rate and rhythm. No murmur, rub or gallop is appreciated. Respiratory: Respirations are non-labored, breath sounds are equal. Gastrointestinal: Soft, non-distended, non-tender abdomen. Back: There is no tenderness to palpation in the midline, paralumbar, parathoracic or buttocks region. There is no obvious deformity . Musculoskeletal: ROM limited secondary to pain and stiffness from surgical procedure. Right: Shoulder abduction 5/5, elbow flexors 5/5, wrist dorsiflexors 5/5. finger abductor 5/5, beauty culturist 5/5, hip flexor 4-/5, knee flexor 4/5, ankle dorsiflexor 5/5, ankle plantarflexion 5/5 and extensor hallucis 5/5. Left: Shoulder abduction 5/5, elbow flexors 5/5, wrist dorsiflexors 5/5. finger abductor 5/5, beauty culturist 5/5, hip flexor 5/5, knee flexor 5/5, ankle dorsiflexor 5/5, ankle plantarflexion 5/5 and extensor hallucis 5/5. Neurological: CN 2-12 intact. There are no obvious motor or sensory deficits. Movement and coordination equal and intact. Sensory exam to light touch intact C5-T1 and intact from L2-S1. Reflexes 2/4 in bilateral upper and lower extremities. Negative Hoffmans, babinski, and clonus signs. Psychiatric: Cooperative, appropriate mood & affect, normal judgment. - Labs CBC & Chem 7: 11/13/23 05:09 11/13/23 05:09 Labs: Abnormal Lab Results - Last 24 Hours (Table) 11/12/23 11/12/23 11/12/23 Range/Units 12:00 17:18 21:15 WBC (4.50-10.00) X 10*3/uL RBC (4.10-5.20) X 10*6/uL Hgb (12.0-15.0) g/dL Hct (37.2-46.3) % MCV (80.0-97.0) FL MCHC (32.0-37.0) g/dL RDW (11.5-14.5) % Carbon Dioxide (21.6-31.8) mmol/L BUN (9.0-27.0) mg/dL BUN/Creatinine Ratio (12.00-20.00) Ratio Glucose (70-110) mg/dL POC Glucose (mg/dL) 125 H 153 H 212 H (70-110) mg/dL Calcium (8.7-10.3) mg/dL Alkaline Phosphatase (41-126) U/L Total Protein (6.2-8.2) g/dL Albumin (3.8-4.9) g/dL Albumin/Globulin Ratio (1.60-3.17) Ratio 11/13/23 11/13/23 11/13/23 Range/Units 05:09 05:09 05:52 WBC 10.96 H (4.50-10.00) X 10*3/uL RBC 3.44 L (4.10-5.20) X 10*6/uL Hgb 10.7 L (12.0-15.0) g/dL Hct 33.9 L (37.2-46.3) % MCV 98.5 H (80.0-97.0) FL MCHC 31.6 L (32.0-37.0) g/dL RDW 14.6 H (11.5-14.5) % Carbon Dioxide 32.7 H (21.6-31.8) mmol/L BUN 28.1 H (9.0-27.0) mg/dL BUN/Creatinine Ratio 31.22 H (12.00-20.00) Ratio Glucose 154 H (70-110) mg/dL POC Glucose (mg/dL) 164 H (70-110) mg/dL Calcium 8.4 L (8.7-10.3) mg/dL Alkaline Phosphatase 253 H (41-126) U/L Total Protein 5.0 L (6.2-8.2) g/dL Albumin 2.7 L (3.8-4.9) g/dL Albumin/Globulin Ratio 1.17 L (1.60-3.17) Ratio Assessment and Plan Assessment: Right lower extremity pain Right femoral neck fracture-Chronic Failed hardware of Right IMN Plan: Removal of right [place] Gamma Nail with Right hip hemiarthroplasty scheduled for 11/15/23. -Appreciate consult and team management -Need Cardiac and Medical surgical clearance -Patient to be NPO at [facility] on Tuesday. -Continue with external randall cath. -NWB of the right lower extremity at this time.
--- NOTE | 2023-11-13 11:14 | P.PN ---
Subjective Progress Note Date: 11/13/23 HISTORY OF PRESENT ILLNESS: This is a 78-year-old female with a previous medical history signif icant for hypertension and hypertensive cardiovascular disease, hyperlipidemia, diabetes mellitus type 2, obesity, osteoarthritis, chronic low back pain, chronic kidney disease stage 3b, patient underwent a intramedullary nailing for a right intertrochanter Fracture about a year ago and she went to [facility] for subacute rehabilitation for quite some time, then she has been doing fine, using a walker at home, apparently the patient could not put a lot of pressure using a walker 2 weeks ago and she has been laying in bed not able to do a lot of things, up till yesterday when her daughter came and saw her in bed not able to do anything, they have decided to bring her to the ER for evaluation she has a battery of testing including CT scan of the brain without contrast that did not show evidence of acute intracranial bleed, patient did have a CT scan of the lumbar spine that showed degenerative disc disease without evidence of fracture patient also did have a CT of the pelvis that showed evidence of right femoral neck oblique fracture extended into the greater and lesser trochanter with co mminution, there was some description of erosive changes in that area, could be related to the fracture versus infectious process, patient was admitted to the hospital under my service, consult with orthopedic surgery initially Dr. Garcia was switched to consult since Dr. Santiago is not available to the on-call Orthopedic service this will be Dr. Bañuelos. 11/11: Consultation was bowels back to [facility] after long conversation with Dr. Bañuelos yesterday, since the patient was seen by Dr. Emerson in the past, knowing that he is not available at this point in time, or Jose will accept the patient at this point in time, due to a failure of the nail and the patient ambulated to ambulate likely will require to have a right hemiarthroplasty at this point in time, we will consult cardiology for medical clearance, meanwhile patient will be maintained on her current medication, will continue to follow-up with the patient very closely. 11/12: Patient is seen in consultation by cardiology today in the morning, she was cleared for surgical intervention that is scheduled for Wednesday, November 15, 2023, she is going to have her screw removed, and she will go for right hem iarthroplasty by Dr. Flores send spoke with the nurse practitioner Emma regarding that, we will continue current treatment plan for now, continue Kay catheter for now, we will follow-up with the patient very closely. REVIEW OF SYSTEMS: Constitutional: No documented fever, no chills, no night sweats. No weight change. No weakness, fatigue or lethargy. No daytime sleepiness. EENT: No headache. No blurred vision or double vision, no loss of vision. No loss of Hearing, no ringing in the ears, no dizziness. No nasal drainage or congestion. No epistaxis. No sore throat. Lungs: minimal shortness of breath, no cough, no sputum production. No wheezing. Reports dyspnea with activity. Cardiovascular: No chest pain, no lower extremity edema. No palpitations. No paroxysmal nocturnal dyspnea. No orthopnea. No lightheadedness or dizziness. No syncopal episodes. Abdominal: Reports no abdominal pain. No nausea, vomiting. No diarrhea. No constipation. No bloody or tarry stools reports loss of appetite. Genitourinary: No dysuria, increased frequency, urgency. No urinary retention. Musculoskeletal: No myalgias. positive for muscle weakness, positive for gait dysfunction, no frequent falls. positive for back pain. No neck pain. Integumentary: No wounds, no lesions. No rash or pruritus. No unusual bruising. No change in hair or nails. Neurologic: No aphasia. No facial droop. No change in mentation. No head injury. No headache. No paralysis. No paresthesia. Psychiatric: No depression. No anxiety. No mood swings. Endocrine: No abnormal blood sugars. No weight change. PHYSICAL EXAMINATION: General: 78-year-old female laying in bed in no apparent distress. HEENT: Head is atraumatic, normocephalic, pupils were equal round reactive to light and recommendation, extraocular muscle movement were intact, sclera nonicteric, conjunctivae were pale, mucous membranes of the mouth are somewhat dry. Neck: Supple, no JVP, normal carotid upstroke bilaterally, no lymphadenopathy. Chest: Decreased breath sounds at the bases, few rhonchi, no expiratory wheezes, no chest wall tenderness, no intercostal retractions. Heart: First heart sound is normal, second heart sound is normal there is systolic ejection murmur 2/6 in the left sternal border Abdomen: Soft, nontender, nondistended, positive bowel sounds. Extremities: There is no edema no calf tenderness DP +1 bilaterally, Neurologic examination: Patient is awake alert and oriented X3, cranial nerves II-12 appear grossly intact, muscle power were 5 out of 5 in upper extremities and patient is barely able to pick her right lower extremity off the mattress however she does not have any tenderness with range of motion, left lower extremity is 4 out of 5. ASSESSMENT AND PLAN: 1. Right intertrochanteric oblique fracture suggestive of a failed intramedullary screw that she had before according to the CT scan of the pelvis did show evidence of extension into the greater and lesser trochanter, patient is not able to bear any weight on the right lower extremity, patient is scheduled to go for right hemiarthroplasty on 11/15/2023, patient was seen in consultation by cardiology she is cleared for surgery. 2. Hypertension and hypertensive cardiovascular disease. Continue patient on carvedilol 6.25 mg orally twice every day, losartan 100 mg once every day, monitor the patient very closely. 3. Mixed hyperlipidemia. Continue patient on atorvastatin 40 mg daily, as well as ezetimibe 10 mg once every day. 4. COPD. we will start DuoNeb 3 mL nebulization 4 times every day as needed. 5. Chronic diastolic heart failure appears stable at this time. Continue carvedilol 6.25 mg orally twice every day as well as losartan 50 mg orally once every day, continue patient on torsemide 20 mg orally once every day. 6. History of remote lung cancer status post partial lobectomy in 2007 7. Osteoarthritis. Continue current pain management. Continue the patient on Tylenol 650 mg orally every 4 hours as needed 8. Osteopenia/osteoporosis. Patient would benefit from Prolia injection 60 mg subcutaneously every 6 months as an outpatient. 9. Diabetes mellitus type 2. Decrease Levemir to 40 units at bedtime, along with a sliding scale insulin. 10. DVT prophylaxis. Continue on Lovenox 40 mg subcutaneously once every day. 11. GI prophylaxis. Continue famotidine 20 mg orally once every day 12. Chronic kidney disease stage III. Appears stable at this time, avoid hypotension and nephrotoxins 13. Medical debility. Physical therapy evaluation will be put on hold until after orthopedic evaluation. 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 likely subacute rehabilitation in order after surgical intervention Objective - Vital Signs Vital signs: Vital Signs Temp 98.1 F 11/13/23 08:05 Pulse 72 11/13/23 08:05 Resp 17 11/13/23 08:05 BP 115/50 11/13/23 08:05 Pulse Ox 94 L 11/13/23 08:05 FiO2 Intake & Output 11/12/23 11/13/23 11/13/23 18:59 06:59 18:59 Output Total 1000 650 Balance -1000 -650 Output: Urine 1000 650 Other: # Voids 1 1 # Bowel Movements 1 1 - Labs CBC & Chem 7: 11/13/23 05:09 11/13/23 05:09 Labs: Abnormal Lab Results - Last 24 Hours (Table) 11/12/23 11/12/23 11/12/23 Range/Units 12:00 17:18 21:15 WBC (4.50-10.00) X 10*3/uL RBC (4.10-5.20) X 10*6/uL Hgb (12.0-15.0) g/dL Hct (37.2-46.3) % MCV (80.0-97.0) FL MCHC (32.0-37.0) g/dL RDW (11.5-14.5) % Carbon Dioxide (21.6-31.8) mmol/L BUN (9.0-27.0) mg/dL BUN/Creatinine Ratio (12.00-20.00) Ratio Glucose (70-110) mg/dL POC Glucose (mg/dL) 125 H 153 H 212 H (70-110) mg/dL Calcium (8.7-10.3) mg/dL Alkaline Phosphatase (41-126) U/L Total Protein (6.2-8.2) g/dL Albumin (3.8-4.9) g/dL Albumin/Globulin Ratio (1.60-3.17) Ratio 11/13/23 11/13/23 11/13/23 Range/Units 05:09 05:09 05:52 WBC 10.96 H (4.50-10.00) X 10*3/uL RBC 3.44 L (4.10-5.20) X 10*6/uL Hgb 10.7 L (12.0-15.0) g/dL Hct 33.9 L (37.2-46.3) % MCV 98.5 H (80.0-97.0) FL MCHC 31.6 L (32.0-37.0) g/dL RDW 14.6 H (11.5-14.5) % Carbon Dioxide 32.7 H (21.6-31.8) mmol/L BUN 28.1 H (9.0-27.0) mg/dL BUN/Creatinine Ratio 31.22 H (12.00-20.00) Ratio Glucose 154 H (70-110) mg/dL POC Glucose (mg/dL) 164 H (70-110) mg/dL Calcium 8.4 L (8.7-10.3) mg/dL Alkaline Phosphatase 253 H (41-126) U/L Total Protein 5.0 L (6.2-8.2) g/dL Albumin 2.7 L (3.8-4.9) g/dL Albumin/Globulin Ratio 1.17 L (1.60-3.17) Ratio
[2023-11-13 12:16] LABS: Glucose,Whole Blood 142 mg/dL (70-110)
--- NOTE | 2023-11-13 12:43 | P.CRDCN ---
History of Present Illness Consult date: 11/13/23 Consult reason: pre-op evaluation History of present illness: This is Bijan Rome NP, I'm dictating on behalf of Dr. Montesinos's H&P and A&P The patient was interviewed and examined. HPI: Patient is a pleasant 78-year-old female with a past medical history that includes hypertension, hyperlipidemia, type 2 diabetes, obesity, osteoarthritis, chronic low back pain, chronic kidney disease stage III, and hip fracture who presented to the hospital with complaints of weakness and hip pain. Cardiology was consulted for preop clearance. In September 2022 patient had a echocardiogram that demonstrated normal LV systolic function with an EF of 50 to 55%, no significant valvular abnormalities. Patient normally takes carvedilol 6.25 mg twice daily, torsemide 20 mg daily, losartan 50 mg daily, ezetimibe 10 mg daily, atorvastatin 80 mg daily, aspirin 81 mg daily, and Lantus 54 units daily. On examination patient does not report any significant cardiac issues at this time, including chest pain, shortness of breath, heart palpitations, dizziness, or near syncope. Her EKG is reviewed and demonstrates normal sinus rhythm with no evidence of ST or T wave changes or any other concerning findings. ROS: [No fever, chills, or rigors] [no cough, phlegm, or expectoration] [no nausea, vomiting, or diarrhea] [no hematuria, dysuria] [no musculoskelatal complaints] [no strokes or seizures] [no skin lesions] EXAMINATION: GENERAL: Well-appearing, well-nourished and in no acute distress. NECK: Supple without JVD or thyromegaly. LUNGS: Breath sounds clear to auscultation bilaterally. Respiration equal and unlabored. No wheezes, rales or rhonchi. HEART: Regular rate and rhythm without murmurs, rubs or gallops. S1 and S2 heard. EXTREMITIES: Normal range of motion, no edema. No clubbing or cyanosis. Peripheral pulses intact and strong. REVIEW OF LABS, ECG & MEDICAL DATA: LABS: White count 10.9, hemoglobin 10.7, platelets 251, sodium 140, potassium 4.7, BUN 28.1, creatinine 0.9, magnesium 1.8, troponin less than 0.012, BNP 1100 EKG: Sinus mechanism IMAGING: CT angiogram of the chest dated 11/10/2023 demonstrates no evidence of central pulmonary embolism, limited evaluation of the segmental and subsegmental branches, correlate with DVT as clinical suspicion for pulmonary embolism versus, right upper lobe 7 mm pulmonary nodule with additional right lower lobe 4 mm pulmonary nodule incidentally noted, recommend CT chest follow-up in 6 to 12 months to assess for any interval changes. CT of the lumbar spine without contrast dated 11/10/2023 demonstrates no evidence of acute fracture, mild multilevel disc degenerative disease most pronounced at L4-L5 where there is moderate spinal canal stenosis, for better evaluation of the spinal canal consider MRI lumbar spine if clinically warranted. CT without contrast of the pelvis dated 11/10/2023 demonstrates a right femoral neck obliquely oriented fracture with seems to extend into the greater and lesser trochanter with some mild displacement and comminution, subtle erosive changes are seen which may relate to periosteal reaction from fracture however underlying infectious p rocess cannot be entirely excluded, correlate with clinical evaluation, mild soft tissue swelling seen along the right hip/right thigh as well as the anterior abdominal subcutaneous tissues, indeterminate focus seen in the left adnexa may represent enlarged ovary versus other lesion, this can be further characterized with pelvic ultrasound. Venous Doppler ultrasound of the bilateral lower extremities demonstrates no ultrasound evidence for acute DVT in either lower extremity. CT of the head without IV contrast dated 11/11/2023 demonstrates no acute hemorrhage, hydrocephalus, or mass effect. VITALS: Temp 98.1, pulse 72, respirations 17, blood pressure 115/50, O2 saturation 94% on room air IMPRESSION: 1. Comminuted right hip fracture 2. History of hypertension 3. History of hyperlipidemia 4. History diabetes 5. CKD stage IIIb PLAN: Continue current home medications as prescribed. From a cardiac standpoint the patient is cleared for surgery. Further recommendations based on patient's clinical course. Thank you for the consult and allowing us to participate in the care of this p atient. Past Medical History Past Medical History: Cancer, Diabetes Mellitus, Hyperlipidemia, Hypertension Additional Past Medical History / Comment(s): hx. lung cancer 2006, current R femur fracture History of Any Multi-Drug Resistant Organisms: None Reported Past Surgical History: Cholecystectomy, Hernia Repair, Joint Replacement Additional Past Surgical History / Comment(s): partial lobectomy 2007, R femur surgery/hardware, total L knee Past Anesthesia/Blood Transfusion Reactions: No Reported Reaction Past Psychological History: No Psychological Hx Reported Additional Psychological History / Comment(s): Pt's grandson resides with her. She uses a walker. Smoking Status: Never smoker Past Alcohol Use History: None Reported Past Drug Use History: None Reported - Past Family History Mother Family Medical History: Cancer Medications and Allergies Home Medications Medication Instructions Recorded Confirmed Type Aspirin EC [Ecotrin Low Dose] 81 mg PO DAILY 10/15/22 11/10/23 History Ezetimibe [Zetia] 10 mg PO DAILY 10/15/22 11/10/23 History Insulin Glargine,Hum.rec.anlog 54 unit SQ DAILY 10/15/22 11/10/23 History [Lantus Solostar Pen] Torsemide [Demadex] 20 mg PO DAILY 01/20/23 11/10/23 History Atorvastatin [Lipitor] 80 mg PO DAILY 11/10/23 11/10/23 History Losartan Potassium 50 mg PO DAILY 11/10/23 11/10/23 History carvediloL [Coreg] 6.25 mg PO BID 11/10/23 11/10/23 History Allergies Allergy/AdvReac Type Severity Reaction Status Date / Time cephalexin Allergy Rash/Hives, Verified 11/10/23 21:11 redness, swelling Physical Exam Vitals: Vital Signs Temp Pulse Pulse Resp BP Pulse Ox 11/13/23 08:05 98.1 F 72 17 115/50 94 L 11/13/23 05:30 85 127/68 11/13/23 02:00 98.2 F 57 L 141/65 94 L 11/12/23 20:00 97.6 F 65 159/71 95 11/12/23 14:21 98.2 F 63 17 132/68 95 11/12/23 12:16 70 Intake and Output 11/12/23 11/13/23 11/13/23 22:59 06:59 14:59 Output Total 900 450 500 Balance -900 -450 -500 Output: Urine 900 450 500 Other: # Voids 1 # Bowel Movements 1 1 Results 11/13/23 05:09 11/13/23 05:09 Cardiac Enzymes 11/13/23 Range/Units 05:09 AST 18 (13-35) U/L CBC 11/13/23 Range/Units 05:09 WBC 10.96 H (4.50-10.00) X 10*3/uL RBC 3.44 L (4.10-5.20) X 10*6/uL Hgb 10.7 L (12.0-15.0) g/dL Hct 33.9 L (37.2-46.3) % Plt Count 251 (140-440) X 10*3/uL Comprehensive Metabolic Panel 11/13/23 Range/Units 05:09 Sodium 140 (135-145) mmol/L Potassium 4.7 (3.5-5.5) mmol/L Chloride 101 (96-109) mmol/L Carbon Dioxide 32.7 H (21.6-31.8) mmol/L BUN 28.1 H (9.0-27.0) mg/dL Creatinine 0.9 (0.6-1.5) mg/dL Glucose 154 H (70-110) mg/dL Calcium 8.4 L (8.7-10.3) mg/dL AST 18 (13-35) U/L ALT 16 (8-44) U/L Alkaline Phosphatase 253 H (41-126) U/L Total Protein 5.0 L (6.2-8.2) g/dL Albumin 2.7 L (3.8-4.9) g/dL Current Medications Generic Name Dose Route Start Last Admin Trade Name Freq PRN Reason Stop Dose Admin Acetaminophen 650 mg 11/11/23 14:28 11/13/23 09:52 Acetaminophen Tab 325 Mg Tab PO 650 mg Q6HR PRN Administration Fever and/ or Pain Albuterol/Ipratropium 3 ml 11/11/23 14:28 11/12/23 12:04 Ipratropium-Albuterol 3 Ml Neb INHALATION 3 ml RT-QID PRN Administration Shortness Of Breath Or Wheezing Aspirin 81 mg 11/11/23 09:00 11/13/23 09:19 Aspirin 81 Mg PO 81 mg DAILY FAITH Administration Atorvastatin Calcium 80 mg 11/11/23 09:00 11/13/23 09:19 Atorvastatin 80 Mg Tab PO 80 mg DAILY FAITH Administration Carvedilol 6.25 mg 11/11/23 07:30 11/13/23 06:31 Carvedilol 6.25 Mg Tab PO 6.25 mg AC-BID FAITH Administration Dextrose/Water 25 ml 11/11/23 04:26 Dextrose 50% Syringe 50 Ml IVP PER PROTOCOL PRN Hypoglycemia Protocol Dextrose/Water 50 ml 11/11/23 04:26 Dextrose 50% Syringe 50 Ml IVP PER PROTOCOL PRN Hypoglycemia Protocol Ezetimibe 10 mg 11/11/23 09:00 11/13/23 09:19 Ezetimibe 10 Mg Tab PO 10 mg DAILY FAITH Administration Enoxaparin Sodium 40 mg 11/12/23 09:00 11/13/23 09:19 Enoxaparin 40 Mg/0.4 Ml Syringe SQ 40 mg DAILY FAITH Administration Insulin Aspart 0 unit 11/11/23 12:30 11/13/23 06:31 Insulin Aspart (Novolog) 100 Unit/Ml Vial SQ 2 unit ACHS FAITH Administration Protocol Insulin Detemir 40 unit 11/11/23 21:00 11/12/23 21:47 Insulin Detemir (Levemir) 100 Unit/Ml Syr SQ Not Given HS FAITH Losartan Potassium 50 mg 11/11/23 09:00 11/13/23 09:19 Losartan 50 Mg Tab PO 50 mg DAILY FAITH Administration Naloxone HCl 0.2 mg 11/11/23 02:23 Naloxone 0.4 Mg/Ml 1 Ml Vial IV Q2M PRN Opioid Reversal Torsemide 20 mg 11/11/23 09:00 11/13/23 09:19 Torsemide 20 Mg Tab PO 20 mg DAILY FAITH Administration Intake and Output 11/12/23 11/13/23 11/13/23 22:59 06:59 14:59 Output Total 900 450 500 Balance -900 -450 -500 Output: Urine 900 450 500 Other: # Voids 1 # Bowel Movements 1 1 11/13/23 05:09 11/13/23 05:09
[2023-11-13 16:53] LABS: Glucose,Whole Blood 173 mg/dL (70-110)
[2023-11-13 20:49] LABS: Glucose,Whole Blood 182 mg/dL (70-110)
[2023-11-14 06:05] LABS: Glucose,Whole Blood 146 mg/dL (70-110)
--- NOTE | 2023-11-14 07:58 | P.PN ---
Subjective Progress Note Date: 11/14/23 Principal diagnosis: Right femoral neck fracture Patient seen and examined this morning. Patient is resting comfortably in bed. She had been held n.p.o. after midnight for possible surgical intervention today. Surgical schedule is staying on track so patient will be having her surgery tomorrow 11/15/2023. Patient will be n.p.o. at midnight tonight. Patient verbalizes understanding. She continues to report that her pain is managed on current regimen. She is looking forward to the surgical procedure so that she may begin her recovery and therapy to walk again. Continue to encourage patient to utilize incentive spirometer 10 times per hour while awake. No acute concerns at this time. Objective - Vital Signs Vital signs: Vital Signs Temp 97.6 F 11/14/23 02:00 Pulse 72 11/14/23 02:00 Resp 17 11/13/23 14:20 BP 132/65 11/14/23 02:00 Pulse Ox 91 L 11/14/23 02:00 FiO2 Intake & Output 11/13/23 11/14/23 11/14/23 18:59 06:59 18:59 Output Total 1800 650 Balance -1800 -650 Output: Urine 1800 650 - Exam Physical Examination General: The patient is awake and alert, in no acute distress. Skin: Skin is warm and dry with no obvious rashes or lesions. Eye: Pupils are equal, round and reactive to light, extra-ocular movements are intact; there is normal conjunctiva bilaterally. Neck: The neck is supple, there is no tenderness and ROM intact. Cardiovascular: There is a regular rate and rhythm. No murmur, rub or gallop is appreciated. Respiratory: Respirations are non-labored, breath sounds are equal. Gastrointestinal: Soft, non-distended, non-tender abdomen. Back: There is no tenderness to palpation in the midline, paralumbar, parathoracic or buttocks region. There is no obvious deformity . Musculoskeletal: ROM limited secondary to pain and stiffness from surgical procedure. Right: Shoulder abduction 5/5, elbow flexors 5/5, wrist dorsiflexors 5/5. finger abductor 5/5, crop adjuster 5/5, hip flexor 4-/5, knee flexor 4/5, ankle dorsiflexor 5/5, ankle plantarflexion 5/5 and extensor hallucis 5/5. Left: Shoulder abduction 5/5, elbow flexors 5/5, wrist dorsiflexors 5/5. finger abductor 5/5, crop adjuster 5/5, hip flexor 5/5, knee flexor 5/5, ankle dorsiflexor 5/5, ankle plantarflexion 5/5 and extensor hallucis 5/5. Neurological: CN 2-12 intact. There are no obvious motor or sensory deficits. Movement and coordination equal and intact. Sensory exam to light touch intact C5-T1 and intact from L2-S1. Reflexes 2/4 in bilateral upper and lower extremities. Negative Hoffmans, babinski, and clonus signs. Psychiatric: Cooperative, appropriate mood & affect, normal judgment. - Labs CBC & Chem 7: 11/13/23 05:09 11/13/23 05:09 Labs: Abnormal Lab Results - Last 24 Hours (Table) 11/13/23 11/13/23 11/13/23 Range/Units 05:09 05:09 12:14 WBC 10.96 H (4.50-10.00) X 10*3/uL RBC 3.44 L (4.10-5.20) X 10*6/uL Hgb 10.7 L (12.0-15.0) g/dL Hct 33.9 L (37.2-46.3) % MCV 98.5 H (80.0-97.0) FL MCHC 31.6 L (32.0-37.0) g/dL RDW 14.6 H (11.5-14.5) % Carbon Dioxide 32.7 H (21.6-31.8) mmol/L BUN 28.1 H (9.0-27.0) mg/dL BUN/Creatinine Ratio 31.22 H (12.00-20.00) Ratio Glucose 154 H (70-110) mg/dL POC Glucose (mg/dL) 142 H (70-110) mg/dL Calcium 8.4 L (8.7-10.3) mg/dL Alkaline Phosphatase 253 H (41-126) U/L Total Protein 5.0 L (6.2-8.2) g/dL Albumin 2.7 L (3.8-4.9) g/dL Albumin/Globulin Ratio 1.17 L (1.60-3.17) Ratio 09/11/13/23 11/14/23 Range/Units 16:51 20:47 06:03 WBC (4.50-10.00) X 10*3/uL RBC (4.10-5.20) X 10*6/uL Hgb (12.0-15.0) g/dL Hct (37.2-46.3) % MCV (80.0-97.0) FL MCHC (32.0-37.0) g/dL RDW (11.5-14.5) % Carbon Dioxide (21.6-31.8) mmol/L BUN (9.0-27.0) mg/dL BUN/Creatinine Ratio (12.00-20.00) Ratio Glucose (70-110) mg/dL POC Glucose (mg/dL) 173 H 182 H 146 H (70-110) mg/dL Calcium (8.7-10.3) mg/dL Alkaline Phosphatase (41-126) U/L Total Protein (6.2-8.2) g/dL Albumin (3.8-4.9) g/dL Albumin/Globulin Ratio (1.60-3.17) Ratio Assessment and Plan Assessment: Right lower extremity pain Right femoral neck fracture-Chronic Failed hardware of Right IMN Plan: Removal of right [place] Gamma Nail with Right hip hemiarthroplasty scheduled for 11/15/23. -Appreciate consult and team management -Patient to be NPO at [facility]. -Continue with current pain regimen. -Continue with external randall cath. -NWB of the right lower extremity at this time.
[2023-11-14] MEDS: ENOXAPARIN 40 MG/0.4 ML SYRINGE SQ SCH (08:40)
--- NOTE | 2023-11-14 09:12 | CDI ---
Documentation Clarification Form Date: 11/14/2023 From: Shadia Castro RN CCDS Phone: [phone] Admit Date: 11/11/2023 10:49:00 AM Patient Name: Fe Spaulding Visit Number: [id number] Discharge Date: ATTENTION: The Clinical Documentation Specialists (CDI) and [facility] Coding Staff appreciate your assistance in clarifying documentation. Please respond to the clarification below the line at the bottom and electronically sign. The CDI & [facility] Coding staff will review the response and follow-up if needed. Please note: Queries are made part of the Legal Health Record. If you have any questions, please contact the author of this message via ITS. Doctor/Provider: Mitra Malik MD: Patient has a documented BMI of 48.9 on 11/10. Additional clarification is requested. History/Risk Factors: 78-year-old female with a history of DM, COPD, HFpEF, obesity and right femur fracture status post fixation who presents with weakness, dehydration and found to have hardware failure right femur fracture Clinical Indicators: 11/10 Patients weight is 129.274kg Patients height is 5ft 4in Calculated BMI is 48.9 Treatments: Healthy heart Diet, NPO for surgery Please clarify if patients BMI indicates an additional diagnosis: [ x ] Morbid (Extreme) (severe) obesity [ ] No additional diagnosis/not clinically significant [ ] Other, please specify ____ [ ] Unable to determine Reference: NIH Classification for BMI Overweight BMI 2529.9 Obesity (Class 1) BMI 3034.9 Obesity (Class 2) BMI 3539.9 Morbid obesity (Class 3/Extreme/severe) BMI =40 MTDD
--- NOTE | 2023-11-14 11:25 | P.PN ---
Subjective HISTORY OF PRESENT ILLNESS: This is an 78-year-old female who was admitted to the hospital secondary to right hip fracture. Patient examined this morning at the bedside. Patient currently denies chest pain or pressure. She denies shortness of breath. Vital signs are stable. She is scheduled for surgery tomorrow with orthopedic surgery. Most recent echo was from September 2022 and revealed ejection fraction 50 to 55% with no significant valvular abnormalities noted and no evidence of pericardial effusion. PHYSICAL EXAM: VITAL SIGNS: Reviewed. GENERAL: Well-developed in no acute distress. NECK: Supple. No JVD or thyromegaly LUNGS: Respirations even and unlabored. Lungs essentially clear to auscultation bilaterally. HEART: Regular rate and rhythm. S1 and S2 heard. EXTREMITIES: Normal range of motion. No clubbing or cyanosis. Peripheral pulses intact. No lower extremity edema ASSESSMENT: Right hip fracture Hypertension Hyperlipidemia Diabetes Morbid obesity: BMI 48.9 PLAN: Continue current cardiac medications There are no absolute contraindications for patient to proceed with surgery from a cardiac standpoint Further recommendations pending patient course Nurse practitioner note has been reviewed by physician. Signing provider agrees with the documented findings, assessment, and plan of care documented by AUDIO VIDEO TECHNICIAN as a scribe. Objective - Vital Signs Vital signs: Vital Signs Temp 97.7 F 11/14/23 07:20 Pulse 87 11/14/23 07:20 Resp 19 11/14/23 07:20 BP 122/65 11/14/23 07:20 Pulse Ox 93 L 11/14/23 07:20 FiO2 Intake & Output 11/13/23 11/14/23 11/14/23 18:59 06:59 18:59 Output Total 1800 650 Balance -1800 -650 Output: Urine 1800 650 - Labs CBC & Chem 7: 11/13/23 05:09 11/13/23 05:09 Labs: Abnormal Lab Results - Last 24 Hours (Table) 11/13/23 11/13/23 11/13/23 Range/Units 12:14 16:51 20:47 POC Glucose (mg/dL) 142 H 173 H 182 H (70-110) mg/dL 11/14/23 Range/Units 06:03 POC Glucose (mg/dL) 146 H (70-110) mg/dL
[2023-11-14 11:58] LABS: Glucose,Whole Blood 228 mg/dL (70-110); Glucose,Whole Blood 517 mg/dL (70-110)
[2023-11-14 16:30] LABS: Glucose,Whole Blood 148 mg/dL (70-110)
--- NOTE | 2023-11-14 18:23 | P.PN ---
Subjective Progress Note Date: 11/14/23 HISTORY OF PRESENT ILLNESS: This is a 78-year-old female with a previous medical history signif icant for hypertension and hypertensive cardiovascular disease, hyperlipidemia, diabetes mellitus type 2, obesity, osteoarthritis, chronic low back pain, chronic kidney disease stage 3b, patient underwent a intramedullary nailing for a right intertrochanter Fracture about a year ago and she went to [facility] for subacute rehabilitation for quite some time, then she has been doing fine, using a walker at home, apparently the patient could not put a lot of pressure using a walker 2 weeks ago and she has been laying in bed not able to do a lot of things, up till yesterday when her daughter came and saw her in bed not able to do anything, they have decided to bring her to the ER for evaluation she has a battery of testing including CT scan of the brain without contrast that did not show evidence of acute intracranial bleed, patient did have a CT scan of the lumbar spine that showed degenerative disc disease without evidence of fracture patient also did have a CT of the pelvis that showed evidence of right femoral neck oblique fracture extended into the greater and lesser trochanter with co mminution, there was some description of erosive changes in that area, could be related to the fracture versus infectious process, patient was admitted to the hospital under my service, consult with orthopedic surgery initially Dr. Garcia was switched to consult since Dr. Santiago is not available to the on-call Orthopedic service this will be Dr. Bañuelos. 11/11: Consultation was bowels back [facility] after long conversation with Dr. Bañuelos yesterday, since the patient was seen by Dr. Emerson in the past, knowing that he is not available at this point in time, or Jose will accept the patient at this point in time, due to a failure of the nail and the patient ambulated to ambulate likely will require to have a right hemiarthroplasty at this point in time, we will consult cardiology for medical clearance, meanwhile patient will be maintained on her current medication, will continue to follow-up with the patient very closely. 11/12: Patient is seen in consultation by cardiology today in the morning, she was cleared for surgical intervention that is scheduled for Wednesday, November 15, 2023, she is going to have her screw removed, and she will go for right hem iarthroplasty by Dr. Flores send spoke with the nurse practitioner Emma regarding that, we will continue current treatment plan for now, continue Kay catheter for now, we will follow-up with the patient very closely. 11/13: Patient is laying down in bed in no apparent distress, she denies any chest pain, shortness of breath, she was cleared by cardiology to go for surgical intervention tomorrow afternoon, she has no abdominal pain, she had a bowel movement about 2 days ago, she has no other issues, she continues to have some pain in the right hip area, she is scheduled to go for right he miarthroplasty, we will follow-up with the patient very closely. REVIEW OF SYSTEMS: Constitutional: No documented fever, no chills, no night sweats. No weight change. No weakness, fatigue or lethargy. No daytime sleepiness. EENT: No headache. No blurred vision or double vision, no loss of vision. No loss of Hearing, no ringing in the ears, no dizziness. No nasal drainage or congestion. No epistaxis. No sore throat. Lungs: minimal shortness of breath, no cough, no sputum production. No wheezing. Reports dyspnea with activity. Cardiovascular: No chest pain, no lower extremity edema. No palpitations. No paroxysmal nocturnal dyspnea. No orthopnea. No lightheadedness or dizziness. No syncopal episodes. Abdominal: Reports no abdominal pain. No nausea, vomiting. No diarrhea. No constipation. No bloody or tarry stools reports loss of appetite. Genitourinary: No dysuria, increased frequency, urgency. No urinary retention. Musculoskeletal: No myalgias. positive for muscle weakness, positive for gait dysfunction, no frequent falls. positive for back pain. No neck pain. Integumentary: No wounds, no lesions. No rash or pruritus. No unusual bruising. No change in hair or nails. Neurologic: No aphasia. No facial droop. No change in mentation. No head injury. No headache. No paralysis. No paresthesia. Psychiatric: No depression. No anxiety. No mood swings. Endocrine: No abnormal blood sugars. No weight change. PHYSICAL EXAMINATION: General: 78-year-old female laying in bed in no apparent distress. HEENT: Head is atraumatic, normocephalic, pupils were equal round reactive to light and recommendation, extraocular muscle movement were intact, sclera nonicteric, conjunctivae were pale, mucous membranes of the mouth are somewhat dry. Neck: Supple, no JVP, normal carotid upstroke bilaterally, no lymphadenopathy. Chest: Decreased breath sounds at the bases, few rhonchi, no expiratory wheezes, no chest wall tenderness, no intercostal retractions. Heart: First heart sound is normal, second heart sound is normal there is systolic ejection murmur 2/6 in the left sternal border Abdomen: Soft, nontender, nondistended, positive bowel sounds. Extremities: There is no edema no calf tenderness DP +1 bilaterally, Neurologic examination: Patient is awake alert and oriented X3, cranial nerves II-12 appear grossly intact, muscle power were 5 out of 5 in upper extremities and patient is barely able to pick her right lower extremity off the mattress however she does not have any tenderness with range of motion, left lower extremity is 4 out of 5. ASSESSMENT AND PLAN: 1. Right intertrochanteric oblique fracture suggestive of a failed intr amedullary screw that she had before according to the CT scan of the pelvis did show evidence of extension into the greater and lesser trochanter, patient is not able to bear any weight on the right lower extremity, patient is scheduled to go for right hemiarthroplasty on 11/15/2023, patient was seen in consultation by cardiology she is cleared for surgery. 2. Hypertension and hypertensive cardiovascular disease. Continue patient on carvedilol 6.25 mg orally twice every day, losartan 100 mg once every day, monitor the patient very closely. 3. Mixed hyperlipidemia. Continue patient on atorvastatin 40 mg daily, as well as ezetimibe 10 mg once every day. 4. COPD. we will start DuoNeb 3 mL nebulization 4 times every day as needed. 5. Chronic diastolic heart failure appears stable at this time. Continue carvedilol 6.25 mg orally twice every day as well as losartan 50 mg orally once every day, continue patient on torsemide 20 mg orally once every day. 6. History of remote lung cancer status post partial lobectomy in 2007 7. Osteoarthritis. Continue current pain management. Continue the patient on Tylenol 650 mg orally every 4 hours as needed 8. Osteopenia/osteoporosis. Patient would benefit from Prolia injection 60 mg subcutaneously every 6 months as an outpatient. 9. Diabetes mellitus type 2. Decrease Levemir to 40 units at bedtime, along with a sliding scale insulin. 10. DVT prophylaxis. Continue on Lovenox 40 mg subcutaneously once every day. 11. GI prophylaxis. Continue famotidine 20 mg orally once every day 12. Chronic kidney disease stage III. Appears stable at this time, avoid hypotension and nephrotoxins 13. Medical debility. Physical therapy evaluation will be put on hold until after orthopedic evaluation. 14. site worker consultation for discharge planning likely subacute rehabilitation in order after surgical intervention Objective - Vital Signs Vital signs: Vital Signs Temp 97.9 F 11/14/23 14:04 Pulse 72 11/14/23 14:04 Resp 18 11/14/23 14:04 BP 91/53 11/14/23 14:04 Pulse Ox 93 L 11/14/23 14:04 FiO2 Intake & Output 11/13/23 11/14/23 11/14/23 18:59 06:59 18:59 Output Total 1800 650 900 Balance -1800 -650 -900 Output: Urine 1800 650 900 - Labs CBC & Chem 7: 11/13/23 05:09 11/13/23 05:09 Labs: Abnormal Lab Results - Last 24 Hours (Table) 11/13/23 11/14/23 11/14/23 Range/Units 20:47 06:03 11:56 POC Glucose (mg/dL) 182 H 146 H 517 H* (70-110) mg/dL 11/14/23 11/14/23 Range/Units 11:56 16:29 POC Glucose (mg/dL) 228 H 148 H (70-110) mg/dL
[2023-11-14] MEDS: SODIUM CHLORIDE 0.9% 1,000 ML IV SCH (18:54)
[2023-11-14 21:24] LABS: Glucose,Whole Blood 226 mg/dL (70-110)
[2023-11-15] MEDS: HYDROmorphone 0.5 MG/0.5 ML SYRINGE IVP PRN ×2 (02:09→19:56)
[2023-11-15 06:12] LABS: Glucose,Whole Blood 138 mg/dL (70-110)
--- NOTE | 2023-11-15 08:26 | P.PN ---
Progress Note - Text Progress Note Date: 11/15/23 Patient is resting comfortably in bed. She has remained n.p.o. for surgical procedure scheduled later today, removal of right [place] IM nail with right hip hemiarthroplasty. Patient is anticipating subacute rehab at discharge.
[2023-11-15 09:02] LABS: Basophils # (A) 0.02 X 10*3/uL (0.00-0.10); Basophils % (A) 0.2 %; Eosinophils # (A) 0.23 X 10*3/uL (0.04-0.35); HCT 35.2 % (37.2-46.3); HGB 11.2 g/dL (12.0-15.0); Lymphocytes # (A) 2.27 X 10*3/uL (0.90-5.00); Lymphocytes % (A) 19.3 %; MCH 31.4 pg (27.0-32.0); MCHC 31.8 g/dL (32.0-37.0); MCV 98.6 FL (80.0-97.0); Mean Platelet Volume 10.4 FL (9.5-12.2); Monocytes # (A) 0.78 X 10*3/uL (0.20-1.00); Monocytes % (A) 6.6 %; NRBC Per 100 WBC 0 X 10*3/uL (0.00-0.01); Neutrophils # (A) 8.43 X 10*3/uL (1.80-7.70); Neutrophils % (A) 71.5 %; Platelet Count 246 X 10*3/uL (140-440); RBC 3.57 X 10*6/uL (4.10-5.20); RDW 14.6 % (11.5-14.5); WBC 11.78 X 10*3/uL (4.50-10.00)
[2023-11-15 09:06] LABS: ALT 18 U/L (8-44); AST 18 U/L (13-35); Albumin 2.9 g/dL (3.8-4.9); Albumin/Globulin Ratio 1.16 Ratio (1.60-3.17); Alkaline Phosphatase 259 U/L (41-126); BUN/Creat Ratio 32.18 Ratio (12.00-20.00); Blood Urea Nitrogen 35.4 mg/dL (9.0-27.0); Calcium 8.6 mg/dL (8.7-10.3); Carbon Dioxide 32.4 mmol/L (21.6-31.8); Chloride 99 mmol/L (96-109); Globulin 2.5 g/dL (1.6-3.3); Glucose 148 mg/dL (70-110); Potassium 4.5 mmol/L (3.5-5.5); Sodium 139 mmol/L (135-145); Total Bilirubin 0.7 mg/dL (0.3-1.2); Total Protein 5.4 g/dL (6.2-8.2)
[2023-11-15 09:38] LABS: Glucose,Whole Blood 133 mg/dL (70-110)
--- NOTE | 2023-11-15 10:53 | XR ---
EXAMINATION TYPE: XR chest 1V portable DATE OF EXAM: 11/15/2023 COMPARISON: 01/23/2023 HISTORY: Shortness of breath TECHNIQUE: Single frontal view of the chest is obtained. FINDINGS: Heart size enlarged. There is basilar subsegmental infiltrate. No pneumothorax. Underlying COPD. Arthropathy of the shoulders and degenerative changes of the spine. Subcentimeter pulmonary no dules noted by recent CT scan not as well seen by standard x-ray. IMPRESSION: Basilar atelectasis or infiltrate. [facility], , 11/15/2023 10:51 AM
--- NOTE | 2023-11-15 11:20 | P.PN ---
Subjective HISTORY OF PRESENT ILLNESS: This is an 78-year-old female who was admitted to the hospital secondary to right hip fracture. Patient examined this morning at the bedside. Patient currently denies chest pain or pressure. She denies shortness of breath. Vital signs are stable. She is scheduled for surgery tomorrow with orthopedic surgery. Most recent echo was from September 2022 and revealed ejection fraction 50 to 55% with no significant valvular abnormalities noted and no evidence of pericardial effusion. 11/15/2023 Patient examined this morning at the bedside. Patient currently denies chest pain or pressure. She denies shortness of breath. She is scheduled to undergo orthopedic surgery this afternoon. Patient reports having an episode this morning of feeling dizzy and sweaty. Per nursing, patient's blood sugar was within normal limits. Vital signs were obtained and unremarkable. Patient is requiring 2 L nasal cannula to maintain oxygen saturations greater than 92%. PHYSICAL EXAM: VITAL SIGNS: Reviewed. GENERAL: Well-developed in no acute distress. NECK: Supple. No JVD or thyromegaly LUNGS: Respirations even and unlabored. Lungs essentially clear to auscultation bilaterally. HEART: Regular rate and rhythm. S1 and S2 heard. EXTREMITIES: Normal range of motion. No clubbing or cyanosis. Peripheral pulses intact. No lower extremity edema ASSESSMENT: Right hip fracture Dizziness Acute hypoxic respiratory failure; requiring supplemental oxygen to maintain O2 sats greater than 90% Hypertension Hyperlipidemia Diabetes Morbid obesity: BMI 48.9 PLAN: Continue current cardiac medications Obtain EKG, chest x-ray, troponin level, and COVID PCR There are no absolute contraindications for patient to proceed with surgery from a cardiac standpoint Further recommendations pending patient course Nurse practitioner note has been reviewed by physician. Signing provider agrees with the documented findings, assessment, and plan of care documented by SHINGLES ROOFER as a scribe. Objective - Vital Signs Vital signs: Vital Signs Temp 97.9 F 11/15/23 08:00 Pulse 67 11/15/23 08:00 Resp 18 11/15/23 08:00 BP 119/71 11/15/23 08:00 Pulse Ox 96 11/15/23 08:00 FiO2 Intake & Output 11/14/23 11/15/23 11/15/23 18:59 06:59 18:59 Output Total 900 300 Balance -900 -300 Output: Urine 900 300 Other: Voiding Method External Catheter External Catheter - Labs CBC & Chem 7: 11/15/23 05:13 11/15/23 05:13 Labs: Abnormal Lab Results - Last 24 Hours (Table) 11/14/23 11/14/23 11/14/23 Range/Units 11:56 11:56 16:29 WBC (4.50-10.00) X 10*3/uL RBC (4.10-5.20) X 10*6/uL Hgb (12.0-15.0) g/dL Hct (37.2-46.3) % MCV (80.0-97.0) FL MCHC (32.0-37.0) g/dL RDW (11.5-14.5) % Immature Gran # (0.00-0.04) X 10*3/uL Neutrophils # (1.80-7.70) X 10*3/uL Carbon Dioxide (21.6-31.8) mmol/L BUN (9.0-27.0) mg/dL Est GFR (CKD-EPI) (>=60) BUN/Creatinine Ratio (12.00-20.00) Ratio Glucose (70-110) mg/dL POC Glucose (mg/dL) 517 H* 228 H 148 H (70-110) mg/dL Calcium (8.7-10.3) mg/dL Alkaline Phosphatase (41-126) U/L Total Protein (6.2-8.2) g/dL Albumin (3.8-4.9) g/dL Albumin/Globulin Ratio (1.60-3.17) Ratio 11/14/23 11/15/23 11/15/23 Range/Units 21:23 05:13 05:13 WBC 11.78 H (4.50-10.00) X 10*3/uL RBC 3.57 L (4.10-5.20) X 10*6/uL Hgb 11.2 L (12.0-15.0) g/dL Hct 35.2 L (37.2-46.3) % MCV 98.6 H (80.0-97.0) FL MCHC 31.8 L (32.0-37.0) g/dL RDW 14.6 H (11.5-14.5) % Immature Gran # 0.05 H (0.00-0.04) X 10*3/uL Neutrophils # 8.43 H (1.80-7.70) X 10*3/uL Carbon Dioxide 32.4 H (21.6-31.8) mmol/L BUN 35.4 H (9.0-27.0) mg/dL Est GFR (CKD-EPI) 51 L (>=60) BUN/Creatinine Ratio 32.18 H (12.00-20.00) Ratio Glucose 148 H (70-110) mg/dL POC Glucose (mg/dL) 226 H (70-110) mg/dL Calcium 8.6 L (8.7-10.3) mg/dL Alkaline Phosphatase 259 H (41-126) U/L Total Protein 5.4 L (6.2-8.2) g/dL Albumin 2.9 L (3.8-4.9) g/dL Albumin/Globulin Ratio 1.16 L (1.60-3.17) Ratio 11/14/14 11/ Range/Units 06:10 09:36 WBC (4.50-10.00) X 10*3/uL RBC (4.10-5.20) X 10*6/uL Hgb (12.0-15.0) g/dL Hct (37.2-46.3) % MCV (80.0-97.0) FL MCHC (32.0-37.0) g/dL RDW (11.5-14.5) % Immature Gran # (0.00-0.04) X 10*3/uL Neutrophils # (1.80-7.70) X 10*3/uL Carbon Dioxide (21.6-31.8) mmol/L BUN (9.0-27.0) mg/dL Est GFR (CKD-EPI) (>=60) BUN/Creatinine Ratio (12.00-20.00) Ratio Glucose (70-110) mg/dL POC Glucose (mg/dL) 138 H 133 H (70-110) mg/dL Calcium (8.7-10.3) mg/dL Alkaline Phosphatase (41-126) U/L Total Protein (6.2-8.2) g/dL Albumin (3.8-4.9) g/dL Albumin/Globulin Ratio (1.60-3.17) Ratio
[2023-11-15 11:28] LABS: Glucose,Whole Blood 138 mg/dL (70-110)
[2023-11-15 14:39] LABS: Glucose,Whole Blood 159 mg/dL (70-110)
--- NOTE | 2023-11-15 14:45 | P.PN ---
Progress Note - Text Progress Note Date: 11/15/23 Orthopedic Surgery Risk Review Fe Spaulding is a 78 yo female presenting for evaluation of progressive pain in right hip with, inability to ambulate after continued pain for the past three weeks. No hx of new falls. She had IMN done 1 year ago of this hip. . It was my pleasure to have seen and examined Fe Spaulding In our visit today we have had a chance to go over subjective complaints, physical examination findings and treatments including the natural course history without intervention and various interventional options. Fe Spaulding imaging demonstrates Failed and cut out rachell nail right hip with non healing fracture right IT region, basicervical region. On physical exam, Fe Spaulding demonstrates pain with motion of RLE which is NV intact at this time. I have explained to the patient that this fracture needs stabilization. Based on the patients imaging, physical exam, and the rapid progression and disabling nature of her symptoms, at this time I recommend surgery in the form or a: REvision right hip hemiarthroplasty I discussed the risk and benefits of this procedure at length with Fe Spaulding Questions were invited and answered, and the patient wishes to proceed as outlined below. Currently, I am recommendin. Revision right hemiarthroplasty with removal of hardware 2. Review of surgical risks and benefits as well as an educational packet on the proposed surgical procedure. Risks: All surgical procedures come with inherent risks, including those related to positioning, anesthesia, intraoperative findings, and postoperative complications. It is important to understand that surgery does not come with any guarantee of a successful outcome as complications and adverse events are always possible. The patient was given a handout discussing the surgical procedure and risks associated with the intervention, both of which were discussed with the patient. These risks include but are not limited to the following: - Experiencing same, different or even worse symptoms compared to before surgery. - Requiring further surgery or other forms of treatment presently or at some time in the future . - On an extreme but fortunately relatively rare basis severe complication such as blindness, stroke, heart attack, temporary and/or permanent nerve injury, paralysis, coma, or may occur, sometimes without known explanation. - Surgical complications may include but are not limited to risk of infection, fluid accumulation in the surgical dissection site, including a seroma or hematoma, that requires additional surgery, wound drainage, bleeding, new numbness or weakness, vision changes/loss, spinal fluid leakage, non-healing and/or infected incision, headaches, difficulty or inability to swallow, hoarseness, hemopneumothorax, pneumothorax, injury to nerves, spinal cord, blood vessels, lymphatics or other vital organs (i.e., bowel injury, injury to the great vessels); heterotopic bone formation; complications related to the hardware such as screws, rods, including misplaced hardware, device failure, hardware fracture/breakage, or hardware loosening; retained surgical instrumentations or devices and the need for further surgery. - Medical risks of the planned surgery include but are not limited to generalized Infections to the whole body or local areas outside of the surgical site (sepsis), heart attack, bleeding, anaphylaxis, meningitis, seizure, epilepsy, hearing loss, burn cadena, laceration of the head or other areas of the body, bruising, hypersensitivity of the skin, bladder over distension; allergic reaction; shoulder injury related to positioning; fat, blood and air clots to other areas of the body like heart, lungs, brain; failure of internal organs such as lungs, kidneys, liver and excessive bleeding. If blood transfusions are necessary, note that transfusions may cause intolerance reactions such as anaphylaxis or other complex reactions. Despite best efforts, the results of surgery might not heal in terms of bone, soft tissues such as skin, fascia, ligaments, and joints. [facility] has multiple operating rooms with single and overlapping rooms running daily. They currently function under the required guidelines as produced by the Senate Finance Committee with regards to the overlapping rooms and will continue to comply with changes to this policy as they occur. The requirements include and are complied with as follows: (1) the critical portions of the overlapping rooms will not occur at the same time, (2) the attending physician will be physically present during the critical portions of the procedure and immediately available during the entire case, and (3) a back-up attending is designated should the primary attending not be immediately available. The patient has had a chance to review all the listed information, has been given print outs detailing this information, and has had all his/her questions answered to their satisfaction. It was my pleasure to have seen and examined Fe Spaulding. In our visit today we have had a chance to go over my understanding of our patient's current condition, the natural course history without intervention and various interventional options. Questions were invited and answered, and the patient wishes to proceed as outlined above. I have seen and examined the patient for 25 minutes and we have spent more than 50% of the time in repeat and detailed counseling about the patient's condition, its natural course history with out and as much as can be predicted with surgery and re-review of various surgical treatment options. In conclusion, Fe Spaulding requested we proceed with the above suggested surgery and are willing to accept risks and limitations of the suggested surgery as nature of the disease process and our best attempts at treatment for the condition. Thank you again for allowing us to be part of your patient's care. Please don't hesitate to contact me if you have any further questions. Signed and authenticated by: Abisai Fuentes [facility] [address], [address] [address]
[2023-11-15] MEDS: IV FLUID CONTINUATION 1,000 ML IV ONE (14:56)
[2023-11-15] MEDS ORDERED: SUCCINYLCHOLINE CHLORIDE 200 MG/10 ML VIAL IV ONE (15:28)
[2023-11-15] MEDS ORDERED: fentaNYL (PF) 50 MCG/ML 2 ML AMP ONE (15:28)
[2023-11-15] MEDS ORDERED: GLYCOPYRROLATE 0.2 MG/ML 2 ML VIAL ONE (15:28)
[2023-11-15] MEDS ORDERED: PHENYLEPHRINE-0.9% NACL SYG 1,000 MCG/10 ML SYRINGE ONE (15:28)
[2023-11-15] MEDS ORDERED: NEOSTIGMINE 1 MG/ML 10 ML VIAL ONE (15:28)
[2023-11-15] MEDS ORDERED: ROCURONIUM 10 MG/ML (5 ML VIAL) IV ONE (15:28)
[2023-11-15] MEDS ORDERED: ePHEDrine 50 MG/ML 1 ML VIAL ONE (15:28)
[2023-11-15] MEDS ORDERED: MIDAZOLAM 2 MG/2 ML VIAL ONE (15:28)
[2023-11-15] MEDS ORDERED: LIDOCAINE 1% INJ 10MG/ML (20 ML MDV) ONE (15:28)
[2023-11-15] MEDS ORDERED: TRANEXAMIC 1,000 MG/100ML-NACL PREMIX BAG ONE (15:28)
[2023-11-15] MEDS ORDERED: PROPOFOL 10 MG/ML 20 ML VIAL IV ONE (15:28)
[2023-11-15] MEDS: SODIUM CHLORIDE 0.9% 100 ML with ceFAZolin 3,000 MG IV ONE (15:33)
[2023-11-15] MEDS: ROPIVACAINE 5 MG/ML 30 ML VIAL MISCELLANE ONE (16:54)
[2023-11-15] MEDS: ceFAZolin 1,000 MG in SODIUM CHLORIDE 0.9% 1,000 ML IRRIGATION ONE (16:56)
--- NOTE | 2023-11-15 19:18 | P.OP ---
Date of Procedure: 11/15/23 Preoperative Diagnosis: Current Active Problems Hip fracture, intertrochanteric (Acute) Hardware failure (Acute) Congestive heart failure (Acute) Fall (Acute) Dehydration (Acute) Hyperkalemia (Acute) Weakness (Acute) Debility (Acute) Postoperative Diagnosis: Current Active Problems Hip fracture, intertrochanteric (Acute) Hardware failure (Acute) Congestive heart failure (Acute) Fall (Acute) Dehydration (Acute) Hyperkalemia (Acute) Weakness (Acute) Debility (Acute) Procedure(s) Performed: PROXIMAL FEMORAL RESECTION WITH REVISION LONG STEM HEMIARTHROPLASTY OPEN TREATMENT GREATER TROCHANTER FRACTURE WITH INTERNAL FIXATION REMOVAL OF FAILED IT NAIL (HARDWARE) MOD22 DUE TO COMPLEXITY OF THE CASE, BMI >45, COMORBID CONDITIONS Implants: PRADO AND NEPHEW LONG STEM REDAP 18, STANDARD NECK, +8 HEAD, 45 MM OUTTER 28 IN NER BIPOLAR REMOVAL OF SHORT GAMMA NAIL Anesthesia: BONITA Surgeon: Abisai Newby Planting Material Unloader #1: Jose J Dillard (was present and assisted with all aspects of the case from position to dressing placement) Estimated Blood Loss (ml): 200 IV fluids (ml): 1,200 Urine output (ml): 450 Pathology: none sent Condition: stable Disposition: PACU Indications for Procedure: Fe Spaulding is a 78 yo female presenting for evaluation of progressive pain in right hip with, inability to ambulate after continued pain for the past three weeks. No hx of new falls. She had IMN done 1 year ago of this hip. . It was my pleasure to have seen and examined Fe Spaulding In our visit today we have had a chance to go over subjective complaints, physical examination findings and treatments including the natural course history without intervention and various interventional options. Fe Spaulding imaging demonstrates Failed and cut out rachell nail right hip with non healing fracture right IT region, basicervical region. On physical exam, Fe Spaulding demonstrates pain with motion of RLE which is NV intact at this time. I have explained to the patient that this fracture needs stabilization. Based on the patients imaging, physical exam, and the rapid progression and disabling nature of her symptoms, at this time I recommend surgery in the form or a: REvision right hip hemiarthroplasty I discussed the risk and benefits of this procedure at length with Fe Spaulding Questions were invited and answered, and the patient wishes to proceed as outlined below. Currently, I am recommendin. Revision right hemiarthroplasty with removal of hardware Description of Procedure: Right Hip Hemiarthroplasty The patient was seen and examined in the preoperative area. All preoperative protocols were followed. Informed consent was obtained, risks and benefits of the procedure were discussed at length. Risks including bleeding infection damage to the surrounding tissue and risk of reoperation were discussed with the patient. Risk of anesthesia up to and including was discussed with the patient. These are outlined in the risk reviewed. They were willing to accept these risks and all of the risks of surgery. The patient was given a weight- based dose of antibiotics in the form of 2 g Ancef. The patient was seen and evaluated by the anesthesia team who deemed them fit for surgery. The site was marked, the patient was willing to proceed with the procedure. The patient was transferred to the operative suite by the Department of anesthesia. They were then drifted off to sleep by the department of anesthesia and spinal anesthesia was used. Once adequate anesthesia had been obtained the patient was carefully transferred to the operative bed and placed in the lateral decubitus position secured with posts with an axillary role and appropriate padding. All bony prominences were padded accordingly. SCDs were placed on the nonoperative lower extremities. Arms were well padded. The Right leg was exposed and 1015 placed around the site. Pt was very dirty with large amount of feces in vaginal area and perineal area. this was cleaned by nursing. Preoperative briefing was done with the operative team and everyone was ready for the procedure to start. The patient's right leg was then prepped and draped in the normal sterile fashion. Timeout was then performed and all parties in agreement with the procedure to be performed. Standard incision was marked for posterior approach to the hip. Skin incision made and dissection taken down to the TFL which was identified and split with its fibers. Charnley retractor placed and bursa identified along with vastus insertion and gluteus medius. Medius was protected and posterior short external rotators along with capsule and piriformis which were tagged, identified and released. There was exhuberent scar tissues. The nail and lag screw were identified. Lag screw was removed easily. Distal lockings screw was found and removed followed by the nail without issues. We then released proximally most attachments as there was little to no motion of this entire segment and would not allow for disloation of the hip, once released, Capsulotomy in an L shape was performed along the superior neck which allowed for dislocation of the fractured stump. Shoulder was palpated along with Lesser trochanter Clean up cut made. Greater trochanter was fractured and displaced and marginally attached to the abducters. It was maintained for the case and fixed later. Once this was done retractors placed and the head was removed with a corkscrew and T handle. Once removed it was sized and a trial head was placed and had good suction fit. Attention was then turned to femoral preparation. Box osteotome was used to enter followed by canal finder and lateralizer. Rat tail then used to widen this. Sequential reaming was then done until good distal fit at 18 stem was then performed until the desired size and fit. This was then trialed with different size heads and stems and dialing in version Once this was achieved a head and neck combo was trialed. Once reduced the hit was taken through a range of motion and was stable in all positions, had good motion and leg lengths were equal. The hip was then atraumatically dislocated and the broach checked, it was stable and so final sizes selected. The wound, acetabulum and femoral canal were then irrigated copiously with pulse lavage and NSS. Canal and acetabulum inspected and were appropriate. Final implants were then confirmed and the femoral stem impacted into position and was stable. Bipolar head combo was then assembled and placed and impacted into position and tested and was stable. The hip was then reduced and taken through a ROM again and was stable and had good length. The wound was again irrigated. Posterior capsule was then stitched with ethibond suture and passed through three drill holes made in the posterior GT. Two screws were placed into the GT fracture fragment to hold it in place to allow for healing in a reasonable position. These were then tightened and tied. The capsule was then oversewn with an ethibond stitch for tight closure. ROM showed good tension and good closure. Charnley removed and TFL repaired with #1 vicryl in running locking fashion. Deep subq closed with 0 Vicryl, Superficial with 2-0 vicryl and skin with parul. Wound edges approximated well. The wound was then cleaned and dressed sterrilly with Optifoam dressing. The patient was then transferred back to their hospital bed. They were awakened by the department of anesthesia having tolerated the procedure very well with no complications. Hip abduction pillow placed. The patient was then transported to the postoperative care unit in stable condition.
--- NOTE | 2023-11-15 19:28 | XR ---
Fluoroscopy INDICATION: Hemiarthroplasty FINDINGS: Fluoroscopy time: 9.4 seconds. Total dose area product (DAP) in uGy*m?, mGy*cm? (or similar): 3.6077 Images obtained: 5. IMPRESSION: 1. Documentation of fluoroscopy. [facility], , 11/15/2023 7:25 PM
[2023-11-15] MEDS: ceFAZolin 3 GM in SODIUM CHLORIDE 0.9% 100 ML IVPB ONE (21:15)
[2023-11-15] MEDS: HYDROcodone/APAP 7.5-325MG 1 EACH TAB PO PRN (23:41)
[2023-11-16] MEDS: HYDROcodone/APAP 5-325MG 1 EACH TAB PO PRN (05:46)
[2023-11-16 05:59] LABS: Glucose,Whole Blood 179 mg/dL (70-110)
--- NOTE | 2023-11-16 08:27 | P.PN ---
Subjective Progress Note Date: 11/16/23 Principal diagnosis: Right femoral neck fracture Patient seen and examined this morning. Patient is resting comfortably in bed. She does report pain into the right hip. A-frame foam pillow is present between lower extremities. Informed patient that physical therapy will be in to work with her today. Patient is looking forward to progressing her activity and recovery. She states her right lower extremity does feel more stable and has a different pain prior to her procedure. Randall catheter is present and patent, maintain until patient is up and about. Continue to encourage patient to utilize incentive spirometer 10 times per hour while awake. No acute concerns at this time. Objective - Vital Signs Vital signs: Vital Signs Temp 97.5 F L 11/16/23 07:23 Pulse 80 11/16/23 07:23 Resp 18 11/16/23 07:23 BP 92/56 11/16/23 07:23 Pulse Ox 98 11/16/23 07:23 FiO2 Intake & Output 11/15/23 11/16/23 11/16/23 18:59 06:59 18:59 Intake Total 126 325 Output Total 350 160 Balance -224 165 Weight 129.274 kg Intake: IV 126 325 Output: Urine 150 160 Estimated Blood Loss 200 Other: Voiding Method Indwelling Catheter - Exam Physical Examination General: The patient is awake and alert, in no acute distress. Skin: Skin is warm and dry with no obvious rashes or lesions. Surgical incision to right hip, dressing is CDI. Eye: Pupils are equal, round and reactive to light, extra-ocular movements are intact; there is normal conjunctiva bilaterally. Neck: The neck is supple, there is no tenderness and ROM intact. Cardiovascular: There is a regular rate and rhythm. No murmur, rub or gallop is appreciated. Respiratory: Respirations are non-labored, breath sounds are equal. Gastrointestinal: Soft, non-distended, non-tender abdomen. Back: There is no tenderness to palpation in the midline, paralumbar, parathoracic or buttocks region. There is no obvious deformity . Musculoskeletal: ROM limited secondary to pain and stiffness from surgical procedure. Right: Shoulder abduction 5/5, elbow flexors 5/5, wrist dorsiflexors 5/5. finger abductor 5/5, apartment assistant manager 5/5, hip flexor 4-/5, knee flexor 4/5, ankle dorsiflexor 4/5, ankle plantarflexion 4/5 and extensor hallucis 4/5. Left: Shoulder abduction 5/5, elbow flexors 5/5, wrist dorsiflexors 5/5. finger abductor 5/5, apartment assistant manager 5/5, hip flexor 5/5, knee flexor 5/5, ankle dorsiflexor 5/5, ankle plantarflexion 5/5 and extensor hallucis 5/5. Neurological: CN 2-12 intact. There are no obvious motor or sensory deficits. Movement and coordination equal and intact. Sensory exam to light touch intact C5-T1 and intact from L2-S1. Reflexes 2/4 in bilateral upper and lower extremities. Negative Hoffmans, babinski, and clonus signs. Psychiatric: Cooperative, appropriate mood & affect, normal judgment. - Labs CBC & Chem 7: 11/15/23 05:13 11/15/23 05:13 Labs: Abnormal Lab Results - Last 24 Hours (Table) 11/15/23 11/15/23 11/15/23 Range/Units 05:13 05:13 09:36 WBC 11.78 H (4.50-10.00) X 10*3/uL RBC 3.57 L (4.10-5.20) X 10*6/uL Hgb 11.2 L (12.0-15.0) g/dL Hct 35.2 L (37.2-46.3) % MCV 98.6 H (80.0-97.0) FL MCHC 31.8 L (32.0-37.0) g/dL RDW 14.6 H (11.5-14.5) % Immature Gran # 0.05 H (0.00-0.04) X 10*3/uL Neutrophils # 8.43 H (1.80-7.70) X 10*3/uL Carbon Dioxide 32.4 H (21.6-31.8) mmol/L BUN 35.4 H (9.0-27.0) mg/dL Est GFR (CKD-EPI) 51 L (>=60) BUN/Creatinine Ratio 32.18 H (12.00-20.00) Ratio Glucose 148 H (70-110) mg/dL POC Glucose (mg/dL) 133 H (70-110) mg/dL Calcium 8.6 L (8.7-10.3) mg/dL Alkaline Phosphatase 259 H (41-126) U/L Total Protein 5.4 L (6.2-8.2) g/dL Albumin 2.9 L (3.8-4.9) g/dL Albumin/Globulin Ratio 1.16 L (1.60-3.17) Ratio 11/15/23 11/15/23 11/16/23 Range/Units 11:26 14:37 05:57 WBC (4.50-10.00) X 10*3/uL RBC (4.10-5.20) X 10*6/uL Hgb (12.0-15.0) g/dL Hct (37.2-46.3) % MCV (80.0-97.0) FL MCHC (32.0-37.0) g/dL RDW (11.5-14.5) % Immature Gran # (0.00-0.04) X 10*3/uL Neutrophils # (1.80-7.70) X 10*3/uL Carbon Dioxide (21.6-31.8) mmol/L BUN (9.0-27.0) mg/dL Est GFR (CKD-EPI) (>=60) BUN/Creatinine Ratio (12.00-20.00) Ratio Glucose (70-110) mg/dL POC Glucose (mg/dL) 138 H 159 H 179 H (70-110) mg/dL Calcium (8.7-10.3) mg/dL Alkaline Phosphatase (41-126) U/L Total Protein (6.2-8.2) g/dL Albumin (3.8-4.9) g/dL Albumin/Globulin Ratio (1.60-3.17) Ratio Assessment and Plan Assessment: Post-Op Day 1: Removal of right IM nail with right hip hemiarthroplasty Plan: -Appreciate claims consultant and team management. -Activity: Ambulate QID, OOB all meals, up and about, limit lifting bending twisting to less than 5 lbs. Use walker or cane if needed for stability. -Daily PT/OT, increase ambulation strength and balance. -Pain control: Adequate at this time -Meds: reviewed -GI ppx: senna, Miralax -DC randall when up and about, bedside commode if needed -DVT PPX: Lovenox -Hygiene: Maintain dressing clean and dry. -Encourage IS 10x/hr -Dispo: Anticipate discharge to [facility] within the next 48hrs *I reviewed and discussed this case with my attending Dr. Newby, whom has reviewed this chart and films and is in agreement with assessment and plan of care as outlined above. I have personally seen and examined the patient, performed the documentation and the assessment and plan as written. Number of minutes spent on the visit: 20m.
[2023-11-16] MEDS: ENOXAPARIN 40 MG/0.4 ML SYRINGE SQ SCH (08:29)
[2023-11-16 09:03] LABS: Basophils % (A) 0 %; Eosinophils # (A) 0.2 k/uL (0-0.7); Eosinophils % (A) 1 %; HCT 33.1 % (34.0-46.0); HGB 10.2 gm/dL (11.4-16.0); Hypochromasia Moderate; Lymphocytes # (A) 0.3 k/uL (1.0-4.8); Lymphocytes % (A) 2 %; MCH 30.9 pg (25.0-35.0); MCHC 30.8 g/dL (31.0-37.0); MCV 100.4 fL (80.0-100.0); Macrocytosis Slight; Mean Platelet Volume 7.7; Monocytes # (A) 0.5 k/uL (0-1.0); Monocytes % (A) 3 %; Neutrophils # (A) 14.2 k/uL (1.3-7.7); Neutrophils % (A) 93 %; Platelet Count 240 k/uL (150-450); RBC 3.29 m/uL (3.80-5.40); RDW 14.3 % (11.5-15.5); WBC 15.3 k/uL (3.8-10.6)
--- NOTE | 2023-11-16 10:51 | P.PN ---
Subjective HISTORY OF PRESENT ILLNESS: This is an 78-year-old female who was admitted to the hospital secondary to right hip fracture. Patient examined this morning at the bedside. Patient currently denies chest pain or pressure. She denies shortness of breath. Vital signs are stable. She is scheduled for surgery tomorrow with orthopedic surgery. Most recent echo was from September 2022 and revealed ejection fraction 50 to 55% with no significant valvular abnormalities noted and no evidence of pericardial effusion. 11/15/2023 Patient examined this morning at the bedside. Patient currently denies chest pain or pressure. She denies shortness of breath. She is scheduled to undergo orthopedic surgery this afternoon. Patient reports having an episode this morning of feeling dizzy and sweaty. Per nursing, patient's blood sugar was within normal limits. Vital signs were obtained and unremarkable. Patient is requiring 2 L nasal cannula to maintain oxygen saturations greater than 92%. 11/16/2023 Patient examined this morning at bedside. Patient denies chest pain or pressure. She denies shortness of breath. She is status post surgical i ntervention with orthopedics. PHYSICAL EXAM: VITAL SIGNS: Reviewed. GENERAL: Well-developed in no acute distress. NECK: Supple. No JVD or thyromegaly LUNGS: Respirations even and unlabored. Lungs essentially clear to auscultation bilaterally. HEART: Regular rate and rhythm. S1 and S2 heard. EXTREMITIES: Normal range of motion. No clubbing or cyanosis. Peripheral pulses intact. No lower extremity edema ASSESSMENT: Right hip fracture, removal of right IM nail with right hip hemiarthroplasty Dizziness Acute hypoxic respiratory failure; requiring supplemental oxygen to maintain O2 sats greater than 90% Hypertension Hyperlipidemia Diabetes Morbid obesity: BMI 48.9 PLAN: Continue current cardiac medications Patient is currently stable from a cardiac standpoint No further inpatient recommendations We will sign off. Please reconsult if needed. Nurse practitioner note has been reviewed by physician. Signing provider agrees with the documented findings, assessment, and plan of care documented by [employer]READ [employer] as a scribe. Objective - Vital Signs Vital signs: Vital Signs Temp 97.5 F L 11/16/23 07:23 Pulse 80 11/16/23 07:23 Resp 18 11/16/23 07:23 BP 92/56 11/16/23 07:23 Pulse Ox 98 11/16/23 07:23 FiO2 Intake & Output 11/15/23 11/16/2324 18:59 06:59 18:59 Intake Total 126 325 Output Total 350 160 Balance -224 165 Weight 129.274 kg Intake: IV 126 325 Output: Urine 150 160 Estimated Blood Loss 200 Other: Voiding Method Indwelling Catheter - Labs CBC & Chem 7: 11/16/23 08:32 11/15/23 05:13 Labs: Abnormal Lab Results - Last 24 Hours (Table) 11/15/23 11/15/23 11/16/23 Range/Units 11:26 14:37 05:57 WBC (3.8-10.6) k/uL RBC (3.80-5.40) m/uL Hgb (11.4-16.0) gm/dL Hct (34.0-46.0) % MCV (80.0-100.0) fL MCHC (31.0-37.0) g/dL Neutrophils # (1.3-7.7) k/uL Lymphocytes # (1.0-4.8) k/uL POC Glucose (mg/dL) 138 H 159 H 179 H (70-110) mg/dL 11/16/23 Range/Units 08:32 WBC 15.3 H (3.8-10.6) k/uL RBC 3.29 L (3.80-5.40) m/uL Hgb 10.2 L (11.4-16.0) gm/dL Hct 33.1 L (34.0-46.0) % MCV 100.4 H (80.0-100.0) fL MCHC 30.8 L (31.0-37.0) g/dL Neutrophils # 14.2 H (1.3-7.7) k/uL Lymphocytes # 0.3 L (1.0-4.8) k/uL POC Glucose (mg/dL) (70-110) mg/dL
[2023-11-16] MEDS: ONDANSETRON 4 MG/2 ML VIAL IVP PRN (11:26)
[2023-11-16 11:59] LABS: Glucose,Whole Blood 207 mg/dL (70-110)
--- NOTE | 2023-11-16 13:38 | P.PN ---
Subjective Progress Note Date: 11/15/23 HISTORY OF PRESENT ILLNESS: This is a 78-year-old female with a previous medical history signif icant for hypertension and hypertensive cardiovascular disease, hyperlipidemia, diabetes mellitus type 2, obesity, osteoarthritis, chronic low back pain, chronic kidney disease stage 3b, patient underwent a intramedullary nailing for a right intertrochanter Fracture about a year ago and she went to [facility] for subacute rehabilitation for quite some time, then she has been doing fine, using a walker at home, apparently the patient could not put a lot of pressure using a walker 2 weeks ago and she has been laying in bed not able to do a lot of things, up till yesterday when her daughter came and saw her in bed not able to do anything, they have decided to bring her to the ER for evaluation she has a battery of testing including CT scan of the brain without contrast that did not show evidence of acute intracranial bleed, patient did have a CT scan of the lumbar spine that showed degenerative disc disease without evidence of fracture patient also did have a CT of the pelvis that showed evidence of right femoral neck oblique fracture extended into the greater and lesser trochanter with co mminution, there was some description of erosive changes in that area, could be related to the fracture versus infectious process, patient was admitted to the hospital under my service, consult with orthopedic surgery initially Dr. Garcia was switched to consult since Dr. Santiago is not available to the on-call Orthopedic service this will be Dr. Bañuleos. 11/11: Consultation was bowels back to [facility] after long conversation with Dr. Bañuelos yesterday, since the patient was seen by Dr. Emerson in the past, knowing that he is not available at this point in time, or Jose will accept the patient at this point in time, due to a failure of the nail and the patient ambulated to ambulate likely will require to have a right hemiarthroplasty at this point in time, we will consult cardiology for medical clearance, meanwhile patient will be maintained on her current medication, will continue to follow-up with the patient very closely. 11/12: Patient is seen in consultation by cardiology today in the morning, she was cleared for surgical intervention that is scheduled for Wednesday, November 15, 2023, she is going to have her screw removed, and she will go for right hem iarthroplasty by Dr. Flores send spoke with the nurse practitioner Emma regarding that, we will continue current treatment plan for now, continue Kay catheter for now, we will follow-up with the patient very closely. 11/13: Patient is laying down in bed in no apparent distress, she denies any chest pain, shortness of breath, she was cleared by cardiology to go for surgical intervention tomorrow afternoon, she has no abdominal pain, she had a bowel movement about 2 days ago, she has no other issues, she continues to have some pain in the right hip area, she is scheduled to go for right he miarthroplasty, we will follow-up with the patient very closely. 11/14: Patient is laying down in bed in no apparent distress, she is doing better, she is laying down in bed in no apparent distress, patient is scheduled to go for surgical intervention this afternoon, she has no other issues, she was started on IV fluid resuscitation she was taken off her diuretics, in anticipation for surgery and is to continue this for another 24 hours postsurgical intervention but will go back on her medication prior to surgery. REVIEW OF SYSTEMS: Constitutional: No documented fever, no chills, no night sweats. No weight change. No weakness, fatigue or lethargy. No daytime sleepiness. EENT: No headache. No blurred vision or double vision, no loss of vision. No loss of Hearing, no ringing in the ears, no dizziness. No nasal drainage or congestion. No epistaxis. No sore throat. Lungs: minimal shortness of breath, no cough, no sputum production. No wheezing. Reports dyspnea with activity. Cardiovascular: No chest pain, no lower extremity edema. No palpitations. No paroxysmal nocturnal dyspnea. No orthopnea. No lightheadedness or dizziness. No syncopal episodes. Abdominal: Reports no abdominal pain. No nausea, vomiting. No diarrhea. No constipation. No bloody or tarry stools reports loss of appetite. Genitourinary: No dysuria, increased frequency, urgency. No urinary retention. Musculoskeletal: No myalgias. positive for muscle weakness, positive for gait dysfunction, no frequent falls. positive for back pain. No neck pain. Integumentary: No wounds, no lesions. No rash or pruritus. No unusual bruising. No change in hair or nails. Neurologic: No aphasia. No facial droop. No change in mentation. No head injury. No headache. No paralysis. No paresthesia. Psychiatric: No depression. No anxiety. No mood swings. Endocrine: No abnormal blood sugars. No weight change. PHYSICAL EXAMINATION: General: 78-year-old female laying in bed in no apparent distress. HEENT: Head is atraumatic, normocephalic, pupils were equal round reactive to light and recommendation, extraocular muscle movement were intact, sclera nonicteric, conjunctivae were pale, mucous membranes of the mouth are somewhat dry. Neck: Supple, no JVP, normal carotid upstroke bilaterally, no lymphadenopathy. Chest: Decreased breath sounds at the bases, few rhonchi, no expiratory wheezes, no chest wall tenderness, no intercostal retractions. Heart: First heart sound is normal, second heart sound is normal there is systolic ejection murmur 2/6 in the left sternal border Abdomen: Soft, nontender, nondistended, positive bowel sounds. Extremities: There is no edema no calf tenderness DP +1 bilaterally, Neurologic examination: Patient is awake alert and oriented X3, cranial nerves II-12 appear grossly intact, muscle power were 5 out of 5 in upper extremities and patient is barely able to pick her right lower extremity off the mattress however she does not have any tenderness with range of motion, left lower extremity is 4 out of 5. ASSESSMENT AND PLAN: 1. Right intertrochanteric oblique fracture suggestive of a failed intramedullary screw that she had before according to the CT scan of the pelvis did show evidence of extension into the greater and lesser trochanter, patient is not able to bear any weight on the right lower extremity, patient is scheduled to go for right hemiarthroplasty on 11/15/2023, patient was seen in consultation by cardiology she is cleared for surgery. 2. Hypertension and hypertensive cardiovascular disease. Continue patient on carvedilol 6.25 mg orally twice every day, losartan 100 mg once every day, monitor the patient very closely. 3. Mixed hyperlipidemia. Continue patient on atorvastatin 40 mg daily, as well as ezetimibe 10 mg once every day. 4. COPD. we will start DuoNeb 3 mL nebulization 4 times every day as needed. 5. Chronic diastolic heart failure appears stable at this time. Continue carvedilol 6.25 mg orally twice every day as well as losartan 50 mg orally once every day, continue patient on torsemide 20 mg orally once every day. 6. History of remote lung cancer status post partial lobectomy in 2007 7. Osteoarthritis. Continue current pain management. Continue the patient on Tylenol 650 mg orally every 4 hours as needed 8. Osteopenia/osteoporosis. Patient would benefit from Prolia injection 60 mg subcutaneously every 6 months as an outpatient. 9. Diabetes mellitus type 2. Decrease Levemir to 40 units at bedtime, along with a sliding scale insulin. 10. DVT prophylaxis. Continue on Lovenox 40 mg subcutaneously once every day. 11. GI prophylaxis. Continue famotidine 20 mg orally once every day 12. Chronic kidney disease stage III. Appears stable at this time, avoid hypotension and nephrotoxins 13. Medical debility. Physical therapy evaluation will be put on hold until after orthopedic evaluation. 14. chore worker consultation for discharge planning likely subacute rehabilitation in order after surgical intervention Objective - Vital Signs Vital signs: Vital Signs Temp 97.5 F L 11/16/23 07:23 Pulse 80 11/16/23 07:23 Resp 18 11/16/23 07:23 BP 92/56 11/16/23 07:23 Pulse Ox 98 11/16/23 07:23 FiO2 Intake & Output 11/15/23 11/16/23 11/16/23 18:59 06:59 18:59 Intake Total 126 325 Output Total 350 160 Balance -224 165 Weight 129.274 kg Intake: IV 126 325 Output: Urine 150 160 Estimated Blood Loss 200 Other: Voiding Method Indwelling Catheter Indwelling Catheter - Labs CBC & Chem 7: 11/16/23 08:32 11/15/23 05:13 Labs: Abnormal Lab Results - Last 24 Hours (Table) 11/15/23 11/16/23 11/16/23 Range/Units 14:37 05:57 08:32 WBC 15.3 H (3.8-10.6) k/uL RBC 3.29 L (3.80-5.40) m/uL Hgb 10.2 L (11.4-16.0) gm/dL Hct 33.1 L (34.0-46.0) % MCV 100.4 H (80.0-100.0) fL MCHC 30.8 L (31.0-37.0) g/dL Neutrophils # 14.2 H (1.3-7.7) k/uL Lymphocytes # 0.3 L (1.0-4.8) k/uL POC Glucose (mg/dL) 159 H 179 H (70-110) mg/dL 11/16/23 Range/Units 11:57 WBC (3.8-10.6) k/uL RBC (3.80-5.40) m/uL Hgb (11.4-16.0) gm/dL Hct (34.0-46.0) % MCV (80.0-100.0) fL MCHC (31.0-37.0) g/dL Neutrophils # (1.3-7.7) k/uL Lymphocytes # (1.0-4.8) k/uL POC Glucose (mg/dL) 207 H (70-110) mg/dL
--- NOTE | 2023-11-16 13:43 | XR ---
EXAMINATION TYPE: XR Hip RT and AP Pelvis DATE OF EXAM: 11/16/2023 COMPARISON: 11/15/2023 HISTORY: Postop TECHNIQUE: A single AP view of the pelvis 2 views right hip is obtained. There have postsurgical fernandez ges seen. There are surgical parul with soft tissue edema and emphysema\air. Findings suggest prior hernia repair surgery within the lower abdomen. A moderate to severe arthropathy left hip and degene rative change of the spine. SI joint arthropathy. IMPRESSION: 1. Postoperative changes. [facility], , 11/16/2023 1:40 PM
[2023-11-16] MEDS: ENOXAPARIN 30 MG/0.3 ML SYRINGE SQ SCH (14:46)
[2023-11-16] MEDS: SODIUM CHLORIDE 0.9% 1,000 ML IV SCH (15:46)
[2023-11-16 16:32] LABS: Glucose,Whole Blood 228 mg/dL (70-110)
[2023-11-16 20:23] LABS: Glucose,Whole Blood 177 mg/dL (70-110)
[2023-11-17] MEDS: KETOROLAC 15 MG/ML 1 ML VIAL IVP PRN (05:55)
[2023-11-17 06:26] LABS: Glucose,Whole Blood 117 mg/dL (70-110)
--- NOTE | 2023-11-17 06:38 | FL ---
Fluoroscopy INDICATION: Hemiarthroplasty FINDINGS: Fluoroscopy time: 9.4 seconds. Total dose area pro duct (DAP) in uGy*m?, mGy*cm? (or similar): 3.6077 Images obtained: 5. IMPRESSION: 1. Documentation of fluoroscopy. [facility], , 11/17/2023 6:36 AM
[2023-11-17 08:25] LABS: Basophils # (A) 0.01 X 10*3/uL (0.00-0.10); Basophils % (A) 0.1 %; Eosinophils # (A) 0.35 X 10*3/uL (0.04-0.35); Eosinophils % (A) 2.6 %; HGB 8.9 g/dL (12.0-15.0); Lymphocytes # (A) 0.52 X 10*3/uL (0.90-5.00); Lymphocytes % (A) 3.8 %; MCH 32.1 pg (27.0-32.0); MCHC 31.8 g/dL (32.0-37.0); MCV 101.1 FL (80.0-97.0); Mean Platelet Volume 10.8 FL (9.5-12.2); Monocytes # (A) 0.68 X 10*3/uL (0.20-1.00); NRBC Per 100 WBC 0 X 10*3/uL (0.00-0.01); Neutrophils # (A) 12.04 X 10*3/uL (1.80-7.70); Neutrophils % (A) 88.1 %; Platelet Count 201 X 10*3/uL (140-440); RBC 2.77 X 10*6/uL (4.10-5.20); RDW 14.5 % (11.5-14.5); WBC 13.66 X 10*3/uL (4.50-10.00)
--- NOTE | 2023-11-17 08:42 | XR ---
EXAMINATION TYPE: XR Hip RT and AP Pelvis DATE OF EXAM: 11/17/2023 COMPARISON: 11/16/2023 HISTORY: Pain TECHNIQUE: A single AP view of the pelvis is obtained. Two views of the right hip are obtained. FINDINGS: There is a nasogastric hernia repair surgery. Postoperative change right hip. Prior trauma and the involving humerus compatible previous surgery. Severe arthropathy of the left hip. Prosthesi s appears intact. Surgical parul noted. No evidence of hip dislocation. Airway edema within the sof t tissues with surgical parul compatible with recent surgery. Degenerative changes of the spine. IMPRESSION: 1. No evidence of prosthesis dislocation. 2. Postsurgical changes. [facility], , 11/17/2023 8:40 AM
--- NOTE | 2023-11-17 09:00 | P.PN ---
Subjective Progress Note Date: 11/17/23 Principal diagnosis: Right femoral neck fracture Patient seen and examined this morning. Patient is resting comfortably in bed. She does report pain into the right hip, medications will be adjusted. A-frame foam pillow has been placed between her knees to maintain hip precautions, no adduction of the right lower extremity, please make sure her knees are kept apart during rolling or repositioning patient. If patient needs to be rolled on side, please place pillow between knees and roll onto surgical hip. Randall catheter is present and patent. Continue to encourage patient to utilize incentive spirometer 10 times per hour while awake. No acute concerns at this time. Objective - Vital Signs Vital signs: Vital Signs Temp 98.6 F 11/17/23 01:46 Pulse 77 11/17/23 01:46 Resp 17 11/17/23 01:46 BP 106/46 11/17/23 01:46 Pulse Ox 98 11/17/23 01:46 FiO2 Intake & Output 11/16/23 11/17/23 11/17/23 18:59 06:59 18:59 Output Total 250 Balance -250 Output: Urine 250 Other: Voiding Method Indwelling Catheter Indwelling Catheter # Voids 1 - Exam Physical Examination General: The patient is awake and alert, in no acute distress. Skin: Skin is warm and dry with no obvious rashes or lesions. Surgical incision to right hip, dressing is CDI. Eye: Pupils are equal, round and reactive to light, extra-ocular movements are intact; there is normal conjunctiva bilaterally. Neck: The neck is supple, there is no tenderness and ROM intact. Cardiovascular: There is a regular rate and rhythm. No murmur, rub or gallop is appreciated. Respiratory: Respirations are non-labored, breath sounds are equal. Gastrointestinal: Soft, non-distended, non-tender abdomen. Back: There is no tenderness to palpation in the midline, paralumbar, parathoracic or buttocks region. There is no obvious deformity . Musculoskeletal: ROM limited secondary to pain and stiffness from surgical procedure. Right: Shoulder abduction 5/5, elbow flexors 5/5, wrist dorsiflexors 5/5. finger abductor 5/5, flatwork ironer 5/5, hip flexor 4-/5, knee flexor 4-/5, ankle dorsiflexor 4/5, ankle plantarflexion 4/5 and extensor hallucis 4/5. Left: Shoulder abduction 5/5, elbow flexors 5/5, wrist dorsiflexors 5/5. finger abductor 5/5, flatwork ironer 5/5, hip flexor 5/5, knee flexor 5/5, ankle dorsiflexor 5/5, ankle plantarflexion 5/5 and extensor hallucis 5/5. Neurological: CN 2-12 intact. There are no obvious motor or sensory deficits. Movement and coordination equal and intact. Sensory exam to light touch intact C5-T1 and intact from L2-S1. Reflexes 2/4 in bilateral upper and lower extremities. Negative Hoffmans, babinski, and clonus signs. Psychiatric: Cooperative, appropriate mood & affect, normal judgment. - Labs CBC & Chem 7: 11/17/23 03:23 11/15/23 05:13 Labs: Abnormal Lab Results - Last 24 Hours (Table) 11/16/23 11/16/23 11/16/23 Range/Units 08:32 11:57 16:30 WBC 15.3 H (3.8-10.6) k/uL RBC 3.29 L (3.80-5.40) m/uL Hgb 10.2 L (11.4-16.0) gm/dL Hct 33.1 L (34.0-46.0) % MCV 100.4 H (80.0-100.0) fL MCH (27.0-32.0) pg MCHC 30.8 L (31.0-37.0) g/dL Immature Gran # (0.00-0.04) X 10*3/uL Neutrophils # 14.2 H (1.3-7.7) k/uL Lymphocytes # 0.3 L (1.0-4.8) k/uL POC Glucose (mg/dL) 207 H 228 H (70-110) mg/dL 11/16/23 11/17/23 11/17/23 Range/Units 20:21 03:23 06:24 WBC 13.66 H (3.8-10.6) k/uL RBC 2.77 L (3.80-5.40) m/uL Hgb 8.9 L (11.4-16.0) gm/dL Hct 28.0 L (34.0-46.0) % MCV 101.1 H (80.0-100.0) fL MCH 32.1 H (27.0-32.0) pg MCHC 31.8 L (31.0-37.0) g/dL Immature Gran # 0.06 H (0.00-0.04) X 10*3/uL Neutrophils # 12.04 H (1.3-7.7) k/uL Lymphocytes # 0.52 L (1.0-4.8) k/uL POC Glucose (mg/dL) 177 H 117 H (70-110) mg/dL Assessment and Plan Assessment: Post-Op Day 2: Removal of right IM nail with right hip hemiarthroplasty Plan: -Appreciate webmethods consultant and team management. -Activity: Ambulate QID, OOB all meals, up and about, limit lifting bending twisting to less than 5 lbs. Use walker or cane if needed for stability. -Daily PT/OT, increase ambulation strength and balance. -Maintain Hip precautions -Pain control: Adequate at this time -Meds: reviewed -GI ppx: senna, Miralax -DC randall when up and about, bedside commode if needed -DVT PPX: Lovenox -Hygiene: Maintain dressing clean and dry. -Encourage IS 10x/hr -Dispo: Anticipate discharge to [facility] within the next 24hrs *I reviewed and discussed this case with my attending Dr. Newby, whom has reviewed this chart and films and is in agreement with assessment and plan of care as outlined above. I have personally seen and examined the patient, performed the documentation and the assessment and plan as written. Number of minutes spent on the visit: 20m.
[2023-11-17 11:01] LABS: ALT 78 U/L (8-44); AST 113 U/L (13-35); Albumin 2.4 g/dL (3.8-4.9); Albumin/Globulin Ratio 1.14 Ratio (1.60-3.17); Alkaline Phosphatase 392 U/L (41-126); Blood Urea Nitrogen 51.3 mg/dL (9.0-27.0); Calcium 7.6 mg/dL (8.7-10.3); Carbon Dioxide 28.9 mmol/L (21.6-31.8); Chloride 98 mmol/L (96-109); Globulin 2.1 g/dL (1.6-3.3); Glucose 129 mg/dL (70-110); Potassium 5.1 mmol/L (3.5-5.5); Sodium 135 mmol/L (135-145); Total Bilirubin 0.6 mg/dL (0.3-1.2); Total Protein 4.5 g/dL (6.2-8.2)
[2023-11-17] MEDS: traMADol 50 MG TAB PO PRN (11:11)
[2023-11-17 11:21] LABS: Glucose,Whole Blood 133 mg/dL (70-110)
[2023-11-17] MEDS: HYDROcodone/APAP 7.5-325MG 1 EACH TAB PO SCH (11:57)
[2023-11-17] MEDS: FERROUS SULFATE 325 MG TAB PO SCH (11:58)
--- NOTE | 2023-11-17 13:08 | P.PN ---
Subjective Progress Note Date: 11/16/23 HISTORY OF PRESENT ILLNESS: This is a 78-year-old female with a previous medical history signif icant for hypertension and hypertensive cardiovascular disease, hyperlipidemia, diabetes mellitus type 2, obesity, osteoarthritis, chronic low back pain, chronic kidney disease stage 3b, patient underwent a intramedullary nailing for a right intertrochanter Fracture about a year ago and she went to [facility] for subacute rehabilitation for quite some time, then she has been doing fine, using a walker at home, apparently the patient could not put a lot of pressure using a walker 2 weeks ago and she has been laying in bed not able to do a lot of things, up till yesterday when her daughter came and saw her in bed not able to do anything, they have decided to bring her to the ER for evaluation she has a battery of testing including CT scan of the brain without contrast that did not show evidence of acute intracranial bleed, patient did have a CT scan of the lumbar spine that showed degenerative disc disease without evidence of fracture patient also did have a CT of the pelvis that showed evidence of right femoral neck oblique fracture extended into the greater and lesser trochanter with co mminution, there was some description of erosive changes in that area, could be related to the fracture versus infectious process, patient was admitted to the hospital under my service, consult with orthopedic surgery initially Dr. Garcia was switched to consult since Dr. Santiago is not available to the on-call Orthopedic service this will be Dr. Bañuelos. 11/11: Consultation was [facility]els [facility] after long conversation with Dr. Bañuelos yesterday, since the patient was seen by Dr. Emerson in the past, knowing that he is not available at this point in time, or [facility] will accept the patient at this point in time, due to a failure of the nail and the patient ambulated to ambulate likely will require to have a right hemiarthroplasty at this point in time, we will consult cardiology for medical clearance, meanwhile patient will be maintained on her current medication, will continue to follow-up with the patient very closely. 11/12: Patient is seen in consultation by cardiology today in the morning, she was cleared for surgical intervention that is scheduled for Wednesday, November 15, 2023, she is going to have her screw removed, and she will go for right hem iarthroplasty by Dr. Flores send spoke with the nurse practitioner Emma regarding that, we will continue current treatment plan for now, continue Kay catheter for now, we will follow-up with the patient very closely. 11/13: Patient is laying down in bed in no apparent distress, she denies any chest pain, shortness of breath, she was cleared by cardiology to go for surgical intervention tomorrow afternoon, she has no abdominal pain, she had a bowel movement about 2 days ago, she has no other issues, she continues to have some pain in the right hip area, she is scheduled to go for right he miarthroplasty, we will follow-up with the patient very closely. 11/14: Patient is laying down in bed in no apparent distress, she is doing better, she is laying down in bed in no apparent distress, patient is scheduled to go for surgical intervention this afternoon, she has no other issues, she was started on IV fluid resuscitation she was taken off her diuretics, in anticipation for surgery and is to continue this for another 24 hours postsurgical intervention but will go back on her medication prior to surgery. 11/15: Patient underwent right hemiarthroplasty that was done yesterday she is c urrently down to have an x-ray of the right hip, her pain is not controlled and we will continue with Incentive spirometer and current pain treatment, PT and OT evaluation likely sub acute rehab REVIEW OF SYSTEMS: Constitutional: No documented fever, no chills, no night sweats. No weight change. No weakness, fatigue or lethargy. No daytime sleepiness. EENT: No headache. No blurred vision or double vision, no loss of vision. No loss of Hearing, no ringing in the ears, no dizziness. No nasal drainage or congestion. No epistaxis. No sore throat. Lungs: minimal shortness of breath, no cough, no sputum production. No wheezing. Reports dyspnea with activity. Cardiovascular: No chest pain, no lower extremity edema. No palpitations. No paroxysmal nocturnal dyspnea. No orthopnea. No lightheadedness or dizziness. No syncopal episodes. Abdominal: Reports no abdominal pain. No nausea, vomiting. No diarrhea. No constipation. No bloody or tarry stools reports loss of appetite. Genitourinary: No dysuria, increased frequency, urgency. No urinary retention. Musculoskeletal: No myalgias. positive for muscle weakness, positive for gait dysfunction, no frequent falls. positive for back pain. No neck pain. Integumentary: No wounds, no lesions. No rash or pruritus. No unusual bruising. No change in hair or nails. Neurologic: No aphasia. No facial droop. No change in mentation. No head injury. No headache. No paralysis. No paresthesia. Psychiatric: No depression. No anxiety. No mood swings. Endocrine: No abnormal blood sugars. No weight change. PHYSICAL EXAMINATION: General: 78-year-old female laying in bed in no apparent distress. HEENT: Head is atraumatic, normocephalic, pupils were equal round reactive to light and recommendation, extraocular muscle movement were intact, sclera nonicteric, conjunctivae were pale, mucous membranes of the mouth are somewhat dry. Neck: Supple, no JVP, normal carotid upstroke bilaterally, no lymphadenopathy. Chest: Decreased breath sounds at the bases, few rhonchi, no expiratory wheezes, no chest wall tenderness, no intercostal retractions. Heart: First heart sound is normal, second heart sound is normal there is systolic ejection murmur 2/6 in the left sternal border Abdomen: Soft, nontender, nondistended, positive bowel sounds. Extremities: There is no edema no calf tenderness DP +1 bilaterally, Neurologic examination: Patient is awake alert and oriented X3, cranial nerves II-12 appear grossly intact, muscle power were 5 out of 5 in upper extremities and patient is barely able to pick her right lower extremity off the mattress however she does not have any tenderness with range of motion, left lower extremity is 4 out of 5. ASSESSMENT AND PLAN: 1. Postoperative day #1 status post right hemiarthroplasty. Continue current pain management as ordered by orthopedic surgery, restart the patient on Lovenox 30 mg subcutaneously every 12 hours, continue with Incentive spirometer to reduce incidence of atelectasis and healthcare associate pneumonia, continue to monitor the patient very closely. Physical therapy and Occupational Therapy evaluation for possible subacute rehabilitation likely [facility]. 2. Hypertension and hypertensive cardiovascular disease. Continue patient on carvedilol 6.25 mg orally twice every day, losartan 100 mg once every day, monitor the patient very closely. 3. Mixed hyperlipidemia. Continue patient on atorvastatin 40 mg daily, as well as ezetimibe 10 mg once every day. 4. COPD. we will start DuoNeb 3 mL nebulization 4 times every day as needed. 5. Chronic diastolic heart failure appears stable at this time. Continue carvedilol 6.25 mg orally twice every day as well as losartan 50 mg orally once every day, continue patient on torsemide 20 mg orally once every day. 6. History of remote lung cancer status post partial lobectomy in 2007 7. Osteoarthritis. Continue current pain management. Continue the patient on Tylenol 650 mg orally every 4 hours as needed 8. Osteopenia/osteoporosis. Patient would benefit from Prolia injection 60 mg subcutaneously every 6 months as an outpatient. 9. Diabetes mellitus type 2. Decrease Levemir to 40 units at bedtime, along with a sliding scale insulin. 10. DVT prophylaxis. Continue on Lovenox 40 mg subcutaneously once every day. 11. GI prophylaxis. Continue famotidine 20 mg orally once every day 12. Chronic kidney disease stage III. Appears stable at this time, avoid hyp otension and nephrotoxins 13. Medical debility. Physical therapy evaluation will be put on hold until after orthopedic evaluation. 14. social service worker consultation for discharge planning likely subacute rehabilitation in order after surgical intervention Objective - Vital Signs Vital signs: Vital Signs Temp 97.5 F L 11/16/23 07:23 Pulse 80 11/16/23 07:23 Resp 18 11/16/23 07:23 BP 92/56 11/16/23 07:23 Pulse Ox 98 11/16/23 07:23 FiO2 Intake & Output 11/15/23 11/16/23 11/16/23 18:59 06:59 18:59 Intake Total 126 325 Output Total 350 160 Balance -224 165 Weight 129.274 kg Intake: IV 126 325 Output: Urine 150 160 Estimated Blood Loss 200 Other: Voiding Method Indwelling Catheter Indwelling Catheter - Labs CBC & Chem 7: 11/17/23 03:23 11/17/23 03:23 Labs: Abnormal Lab Results - Last 24 Hours (Table) 11/15/23 11/16/23 11/16/23 Range/Units 14:37 05:57 08:32 WBC 15.3 H (3.8-10.6) k/uL RBC 3.29 L (3.80-5.40) m/uL Hgb 10.2 L (11.4-16.0) gm/dL Hct 33.1 L (34.0-46.0) % MCV 100.4 H (80.0-100.0) fL MCHC 30.8 L (31.0-37.0) g/dL Neutrophils # 14.2 H (1.3-7.7) k/uL Lymphocytes # 0.3 L (1.0-4.8) k/uL POC Glucose (mg/dL) 159 H 179 H (70-110) mg/dL 11/16/23 Range/Units 11:57 WBC (3.8-10.6) k/uL RBC (3.80-5.40) m/uL Hgb (11.4-16.0) gm/dL Hct (34.0-46.0) % MCV (80.0-100.0) fL MCHC (31.0-37.0) g/dL Neutrophils # (1.3-7.7) k/uL Lymphocytes # (1.0-4.8) k/uL POC Glucose (mg/dL) 207 H (70-110) mg/dL
[2023-11-17 14:11] VITALS: BMI 48.9
[2023-11-17 16:59] LABS: Glucose,Whole Blood 164 mg/dL (70-110)
[2023-11-17 20:49] LABS: Glucose,Whole Blood 197 mg/dL (70-110)
[2023-11-18 06:14] LABS: Glucose,Whole Blood 121 mg/dL (70-110)
[2023-11-18 07:55] LABS: Basophils % (A) 0 %; Eosinophils # (A) 0.4 k/uL (0-0.7); Eosinophils % (A) 6 %; HCT 28.6 % (34.0-46.0); HGB 9.3 gm/dL (11.4-16.0); Lymphocytes # (A) 0.6 k/uL (1.0-4.8); Lymphocytes % (A) 8 %; MCH 31.9 pg (25.0-35.0); MCHC 32.5 g/dL (31.0-37.0); MCV 98.1 fL (80.0-100.0); Mean Platelet Volume 7.5; Monocytes # (A) 0.4 k/uL (0-1.0); Monocytes % (A) 6 %; Neutrophils % (A) 79 %; Platelet Count 228 k/uL (150-450); RBC 2.92 m/uL (3.80-5.40); RDW 14.2 % (11.5-15.5); WBC 7.6 k/uL (3.8-10.6)
[2023-11-18 08:02] LABS: African American GFR (CKD) 35 (>60 ml/min/1.73 sqM); Anion Gap 2 mmol/L; Blood Urea Nitrogen 64 mg/dL (7-17); Carbon Dioxide 30 mmol/L (22-30); Chloride 99 mmol/L (98-107); Glucose 103 mg/dL (74-99); Non-African American GFR(CKD) 30 (>60 ml/min/1.73 sqM); Potassium 4.8 mmol/L (3.5-5.1); Sodium 131 mmol/L (137-145)
--- NOTE | 2023-11-18 08:56 | P.PN ---
Subjective Progress Note Date: 11/17/23 HISTORY OF PRESENT ILLNESS: This is a 78-year-old female with a previous medical history signif icant for hypertension and hypertensive cardiovascular disease, hyperlipidemia, diabetes mellitus type 2, obesity, osteoarthritis, chronic low back pain, chronic kidney disease stage 3b, patient underwent a intramedullary nailing for a right intertrochanter Fracture about a year ago and she went to [facility] for subacute rehabilitation for quite some time, then she has been doing fine, using a walker at home, apparently the patient could not put a lot of pressure using a walker 2 weeks ago and she has been laying in bed not able to do a lot of things, up till yesterday when her daughter came and saw her in bed not able to do anything, they have decided to bring her to the ER for evaluation she has a battery of testing including CT scan of the brain without contrast that did not show evidence of acute intracranial bleed, patient did have a CT scan of the lumbar spine that showed degenerative disc disease without evidence of fracture patient also did have a CT of the pelvis that showed evidence of right femoral neck oblique fracture extended into the greater and lesser trochanter with co mminution, there was some description of erosive changes in that area, could be related to the fracture versus infectious process, patient was admitted to the hospital under my service, consult with orthopedic surgery initially Dr. Garcia was switched to consult since Dr. Santiago is not available to the on-call Orthopedic service this will be Dr. Bañuelos. 11/11: Consultation was [facility]els [facility] after long conversation with Dr. Bañuelos yesterday, since the patient was seen by Dr. Emerson in the past, knowing that he is not available at this point in time, or [facility] will accept the patient at this point in time, due to a failure of the nail and the patient ambulated to ambulate likely will require to have a right hemiarthroplasty at this point in time, we will consult cardiology for medical clearance, meanwhile patient will be maintained on her current medication, will continue to follow-up with the patient very closely. 11/12: Patient is seen in consultation by cardiology today in the morning, she was cleared for surgical intervention that is scheduled for Wednesday, November 15, 2023, she is going to have her screw removed, and she will go for right hem iarthroplasty by Dr. Flores send spoke with the nurse practitioner Emma regarding that, we will continue current treatment plan for now, continue Kay catheter for now, we will follow-up with the patient very closely. 11/13: Patient is laying down in bed in no apparent distress, she denies any chest pain, shortness of breath, she was cleared by cardiology to go for surgical intervention tomorrow afternoon, she has no abdominal pain, she had a bowel movement about 2 days ago, she has no other issues, she continues to have some pain in the right hip area, she is scheduled to go for right he miarthroplasty, we will follow-up with the patient very closely. 11/14: Patient is laying down in bed in no apparent distress, she is doing better, she is laying down in bed in no apparent distress, patient is scheduled to go for surgical intervention this afternoon, she has no other issues, she was started on IV fluid resuscitation she was taken off her diuretics, in anticipation for surgery and is to continue this for another 24 hours postsurgical intervention but will go back on her medication prior to surgery. 11/15: Patient underwent right hemiarthroplasty that was done yesterday she is c urrently down to have an x-ray of the right hip, her pain is not controlled and we will continue with Incentive spirometer and current pain treatment, PT and OT evaluation likely sub acute rehab 11/16: Patient continues to have pain in the right hip area, she stated that her pain is not well-controlled, she is sitting up in recliner, she denies any chest pain, she is using her incentive spirometer, she continues to work with physical therapy, the plan is to transfer the patient to [facility] when medically stable and surgically stable by orthopedic surgery. REVIEW OF SYSTEMS: Constitutional: No documented fever, no chills, no night sweats. No weight change. No weakness, fatigue or lethargy. No daytime sleepiness. EENT: No headache. No blurred vision or double vision, no loss of vision. No loss of Hearing, no ringing in the ears, no dizziness. No nasal drainage or congestion. No epistaxis. No sore throat. Lungs: minimal shortness of breath, no cough, no sputum production. No w heezing. Reports dyspnea with activity. Cardiovascular: No chest pain, no lower extremity edema. No palpitations. No paroxysmal nocturnal dyspnea. No orthopnea. No lightheadedness or dizziness. No syncopal episodes. Abdominal: Reports no abdominal pain. No nausea, vomiting. No diarrhea. No constipation. No bloody or tarry stools reports loss of appetite. Genitourinary: No dysuria, increased frequency, urgency. No urinary retention. Musculoskeletal: No myalgias. positive for muscle weakness, positive for gait dysfunction, no frequent falls. positive for back pain. No neck pain. Integumentary: Right hip wound is covered with a dressing., no lesions. No rash or pruritus. No unusual bruising. No change in hair or nails. Neurologic: No aphasia. No facial droop. No change in mentation. No head injury. No headache. No paralysis. No paresthesia. Psychiatric: No depression. No anxiety. No mood swings. Endocrine: No abnormal blood sugars. No weight change. PHYSICAL EXAMINATION: General: 78-year-old female laying in bed in no apparent distress. HEENT: Head is atraumatic, normocephalic, pupils were equal round reactive to light and recommendation, extraocular muscle movement were intact, sclera nonicteric, conjunctivae were pale, mucous membranes of the mouth are somewhat dry. Neck: Supple, no JVP, normal carotid upstroke bilaterally, no lymphadenopathy. Chest: Decreased breath sounds at the bases, few rhonchi, no expiratory wheezes, no chest wall tenderness, no intercostal retractions. Heart: First heart sound is normal, second heart sound is normal there is systolic ejection murmur 2/6 in the left sternal border Abdomen: Soft, nontender, nondistended, positive bowel sounds. Extremities: There is no edema no calf tenderness DP +1 bilaterally, Neurologic examination: Patient is awake alert and oriented X3, cranial nerves II-12 appear grossly intact, muscle power were 5 out of 5 in upper extremities and patient is barely able to pick her right lower extremity off the mattress however she does not have any tenderness with range of motion, left lower extremity is 4 out of 5. ASSESSMENT AND PLAN: 1. Postoperative day #2 status post right hemiarthroplasty. Continue current pain management as ordered by orthopedic surgery, restart the patient on Lovenox 30 mg subcutaneously every 12 hours, continue with Incentive spirometer to reduce incidence of atelectasis and healthcare associate pneumonia, continue to monitor the patient very closely. Physical therapy and Occupational Therapy evaluation for possible subacute rehabilitation likely [facility]. 2. Hypertension and hypertensive cardiovascular disease. Continue patient on carvedilol 6.25 mg orally twice every day, losartan 100 mg once every day, monitor the patient very closely. 3. Mixed hyperlipidemia. Continue patient on atorvastatin 40 mg daily, as well as ezetimibe 10 mg once every day. 4. COPD. we will start DuoNeb 3 mL nebulization 4 times every day as needed. 5. Chronic diastolic heart failure appears stable at this time. Continue carvedilol 6.25 mg orally twice every day as well as losartan 50 mg orally once every day, continue patient on torsemide 20 mg orally once every day. 6. History of remote lung cancer status post partial lobectomy in 2007 7. Osteoarthritis. Continue current pain management. Continue the patient on Tylenol 650 mg orally every 4 hours as needed 8. Osteopenia/osteoporosis. Patient would benefit from Prolia injection 60 mg subcutaneously every 6 months as an outpatient. 9. Diabetes mellitus type 2. Decrease Levemir to 40 units at bedtime, along with a sliding scale insulin. 10. DVT prophylaxis. Continue on Lovenox 30 mg subcutaneous every 12 hours. 11. GI prophylaxis. Continue famotidine 20 mg orally once every day 12. Chronic kidney disease stage III. Appears stable at this time, avoid hypot ension and nephrotoxins 13. Medical debility. Physical therapy evaluation will be put on hold until after orthopedic evaluation. 14. driver utility worker consultation for discharge planning likely subacute rehabilitation in order after surgical intervention Objective - Vital Signs Vital signs: Vital Signs Temp 97.7 F 11/17/23 07:52 Pulse 79 11/17/23 07:52 Resp 18 11/17/23 07:52 BP 105/64 11/17/23 07:52 Pulse Ox 91 L 11/17/23 07:52 FiO2 Intake & Output 11/16/23 11/17/23 11/17/23 18:59 06:59 18:59 Output Total 250 Balance -250 Output: Urine 250 Other: Voiding Method Indwelling Catheter Indwelling Catheter # Voids 1 - Labs CBC & Chem 7: 11/18/23 07:05 11/18/23 07:05 Labs: Abnormal Lab Results - Last 24 Hours (Table) 11/16/23 11/16/23 11/17/23 Range/Units 16:30 20:21 03:23 WBC 13.66 H (4.50-10.00) X 10*3/uL RBC 2.77 L (4.10-5.20) X 10*6/uL Hgb 8.9 L (12.0-15.0) g/dL Hct 28.0 L (37.2-46.3) % MCV 101.1 H (80.0-97.0) FL MCH 32.1 H (27.0-32.0) pg MCHC 31.8 L (32.0-37.0) g/dL Immature Gran # 0.06 H (0.00-0.04) X 10*3/uL Neutrophils # 12.04 H (1.80-7.70) X 10*3/uL Lymphocytes # 0.52 L (0.90-5.00) X 10*3/uL BUN (9.0-27.0) mg/dL Creatinine (0.6-1.5) mg/dL Est GFR (CKD-EPI) (>=60) BUN/Creatinine Ratio (12.00-20.00) Ratio Glucose (70-110) mg/dL POC Glucose (mg/dL) 228 H 177 H (70-110) mg/dL Calcium (8.7-10.3) mg/dL AST (13-35) U/L ALT (8-44) U/L Alkaline Phosphatase (41-126) U/L Total Protein (6.2-8.2) g/dL Albumin (3.8-4.9) g/dL Albumin/Globulin Ratio (1.60-3.17) Ratio 11/17/23 11/17/23 11/17/23 Range/Units 03:23 06:24 11:19 WBC (4.50-10.00) X 10*3/uL RBC (4.10-5.20) X 10*6/uL Hgb (12.0-15.0) g/dL Hct (37.2-46.3) % MCV (80.0-97.0) FL MCH (27.0-32.0) pg MCHC (32.0-37.0) g/dL Immature Gran # (0.00-0.04) X 10*3/uL Neutrophils # (1.80-7.70) X 10*3/uL Lymphocytes # (0.90-5.00) X 10*3/uL BUN 51.3 H (9.0-27.0) mg/dL Creatinine 2.3 H (0.6-1.5) mg/dL Est GFR (CKD-EPI) 21 L (>=60) BUN/Creatinine Ratio 22.30 H (12.00-20.00) Ratio Glucose 129 H (70-110) mg/dL POC Glucose (mg/dL) 117 H 133 H (70-110) mg/dL Calcium 7.6 L (8.7-10.3) mg/dL AST 113 H (13-35) U/L ALT 78 H (8-44) U/L Alkaline Phosphatase 392 H (41-126) U/L Total Protein 4.5 L (6.2-8.2) g/dL Albumin 2.4 L (3.8-4.9) g/dL Albumin/Globulin Ratio 1.14 L (1.60-3.17) Ratio
[2023-11-18 09:17] VITALS: RESP 16
--- NOTE | 2023-11-18 09:40 | P.PN ---
Subjective Progress Note Date: 11/18/23 Principal diagnosis: Right femoral neck fracture Patient seen and examined this morning. Patient is resting comfortably in bed. She does report pain into the right hip, medications will be adjusted. A-frame foam pillow needs to be placed between her knees to maintain hip precautions, no adduction of the right lower extremity, please make sure her knees are kept apart during rolling or repositioning patient. If patient needs to be rolled on side, please place pillow between knees and roll onto surgical hip. Randall catheter may be discontinued this morning. Continue to encourage patient to utilize incentive spirometer 10 times per hour while awake. No acute concerns at this time. Objective - Vital Signs Vital signs: Vital Signs Temp 98.1 F 11/18/23 01:05 Pulse 91 11/18/23 01:05 Resp 18 11/18/23 01:05 BP 123/56 11/18/23 01:05 Pulse Ox 93 L 11/18/23 01:05 FiO2 Intake & Output 11/17/23 11/18/23 11/18/23 18:59 06:59 18:59 Output Total 350 Balance -350 Weight 129.274 kg Output: Urine 350 Other: Voiding Method Indwelling Catheter - Exam Physical Examination General: The patient is awake and alert, in no acute distress. Skin: Skin is warm and dry with no obvious rashes or lesions. Surgical incision to right hip, dressing is CDI. Eye: Pupils are equal, round and reactive to light, extra-ocular movements are intact; there is normal conjunctiva bilaterally. Neck: The neck is supple, there is no tenderness and ROM intact. Cardiovascular: There is a regular rate and rhythm. No murmur, rub or gallop is appreciated. Respiratory: Respirations are non-labored, breath sounds are equal. Gastrointestinal: Soft, non-distended, non-tender abdomen. Back: There is no tenderness to palpation in the midline, paralumbar, parathoracic or buttocks region. There is no obvious deformity . Musculoskeletal: ROM limited secondary to pain and stiffness from surgical procedure. Right: Shoulder abduction 5/5, elbow flexors 5/5, wrist dorsiflexors 5/5. finger abductor 5/5, engine house helper 5/5, hip flexor 4-/5, knee flexor 4-/5, ankle dorsiflexor 4/5, ankle plantarflexion 4/5 and extensor hallucis 4/5. Left: Shoulder abduction 5/5, elbow flexors 5/5, wrist dorsiflexors 5/5. finger abductor 5/5, engine house helper 5/5, hip flexor 5/5, knee flexor 5/5, ankle dorsiflexor 5/5, ankle plantarflexion 5/5 and extensor hallucis 5/5. Neurological: CN 2-12 intact. There are no obvious motor or sensory deficits. Movement and coordination equal and intact. Sensory exam to light touch intact C5-T1 and intact from L2-S1. Reflexes 2/4 in bilateral upper and lower extremities. Negative Hoffmans, babinski, and clonus signs. Psychiatric: Cooperative, appropriate mood & affect, normal judgment. - Labs CBC & Chem 7: 11/18/23 07:05 11/18/23 07:05 Labs: Abnormal Lab Results - Last 24 Hours (Table) 11/17/23 11/17/23 11/17/23 Range/Units 03:23 11:19 16:58 RBC (3.80-5.40) m/uL Hgb (11.4-16.0) gm/dL Hct (34.0-46.0) % Lymphocytes # (1.0-4.8) k/uL Sodium (137-145) mmol/L BUN 51.3 H (9.0-27.0) mg/dL Creatinine 2.3 H (0.6-1.5) mg/dL Est GFR (CKD-EPI) 21 L (>=60) BUN/Creatinine Ratio 22.30 H (12.00-20.00) Ratio Glucose 129 H (70-110) mg/dL POC Glucose (mg/dL) 133 H 164 H (70-110) mg/dL Calcium 7.6 L (8.7-10.3) mg/dL AST 113 H (13-35) U/L ALT 78 H (8-44) U/L Alkaline Phosphatase 392 H (41-126) U/L Total Protein 4.5 L (6.2-8.2) g/dL Albumin 2.4 L (3.8-4.9) g/dL Albumin/Globulin Ratio 1.14 L (1.60-3.17) Ratio 11/17/23 11/18/23 11/18/23 Range/Units 20:47 06:10 07:05 RBC 2.92 L (3.80-5.40) m/uL Hgb 9.3 L (11.4-16.0) gm/dL Hct 28.6 L (34.0-46.0) % Lymphocytes # 0.6 L (1.0-4.8) k/uL Sodium (137-145) mmol/L BUN (9.0-27.0) mg/dL Creatinine (0.6-1.5) mg/dL Est GFR (CKD-EPI) (>=60) BUN/Creatinine Ratio (12.00-20.00) Ratio Glucose (70-110) mg/dL POC Glucose (mg/dL) 197 H 121 H (70-110) mg/dL Calcium (8.7-10.3) mg/dL AST (13-35) U/L ALT (8-44) U/L Alkaline Phosphatase (41-126) U/L Total Protein (6.2-8.2) g/dL Albumin (3.8-4.9) g/dL Albumin/Globulin Ratio (1.60-3.17) Ratio 11/17/ Range/Units 07:05 RBC (3.80-5.40) m/uL Hgb (11.4-16.0) gm/dL Hct (34.0-46.0) % Lymphocytes # (1.0-4.8) k/uL Sodium 131 L (137-145) mmol/L BUN 64 H (9.0-27.0) mg/dL Creatinine 1.59 H (0.6-1.5) mg/dL Est GFR (CKD-EPI) (>=60) BUN/Creatinine Ratio (12.00-20.00) Ratio Glucose 103 H (70-110) mg/dL POC Glucose (mg/dL) (70-110) mg/dL Calcium 8.0 L (8.7-10.3) mg/dL AST (13-35) U/L ALT (8-44) U/L Alkaline Phosphatase (41-126) U/L Total Protein (6.2-8.2) g/dL Albumin (3.8-4.9) g/dL Albumin/Globulin Ratio (1.60-3.17) Ratio Assessment and Plan Assessment: Post-Op Day 3: Removal of right IM nail with right hip hemiarthroplasty Plan: -Appreciate clinical science consultant and team management. -Activity: Ambulate QID, OOB all meals, up and about, limit lifting bending twisting to less than 5 lbs. Use walker or cane if needed for stability. -Daily PT/OT, increase ambulation strength and balance. -Maintain Hip precautions -Pain control: Adequate at this time -Meds: reviewed -GI ppx: senna, Miralax -DC randall this morning. -DVT PPX: Lovenox -Hygiene: Maintain dressing clean and dry. -Encourage IS 10x/hr -Dispo: Anticipate discharge to [facility] within the next 24hrs. *I reviewed and discussed this case with my attending Dr. Newby, whom has reviewed this chart and films and is in agreement with assessment and plan of care as outlined above. I have personally seen and examined the patient, performed the documentation and the assessment and plan as written. Number of minutes spent on the visit: 20m.
[2023-11-18 11:46] LABS: Glucose,Whole Blood 152 mg/dL (70-110)
--- NOTE | 2023-11-18 13:10 | P.DS ---
Providers Date of admission: 11/11/23 10:49 Expected date of discharge: 11/18/23 Attending physician: Mitra Malik Consults: 11/11/23 12:10 Consult Physician Routine Consulting Provider: Abisai Newby Consult Reason/Comments: right femoral neck fracture Do you want consulting provider notified?: Yes Primary care physician: Mitra Malik Hospital Course: HISTORY OF PRESENT ILLNESS: This is a 78-year-old female with a previous medical history significant for hypertension and hypertensive cardiovascular disease, hyperlipidemia, diabetes mellitus type 2, obesity, osteoarthritis, chronic low back pain, chronic kidney disease stage 3b, patient underwent a intramedullary nailing for a right intertrochanter Fracture about a year ago and she went to [facility] for subacute rehabilitation for quite some time, then she has been doing fine, using a walker at home, apparently the patient could not put a lot of pressure using a walker 2 weeks ago and she has been laying in bed not able to do a lot of things, up till yesterday when her daughter came and saw her in bed not able to do anything, they have decided to bring her to the ER for evaluation she has a battery of testing including CT scan of the brain without contrast that did not show evidence of acute intracranial bleed, patient did have a CT scan of the lumbar spine that showed degenerative disc disease without evidence of fracture patient also did have a CT of the pelvis that showed evidence of right femoral neck oblique fracture extended into the greater and lesser trochanter with comminution, there was some description of erosive changes in that area, could be related to the fracture versus infectious process, patient was admitted to the hospital under my service, consult with orthopedic surgery initially Dr. Garcia was switched to consult since Dr. Santiago is not available to the on-call Orthopedic service this will be Dr. Bañuelos. 11/11: Consultation was bowels back to [facility] after long conversation with Dr. Bañuelos yesterday, since the patient was seen by Dr. Emerson in the past, knowing that he is not available at this point in time, or Jose will accept the patient at this point in time, due to a failure of the nail and the patient ambulated to ambulate likely will require to have a right hemiarthroplasty at this point in time, we will consult cardiology for medical clearance, meanwhile patient will be maintained on her current medication, will continue to follow-up with the patient very closely. 11/12: Patient is seen in consultation by cardiology today in the morning, she was cleared for surgical intervention that is scheduled for Wednesday, November 15, 2023, she is going to have her screw removed, and she will go for right hemiarthroplasty by Dr. Flores send spoke with the nurse practitioner Emma regarding that, we will continue current treatment plan for now, continue Kay catheter for now, we will follow-up with the patient very closely. 11/13: Patient is laying down in bed in no apparent distress, she denies any chest pain, shortness of breath, she was cleared by cardiology to go for surgical intervention tomorrow afternoon, she has no abdominal pain, she had a bowel movement about 2 days ago, she has no other issues, she continues to have some pain in the right hip area, she is scheduled to go for right hemiarthroplasty, we will follow-up with the patient very closely. 11/14: Patient is laying down in bed in no apparent distress, she is doing better, she is laying down in bed in no apparent distress, patient is scheduled to go for surgical intervention this afternoon, she has no other issues, she was started on IV fluid resuscitation she was taken off her diuretics, in anticipation for surgery and is to continue this for another 24 hours postsurgical intervention but will go back on her medication prior to surgery. 11/15: Patient underwent right hemiarthroplasty that was done yesterday she is currently down to have an x-ray of the right hip, her pain is not controlled and we will continue with Incentive spirometer and current pain treatment, PT and OT evaluation likely sub acute rehab 11/16: Patient continues to have pain in the right hip area, she stated that her pain is not well-controlled, she is sitting up in recliner, she denies any chest pain, she is using her incentive spirometer, she continues to work with physical therapy, the plan is to transfer the patient to [facility] when medically stable and surgically stable by orthopedic surgery. 11/17: Patient is seen today by orthopedics and cleared for discharge. Blood pressure 145/76, heart rate 96, pulse ox 97% on 2 L nasal cannula. WBC 7.6, hemoglobin 9.3, platelet count 228. Sodium 131, potassium 4.8, BUN 64 creatinine 1.59. CBG running between 121 and 197. Discharge plan is for [facility] for subacute rehab. DISCHARGE DIAGNOSES: 1. Postoperative day #3 status post removal of right IM nail with right hemiarthroplasty, performed 11/14. 2. Hypertension and hypertensive cardiovascular disease. 3. Mixed hyperlipidemia. 4. COPD. 5. Chronic diastolic heart failure appears stable at this time. 6. History of remote lung cancer status post partial lobectomy in 2007 7. Osteoarthritis. 8. Osteopenia/osteoporosis. 9. Diabetes mellitus type 2. 10. Chronic kidney disease stage III. 13. Medical debility. Physical therapy evaluation will be put on hold until after orthopedic evaluation. DISCHARGE PLAN [facility] for subacute rehab Greater than 35 minutes was utilized and coordinating patient's discharge. Impression and plan of care have been directed as dictated by the signing physician. Patricia Villegas nurse practitioner acting as scribe for signing physician. Patient Condition at Discharge: Fair Plan - Discharge Summary New Discharge Prescriptions: New HYDROcodone/APAP 7.5-325MG [[place] 7.5-325] 1 each PO Q6HR #12 tab INSULIN ASPART (NovoLOG) [NovoLOG (formulary)] 0 unit SQ ACHS each Insulin Detemir (Levemir) [Levemir] 50 unit SQ HS each Ipratropium-Albuterol Nebulize [Duoneb 0.5 mg-3 mg/3 ml Soln] 3 ml INHALATION RT-QID PRN each PRN Reason: Shortness Of Breath Or Wheezing Ferrous Sulfate [Iron (65 MG Elemental)] 325 mg PO BID-W/MEALS tab Acetaminophen Tab [Tylenol] 650 mg PO Q6HR PRN tab PRN Reason: Fever And/ Or Pain Enoxaparin [Lovenox] 30 mg SQ Q12HR #60 each Continue Aspirin EC [Ecotrin Low Dose] 81 mg PO DAILY Ezetimibe [Zetia] 10 mg PO DAILY carvediloL [Coreg] 6.25 mg PO BID Atorvastatin [Lipitor] 80 mg PO DAILY Torsemide [Demadex] 20 mg PO DAILY Losartan Potassium 50 mg PO DAILY Discontinued Insulin Glargine,Hum.rec.anlog [Lantus Solostar Pen] 54 unit SQ DAILY Discharge Medication List Aspirin EC [Ecotrin Low Dose] 81 mg PO DAILY 10/15/22 [History] Ezetimibe [Zetia] 10 mg PO DAILY 10/15/22 [History] Torsemide [Demadex] 20 mg PO DAILY 01/20/23 [History] Atorvastatin [Lipitor] 80 mg PO DAILY 11/10/23 [History] Losartan Potassium 50 mg PO DAILY 11/10/23 [History] carvediloL [Coreg] 6.25 mg PO BID 11/10/23 [History] Acetaminophen Tab [Tylenol] 650 mg PO Q6HR PRN tab 11/18/23 [Rx] Enoxaparin [Lovenox] 30 mg SQ Q12HR #60 each 11/18/23 [Rx] Ferrous Sulfate [Iron (65 MG Elemental)] 325 mg PO BID-W/MEALS tab 11/18/23 [Rx] HYDROcodone/APAP 7.5-325MG [[place] 7.5-325] 1 each PO Q6HR #12 tab 11/18/23 [Rx] INSULIN ASPART (NovoLOG) [NovoLOG (formulary)] 0 unit SQ ACHS each 11/18/23 [Rx] Insulin Detemir (Levemir) [Levemir] 50 unit SQ HS each 11/18/23 [Rx] Ipratropium-Albuterol Nebulize [Duoneb 0.5 mg-3 mg/3 ml Soln] 3 ml INHALATION RT-QID PRN each 11/18/23 [Rx] Follow up Appointment(s)/Referral(s): Mitra Malik MD [Primary Care Provider] - 1-2 days Maria Guadalupe Mcdonald, [NON-STAFF] - As Needed Activity/Diet/Wound Care/Special Instructions: Activity: Ambulate QID, OOB all meals, up and about, limit lifting bending twisting to less than 5 lbs. Use walker or cane if needed for stability. -Daily PT/OT, increase ambulation strength and balance. -Maintain Hip precautions Discharge Disposition: TRANSFER TO SNF/ECF
[2023-11-18 15:32] VITALS: BP 96/59; PULSE 79; TEMP 97.9
== END 2023-11-18 15:46 | DRG 469 ==
LOC: EC 19:45 → 5NMEDONC 11-11 02:23 → 4SSUR 11-11 02:52 → OBSVTOIN 11-11 10:49
PROVIDERS: ADMIT Internal Medicine; ATTEND Internal Medicine
PROC: 0QH704Z Insertion of Internal Fixation Device into Left Upper Femur, Open Approach (ICD-10-PCS; principal; 2023-11-15 07:30)
PROC: 0QB60ZZ Excision of Right Upper Femur, Open Approach (ICD-10-PCS; principal; 2023-11-15 07:30)
PROC: 0QP604Z Removal of Internal Fixation Device from Right Upper Femur, Open Approach (ICD-10-PCS; principal; 2023-11-15 07:30)
PROC: 0SRR0JZ Replacement of Right Hip Joint, Femoral Surface with Synthetic Substitute, Open Approach (ICD-10-PCS; principal; 2023-11-15 07:30)
DX: T84.114A Breakdown (mechanical) of internal fixation device of right femur, initial encounter (principal); J96.01 Acute respiratory failure with hypoxia; Z68.42 Body mass index [BMI] 45.0-49.9, adult; I13.0 Hypertensive heart and chronic kidney disease with heart failure and stage 1 through stage 4 chronic kidney disease, or unspecified chronic kidney disease; I50.32 Chronic diastolic (congestive) heart failure; E66.01 Morbid (severe) obesity due to excess calories; E11.22 Type 2 diabetes mellitus with diabetic chronic kidney disease; N18.32 Chronic kidney disease, stage 3b; J44.9 Chronic obstructive pulmonary disease, unspecified; Z79.4 Long term (current) use of insulin; S72.141S Displaced intertrochanteric fracture of right femur, sequela; E86.0 Dehydration; E87.5 Hyperkalemia; E78.2 Mixed hyperlipidemia; M51.36 Other intervertebral disc degeneration, lumbar region; M19.90 Unspecified osteoarthritis, unspecified site; M81.0 Age-related osteoporosis without current pathological fracture; M85.80 Other specified disorders of bone density and structure, unspecified site; G89.29 Other chronic pain; R53.81 Other malaise; Y79.3 Surgical instruments, materials and orthopedic devices (including sutures) associated with adverse incidents; Z96.652 Presence of left artificial knee joint; Z90.2 Acquired absence of lung [part of]; Z79.82 Long term (current) use of aspirin; Z85.828 Personal history of other malignant neoplasm of skin; Z85.118 Personal history of other malignant neoplasm of bronchus and lung; Z79.51 Long term (current) use of inhaled steroids; Z79.899 Other long term (current) drug therapy; Z87.81 Personal history of (healed) traumatic fracture; Z91.81 History of falling
CPT/HCPCS: 36415; 70450; 71045; 71275; 72131; 72192; 73502; 80048; 80053; 81001; 83036; 83605; 83735; 83880; 84100; 84484; 85025; 85379; 85610; 85652; 85730; 86140; 86850; 86900; 86901; 87635; 93005; 93970; 94640; 96360; 99285

== ENCOUNTER 2023-12-23 12:27 | Inpatient (IN) | payer MEDICARE, BC ==
[2023-12-23 12:43] LABS: Glucose,Whole Blood 156 mg/dL (70-110)
[2023-12-23 13:08] LABS: Basophils % (A) 0 %; Eosinophils # (A) 0.3 k/uL (0-0.7); Eosinophils % (A) 4 %; HCT 27.6 % (34.0-46.0); HGB 8.8 gm/dL (11.4-16.0); Hypochromasia Slight; Lymphocytes % (A) 13 %; MCH 32.3 pg (25.0-35.0); MCHC 31.7 g/dL (31.0-37.0); Macrocytosis Slight; Monocytes # (A) 0.4 k/uL (0-1.0); Monocytes % (A) 5 %; Neutrophils # (A) 5.7 k/uL (1.3-7.7); Neutrophils % (A) 76 %; Platelet Count 270 k/uL (150-450); RBC 2.71 m/uL (3.80-5.40); WBC 7.4 k/uL (3.8-10.6)
--- NOTE | 2023-12-23 13:10 | ED ---
Extremity Problem HPI - General Chief complaint: Skin/Abscess/Foreign Body Stated complaint: R hip pain Time Seen by Provider: 12/23/23 12:43 Source: patient, EMS, RN notes reviewed Mode of arrival: EMS Limitations: no limitations - History of Present Illness Initial comments: This is an 78-year-old female who presents to the emergency department for right hip pain. Patient had surgery on the right hip in October after a previous surgery for femoral neck fracture had failed. States that she has been dealing with incision problems since then, in that it is not healing and having drainage. States that this is also increasingly painful. Not currently taking antibiotics. MD Complaint: extremity pain - Related Data Home Medications Medication Instructions Recorded Confirmed Aspirin EC [Ecotrin Low Dose] 81 mg PO DAILY@0800 10/15/22 12/23/23 Ezetimibe [Zetia] 10 mg PO DAILY@0800 10/15/22 12/23/23 Torsemide [Demadex] 20 mg PO DAILY@0800 01/20/23 12/23/23 Atorvastatin [Lipitor] 80 mg PO HS@2100 11/10/23 12/23/23 Losartan Potassium 50 mg PO DAILY@0800 11/10/23 12/23/23 carvediloL [Coreg] 6.25 mg PO BID@0800,1700 11/10/23 12/23/23 Acetaminophen Tab [Tylenol] 650 mg PO Q6HR 12/23/23 12/23/23 Citalopram Hydrobromide [CeleXA] 10 mg PO DAILY@0800 12/23/23 12/23/23 Enoxaparin [Lovenox] 30 mg SQ Q12HR@08,21 12/23/23 12/23/23 Famotidine [Pepcid] 20 mg PO DAILY@0600 12/23/23 12/23/23 Ferrous Sulfate [Iron (65 MG 325 mg PO BID@0800,1700 12/23/23 12/23/23 Elemental)] HYDROcodone/APAP 7.5-325MG [Marlin 1 tab PO Q6HR PRN 12/23/23 12/23/23 7.5-325] INSULIN ASPART (NovoLOG) [NovoLOG See Protocol SQ 12/23/23 12/23/23 (formulary)] ACHS@07,11,1630,2130 Insulin Detemir (Levemir) [Levemir] 42 unit SQ HS@209912/23/23 12/23/23 Ipratropium-Albuterol Nebulize 3 ml INHALATION RT-TID PRN 12/23/23 12/23/23 [Duoneb 0.5 mg-3 mg/3 ml Soln] Shivam Packet 1 packet PO BID@,12/23/23 12/23/23 Lactulose 20 gm PO DAILY@0812/23/23 12/23/23 Liquacel 30 ml PO BID@08,12/23/23 12/23/23 Magnesium Hydroxide [Milk of 7,200 mg PO DAILY PRN 12/23/23 12/23/23 Magnesia Concentrate] Na Phos,M-B/Na Phos,Di-Ba [Fleet 133 ml RECTAL DIRECTED PRN 12/23/23 12/23/23 Adult] Nystatin 100,000 Unit/gm Powd 1 applic TOPICAL TID 12/23/23 12/23/23 [Mycostatin Powder] Ondansetron [Zofran] 4 mg PO Q8H PRN 12/23/23 12/23/23 Sennosides/Docusate Sodium [Senna 2 cap PO HS@209912/23/23 12/23/23 Plus 8.6-50 mg Softgel] Tamsulosin [Flomax] 0.4 mg PO DAILY@0812/23/23 12/23/23 bisacodyL [Dulcolax] 10 mg RECTAL DAILY PRN 12/23/23 12/23/23 Allergies Allergy/AdvReac Type Severity Reaction Status Date / Time cephalexin Allergy Rash/Hives, Verified 12/23/23 17:14 redness, swelling Review of Systems ROS Statement: Those systems with pertinent positive or pertinent negative responses have been documented in the HPI. ROS Other: All systems not noted in ROS Statement are negative. Past Medical History Past Medical History: Cancer, Diabetes Mellitus, Hyperlipidemia, Hypertension Additional Past Medical History / Comment(s): hx. lung cancer 2006, current R femur fracture History of Any Multi-Drug Resistant Organisms: None Reported Past Surgical History: Cholecystectomy, Hernia Repair, Joint Replacement Additional Past Surgical History / Comment(s): partial lobectomy 2007, R femur surgery/hardware, total L knee Past Anesthesia/Blood Transfusion Reactions: No Reported Reaction Past Psychological History: No Psychological Hx Reported Smoking Status: Never smoker - Past Family History Mother Family Medical History: Cancer General Exam Limitations: no limitations General appearance: alert, in no apparent distress Head exam: Present: atraumatic, normocephalic, normal inspection Respiratory exam: Present: normal lung sounds bilaterally. Absent: respiratory distress, wheezes, rales, rhonchi, stridor Cardiovascular Exam: Present: regular rate, normal rhythm, normal heart sounds. Absent: systolic murmur, diastolic murmur, rubs, gallop, clicks Extremities exam: Present: other (Incision over the right hip is intact. Mild surrounding erythema and induration. Recent serosanguineous drainage) Neurological exam: Present: alert, oriented X3, CN II-XII intact Psychiatric exam: Present: normal affect, normal mood Course Vital Signs 12/23/23 12/23/23 12:29 17:28 Temperature 98 F Pulse Rate 65 64 Respiratory 18 19 Rate Blood Pressure 124/63 114/68 O2 Sat by Pulse 100 99 Oximetry Medical Decision Making - Medical Decision Making This is an 78-year-old female who presents to the emergency department for concerns of an infection to her right hip incision. Was pt. sent in by a medical professional or institution? @ -No Did you speak to anyone other than the patient for history? @ -No Did you review nursing and triage notes? @ -Yes, and I agree, it is accurate with regards to the patient's symptoms. Were old charts reviewed? @ -No Differential Diagnosis? @ -Cellulitis, abscess, seroma, this is not meant to be an all-inclusive list. EKG interpreted by me (3pts min.)? @ -Not obtained X-rays interpreted by me (1pt min.)? @ -Not obtained CT interpreted by me (1pt min.)? @ -CT scan of the right hip obtained. My interpretation identifies a fluid collection along the right lateral hip. U/S interpreted by me (1pt. min.)? @ -Not obtained What testing was considered but not performed? (CT, X-rays, U/S, labs)? Why? @ -None What meds were considered but not given? Why? @ -None Did you discuss the management of the patient with other professionals? @ -Yes, Dr. Malik, who advised speaking to orthopedics to confirm whether or not the patient can remain at this facility. Did you reconcile home meds? @ -Yes Was smoking cessation discussed for >3mins.? @ -No Was critical care preformed (if so, how long)? @ -No Were there social determinants of health that impacted care today? How? (Homelessness, low income, unemployed, alcoholism, drug addiction, transportation, low edu. Level, literacy, decrease access to med. care, half-way, rehab)? @ -No Was there de-escalation of care discussed even if they declined? (Discuss DNR or withdrawal of care, Hospice)? @ -No What co-morbidities impacted this encounter? (DM, HTN, Smoking, COPD, CAD, Cancer, CVA, Hep., AIDS, mental health diagnosis, sleep apnea, morbid obesity)? @ -DM Was patient admitted / discharged? @ -Admitted. Lab work demonstrates elevated inflammatory markers and was otherwise unremarkable. CT scan of the right hip obtained revealing 2 areas of fluid collection that may represent abscess versus seroma. She did have serosanguineous fluid on the bandage covering the incision. Culture obtained on 12/20 returned results of presumptive Staph aureus. Final culture pending. Case discussed with patient's PCP regarding admission. He advised reaching out to orthopedics to confirm whether or not they are comfortable keeping the patient at this facility. Patient was evaluated by Dr. Newby, orthopedics, who is agreeable to admitting the patient and will plan to take her to the OR tomorrow for a washout. She was started on vancomycin in the meantime. Consult placed for infectious disease as well. Case discussed with ED attending Dr. Burden. Undiagnosed new problem with uncertain prognosis? @ -None Drug Therapy requiring intensive monitoring for toxicity (Heparin, Nitro, Insulin, Cardizem)? @ -None Were any procedures done? @ -None Diagnosis/symptom? @ -Postoperative infection, incisional fluid collection Acute, or Chronic, or Acute on Chronic? @ -Acute Uncomplicated (without systemic symptoms) or Complicated (systemic symptoms)? @ -Uncomplicated Side effects of treatment? @ -None Exacerbation, Progression, or Severe Exacerbation] @ -Not applicable Poses a threat to life or bodily function? @ -Yes, worsening infection can lead to life-threatening complications. - Lab Data Result diagrams: 12/23/23 12:51 12/23/23 12:51 Lab Results 12/23/23 12/23/23 12/23/23 Range/Units 12:42 12:51 12:51 WBC 7.4 (3.8-10.6) k/uL RBC 2.71 L (3.80-5.40) m/uL Hgb 8.8 L (11.4-16.0) gm/dL Hct 27.6 L (34.0-46.0) % MCV 102.0 H (80.0-100.0) fL MCH 32.3 (25.0-35.0) pg MCHC 31.7 (31.0-37.0) g/dL RDW 15.0 (11.5-15.5) % Plt Count 270 (150-450) k/uL MPV 7.0 Neutrophils % 76 % Lymphocytes % 13 % Monocytes % 5 % Eosinophils % 4 % Basophils % 0 % Neutrophils # 5.7 (1.3-7.7) k/uL Lymphocytes # 1.0 (1.0-4.8) k/uL Monocytes # 0.4 (0-1.0) k/uL Eosinophils # 0.3 (0-0.7) k/uL Basophils # 0.0 (0-0.2) k/uL Hypochromasia Slight Macrocytosis Slight ESR 48 H (0-30) mm/Hr PT 10.7 (10.0-12.5) sec INR 1.0 (<1.2) APTT 24.2 (22.0-30.0) sec Sodium (137-145) mmol/L Potassium (3.5-5.1) mmol/L Chloride (98-107) mmol/L Carbon Dioxide (22-30) mmol/L Anion Gap mmol/L BUN (7-17) mg/dL Creatinine (0.52-1.04) mg/dL Est GFR (CKD-EPI)AfAm (>60 ml/min/1.73 sqM) Est GFR (CKD-EPI)NonAf (>60 ml/min/1.73 sqM) Glucose (74-99) mg/dL POC Glucose (mg/dL) 156 H (70-110) mg/dL POC Glu Test Man ID [place] Plasma Lactic Acid Terrell (0.7-2.0) mmol/L Calcium (8.4-10.2) mg/dL Total Bilirubin (0.2-1.3) mg/dL AST (14-36) U/L ALT (4-34) U/L Alkaline Phosphatase (38-126) U/L Total Protein (6.3-8.2) g/dL Albumin (3.5-5.0) g/dL 12/23/23 12/23/23 Range/Units 12:51 12:51 WBC (3.8-10.6) k/uL RBC (3.80-5.40) m/uL Hgb (11.4-16.0) gm/dL Hct (34.0-46.0) % MCV (80.0-100.0) fL MCH (25.0-35.0) pg MCHC (31.0-37.0) g/dL RDW (11.5-15.5) % Plt Count (150-450) k/uL MPV Neutrophils % % Lymphocytes % % Monocytes % % Eosinophils % % Basophils % % Neutrophils # (1.3-7.7) k/uL Lymphocytes # (1.0-4.8) k/uL Monocytes # (0-1.0) k/uL Eosinophils # (0-0.7) k/uL Basophils # (0-0.2) k/uL Hypochromasia Macrocytosis ESR (0-30) mm/Hr PT (10.0-12.5) sec INR (<1.2) APTT (22.0-30.0) sec Sodium 135 L (137-145) mmol/L Potassium 4.2 (3.5-5.1) mmol/L Chloride 94 L (98-107) mmol/L Carbon Dioxide 38 H (22-30) mmol/L Anion Gap 3 mmol/L BUN 44 H (7-17) mg/dL Creatinine 0.94 (0.52-1.04) mg/dL Est GFR (CKD-EPI)AfAm 66 (>60 ml/min/1.73 sqM) Est GFR (CKD-EPI)NonAf 58 (>60 ml/min/1.73 sqM) Glucose 135 H (74-99) mg/dL POC Glucose (mg/dL) (70-110) mg/dL POC Glu Test Man ID Plasma Lactic Acid Terrell 1.5 (0.7-2.0) mmol/L Calcium 8.0 L (8.4-10.2) mg/dL Total Bilirubin 0.7 (0.2-1.3) mg/dL AST 28 (14-36) U/L ALT 16 (4-34) U/L Alkaline Phosphatase 155 H (38-126) U/L Total Protein 5.4 L (6.3-8.2) g/dL Albumin 2.3 L (3.5-5.0) g/dL - Radiology Data Radiology results: report reviewed, image reviewed Disposition Clinical Impression: Postoperative complication, Postoperative infection, Fluid collection at surgical site Disposition: ADMITTED IP TO THIS HOSP
[2023-12-23 13:12] LABS: Partial Thromboplastin Time 24.2 sec (22.0-30.0); Prothrombin Time 10.7 sec (10.0-12.5)
[2023-12-23 13:14] LABS: ALT 16 U/L (4-34); AST 28 U/L (14-36); African American GFR (CKD) 66 (>60 ml/min/1.73 sqM); Albumin 2.3 g/dL (3.5-5.0); Alkaline Phosphatase 155 U/L (38-126); Blood Urea Nitrogen 44 mg/dL (7-17); Chloride 94 mmol/L (98-107); Glucose 135 mg/dL (74-99); Non-African American GFR(CKD) 58 (>60 ml/min/1.73 sqM); Potassium 4.2 mmol/L (3.5-5.1); Sodium 135 mmol/L (137-145); Total Bilirubin 0.7 mg/dL (0.2-1.3); Total Protein 5.4 g/dL (6.3-8.2)
[2023-12-23] MEDS: MORPHINE SULFATE 4 MG/ML SYRINGE IVP STA (13:20)
[2023-12-23] MEDS: KETOROLAC 15 MG/ML 1 ML VIAL IVP STA ×2 (13:20→15:59)
[2023-12-23 13:21] LABS: Anion Gap 3 mmol/L
[2023-12-23 13:38] LABS: Carbon Dioxide 38 mmol/L (22-30)
[2023-12-23] MEDS: SODIUM CHLORIDE 0.9% 1,000 ML IV STA (13:54)
[2023-12-23 15:03] LABS: Erythrocyte Sedimentation Rate 48 mm/Hr (0-30)
--- NOTE | 2023-12-23 15:10 | CT ---
EXAMINATION TYPE: CT hip RT w con CT DLP: 2236.6 mGycm, Automated exposure control for dose reduction was used. DATE OF EXAM: 12/23/2023 2:41 PM COMPARISON: Right hip radiographs 11/17/2023, 11/16/2023 CLINICAL INDICATION:Female, 78 years old with history of Recent postop infection, worsening pain; [facility] , TECHNIQUE: Axial images were obtained of the right hip after the administration of 100 mL of Isovue-3 70 intravenously. Additional coronal and sagittal reformatted images and soft tissue and bone window were obtained for review. FINDINGS: Postsurgical changes from right hip arthroplasty fixation. 2 additional screws identified within the greater trochanter. Hardware appears intact with appropriate alignment. Fracture lines from transvers e oriented proximal right femoral fracture present. Prior transverse screw removal involving the dist al aspect of the femoral component. Hardware creates streak artifact which limits evaluation. No acut e fracture or dislocation. No discrete joint effusion. Diffuse bone demineralization. Right lateral h ip subcutaneous fluid collection without internal gas measuring grossly 5.6 x 3.3 x 17.9 cm in TV, AP , CC dimensions. There is some slight rim enhancement identified. Skin thickening identified. Additio nal possible fluid collection measuring 4.7 x 2.3 x 7.0 cm along the posterior aspect of the proximal metadiaphyseal femur (series 204, image 79). Evaluation is severely limited due to streak artifact. Degenerative changes of the pubic symphysis. Degenerative changes of the bilateral SI joints. Kay c atheter in place with nondependent gas within the bladder likely from catheter placement. Sigmoid div erticulosis without evidence for acute diverticulitis. There are atherosclerotic calcifications aorta and its branches. IMPRESSION: 1. Postoperative changes from right hip fixation. This creates streak artifact also limits evaluatio n. Hardware appears intact with appropriate alignment. 2. Somewhat organized fluid collection along the right lateral hip subcutaneous tissues with some tr maxim rim enhancement without internal gas. May represent a seroma versus abscess in the appropriate cl inical setting. 3. Possible fluid collection along the posterior aspect of the right proximal femur metadiaphysis at the fracture site however evaluation is significantly limited due to streak artifact. Consider furth er evaluation with ultrasound. [facility], , 12/23/2023 3:08 PM
[2023-12-23] MEDS ORDERED: VANCOMYCIN IV PER PHARMACY 1 EACH MISC MISCELLANE PRN (15:26)
[2023-12-23] MEDS: VANCOMYCIN 2,000 MG in SODIUM CHLORIDE 0.9% 500 ML 500 ML IVPB STA (16:40)
[2023-12-23] MEDS ORDERED: ONDANSETRON 4 MG/2 ML VIAL IVP PRN (16:52)
[2023-12-23] MEDS ORDERED: NALOXONE 0.4 MG/ML 1 ML VIAL IV PRN (16:52)
[2023-12-23] MEDS ORDERED: HYDROcodone/APAP 5-325MG 1 EACH TAB PO PRN (16:52)
[2023-12-23] MEDS ORDERED: ACETAMINOPHEN TAB 325 MG TAB PO PRN (16:52)
--- NOTE | 2023-12-23 17:00 | P.CNOR ---
History of Present Illness - HPI Consult date: 12/23/23 (PT SEEN AND EVALUATED IN ED ) Consult reason: joint pain History of present illness: 78 yo female presents to the ED from her care facility due to drainage from the right hip and pain. She recently had a revision of her hip with exchange nail for a hemiarthroplasty. She did well from this and followed up in office recently doing well. Over the past three to 5 days she has had increased swelling in her right hip with now drainage from it. She was placed on ABX out pt, but it did not get better and so she was sent to the ED for evaluation. Daughter at bedside states she was doing very well from her surgery, but that over these past days again her pain increased and she was having more difficulty getting around. She was starting to do more walking and was doing well with this. She states no f/c/sob/cp at this time. She states drainage from her right hip and pain and swelling. No pain with movement of the right hip at this time. No other issues. No falls. No trauma. Review of Systems 16 point ROS completed and as stated in HPI. All other systems reviewed nega tive. Past Medical History Past Medical History: Cancer, Diabetes Mellitus, Hyperlipidemia, Hypertension Additional Past Medical History / Comment(s): hx. lung cancer 2006, current R femur fracture History of Any Multi-Drug Resistant Organisms: None Reported Past Surgical History: Cholecystectomy, Hernia Repair, Joint Replacement Additional Past Surgical History / Comment(s): partial lobectomy 2007, R femur surgery/hardware, total L knee Past Anesthesia/Blood Transfusion Reactions: No Reported Reaction Past Psychological History: No Psychological Hx Reported Smoking Status: Never smoker - Past Family History Mother Family Medical History: Cancer Medications and Allergies Home Medications Medication Instructions Recorded Confirmed Type Aspirin EC [Ecotrin Low Dose] 81 mg PO DAILY 10/15/22 11/10/23 History Ezetimibe [Zetia] 10 mg PO DAILY 10/15/22 11/10/23 History Torsemide [Demadex] 20 mg PO DAILY 01/20/23 11/10/23 History Atorvastatin [Lipitor] 80 mg PO DAILY 11/10/23 11/10/23 History Losartan Potassium 50 mg PO DAILY 11/10/23 11/10/23 History carvediloL [Coreg] 6.25 mg PO BID 11/10/23 11/10/23 History Acetaminophen Tab [Tylenol] 650 mg PO Q6HR PRN tab 11/18/23 Rx Enoxaparin [Lovenox] 30 mg SQ Q12HR #60 each 11/18/23 Rx Ferrous Sulfate [Iron (65 MG 325 mg PO BID-W/MEALS tab 11/18/23 Rx Elemental)] HYDROcodone/APAP 7.5-325MG [[place] 1 each PO Q6HR #12 tab 11/18/23 Rx 7.5-325] INSULIN ASPART (NovoLOG) [NovoLOG 0 unit SQ ACHS each 11/18/23 Rx (formulary)] Insulin Detemir (Levemir) [Levemir] 50 unit SQ HS each 11/18/23 Rx Ipratropium-Albuterol Nebulize 3 ml INHALATION RT-QID PRN each 11/18/23 Rx [Duoneb 0.5 mg-3 mg/3 ml Soln] Allergies Allergy/AdvReac Type Severity Reaction Status Date / Time cephalexin Allergy Rash/Hives, Verified 11/15/23 14:51 redness, swelling Physical Examination Osteopathic Statement: *. No significant issues noted on an osteopathic structural exam other than those noted in the History and Physical/Consult. Physical Exam: -Patient is alert and oriented 3 appears well-nourished well-hydrated is in no acute distress. Obese body habitus with large anterior pannus. They do not appear septic. -There is TTP Bilateral hip Incision is mostly healed except for the proximal aspect for there is a small tract which is noted. Dressing is saturated with serosanguineous like drainage however no fluid could be expressed from this on palpation. There is fluctuance noted however. -Upper extremities show [5] out of 5 strength in all major muscle groups. -Lower extremities with 4- out of 5 strength in all major muscle groups Except the right lower extremity which has difficulty with motion secondary to her surgery which is good dorsiflexion and plantar flexion at this time. -There is [FROM] that is [painless] of the b/l UE and LE in all major joints. There is negative logroll of the right hip. No real pain with motion and passive or active the right hip. -They are intact to light touch sensation in C5 to T1 and L2 to S1 nerve distribution. -DTR [2]/4 all upper and lower extremities -Patient has palpable distal pulses all 4 ext -2+ pitting edema bilateral lower extremities -Compartments are soft and compressible. -Patient shows a negative Enrico's Cranial nerves II through XII are grossly intact. Results EXAMINATION TYPE: CT hip RT w con CT DLP: 2236.6 mGycm, Automated exposure control for dose reduction was used. DATE OF EXAM: 12/23/2023 2:41 PM COMPARISON: Right hip radiographs 11/17/2023, 11/16/2023 CLINICAL INDICATION:Female, 78 years old with history of Recent postop infection, worsening pain; [facility], TECHNIQUE: Axial images were obtained of the right hip after the administration of 100 mL of Isovue-370 intravenously. Additional coronal and sagittal reformatted images and soft tissue and bone window were obtained for review. FINDINGS: Postsurgical changes from right hip arthroplasty fixation. 2 additional screws identified within the greater trochanter. Hardware appears intact with appropriate alignment. Fracture lines from transverse oriented proximal right femoral fracture present. Prior transverse screw removal involving the distal aspect of the femoral component. Hardware creates streak artifact which limits evaluation. No acute fracture or dislocation. No discrete joint effusion. Diffuse bone demineralization. Right lateral hip subcutaneous fluid collection without internal gas measuring grossly 5.6 x 3.3 x 17.9 cm in TV, AP, CC dimensions. There is some slight rim enhancement identified. Skin thickening identified. Additional possible fluid collection measuring 4.7 x 2.3 x 7.0 cm along the posterior aspect of the proximal metadiaphyseal femur (series 204, image 79). Evaluation is severely limited due to streak artifact. Degenerative changes of the pubic symphysis. Degenerative changes of the bilateral SI joints. Kay catheter in place with nondependent gas within the bladder likely from catheter placement. Sigmoid diverticulosis without evidence for acute diverticulitis. There are atherosclerotic calcifications aorta and its branches. IMPRESSION: 1. Postoperative changes from right hip fixation. This creates streak artifact also limits evaluation. Hardware appears intact with appropriate alignment. 2. Somewhat organized fluid collection along the right lateral hip subcutaneous tissues with some trace rim enhancement without internal gas. May represent a seroma versus abscess in the appropriate clinical setting. 3. Possible fluid collection along the posterior aspect of the right proximal femur metadiaphysis at the fracture site however evaluation is significantly limited due to streak artifact. Consider further evaluation with ultrasound. I reviewed the computed tomography scan as well and I agree with this read - Labs Labs: Abnormal Lab Results - Last 24 Hours (Table) 12/23/23 12/23/23 12/23/23 Range/Units 12:42 12:51 12:51 RBC 2.71 L (3.80-5.40) m/uL Hgb 8.8 L (11.4-16.0) gm/dL Hct 27.6 L (34.0-46.0) % MCV 102.0 H (80.0-100.0) fL ESR 48 H (0-30) mm/Hr Sodium 135 L (137-145) mmol/L Chloride 94 L (98-107) mmol/L Carbon Dioxide 38 H (22-30) mmol/L BUN 44 H (7-17) mg/dL Glucose 135 H (74-99) mg/dL POC Glucose (mg/dL) 156 H (70-110) mg/dL Calcium 8.0 L (8.4-10.2) mg/dL Alkaline Phosphatase 155 H (38-126) U/L Total Protein 5.4 L (6.3-8.2) g/dL Albumin 2.3 L (3.5-5.0) g/dL H & H 12/23/23 Range/Units 12:51 Hgb 8.8 L (11.4-16.0) gm/dL Hct 27.6 L (34.0-46.0) % Coagulation 12/23/23 Range/Units 12:51 INR 1.0 (<1.2) Result Diagrams: 12/23/23 12:51 12/23/23 12:51 Assessment and Plan (1) Drainage from wound Current Visit: Yes Status: Acute Code(s): T14.8XXA - OTHER INJURY OF UNSPECIFIED BODY REGION, INITIAL ENCOUNTER SNOMED Code(s): 717046894 (2) History of hemiarthroplasty of right hip Current Visit: Yes Status: Acute Code(s): Z96.641 - PRESENCE OF RIGHT ARTIFICIAL HIP JOINT SNOMED Code(s): 809902635 (3) Debility, unspecified Current Visit: Yes Status: Acute Code(s): R53.81 - OTHER MALAISE SNOMED Code(s): 96687270 (4) Morbid obesity with BMI of 50.0-59.9, adult Current Visit: Yes Status: Acute Code(s): E66.01 - MORBID (SEVERE) OBESITY DUE TO EXCESS CALORIES; Z68.43 - BODY MASS INDEX [BMI] 50.0-59.9, ADULT SNOMED Code(s): 658517244 (5) Hip pain, right Current Visit: Yes Status: Acute Code(s): M25.551 - PAIN IN RIGHT HIP SNOMED Code(s): 77433033 (6) Hardware failure Current Visit: No Status: Acute Code(s): OBJ2260 - SNOMED Code(s): 186754407 (7) Hip fracture, intertrochanteric Current Visit: No Status: Acute Code(s): S72.143A - DISPLACED INTERTROCHANTERIC FRACTURE OF UNSP FEMUR, INIT SNOMED Code(s): 352699090 (8) Weakness Current Visit: No Status: Acute Code(s): R53.1 - WEAKNESS SNOMED Code(s): 72342241 Plan: Orthopedic Surgery Risk Review Fe Spaulding is a 78-year-old female presenting for evaluation of Right hip pain, Swelling, drainage andinability to ambulate after Her previous surgery injury and now her revision surgery. It was my pleasure to have seen and examined Fe. In our visit today we have had a chance to go over subjective complaints, physical examination findings and treatments including the natural course history without intervention and various interventional options. Her imaging demonstrates Fluid collection subcutaneously around the right hip with questionable tracking deep. Hip prosthesis is in good position without evidence of fracture failure migration.. On physical exam, Fe demonstrates pain with motion of Right lower extremity, which is NV intact at this time. There is drainage from the right hip which is serosanguineous in nature with foul- smelling. I have explained to the patient that this fracture needs stabilization. Based on the patients imaging, physical exam, and the rapid progression and disabling nature of her symptoms, at this time I recommend surgery in the form or a: Incision and drainage with irrigation and debridement right hip I discussed the risk and benefits of this procedure at length with Fe Spaulding Questions were invited and answered, and the patient wishes to proceed as outlined below. Currently, I am recommendin. Incision and drainage with irrigation and debridement right hip plan for 12/24/2023 @ noon. 2. Review of surgical risks and benefits as well as an educational packet on the proposed surgical procedure. 3. Admission to hospital under medicine with Medical clearance for surgery 4. ID consultation for abx recommendation and PICC line 5. Pain control PRN 6. GI ppx. [facility] DVT ppx at this time only. Risks: All surgical procedures come with inherent risks, including those related to positioning, anesthesia, intraoperative findings, and postoperative complications. It is important to understand that surgery does not come with any guarantee of a successful outcome as complications and adverse events are always possible. The patient was given a handout discussing the surgical procedure and risks associated with the intervention, both of which were discussed with the patient. These risks include but are not limited to the following: - Experiencing same, different or even worse symptoms compared to before surgery. - Requiring further surgery or other forms of treatment presently or at some time in the future . - On an extreme but fortunately relatively rare basis severe complication such as blindness, stroke, heart attack, temporary and/or permanent nerve inju ry, paralysis, coma, or may occur, sometimes without known explanation. - Surgical complications may include but are not limited to risk of infection, fluid accumulation in the surgical dissection site, including a seroma or hematoma, that requires additional surgery, wound drainage, bleeding, new numbness or weakness, vision changes/loss, spinal fluid leakage, non-healing and/or infected incision, headaches, difficulty or inability to swallow, hoarseness, hemopneumothorax, pneumothorax, injury to nerves, spinal cord, blood vessels, lymphatics or other vital organs (i.e., bowel injury, injury to the great vessels); heterotopic bone formation; complications related to the hardware such as screws, rods, including misplaced hardware, device failure, hardware fracture/breakage, or hardware loosening; retained surgical instrumentations or devices and the need for further surgery. - Medical risks of the planned surgery include but are not limited to generalized Infections to the whole body or local areas outside of the surgical site (sepsis), heart attack, bleeding, anaphylaxis, meningitis, seizure, epilepsy, hearing loss, burn cadena, laceration of the head or other areas of the body, bruising, hypersensitivity of the skin, bladder over distension; allergic reaction; shoulder injury related to positioning; fat, blood and air clots to other areas of the body like heart, lungs, brain; failure of internal organs such as lungs, kidneys, liver and excessive bleeding. If blood transfusions are necessary, note that transfusions may cause intolerance reactions such as anaphylaxis or other complex reactions. Despite best efforts, the results of surgery might not heal in terms of bone, soft tissues such as skin, fascia, ligaments, and joints. [facility] has multiple operating rooms with single and overlapping rooms running daily. They currently function under the required guidelines as produced by the [facility] Finance Committee with regards to the overlapping rooms and will continue to comply with changes to this policy as they occur. The requirements include and are complied with as follows: (1) the critical portions of the overlapping rooms will not occur at the same time, (2) the attending physician will be physically present during the critical portions of the procedure and immediately available during the entire case, and (3) a back-up attending is designated should the primary attending not be immediately available. The patient has had a chance to review all the listed information, has been given print outs detailing this information, and has had all his/her questions answered to their satisfaction. It was my pleasure to have seen and examined Fe Spaulding. In our visit today we have had a chance to go over my understanding of our patient's current condition, the natural course history without intervention and various interventional options. Questions were invited and answered, and the patient wishes to proceed as outlined above. I have seen and examined the patient for 25 minutes and we have spent more than 50% of the time in repeat and detailed counseling about the patient's condition, its natural course history with out and as much as can be predicted with surgery and re-review of various surgical treatment options. In conclusion, Fe Spaulding in her daughter requested we proceed with the above suggested surgery and are willing to accept risks and limitations of the suggested surgery as nature of the disease process and our best attempts at treatment for the condition. Thank you again for allowing us to be part of your patient's care. Please don't hesitate to contact me if you have any further questions. Signed and authenticated by: Abisai Newby DO [facility] [address] [place], [address] [address]
[2023-12-23] MEDS: MORPHINE SULFATE 4 MG/ML SYRINGE IV PRN (18:06)
[2023-12-23] MEDS ORDERED: MAGNESIUM HYDROXIDE 2,400 MG/30 ML CUP PO PRN (19:27)
[2023-12-23] MEDS ORDERED: bisacodyL 10 MG SUPP RECTAL PRN (19:27)
[2023-12-23] MEDS ORDERED: IPRATROPIUM-ALBUTEROL 3 ML NEB INHALATION PRN (19:27)
[2023-12-23] MEDS ORDERED: ONDANSETRON 4 MG TAB PO PRN (19:27)
[2023-12-23] MEDS ORDERED: NA PHOS,M-B/NA PHOS,DI-BA 133 ML ENEMA RECTAL PRN (19:27)
[2023-12-23 20:56] LABS: Glucose,Whole Blood 194 mg/dL (70-110)
[2023-12-23] MEDS: SENNOSIDES-DOCUSATE SODIUM 1 EACH TAB PO SCH (21:32)
[2023-12-23] MEDS: ENOXAPARIN 30 MG/0.3 ML SYRINGE SQ SCH (21:37)
[2023-12-23] MEDS: INSULIN DETEMIR (LEVEMIR) 100 UNIT/ML SYR SQ SCH (21:37)
[2023-12-23] MEDS: NYSTATIN 100,000 UNIT/GM POWD 15 GM TOPICAL SCH (21:37)
[2023-12-23] MEDS: ATORVASTATIN 80 MG TAB PO SCH (21:37)
[2023-12-23] MEDS: HYDROcodone/APAP 7.5-325MG 1 EACH TAB PO PRN (21:38)
[2023-12-23] MEDS: ACETAMINOPHEN TAB 325 MG TAB PO SCH (23:22)
[2023-12-24] MEDS: FAMOTIDINE 20 MG TAB PO SCH (05:06)
--- NOTE | 2023-12-24 06:04 | P.CONS ---
History of Present Illness - Reason for Consult Consult date: 12/23/23 Medical management Requesting physician: Abisai Newby - Chief Complaint Infected right hip prosthesis post right hemiarthroplasty - History of Present Illness HISTORY OF PRESENT ILLNESS: This is a 78-year-old female with a previous medical history significant for hypertension and hypertensive cardiovascular disease, hyperlipidemia, diabetes mellitus type 2, obesity, osteoarthritis, chronic low back pain, chronic kidney disease stage 3b, patient underwent a intramedullary nailing for a right intertrochanter Fracture about a year ago and she went to [facility] for subacute rehabilitation for quite some time, then she was doing fine, using a walker at home when all of a sudden she could not put any pressure on the right lower extremity patient ended up staying in bed for quite some time, until her family brought her to the ER at that time she was found to have a failure of the intramedullary nailing that was placed about a year ago in December 2022 and she was seen by orthopedic and the intramedullary nailing was removed and the patient underwent right hemiarthroplasty that was done on November 15, [address] Newby, patient was sent to [facility] for physical therapy rehabilitation I have been following the patient on a regular basis, patient was also following up with Dr. Newby but recently the patient developed to have a significant drainage from the right hip area initially the patient was started on cephalexin 500 mg orally 3 times every day for 10 days which made the wound appeared to be better, patient had her parul removed from her surgeon and few days later patient developed to have a significant swelling and drainage from the upper part of the incision with a brown bloody discharge material were sent for culture showed presumptive Staphylococcus aureus patient was not able to put any pressure on the right lower extremity she was sent to the ER for CT scan of the right lower extremity that showed to a pocket of fluid collection cannot rule out abscesses versus seroma patient did not have any white count at this time, patient will be admitted to the hospital until orthopedic surgery we have been consulted for medical management orthopedic surgery was consulted, patient is scheduled to go to a washout tomorrow morning and she was started already on IV antibiotic in the form of vancomycin deep culture will be done as well as blood culture will be done at the same time we will follow-up with the patient while she is in the hospital. REVIEW OF SYSTEMS: Constitutional: No documented fever, no chills, no night sweats. No weight change. Positive for weakness, fatigue or lethargy. No daytime sleepiness. EENT: No headache. No blurred vision or double vision, no loss of vision. No loss of Hearing, no ringing in the ears, no dizziness. No nasal drainage or congestion. No epistaxis. No sore throat. Lungs: minimal shortness of breath, no cough, no sputum production. No wheezing. Reports dyspnea with activity. Cardiovascular: No chest pain, no lower extremity edema. No palpitations. No paroxysmal nocturnal dyspnea. No orthopnea. No lightheadedness or dizziness. No syncopal episodes. Abdominal: Reports no abdominal pain. No nausea, vomiting. No diarrhea. No constipation. No bloody or tarry stools reports loss of appetite. Genitourinary: No dysuria, increased frequency, urgency. No urinary retention. Musculoskeletal: No myalgias. positive for muscle weakness, positive for gait dysfunction, no frequent falls. positive for back pain. No neck pain. Integumentary: right hip incision appears to be swollen with minimal drainage tender to touch., no lesions. No rash or pruritus. No unusual bruising. No change in hair or nails. Neurologic: No aphasia. No facial droop. No change in mentation. No head injury. No headache. No paralysis. No paresthesia. Psychiatric: No depression. No anxiety. No mood swings. Endocrine: No abnormal blood sugars. No weight change. PAST MEDICAL HISTORY: Hypertension and hypertensive cardiovascular disease. Hyperlipidemia. Obesity. Diabetes mellitus type 2. COPD. History of lung cancer status post lobectomy 2007. Osteoarthritis. Osteoporosis. Spondylosis of the lumbar spine. PAST SURGICAL HISTORY: Partial lobectomy 2008 Cholecystectomy Hernia repair Skin cancer from the nose SOCIAL HISTORY: Patient is lifelong nonsmoker, she denies any alcohol ingestion, she uses a walker for ambulation, currently her grandson lives with her. FAMILY HISTORY: Father at age 71 from emphysema, mother at age of 52 from cervical cancer, patient had 3 brothers one from [place] one from motor vehicle accident and the third one on the side step to , patient had 2 sisters one from [place] and the other one from dementia, patient has one daughter and one son are healthy, her daughter lives in [facility] PHYSICAL EXAMINATION: General: 78-year-old female laying in bed in no apparent distress. HEENT: Head is atraumatic, normocephalic, pupils were equal round reactive to light and recommendation, extraocular muscle movement were intact, sclera nonicteric, conjunctivae were pale, mucous membranes of the mouth are somewhat dry. Neck: Supple, no JVP, normal carotid upstroke bilaterally, no lymphadenopathy. Chest: Decreased breath sounds at the bases, few rhonchi, no expiratory wheezes, no chest wall tenderness, no intercostal retractions. Heart: First heart sound is normal, second heart sound is normal there is systolic ejection murmur 2/6 in the left sternal border Abdomen: Soft, nontender, nondistended, positive bowel sounds. Extremities: There is no edema no calf tenderness DP +1 bilaterally, right hip incision appears to be with minimal swelling and tenderness and minimal drainage from the upper part of it of bloody brownish material. Neurologic examination: Patient is awake alert and oriented X3, cranial nerves II-12 appear grossly intact, muscle power were 5 out of 5 in upper extremities and patient is barely able to pick her right lower extremity off the mattress, left lower extremity is 3 out of 5 in intensity. ASSESSMENT AND PLAN: 1. Infected right hemiarthroplasty presumably with Staphylococcus aureus based on initial cultures from [facility]. Patient was admitted and orthopedic surgery, patient is scheduled to go for a washout tomorrow morning, and revision of the right hemiarthroplasty, blood cultures were obtained, deep cultures will be done aerobic and anaerobic, start the patient on IV antibiotic in the form of vancomycin 2000 g of piggyback every 24 hours, pharmacy to dose peak and trough, infectious ease consultation, continue current pain management, continue IV fluid, follow-up with the patient very closely. 2. Acute kidney injury due to poor oral intake of fluid and possible sepsis and chronic kidney disease stage III. Start the patient on IV fluid in the form of normal saline at 150 cc an hour, discontinue torsemide for now. 2. Hypertension and hypertensive cardiovascular disease. Continue patient on carvedilol 6.25 mg orally twice every day, losartan 100 mg once every day, monitor the patient very closely. 3. Mixed hyperlipidemia. Continue patient on atorvastatin 80 mg daily, as well as ezetimibe 10 mg once every day. 4. COPD. Continue patient on DuoNeb 3 mL nebulization 4 times every day as needed. 5. Chronic diastolic heart failure appears stable at this time. Continue carvedilol 6.25 mg orally twice every day as well as losartan 50 mg orally once every day, will hold off torsemide for now. 6. History of remote lung cancer status post partial lobectomy in 2007 7. Osteoarthritis. Continue current pain management. Start the patient on Tylenol 650 mg orally every 4 hours as needed patient patient also has morphine sulfate as needed, along with hydrocodone 7.5 mg every 6 hours as needed. 8. Osteopenia/osteoporosis, patient will be required to be started on Prolia as an outpatient. 9. Diabetes mellitus type 2. Decrease Levemir to 42 units at bedtime, along with a sliding scale insulin. 10. DVT prophylaxis. We will start the patient on Lovenox 30 mg subcutaneous every 12 hours after the procedure discontinue Lovenox for now. 11. GI prophylaxis. Continue famotidine 20 mg orally once every day, continue Protonix 40 mg IV push every 24 hours. 12. Chronic kidney disease stage III. Appears stable at this time, avoid hypotension and nephrotoxins, start the patient on IV fluid resuscitation in the form of normal saline at 150 cc an hour. 13. Medical debility. Physical therapy evaluation. After surgery. 14. Social work consultation for discharge planning to subacute rehabilitation at [facility]. 15. Thank you for the consult we will follow with you. Past Medical History Past Medical History: Cancer, Diabetes Mellitus, Hyperlipidemia, Hypertension Additional Past Medical History / Comment(s): hx. lung cancer 2006, current R femur fracture History of Any Multi-Drug Resistant Organisms: None Reported Past Surgical History: Cholecystectomy, Hernia Repair, Joint Replacement Additional Past Surgical History / Comment(s): partial lobectomy 2007, R femur surgery/hardware, total L knee Past Anesthesia/Blood Transfusion Reactions: No Reported Reaction Past Psychological History: No Psychological Hx Reported Additional Psychological History / Comment(s): Pt's grandson resides with her. She uses a walker. Smoking Status: Never smoker Past Alcohol Use History: None Reported Past Drug Use History: None Reported - Past Family History Mother Family Medical History: Cancer Medications and Allergies Home Medications Medication Instructions Recorded Confirmed Type Aspirin EC [Ecotrin Low Dose] 81 mg PO DAILY@79910/15/22 12/23/23 History Ezetimibe [Zetia] 10 mg PO DAILY@79910/15/22 12/23/23 History Torsemide [Demadex] 20 mg PO DAILY@0800 01/20/23 12/23/23 History Atorvastatin [Lipitor] 80 mg PO HS@2100 11/10/23 12/23/23 History Losartan Potassium 50 mg PO DAILY@0800 11/10/23 12/23/23 History carvediloL [Coreg] 6.25 mg PO BID@0800,1700 11/10/23 12/23/23 History Acetaminophen Tab [Tylenol] 650 mg PO Q6HR 12/23/23 12/23/23 History Citalopram Hydrobromide [CeleXA] 10 mg PO DAILY@0800 12/23/23 12/23/23 History Enoxaparin [Lovenox] 30 mg SQ Q12HR@,12/23/23 12/23/23 History Famotidine [Pepcid] 20 mg PO DAILY@0600 12/23/23 12/23/23 History Ferrous Sulfate [Iron (65 MG 325 mg PO BID@0800,1700 12/23/23 12/23/23 History Elemental)] HYDROcodone/APAP 7.5-325MG [Madison 1 tab PO Q6HR PRN 12/23/23 12/23/23 History 7.5-325] INSULIN ASPART (NovoLOG) [NovoLOG See Protocol SQ 12/23/23 12/23/23 History (formulary)] ACHS@07,11,1630,2130 Insulin Detemir (Levemir) [Levemir] 42 unit SQ HS@209912/23/23 12/23/23 History Ipratropium-Albuterol Nebulize 3 ml INHALATION RT-TID PRN 12/23/23 12/23/23 History [Duoneb 0.5 mg-3 mg/3 ml Soln] Shivam Packet 1 packet PO BID@,12/23/23 12/23/23 History Lactulose 20 gm PO DAILY@0800 12/23/23 12/23/23 History Liquacel 30 ml PO BID@08,12/23/23 12/23/23 History Magnesium Hydroxide [Milk of 7,200 mg PO DAILY PRN 12/23/23 12/23/23 History Magnesia Concentrate] Na Phos,M-B/Na Phos,Di-Ba [Fleet 133 ml RECTAL DIRECTED PRN 12/23/23 12/23/23 History Adult] Nystatin 100,000 Unit/gm Powd 1 applic TOPICAL TID 12/23/23 12/23/23 History [Mycostatin Powder] Ondansetron [Zofran] 4 mg PO Q8H PRN 12/23/23 12/23/23 History Sennosides/Docusate Sodium [Senna 2 cap PO HS@2100 12/23/23 12/23/23 History Plus 8.6-50 mg Softgel] Tamsulosin [Flomax] 0.4 mg PO DAILY@0800 12/23/23 12/23/23 History bisacodyL [Dulcolax] 10 mg RECTAL DAILY PRN 12/23/23 12/23/23 History Allergies Allergy/AdvReac Type Severity Reaction Status Date / Time cephalexin Allergy Rash/Hives, Verified 12/23/23 17:14 redness, swelling Physical Exam Vitals: Vital Signs Temp Pulse Pulse Resp BP BP Pulse Ox 12/24/23 00:42 98.2 F 74 16 99/55 94 L 12/23/23 20:09 97.9 F 67 19 97/53 96 12/23/23 17:28 64 19 114/68 99 12/23/23 12:29 98 F 65 18 124/63 100 Intake and Output 12/23/23 12/23/23 12/24/23 14:59 22:59 06:59 Output Total 400 Balance -400 Output: Urine 400 Other: Voiding Method Indwelling Catheter Weight 136.078 kg 136.078 kg Results CBC & Chem 7: 12/23/23 12:51 12/23/23 12:51 Labs: Abnormal Lab Results - Last 24 Hours (Table) 12/23/23 12/23/23 12/23/23 Range/Units 12:42 12:51 12:51 RBC 2.71 L (3.80-5.40) m/uL Hgb 8.8 L (11.4-16.0) gm/dL Hct 27.6 L (34.0-46.0) % MCV 102.0 H (80.0-100.0) fL ESR 48 H (0-30) mm/Hr Sodium 135 L (137-145) mmol/L Chloride 94 L (98-107) mmol/L Carbon Dioxide 38 H (22-30) mmol/L BUN 44 H (7-17) mg/dL Glucose 135 H (74-99) mg/dL POC Glucose (mg/dL) 156 H (70-110) mg/dL Calcium 8.0 L (8.4-10.2) mg/dL Alkaline Phosphatase 155 H (38-126) U/L C-Reactive Protein 1.80 H (0.00-0.80) mg/dL Total Protein 5.4 L (6.3-8.2) g/dL Albumin 2.3 L (3.5-5.0) g/dL 12/23/23 Range/Units 20:55 RBC (3.80-5.40) m/uL Hgb (11.4-16.0) gm/dL Hct (34.0-46.0) % MCV (80.0-100.0) fL ESR (0-30) mm/Hr Sodium (137-145) mmol/L Chloride (98-107) mmol/L Carbon Dioxide (22-30) mmol/L BUN (7-17) mg/dL Glucose (74-99) mg/dL POC Glucose (mg/dL) 194 H (70-110) mg/dL Calcium (8.4-10.2) mg/dL Alkaline Phosphatase (38-126) U/L C-Reactive Protein (0.00-0.80) mg/dL Total Protein (6.3-8.2) g/dL Albumin (3.5-5.0) g/dL
[2023-12-24] MEDS: SODIUM CHLORIDE 0.9% 1,000 ML IV SCH (06:32)
[2023-12-24 06:41] LABS: ALT 32 U/L (4-34); AST 55 U/L (14-36); African American GFR (CKD) 51 (>60 ml/min/1.73 sqM); Albumin 2.3 g/dL (3.5-5.0); Albumin/Globulin Ratio 0.8; Alkaline Phosphatase 321 U/L (38-126); Anion Gap -5 mmol/L; Blood Urea Nitrogen 49 mg/dL (7-17); Calcium 7.7 mg/dL (8.4-10.2); Carbon Dioxide 40 mmol/L (22-30); Chloride 97 mmol/L (98-107); Glucose 76 mg/dL (74-99); Non-African American GFR(CKD) 44 (>60 ml/min/1.73 sqM); Potassium 4.3 mmol/L (3.5-5.1); Sodium 132 mmol/L (137-145); Total Bilirubin 0.8 mg/dL (0.2-1.3); Total Protein 5.3 g/dL (6.3-8.2)
[2023-12-24 06:43] LABS: Glucose,Whole Blood 87 mg/dL (70-110)
--- NOTE | 2023-12-24 06:57 | XR ---
EXAMINATION TYPE: XR chest 1V DATE OF EXAM: 12/24/2023 CLINICAL HISTORY: Preoperative study TECHNIQUE: Single AP portable frontal upright view of the chest is obtained. COMPARISON: Chest x-ray November 15, 2023 FINDINGS: There is no focal air space opacity, pleural effusion, or pneumothorax seen. Persistent ca rdiomegaly. Persistent triangular opacity inferior right heart border corresponding to prominent angeles cardial fat pad. The osseous structures are intact. IMPRESSION: Cardiomegaly without acute pulmonary process. [facility], , 12/24/2023 6:55 AM
[2023-12-24 07:27] LABS: Basophils % (A) 0 %; Eosinophils # (A) 0.5 k/uL (0-0.7); Eosinophils % (A) 6 %; HCT 26.6 % (34.0-46.0); HGB 8.4 gm/dL (11.4-16.0); Hypochromasia Slight; Lymphocytes # (A) 0.7 k/uL (1.0-4.8); Lymphocytes % (A) 8 %; MCH 32.5 pg (25.0-35.0); MCHC 31.8 g/dL (31.0-37.0); MCV 102.3 fL (80.0-100.0); Macrocytosis Slight; Mean Platelet Volume 7.5; Monocytes # (A) 0.4 k/uL (0-1.0); Monocytes % (A) 5 %; Neutrophils # (A) 7.3 k/uL (1.3-7.7); Neutrophils % (A) 81 %; Platelet Count 311 k/uL (150-450); RDW 15.4 % (11.5-15.5); WBC 9.1 k/uL (3.8-10.6)
[2023-12-24 07:36] LABS: Partial Thromboplastin Time 24.7 sec (22.0-30.0); Prothrombin Time 10.5 sec (10.0-12.5)
[2023-12-24] MEDS ORDERED: TORSEMIDE 20 MG TAB PO SCH (08:00)
[2023-12-24] MEDS ORDERED: NON FORMULARY DRUG (Liquacel 30 ML) PO SCH (08:00)
[2023-12-24] MEDS ORDERED: NON FORMULARY DRUG (Juven Packet 1 PACKET Packet) PO SCH (08:00)
[2023-12-24] MEDS: PANTOPRAZOLE 40 MG/10 ML VIAL IV SCH (08:37)
[2023-12-24] MEDS: LACTULOSE 20 GM/30 ML CUP PO SCH (08:37)
[2023-12-24] MEDS: TAMSULOSIN 0.4 MG CAP.ER.24H PO SCH (08:37)
[2023-12-24] MEDS: LOSARTAN 50 MG TAB PO SCH (08:37)
[2023-12-24] MEDS: FERROUS SULFATE 325 MG TAB PO SCH (08:37)
[2023-12-24] MEDS: CITALOPRAM HYDROBROMIDE 10 MG TAB PO SCH (08:37)
[2023-12-24] MEDS: carvediloL 6.25 MG TAB PO SCH (08:37)
[2023-12-24] MEDS: EZETIMIBE 10 MG TAB PO SCH (08:37)
[2023-12-24] MEDS ORDERED: GENTAMICIN 400 MG in SODIUM CHLORIDE 0.9% 100 ML IVPB PRN (10:00)
[2023-12-24 12:04] LABS: Glucose,Whole Blood 56 mg/dL (70-110)
[2023-12-24 12:09] LABS: Glucose,Whole Blood 84 mg/dL (70-110)
[2023-12-24 14:07] VITALS: BMI 51.5
[2023-12-24] MEDS: TRANEXAMIC ACID 1,000 MG in SODIUM CHLORIDE 0.9% 100 ML IVPB ONE ×2 (14:49→14:52)
[2023-12-24] MEDS: DEXTROSE 5%-0.45% NACL 1,000 ML IV SCH (14:52)
--- NOTE | 2023-12-24 15:05 | P.OP ---
Date of Procedure: 12/24/23 Preoperative Diagnosis: Current Active Problems Debility, unspecified (Acute) Drainage from wound (Acute) Fluid collection at surgical site (Acute) Hip pain, right (Acute) History of hemiarthroplasty of right hip (Acute) Morbid obesity with BMI of 50.0-59.9, adult (Acute) Postoperative complication (Acute) Postoperative infection (Acute) Postoperative Diagnosis: Current Active Problems Debility, unspecified (Acute) Drainage from wound (Acute) Fluid collection at surgical site (Acute) Hip pain, right (Acute) History of hemiarthroplasty of right hip (Acute) Morbid obesity with BMI of 50.0-59.9, adult (Acute) Postoperative complication (Acute) Postoperative infection (Acute) Procedure(s) Performed: INCISION AND DRAINAGE WITH IRRIGATION AND DEBRIDEMENT RIGHT HIP 25 x 12 x 10 cm USING THE FOLLOWING: -SKIN KNIFE TO REMOVE AND FRESHEN SKIN EDGESS -CURETTE TO DEBRIDE SOFT TISSUE AND FASCIA -RONGURE TO DEBRIDE BONE AND MUSCLE -IRRIGANT 3L ANCEF SOLUTION; 3 L GENTAMYCIN SOLUTION; 6L NSS; 3L IRRICEPT; 2 L BETADINE 1L HYDROX SOLOTION 3%; 6L NSS COMPLEX CLOSURE, 4 LAYER OVER DRAIN, 25 x12 x 10 cm RIGHT HIP PLACEMENT OF ANTIBIOTIC BEADS DEEP RIGHT HIP Implants: none Anesthesia: PRAMODA Surgeon: Abisai Newby Medical Orderly #1: Dorina Lara (WAS PRESENT AND ASSISTED WITH ALL ASPECTS OF THE CASE FROM POSITION TO DRESSING PLACEMENT) Estimated Blood Loss (ml): 200 IV fluids (ml): 1,000 Urine output (ml): 300 Pathology: none sent Condition: stable Disposition: PACU Indications for Procedure: Fe Spaulding is a 78-year-old female presenting for evaluation of Right hip pain, Swelling, drainage andinability to ambulate after Her previous surgery injury and now her revision surgery. It was my pleasure to have seen and examined Fe. In our visit today we have had a chance to go over subjective complaints, physical examination findings and treatments including the natural course history without intervention and various interventional options. Her imaging demonstrates Fluid collection subcutaneously around the right hip with questionable tracking deep. Hip prosthesis is in good position without evidence of fracture failure migration.. On physical exam, Fe demonstrates pain with motion of Right lower extremity, which is NV intact at this time. There is drainage from the right hip which is serosanguineous in nature with foul- smelling. I have explained to the patient that this fracture needs stabilization. Based on the patients imaging, physical exam, and the rapid progression and disabling nature of her symptoms, at this time I recommend surgery in the form or a: Incision and drainage with irrigation and debridement right hip I discussed the risk and benefits of this procedure at length with Fe Spaulding Questions were invited and answered, and the patient wishes to proceed as outlined below. Description of Procedure: I&D RIGHT HIP The patient was seen and examined in the preoperative area. All preoperative protocols were followed. Informed consent was obtained, risks and benefits of the procedure were discussed at length. Risks including bleeding infection damage to the surrounding tissue and risk of reoperation were discussed with the patient. Risk of anesthesia up to and including was discussed with the patient. These are outlined in the risk reviewed. They were willing to accept these risks and all of the risks of surgery. The patient was given a weight- based dose of antibiotics in the form of VANCOMYCIN scheduled dosage. The patient was seen and evaluated by the anesthesia team who deemed them fit for surgery. The site was marked, the patient was willing to proceed with the procedure. The patient was transferred to the operative suite by the Department of anesthesia. There were then drifted off to sleep by the department of anesthesia and GETA anesthesia was used. Once adequate anesthesia had been obtained the patient was carefully transferred to the operative bed. All bony prominences were padded accordingly. SCDs were placed on the nonoperative lower extremities. Arms were well padded. She was then placed in the left lateral decubitus position, axillary role was placed. Pegs were placed appropriately and well padded. Pads were placed under the non operative leg to protect the peronal nerve. She was secured to the table with a safety strap. 1015 were placed around the operative field. Preoperative briefing was done with the operative team and everyone was ready for the procedure to start. The patients RLE was then prepped and draped in the normal sterile fashion. Timeout was then performed and all parties in agreement with the procedure to be performed. Skin incision was made over the previous incision site, lateral over the right hip, and there was bloody hematoma return. Superficial cultures were taken. Blunt dissection was then taken down to the TFL which was still intact. There was flucctuence that was palpated deep to the TFL. The TFL was then split in line with its fibers and again hematoma was evacuated from the deep space. Deep and intermediate cultures were taken as well as tissue from the deep hematoma was sent for culture. We then debrided the area with rongure, curette, skin knife removing any necrotic or devitalized tissue. Bone was debrided with rongure and made to bleed over the lateral aspect as to create a bleeding bed for ST to attach to for healing. The implant was then inspected. The hip was still located and stable. The posterior capsule and elements were devitalized. Scarring was happening, but slowly. The prosthesis was intact and fitting well and stable. We then irrigated with 1L Irricept and let to sit for 1 min followed by a washout of NSS. Betadine was then flushed through the wound and deep space with motion of the hip followed by a NSS wash. We then irrigated with a 3% hydrox solution and washed this out. We then mechanically debrided the prosthesis with a sterile chlorhexadine scrub brush x2. This was then irrigated with NSS. Ancef solution and Gentamicin solution were then run through the wound as well and let to sit for 1 min. We then irrigated while debriding the superficial, intermediate and deep space until the initial 12L of irrigant was completed. We then Mechanically debrided and washed the prosthesis again with a chlorhexadine scrub brush. We then washed with 1L of betadine again letting stand 1 min followed by 2 more L Irricept solution letting stand 1 min each with a NSS wash inbetween each. We then finally washed with 6L NSS finishing the debridment. ABX beads were then placed deep in the wound. A deep drain was placed and secured to the skin. We then proceeded to layered closure. Deep capsule layer was attempted to be closed, tissue was very friable. We then closed the TFL with #1 PDS. The deep subq was closed with 0 PDS. Vancomycin powder was placed in the deep and superficial subQ tissues. We then closed the more superficial sub Q layer with 0 PDS stratafix. The superficial subq was closed with 2-0 Vicryl and the skin was approximated with 2-0 nylon in a horizontal mattress fashion. Wound edges approximated and everted well. To aid in tension, parul were place din the skin where needed. The wound was then cleaned and dressed steril with a incisional wound vac which was cut to size and then clear sheets placed over. A hole was cut for the suction tube. It was attached to the wound vac on low continuous suction at 125 mmHg with good seal and no leaks. Drain had good suction as well. The patient was then transferred back to their hospital bed. There were awakened by department of anesthesia having tolerated the procedure very well with no complications. An abduction pillow was placed. The patient was then transported to the postoperative care unit in stable condition having tolerated the procedure with no complications.
--- NOTE | 2023-12-24 15:43 | P.PN ---
Subjective Progress Note Date: 12/24/23 HISTORY OF PRESENT ILLNESS: This is a 78-year-old female with a previous medical history signif icant for hypertension and hypertensive cardiovascular disease, hyperlipidemia, diabetes mellitus type 2, obesity, osteoarthritis, chronic low back pain, chronic kidney disease stage 3b, patient underwent a intramedullary nailing for a right intertrochanter Fracture about a year ago and she went to [facility] for subacute rehabilitation for quite some time, then she was doing fine, using a walker at home when all of a sudden she could not put any pressure on the right lower extremity patient ended up staying in bed for quite some time, until her family brought her to the ER at that time she was found to have a failure of the intramedullary nailing that was placed about a year ago in December 2022 and she was seen by orthopedic and the intramedullary nailing was removed and the patient underwent right hemiarthroplasty that was done on November 15, [address] Newby, patient was sent to [facility] for physical therapy rehabilitation I have been following the patient on a regular basis, patient was also following up with Dr. Newby but recently the patient developed to have a significant drainage from the right hip area initially the patient was started on cephalexin 500 mg orally 3 times every day for 10 days which made the wound appeared to be better, patient had her parul removed from her surgeon and few days later patient developed to have a significant swelling and drainage from the upper part of the incision with a brown bloody discharge material were sent for cultur e showed presumptive Staphylococcus aureus patient was not able to put any pressure on the right lower extremity she was sent to the ER for CT scan of the right lower extremity that showed to a pocket of fluid collection cannot rule out abscesses versus seroma patient did not have any white count at this time, patient will be admitted to the hospital until orthopedic surgery we have been consulted for medical management orthopedic surgery was consulted, patient is scheduled to go to a washout tomorrow morning and she was started already on IV antibiotic in the form of vancomycin deep culture will be done as well as blood culture will be done at the same time we will follow-up with the patient while she is in the hospital. 12/23: Patient just got back from the OR she underwent incision and drainage as well as irrigation of right hemiarthroplasty with a wound VAC placement that was done today by Dr. Newby, patient is laying down in bed in no apparent distress, she stated that her pain is well-controlled, she has a wound VAC in place, she is currently on D5 half-normal saline at 75 cc an hour, she did have episode of hypoglycemia, she did receive 42 units last night, we will decrease her Lantus to 32 units at bedtime monitor the patient symptoms very closely, continue with a sliding scale insulin for now, continue current pain management, infectious disease consultation from Dr. Goode, continue vancomycin 2 g IV piggyback every 24 hours, pharmacy to dose its peak and trough. REVIEW OF SYSTEMS: Constitutional: No documented fever, no chills, no night sweats. No weight c hange. Positive for weakness, fatigue or lethargy. No daytime sleepiness. EENT: No headache. No blurred vision or double vision, no loss of vision. No loss of Hearing, no ringing in the ears, no dizziness. No nasal drainage or congestion. No epistaxis. No sore throat. Lungs: minimal shortness of breath, no cough, no sputum production. No wheezing. Reports dyspnea with activity. Cardiovascular: No chest pain, no lower extremity edema. No palpitations. No paroxysmal nocturnal dyspnea. No orthopnea. No lightheadedness or dizziness. No syncopal episodes. Abdominal: Reports no abdominal pain. No nausea, vomiting. No diarrhea. No constipation. No bloody or tarry stools reports loss of appetite. Genitourinary: No dysuria, increased frequency, urgency. No urinary retention. Musculoskeletal: No myalgias. positive for muscle weakness, positive for gait dysfunction, no frequent falls. positive for back pain. No neck pain. Integumentary: There are wound VAC to the right hip with a drain in place.., no lesions. No rash or pruritus. No unusual bruising. No change in hair or nails. Neurologic: No aphasia. No facial droop. No change in mentation. No head injury. No headache. No paralysis. No paresthesia. Psychiatric: No depression. No anxiety. No mood swings. Endocrine: No abnormal blood sugars. No weight change. PHYSICAL EXAMINATION: General: 78-year-old female laying in bed in no apparent distress. HEENT: Head is atraumatic, normocephalic, pupils were equal round reactive to light and recommendation, extraocular muscle movement were intact, sclera nonicteric, conjunctivae were pale, mucous membranes of the mouth are somewhat dry. Neck: Supple, no JVP, normal carotid upstroke bilaterally, no lymphadenopathy. Chest: Decreased breath sounds at the bases, few rhonchi, no expiratory wheezes, no chest wall tenderness, no intercostal retractions. Heart: First heart sound is normal, second heart sound is normal there is systolic ejection murmur 2/6 in the left sternal border Abdomen: Soft, nontender, nondistended, positive bowel sounds. Extremities: There is no edema no calf tenderness DP +1 bilaterally, there is a wound VAC to the right hip with a drain in place. Neurologic examination: Patient is awake alert and oriented X3, cranial nerves II-12 appear grossly intact, muscle power were 5 out of 5 in upper extremities and patient is barely able to pick her right lower extremity off the mattress, left lower extremity is 3 out of 5 in intensity. ASSESSMENT AND PLAN: 1. Postoperative day #0 status post incision and drainage with debridement of the right hemiarthroplasty that was done on November 15, 2023 with antibiotic beads placed in and the wound VAC placement possible infected right hemiarthroplasty presumably with Staphylococcus aureus based on initial cultures from [facility]. Continue current pain management, continue wound VAC, continue with IV antibiotic in the form of vancomycin 2 g IV piggyback every 24 hours, p harmacy to dose his peak and trough, infectious disease consultation is obtained. 2. Acute kidney injury due to poor oral intake of fluid and possible sepsis and chronic kidney disease stage III. Continue patient on IV fluid resuscitation in the form of D5/normal saline at 100 cc an hour. 2. Hypertension and hypertensive cardiovascular disease. Continue patient on carvedilol 6.25 mg orally twice every day, losartan 100 mg once every day, monitor the patient very closely. 3. Mixed hyperlipidemia. Continue patient on atorvastatin 80 mg daily, as well as ezetimibe 10 mg once every day. 4. COPD. Continue patient on DuoNeb 3 mL nebulization 4 times every day as needed. 5. Chronic diastolic heart failure appears stable at this time. Continue carvedilol 6.25 mg orally twice every day as well as losartan 50 mg orally once every day, will hold off torsemide for now. 6. History of remote lung cancer status post partial lobectomy in 2007 7. Osteoarthritis. Continue current pain management. Start the patient on Tylenol 650 mg orally every 4 hours as needed patient patient also has morphine sulfate as needed, along with hydrocodone 7.5 mg every 6 hours as needed. 8. Osteopenia/osteoporosis, patient will be required to be started on Prolia as an outpatient. 9. Diabetes mellitus type 2. Will hold her Levemir for tonight continue with a sliding scale insulin.. 10. DVT prophylaxis. We will start the patient on Lovenox 30 mg subcutaneous every 12 hours 11. GI prophylaxis. Continue famotidine 20 mg orally once every day, continue Protonix 40 mg po daily 12. Chronic kidney disease stage III. Appears stable at this time, avoid hypotension and nephrotoxins, start the patient on IV fluid resuscitation in the form of D5/normal saline at 100 cc an hour. 13. Medical debility. Physical therapy evaluation. After surgery. 14. Social work consultation for discharge planning to subacute rehabilitation at [facility]. 15. Guarded prognosis. Objective - Vital Signs Vital signs: Vital Signs Temp 96.9 F L 12/24/23 13:53 Pulse 61 12/24/23 13:53 Resp 16 12/24/23 13:53 BP 104/61 12/24/23 13:53 Pulse Ox 98 12/24/23 13:53 FiO2 Intake & Output 12/23/23 12/24/23 12/24/23 18:59 06:59 18:59 Output Total 400 Balance -400 Weight 136.078 kg 136.078 kg 136.078 kg Output: Urine 400 Other: Voiding Method Indwelling Catheter Indwelling Catheter - Labs CBC & Chem 7: 12/24/23 06:50 12/24/23 05:53 Labs: Abnormal Lab Results - Last 24 Hours (Table) 12/23/23 12/23/23 12/24/23 Range/Units 12:51 20:55 05:53 RBC (3.80-5.40) m/uL Hgb (11.4-16.0) gm/dL Hct (34.0-46.0) % MCV (80.0-100.0) fL Lymphocytes # (1.0-4.8) k/uL Sodium 132 L (137-145) mmol/L Chloride 97 L (98-107) mmol/L Carbon Dioxide 40 H (22-30) mmol/L BUN 49 H (7-17) mg/dL Creatinine 1.17 H (0.52-1.04) mg/dL POC Glucose (mg/dL) 194 H (70-110) mg/dL Calcium 7.7 L (8.4-10.2) mg/dL AST 55 H (14-36) U/L Alkaline Phosphatase 321 H (38-126) U/L C-Reactive Protein 1.80 H (0.00-0.80) mg/dL Total Protein 5.3 L (6.3-8.2) g/dL Albumin 2.3 L (3.5-5.0) g/dL 12/24/23 12/24/23 Range/Units 06:50 11:58 RBC 2.60 L (3.80-5.40) m/uL Hgb 8.4 L (11.4-16.0) gm/dL Hct 26.6 L (34.0-46.0) % MCV 102.3 H (80.0-100.0) fL Lymphocytes # 0.7 L (1.0-4.8) k/uL Sodium (137-145) mmol/L Chloride (98-107) mmol/L Carbon Dioxide (22-30) mmol/L BUN (7-17) mg/dL Creatinine (0.52-1.04) mg/dL POC Glucose (mg/dL) 56 L (70-110) mg/dL Calcium (8.4-10.2) mg/dL AST (14-36) U/L Alkaline Phosphatase (38-126) U/L C-Reactive Protein (0.00-0.80) mg/dL Total Protein (6.3-8.2) g/dL Albumin (3.5-5.0) g/dL
[2023-12-24 16:44] LABS: Glucose,Whole Blood 78 mg/dL (70-110)
[2023-12-24] MEDS: INSULIN ASPART (NovoLOG) 100 UNIT/ML VIAL SQ SCH (16:47)
[2023-12-24] MEDS: DEXTROSE 5%-0.9% NACL 1,000 ML IV SCH (16:52)
[2023-12-24] MEDS: VANCOMYCIN 2,000 MG in SODIUM CHLORIDE 0.9% 500 ML 500 ML IVPB SCH (16:52)
[2023-12-24] MEDS: ENOXAPARIN 30 MG/0.3 ML SYRINGE SQ SCH (20:47)
[2023-12-24] MEDS ORDERED: INSULIN DETEMIR (LEVEMIR) 100 UNIT/ML SYR SQ SCH (21:00)
[2023-12-24 21:01] LABS: Glucose,Whole Blood 117 mg/dL (70-110)
--- NOTE | 2023-12-24 23:10 | P.CONS ---
History of Present Illness - Reason for Consult Consult date: 12/24/23 Infection Requesting physician: Siva Burden - Chief Complaint Drainage and nonhealing wound to the right hip x days - History of Present Illness Patient is a 78-year-old female with a past medical history significant for diabetes mellitus hypertension hyperlipidemia patient recently did have a intramedullary nailing for a right intertrochanteric fracture and subsequently the patient did underwent right hemiarthroplasty on November 15, 2023 and removal of the intramedullary nailing patient seem to have a problem with her drainage from the right hip incision site which has not completely healed and has been treated in the outpatient setting with oral Keflex without any improvement on reevaluation the patient noticed to having brown bloody and d ischarge which has been culture subsequently did have a CT of the right lower extremity that shows a pocket of fluid collection cannot rule out abscess patient has been electively admitted to the hospital for I&D which was completed this morning followed by complex closure of the wound patient has been treated with vancomycin infectious disease was consulted for further management of antibiotic therapy cultures from the right hip those were done on 12/21/2023 has been finalized with MRSA patient did have a blood culture this morning which apparently as well as local culture that returned at the surgery this morning Review of Systems Positive point and negatives has been mentioned in the HPI, complete review of systems was performed and all other systems are negative Past Medical History Past Medical History: Cancer, Diabetes Mellitus, Hyperlipidemia, Hypertension Additional Past Medical History / Comment(s): hx. lung cancer 2006, current R femur fracture History of Any Multi-Drug Resistant Organisms: None Reported Past Surgical History: Cholecystectomy, Hernia Repair, Joint Replacement Additional Past Surgical History / Comment(s): partial lobectomy 2007, R femur surgery/hardware, total L knee Past Anesthesia/Blood Transfusion Reactions: No Reported Reaction Past Psychological History: No Psychological Hx Reported Additional Psychological History / Comment(s): Pt's grandson resides with her. She uses a walker. Smoking Status: Never smoker Past Alcohol Use History: None Reported Past Drug Use History: None Reported - Past Family History Mother Family Medical History: Cancer Medications and Allergies Home Medications Medication Instructions Recorded Confirmed Type Aspirin EC [Ecotrin Low Dose] 81 mg PO DAILY@0800 10/15/22 12/23/23 History Ezetimibe [Zetia] 10 mg PO DAILY@79910/15/22 12/23/23 History Torsemide [Demadex] 20 mg PO DAILY@79901/20/23 12/23/23 History Atorvastatin [Lipitor] 80 mg PO HS@209911/10/23 12/23/23 History Losartan Potassium 50 mg PO DAILY@79911/10/23 12/23/23 History carvediloL [Coreg] 6.25 mg PO BID@0800,1700 11/10/23 12/23/23 History Acetaminophen Tab [Tylenol] 650 mg PO Q6HR 12/23/23 12/23/23 History Citalopram Hydrobromide [CeleXA] 10 mg PO DAILY@79912/23/23 12/23/23 History Enoxaparin [Lovenox] 30 mg SQ Q12HR@,12/23/23 12/23/23 History Famotidine [Pepcid] 20 mg PO DAILY@0600 12/23/23 12/23/23 History Ferrous Sulfate [Iron (65 MG 325 mg PO BID@0800,1700 12/23/23 12/23/23 History Elemental)] HYDROcodone/APAP 7.5-325MG [[place] 1 tab PO Q6HR PRN 12/23/23 12/23/23 History 7.5-325] INSULIN ASPART (NovoLOG) [NovoLOG See Protocol SQ 12/23/23 12/23/23 History (formulary)] ACHS@07,11,1630,2130 Insulin Detemir (Levemir) [Levemir] 42 unit SQ HS@209912/23/23 12/23/23 History Ipratropium-Albuterol Nebulize 3 ml INHALATION RT-TID PRN 12/23/23 12/23/23 History [Duoneb 0.5 mg-3 mg/3 ml Soln] Shivam Packet 1 packet PO BID@,12/23/23 12/23/23 History Lactulose 20 gm PO DAILY@79912/23/23 12/23/23 History Liquacel 30 ml PO BID@,12/23/23 12/23/23 History Magnesium Hydroxide [Milk of 7,200 mg PO DAILY PRN 12/23/23 12/23/23 History Magnesia Concentrate] Na Phos,M-B/Na Phos,Di-Ba [Fleet 133 ml RECTAL DIRECTED PRN 12/23/23 12/23/23 History Adult] Nystatin 100,000 Unit/gm Powd 1 applic TOPICAL TID 12/23/23 12/23/23 History [Mycostatin Powder] Ondansetron [Zofran] 4 mg PO Q8H PRN 12/23/23 12/23/23 History Sennosides/Docusate Sodium [Senna 2 cap PO HS@2100 12/23/23 12/23/23 History Plus 8.6-50 mg Softgel] Tamsulosin [Flomax] 0.4 mg PO DAILY@0800 12/23/23 12/23/23 History bisacodyL [Dulcolax] 10 mg RECTAL DAILY PRN 12/23/23 12/23/23 History Allergies Allergy/AdvReac Type Severity Reaction Status Date / Time cephalexin Allergy Rash/Hives, Verified 12/23/23 17:14 redness, swelling Physical Exam Vitals: Vital Signs Temp Pulse Pulse Resp BP BP Pulse Ox 12/24/23 07:21 98.1 F 64 18 116/66 97 12/24/23 00:42 98.2 F 74 16 99/55 94 L 12/23/23 20:09 97.9 F 67 19 97/53 96 12/23/23 17:28 64 19 114/68 99 12/23/23 12:29 98 F 65 18 124/63 100 Intake and Output 12/23/23 12/24/23 12/24/23 22:59 06:59 14:59 Output Total 400 Balance -400 Output: Urine 400 Other: Voiding Method Indwelling Catheter Weight 136.078 kg GENERAL DESCRIPTION: Elderly female lying in bed, no distress. No tachypnea or accessory muscle of respiration use. HEENT: Shows Pallor , no scleral icterus. Oral mucous membrane is dry. NECK: Trachea central, no thyromegaly. LUNGS: Unlabored breathing. Clear to auscultation anteriorly. No wheeze or crackle. HEART: S1, S2, regular rate and rhythm. No loud murmur ABDOMEN: Soft, no tenderness , guarding or rigidity, no organomegaly EXTREMITIES: Right hip incision is covered and covered with a wound VAC and Hemovac with mostly bloodstained drainage SKIN: No rash, no masses palpable. NEUROLOGICAL: The patient is awake, alert, oriented x3, mood and affect normal. Results CBC & Chem 7: 12/25/23 04:00 12/25/23 04:00 Labs: Abnormal Lab Results - Last 24 Hours (Table) 12/23/23 12/23/23 12/23/23 Range/Units 12:42 12:51 12:51 RBC 2.71 L (3.80-5.40) m/uL Hgb 8.8 L (11.4-16.0) gm/dL Hct 27.6 L (34.0-46.0) % MCV 102.0 H (80.0-100.0) fL Lymphocytes # (1.0-4.8) k/uL ESR 48 H (0-30) mm/Hr Sodium 135 L (137-145) mmol/L Chloride 94 L (98-107) mmol/L Carbon Dioxide 38 H (22-30) mmol/L BUN 44 H (7-17) mg/dL Creatinine (0.52-1.04) mg/dL Glucose 135 H (74-99) mg/dL POC Glucose (mg/dL) 156 H (70-110) mg/dL Calcium 8.0 L (8.4-10.2) mg/dL AST (14-36) U/L Alkaline Phosphatase 155 H (38-126) U/L C-Reactive Protein 1.80 H (0.00-0.80) mg/dL Total Protein 5.4 L (6.3-8.2) g/dL Albumin 2.3 L (3.5-5.0) g/dL 12/23/23 12/24/23 12/24/23 Range/Units 20:55 05:53 06:50 RBC 2.60 L (3.80-5.40) m/uL Hgb 8.4 L (11.4-16.0) gm/dL Hct 26.6 L (34.0-46.0) % MCV 102.3 H (80.0-100.0) fL Lymphocytes # 0.7 L (1.0-4.8) k/uL ESR (0-30) mm/Hr Sodium 132 L (137-145) mmol/L Chloride 97 L (98-107) mmol/L Carbon Dioxide 40 H (22-30) mmol/L BUN 49 H (7-17) mg/dL Creatinine 1.17 H (0.52-1.04) mg/dL Glucose (74-99) mg/dL POC Glucose (mg/dL) 194 H (70-110) mg/dL Calcium 7.7 L (8.4-10.2) mg/dL AST 55 H (14-36) U/L Alkaline Phosphatase 321 H (38-126) U/L C-Reactive Protein (0.00-0.80) mg/dL Total Protein 5.3 L (6.3-8.2) g/dL Albumin 2.3 L (3.5-5.0) g/dL Assessment and Plan (1) Abscess of right hip Current Visit: Yes Status: Acute Code(s): L02.415 - CUTANEOUS ABSCESS OF RIGHT LOWER LIMB SNOMED Code(s): 472244 (2) MRSA (methicillin resistant Staphylococcus aureus) infection Current Visit: Yes Status: Acute Code(s): A49.02 - METHICILLIN RESIS STAPH INFECTION, UNSP SITE SNOMED Code(s): 986638417 (3) Allergy to cephalosporin Current Visit: Yes Status: Acute Code(s): Z88.1 - ALLERGY STATUS TO OTHER ANTIBIOTIC AGENTS SNOMED Code(s): 606956397 (4) Fluid collection at surgical site Current Visit: Yes Status: Acute Code(s): T88.8XXA - OTH COMPLICATIONS OF SURGICAL AND MEDICAL CARE, NEC, INIT SNOMED Code(s): 596183989 (5) Postoperative infection Current Visit: Yes Status: Acute Code(s): T81.40XA - INFECTION FOLLOWING A PROCEDURE, UNSPECIFIED, INIT SNOMED Code(s): 66489042 Plan: 1patient with a nonhealing wound to the right hip in this patient who is status post right hip hemiarthroplasty on November 15, 2023 subsequently noticed to have any drainage and did have a culture done on 12/21/2023 that has been positive for MRSA with a CT suspicious for fluid collection in this patient who is status post I&D of the right hip placement of antibiotic beads deep in the right hip and closure of the wound operative report did not mention deep infection down to the TFL with operative culture currently pending 2cephalexin allergy that will limit the number of antibiotics safe to use 3vancomycin pharmacy to dose target trough of 15 while watching kidney function and Vanco trough closely Will likely need a PICC line and outpatient IV antibiotics therapy followed by suppressive oral antibiotics We will follow on clinical condition and cultures to further adjust medication if needed Thank you for this consultation we will follow the patient along with you Dictation was produced using [employer] dictation software. please excuse any grammatical, word or spelling errors. Time with Patient: Greater than 30
[2023-12-25] MEDS: VANCOMYCIN 2,000 MG in SODIUM CHLORIDE 0.9% 500 ML 500 ML IVPB SCH ×2 (01:13→17:49)
[2023-12-25 06:50] LABS: Glucose,Whole Blood 168 mg/dL (70-110)
--- NOTE | 2023-12-25 07:17 | P.PN ---
Subjective Progress Note Date: 12/25/23 Principal diagnosis: Recent Right hip hemiarthroplasty Right hip pain Right hip incision drainage Patient seen and examined this morning. Patient is resting comfortably in bed with the A-frame hip precaution pillow intact. Patient states she notes improvement of her right hip since the procedure. She states her pain is managed on current regimen. Surgical incision of the right hip, Prevena wound VAC dressing is intact and maintaining suction. No drainage noted in tubing at this time. Hemovac drain is present and compressed, 100ml output overnight. Patient denies any numbness or tingling into her right lower extremity. She is able to wiggle her toes and rotate her ankle. Patient states she is looking forward to her recovery. Still awaiting labs for today. No acute concerns. Objective - Vital Signs Vital signs: Vital Signs Temp 97.9 F 12/25/23 02:06 Pulse 83 12/25/23 02:06 Resp 15 12/25/23 02:06 BP 150/66 12/25/23 02:06 Pulse Ox 97 12/25/23 02:06 FiO2 Intake & Output 12/24/23 12/24/23 12/25/23 06:59 18:59 05:59 Output Total 400 300 100 Balance -400 -300 -100 Weight 136.078 kg 136.078 kg Output: Drainage 100 Right Hip 100 Urine 400 300 Other: Voiding Method Indwelling Catheter Indwelling Catheter Indwelling Catheter - Exam Right hip: Inspection: Surgical incision over the right hip, preventing a wound VAC dressing is intact suction. Hemovac drain is present with 100 mL output overnight. Sensation: Sensation is equal, symmetric, bilaterally intact throughout the upper and lower extremities Palpation: There is mild to moderate tenderness around the incision site. Range of motion: Patient does have full range of motion bilateral upper and Left lower extremities on exam. Patient does have limited range of motion of the r ight lower extremity due to surgical procedure. Motor: 5/5 in all major motor groups in the bilateral upper extremities, 4/5 left lower extremity, 4-/5 right lower extremity. Special tests: Negative Homans bilaterally. Negative Tanisha bilaterally. Negative clonus bilaterally. Neurovascular: Radial pulse intact, 2+ bilaterally. Cap refill under 3 seconds in digits upper extremities. - Labs CBC & Chem 7: 12/24/23 06:50 11/02/24 05:53 Labs: Abnormal Lab Results - Last 24 Hours (Table) 12/24/23 12/24/23 Range/Units 11:58 21:00 POC Glucose (mg/dL) 56 L 117 H (70-110) mg/dL Assessment and Plan Assessment: Postop day 1: Right Hip Incision and Drainage with Irrigation and Debridement Plan: -Appreciate behavioral consultant and team management. -Activity: Ambulate QID, OOB all meals, up and about, limit lifting bending twisting to less than 5 lbs. Use walker or cane if needed for stability. -Daily PT/OT, increase ambulation strength and balance. -Pain control: Adequate at this time -Meds: reviewed -GI ppx: senna, Miralax -DC randall when up and about, bedside commode if needed -DVT PPX: Lovenox -Hygiene: Shower today. Maintain dressing clean and dry. Meticulous cleaning after BMs away from the incision site -Drains: Maintain wound vac and hemovac for now. Continue to monitor and record output q shift. -Encourage IS 10x/hr -Dispo: Anticipate return discharge to rehab in 72hrs. *I reviewed and discussed this case with my attending Dr. Newby, whom has reviewed this chart and films and is in agreement with assessment and plan of care as outlined above. I have personally seen and examined the patient, performed the documentation and the assessment and plan as written. Number of minutes spent on the visit: [ ].
[2023-12-25 08:56] LABS: Basophils # (A) 0.01 X 10*3/uL (0.00-0.10); Basophils % (A) 0.1 %; Eosinophils # (A) 0.54 X 10*3/uL (0.04-0.35); Eosinophils % (A) 4.6 %; HCT 25.1 % (37.2-46.3); HGB 7.8 g/dL (12.0-15.0); Lymphocytes # (A) 0.75 X 10*3/uL (0.90-5.00); Lymphocytes % (A) 6.3 %; MCH 32.2 pg (27.0-32.0); MCHC 31.1 g/dL (32.0-37.0); MCV 103.7 FL (80.0-97.0); Mean Platelet Volume 10.1 FL (9.5-12.2); Monocytes # (A) 0.52 X 10*3/uL (0.20-1.00); Monocytes % (A) 4.4 %; NRBC Per 100 WBC 0 X 10*3/uL (0.00-0.01); Neutrophils # (A) 9.96 X 10*3/uL (1.80-7.70); Neutrophils % (A) 84.3 %; Platelet Count 246 X 10*3/uL (140-440); RBC 2.42 X 10*6/uL (4.10-5.20); RDW 15.8 % (11.5-14.5); WBC 11.82 X 10*3/uL (4.50-10.00)
[2023-12-25 09:44] LABS: ALT 72 U/L (8-44); AST 90 U/L (13-35); Albumin 2.1 g/dL (3.8-4.9); Albumin/Globulin Ratio 0.88 Ratio (1.60-3.17); Alkaline Phosphatase 392 U/L (41-126); BUN/Creat Ratio 34.09 Ratio (12.00-20.00); Blood Urea Nitrogen 37.5 mg/dL (9.0-27.0); Calcium 7.6 mg/dL (8.7-10.3); Carbon Dioxide 32.8 mmol/L (21.6-31.8); Chloride 99 mmol/L (96-109); Globulin 2.4 g/dL (1.6-3.3); Glucose 140 mg/dL (70-110); Potassium 4.1 mmol/L (3.5-5.5); Sodium 138 mmol/L (135-145); Total Bilirubin 0.6 mg/dL (0.3-1.2); Total Protein 4.5 g/dL (6.2-8.2)
--- NOTE | 2023-12-25 10:29 | P.PN ---
Subjective Progress Note Date: 12/25/23 HISTORY OF PRESENT ILLNESS: This is a 78-year-old female with a previous medical history signif icant for hypertension and hypertensive cardiovascular disease, hyperlipidemia, diabetes mellitus type 2, obesity, osteoarthritis, chronic low back pain, chronic kidney disease stage 3b, patient underwent a intramedullary nailing for a right intertrochanter Fracture about a year ago and she went to [facility] for subacute rehabilitation for quite some time, then she was doing fine, using a walker at home when all of a sudden she could not put any pressure on the right lower extremity patient ended up staying in bed for quite some time, until her family brought her to the ER at that time she was found to have a failure of the intramedullary nailing that was placed about a year ago in December 2022 and she was seen by orthopedic and the intramedullary nailing was removed and the patient underwent right hemiarthroplasty that was done on November 15, [address] Newby, patient was sent to [facility] for physical therapy rehabilitation I have been following the patient on a regular basis, patient was also following up with Dr. Newby but recently the patient developed to have a significant drainage from the right hip area initially the patient was started on cephalexin 500 mg orally 3 times every day for 10 days which made the wound appeared to be better, patient had her parul removed from her surgeon and few days later patient developed to have a significant swelling and drainage from the upper part of the incision with a brown bloody discharge material were sent for cultur e showed presumptive Staphylococcus aureus patient was not able to put any pressure on the right lower extremity she was sent to the ER for CT scan of the right lower extremity that showed to a pocket of fluid collection cannot rule out abscesses versus seroma patient did not have any white count at this time, patient will be admitted to the hospital until orthopedic surgery we have been consulted for medical management orthopedic surgery was consulted, patient is scheduled to go to a washout tomorrow morning and she was started already on IV antibiotic in the form of vancomycin deep culture will be done as well as blood culture will be done at the same time we will follow-up with the patient while she is in the hospital. 12/23: Patient just got back from the OR she underwent incision and drainage as well as irrigation of right hemiarthroplasty with a wound VAC placement that was done today by Dr. Newby, patient is laying down in bed in no apparent distress, she stated that her pain is well-controlled, she has a wound VAC in place, she is currently on D5 half-normal saline at 75 cc an hour, she did have episode of hypoglycemia, she did receive 42 units last night, we will decrease her Lantus to 32 units at bedtime monitor the patient symptoms very closely, continue with a sliding scale insulin for now, continue current pain management, infectious disease consultation from Dr. Goode, continue vancomycin 2 g IV piggyback every 24 hours, pharmacy to dose its peak and trough. 12/24: Patient is laying down in bed in no apparent distress, she is rating her pain in the right hip at about 6 out of 10 at this time, she will be getting some hydrocodone today, she denies any chest pain, she has no shortness of breath, she has no abdominal pain at this time, she has not had a bowel movement, she slept okay last night, she continues to have a poor appetite, her blood glucoses start to climb up again we will switch her IV fluid to normal saline at 75 cc an hour, and continue with a sliding scale insulin for now. REVIEW OF SYSTEMS: Constitutional: No documented fever, no chills, no night sweats. No weight change. Positive for weakness, fatigue or lethargy. No daytime sleepiness. EENT: No headache. No blurred vision or double vision, no loss of vision. No loss of Hearing, no ringing in the ears, no dizziness. No nasal drainage or congestion. No epistaxis. No sore throat. Lungs: minimal shortness of breath, no cough, no sputum production. No wheezing. Reports dyspnea with activity. Cardiovascular: No chest pain, no lower extremity edema. No palpitations. No paroxysmal nocturnal dyspnea. No orthopnea. No lightheadedness or dizziness. No syncopal episodes. Abdominal: Reports no abdominal pain. No nausea, vomiting. No diarrhea. No constipation. No bloody or tarry stools reports loss of appetite. Genitourinary: No dysuria, increased frequency, urgency. No urinary retention. Musculoskeletal: No myalgias. positive for muscle weakness, positive for gait dysfunction, no frequent falls. positive for back pain. No neck pain. Integumentary: There are wound VAC to the right hip with a drain in place.., no lesions. No rash or pruritus. No unusual bruising. No change in hair or nails. Neurologic: No aphasia. No facial droop. No change in mentation. No head injury. No headache. No paralysis. No paresthesia. Psychiatric: No depression. No anxiety. No mood swings. Endocrine: No abnormal blood sugars. No weight change. PHYSICAL EXAMINATION: General: 78-year-old female laying in bed in no apparent distress. HEENT: Head is atraumatic, normocephalic, pupils were equal round reactive to light and recommendation, extraocular muscle movement were intact, sclera nonicteric, conjunctivae were pale, mucous membranes of the mouth are somewhat dry. Neck: Supple, no JVP, normal carotid upstroke bilaterally, no lymphadenopathy. Chest: Decreased breath sounds at the bases, few rhonchi, no expiratory wheezes, no chest wall tenderness, no intercostal retractions. Heart: First heart sound is normal, second heart sound is normal there is systolic ejection murmur 2/6 in the left sternal border Abdomen: Soft, nontender, nondistended, positive bowel sounds. Extremities: There is no edema no calf tenderness DP +1 bilaterally, there is a wound VAC to the right hip with a drain in place. Neurologic examination: Patient is awake alert and oriented X3, cranial nerves II-12 appear grossly intact, muscle power were 5 out of 5 in upper extremities and patient is barely able to pick her right lower extremity off the mattress, left lower extremity is 3 out of 5 in intensity. ASSESSMENT AND PLAN: 1. Postoperative day #1 status post incision and drainage with debridement of the right hemiarthroplasty that was done on November 15, 2023 with antibiotic beads placed in and the wound VAC placement possible infected right h emiarthroplasty presumably with Staphylococcus aureus based on initial cultures from [facility]. Continue current pain management, continue wound VAC, continue with IV antibiotic in the form of vancomycin 2 g IV piggyback every 24 hours, pharmacy to dose his peak and trough, infectious disease consultation is obtained. 2. Acute kidney injury due to poor oral intake of fluid and possible sepsis and chronic kidney disease stage III. Continue patient on IV fluid changed the IV fluid to normal saline at 75 cc an hour. 2. Hypertension and hypertensive cardiovascular disease. Continue patient on carvedilol 6.25 mg orally twice every day, losartan 100 mg once every day, monitor the patient very closely. 3. Mixed hyperlipidemia. Continue patient on atorvastatin 80 mg daily, as well as ezetimibe 10 mg once every day. 4. COPD. Continue patient on DuoNeb 3 mL nebulization 4 times every day as needed. 5. Chronic diastolic heart failure appears stable at this time. Continue carvedilol 6.25 mg orally twice every day as well as losartan 50 mg orally once every day, will hold off torsemide for now. 6. History of remote lung cancer status post partial lobectomy in 2007 7. Osteoarthritis. Continue current pain management. Start the patient on Tylenol 650 mg orally every 4 hours as needed patient patient also has morphine sulfate as needed, along with hydrocodone 7.5 mg every 6 hours as needed. 8. Osteopenia/osteoporosis, patient will be required to be started on Prolia as an outpatient. 9. Diabetes mellitus type 2. Will hold her Levemir for tonight continue with a sliding scale insulin.. 10. DVT prophylaxis. We will start the patient on Lovenox 30 mg subcutaneous every 12 hours 11. GI prophylaxis. Continue famotidine 20 mg orally once every day, continue Protonix 40 mg po daily 12. Chronic kidney disease stage III. Appears stable at this time, avoid hypotension and nephrotoxins, start the patient on IV fluid normal saline at 75 cc an hour. 13. Medical debility. Physical therapy evaluation. After surgery. 14. Social work consultation for discharge planning to subacute rehabilitation at [facility]. 15. Guarded prognosis. Objective - Vital Signs Vital signs: Vital Signs Temp 98.3 F 12/25/23 06:54 Pulse 84 12/25/23 06:54 Resp 16 12/25/23 06:54 BP 120/67 12/25/23 06:54 Pulse Ox 94 L 12/25/23 08:52 FiO2 Intake & Output 12/24/23 12/25/23 12/25/23 19:59 06:59 18:59 Intake Total Output Total Balance Weight Intake: Oral Output: Drainage Right Hip Urine Other: Voiding Method - Labs CBC & Chem 7: 12/25/23 04:00 12/25/23 04:00 Labs: Abnormal Lab Results - Last 24 Hours (Table) 12/24/23 12/24/23 12/25/23 Range/Units 11:58 21:00 04:00 WBC 11.82 H (4.50-10.00) X 10*3/uL RBC 2.42 L (4.10-5.20) X 10*6/uL Hgb 7.8 L (12.0-15.0) g/dL Hct 25.1 L (37.2-46.3) % MCV 103.7 H (80.0-97.0) FL MCH 32.2 H (27.0-32.0) pg MCHC 31.1 L (32.0-37.0) g/dL RDW 15.8 H (11.5-14.5) % Neutrophils # 9.96 H (1.80-7.70) X 10*3/uL Lymphocytes # 0.75 L (0.90-5.00) X 10*3/uL Eosinophils # 0.54 H (0.04-0.35) X 10*3/uL Carbon Dioxide (21.6-31.8) mmol/L BUN (9.0-27.0) mg/dL Est GFR (CKD-EPI) (>=60) BUN/Creatinine Ratio (12.00-20.00) Ratio Glucose (70-110) mg/dL POC Glucose (mg/dL) 56 L 117 H (70-110) mg/dL Calcium (8.7-10.3) mg/dL AST (13-35) U/L ALT (8-44) U/L Alkaline Phosphatase (41-126) U/L Total Protein (6.2-8.2) g/dL Albumin (3.8-4.9) g/dL Albumin/Globulin Ratio (1.60-3.17) Ratio 12/25/23 12/25/23 Range/Units 04:00 06:48 WBC (4.50-10.00) X 10*3/uL RBC (4.10-5.20) X 10*6/uL Hgb (12.0-15.0) g/dL Hct (37.2-46.3) % MCV (80.0-97.0) FL MCH (27.0-32.0) pg MCHC (32.0-37.0) g/dL RDW (11.5-14.5) % Neutrophils # (1.80-7.70) X 10*3/uL Lymphocytes # (0.90-5.00) X 10*3/uL Eosinophils # (0.04-0.35) X 10*3/uL Carbon Dioxide 32.8 H (21.6-31.8) mmol/L BUN 37.5 H (9.0-27.0) mg/dL Est GFR (CKD-EPI) 51 L (>=60) BUN/Creatinine Ratio 34.09 H (12.00-20.00) Ratio Glucose 140 H (70-110) mg/dL POC Glucose (mg/dL) 168 H (70-110) mg/dL Calcium 7.6 L (8.7-10.3) mg/dL AST 90 H (13-35) U/L ALT 72 H (8-44) U/L Alkaline Phosphatase 392 H (41-126) U/L Total Protein 4.5 L (6.2-8.2) g/dL Albumin 2.1 L (3.8-4.9) g/dL Albumin/Globulin Ratio 0.88 L (1.60-3.17) Ratio
[2023-12-25] MEDS: SODIUM CHLORIDE 0.9% 1,000 ML IV SCH (10:55)
[2023-12-25 11:11] LABS: Glucose,Whole Blood 155 mg/dL (70-110)
--- NOTE | 2023-12-25 14:43 | P.PN ---
Subjective Progress Note Date: 12/25/23 Principal diagnosis: Reason for follow-up is right hip abscess/MRSA Patient is a 78-year-old female with a past medical history significant for diabetes mellitus hypertension hyperlipidemia patient recently did have a intramedullary nailing for a right intertrochanteric fracture and subsequently the patient did underwent right hemiarthroplasty on November 15, 2023 and removal of the intramedullary nailing, did have issue with drainage from the right hip incision and recent outpatient culture positive for MRSA in this patient who is status post I&D of the right hip and antibiotic bead placement. On today's evaluation that is 12/25/2023, patient has been afebrile, patient is breathing comfortably and is currently on room air, patient denies having any significant cough no chest pain, patient has been complaining of feeling nauseated and episode of vomiting no abdominal pain or constipation pain to the right hip is currently controlled. Patient white count is 11.82 creatinine is 1.1 cultures are pending Objective - Vital Signs Vital signs: Vital Signs Temp 98.3 F 12/25/23 06:54 Pulse 84 12/25/23 06:54 Resp 16 12/25/23 06:54 BP 120/67 12/25/23 06:54 Pulse Ox 94 L 12/25/23 08:52 FiO2 Intake & Output 12/24/23 12/25/23 12/25/23 19:59 06:59 18:59 Intake Total Output Total Balance Weight Intake: Oral Output: Drainage Right Hip Urine Other: Voiding Method Indwelling Catheter - Exam GENERAL DESCRIPTION: An elderly female lying in bed in no distress RESPIRATORY SYSTEM: Unlabored breathing , decreased breath sounds at bases HEART: S1 S2 regular rate and rhythm , ABDOMEN: Soft , no tenderness EXTREMITIES: No edema feet - Labs CBC & Chem 7: 12/25/23 04:00 12/25/23 04:00 Labs: Abnormal Lab Results - Last 24 Hours (Table) 12/24/23 12/25/23 12/25/23 Range/Units 21:00 04:00 04:00 WBC 11.82 H (4.50-10.00) X 10*3/uL RBC 2.42 L (4.10-5.20) X 10*6/uL Hgb 7.8 L (12.0-15.0) g/dL Hct 25.1 L (37.2-46.3) % MCV 103.7 H (80.0-97.0) FL MCH 32.2 H (27.0-32.0) pg MCHC 31.1 L (32.0-37.0) g/dL RDW 15.8 H (11.5-14.5) % Neutrophils # 9.96 H (1.80-7.70) X 10*3/uL Lymphocytes # 0.75 L (0.90-5.00) X 10*3/uL Eosinophils # 0.54 H (0.04-0.35) X 10*3/uL Carbon Dioxide 32.8 H (21.6-31.8) mmol/L BUN 37.5 H (9.0-27.0) mg/dL Est GFR (CKD-EPI) 51 L (>=60) BUN/Creatinine Ratio 34.09 H (12.00-20.00) Ratio Glucose 140 H (70-110) mg/dL POC Glucose (mg/dL) 117 H (70-110) mg/dL Calcium 7.6 L (8.7-10.3) mg/dL AST 90 H (13-35) U/L ALT 72 H (8-44) U/L Alkaline Phosphatase 392 H (41-126) U/L Total Protein 4.5 L (6.2-8.2) g/dL Albumin 2.1 L (3.8-4.9) g/dL Albumin/Globulin Ratio 0.88 L (1.60-3.17) Ratio 12/25/23 12/25/23 Range/Units 06:48 11:10 WBC (4.50-10.00) X 10*3/uL RBC (4.10-5.20) X 10*6/uL Hgb (12.0-15.0) g/dL Hct (37.2-46.3) % MCV (80.0-97.0) FL MCH (27.0-32.0) pg MCHC (32.0-37.0) g/dL RDW (11.5-14.5) % Neutrophils # (1.80-7.70) X 10*3/uL Lymphocytes # (0.90-5.00) X 10*3/uL Eosinophils # (0.04-0.35) X 10*3/uL Carbon Dioxide (21.6-31.8) mmol/L BUN (9.0-27.0) mg/dL Est GFR (CKD-EPI) (>=60) BUN/Creatinine Ratio (12.00-20.00) Ratio Glucose (70-110) mg/dL POC Glucose (mg/dL) 168 H 155 H (70-110) mg/dL Calcium (8.7-10.3) mg/dL AST (13-35) U/L ALT (8-44) U/L Alkaline Phosphatase (41-126) U/L Total Protein (6.2-8.2) g/dL Albumin (3.8-4.9) g/dL Albumin/Globulin Ratio (1.60-3.17) Ratio Assessment and Plan (1) Abscess of right hip Current Visit: Yes Status: Acute Code(s): L02.415 - CUTANEOUS ABSCESS OF RIGHT LOWER LIMB SNOMED Code(s): 656442 (2) MRSA (methicillin resistant Staphylococcus aureus) infection Current Visit: Yes Status: Acute Code(s): A49.02 - METHICILLIN RESIS STAPH INFECTION, UNSP SITE SNOMED Code(s): 370733407 (3) Allergy to cephalosporin Current Visit: Yes Status: Acute Code(s): Z88.1 - ALLERGY STATUS TO OTHER ANTIBIOTIC AGENTS SNOMED Code(s): 305554427 (4) Fluid collection at surgical site Current Visit: Yes Status: Acute Code(s): T88.8XXA - OTH COMPLICATIONS OF SURGICAL AND MEDICAL CARE, NEC, INIT SNOMED Code(s): 387730417 (5) Postoperative infection Current Visit: Yes Status: Acute Code(s): T81.40XA - INFECTION FOLLOWING A PROCEDURE, UNSPECIFIED, INIT SNOMED Code(s): 24837042 Plan: 1patient with a nonhealing wound to the right hip in this patient who is status post right hip hemiarthroplasty on November 15, 2023 subsequently noticed to have any drainage and did have a culture done on 12/21/2023 that has been positive for MRSA with a CT suspicious for fluid collection in this patient who is status post I&D of the right hip placement of antibiotic beads deep in the right hip and closure of the wound operative report did not mention deep infect ion down to the TFL with operative culture currently pending 2cephalexin allergy that will limit the number of antibiotics safe to use 3patient to continue with vancomycin pharmacy to dose target trough of 15 while waiting for the culture to finalize Dictation was produced using [employer] dictation software. please excuse any grammatical, word or spelling errors. Time with Patient: Less than 30
[2023-12-25 16:34] LABS: Glucose,Whole Blood 122 mg/dL (70-110)
[2023-12-25 21:32] LABS: Glucose,Whole Blood 160 mg/dL (70-110)
[2023-12-26 06:37] LABS: Glucose,Whole Blood 125 mg/dL (70-110)
[2023-12-26 08:29] LABS: Basophils # (A) 0.02 X 10*3/uL (0.00-0.10); Basophils % (A) 0.1 %; Eosinophils # (A) 0.43 X 10*3/uL (0.04-0.35); Eosinophils % (A) 2.9 %; HCT 24.2 % (37.2-46.3); HGB 7.6 g/dL (12.0-15.0); Lymphocytes % (A) 5.5 %; MCH 32.8 pg (27.0-32.0); MCHC 31.4 g/dL (32.0-37.0); MCV 104.3 FL (80.0-97.0); Mean Platelet Volume 10.1 FL (9.5-12.2); Monocytes # (A) 0.74 X 10*3/uL (0.20-1.00); Monocytes % (A) 5.1 %; NRBC Per 100 WBC 0 X 10*3/uL (0.00-0.01); Neutrophils # (A) 12.54 X 10*3/uL (1.80-7.70); Neutrophils % (A) 85.9 %; Platelet Count 238 X 10*3/uL (140-440); RBC 2.32 X 10*6/uL (4.10-5.20)
[2023-12-26 08:55] LABS: ALT 49 U/L (8-44); AST 44 U/L (13-35); Albumin 2.1 g/dL (3.8-4.9); Albumin/Globulin Ratio 0.91 Ratio (1.60-3.17); Alkaline Phosphatase 313 U/L (41-126); BUN/Creat Ratio 32.36 Ratio (12.00-20.00); Blood Urea Nitrogen 35.6 mg/dL (9.0-27.0); Calcium 7.2 mg/dL (8.7-10.3); Carbon Dioxide 30.7 mmol/L (21.6-31.8); Chloride 101 mmol/L (96-109); Globulin 2.3 g/dL (1.6-3.3); Glucose 135 mg/dL (70-110); Potassium 3.9 mmol/L (3.5-5.5); Sodium 137 mmol/L (135-145); Total Bilirubin 0.5 mg/dL (0.3-1.2); Total Protein 4.4 g/dL (6.2-8.2)
--- NOTE | 2023-12-26 10:33 | P.PN ---
Subjective Progress Note Date: 12/26/23 Principal diagnosis: Recent Right hip hemiarthroplasty Right hip pain Right hip incision drainage Patient seen and examined this morning. Patient is resting comfortably in bed with the A-frame hip precaution pillow intact. Patient continues to report she notes improvement of her right hip since the procedure. She states her pain is managed on current regimen. Surgical incision of the right hip, Prevena wound VAC dressing is intact and maintaining suction. No drainage noted in tubing at this time. Hemovac drain is present and compressed, 100ml output overnight. We will be removing wound vac tomorrow morning. Patient denies any numbness or tingling into her right lower extremity. She is able to wiggle her toes and rotate her ankle. Patient continues to have precipitous drop in her hgb and hct, we will transfuse 1 unit of RBC. Patient has complaint of decreased ap petite, encourage patient to increase her oral intake if anything protein to continue to help her heal. Will place order for Ensure protein shakes. Objective - Vital Signs Vital signs: Vital Signs Temp 98.3 F 12/26/23 02:00 Pulse 84 12/26/23 02:00 Resp 16 12/26/23 02:00 BP 110/63 12/26/23 02:00 Pulse Ox 95 12/26/23 02:00 FiO2 Intake & Output 12/25/23 12/25/23 12/26/23 06:59 18:59 06:59 Intake Total Output Total 350 100 Balance -350 -100 Intake: Oral Output: Drainage 100 Right Hip 100 Urine 350 Other: Voiding Method Indwelling Catheter Indwelling Catheter - Exam Right hip: Inspection: Surgical incision over the right hip, preventing a wound VAC dr girard is intact suction. Hemovac drain is present with 100 mL output overnight. Sensation: Sensation is equal, symmetric, bilaterally intact throughout the upper and lower extremities Palpation: There is mild to moderate tenderness around the incision site. Range of motion: Patient does have full range of motion bilateral upper and Left lower extremities on exam. Patient does have limited range of motion of the right lower extremity due to surgical procedure. Motor: 5/5 in all major motor groups in the bilateral upper extremities, 4/5 left lower extremity, 4-/5 right lower extremity. Special tests: Negative Homans bilaterally. Negative Tanisha bilaterally. Negative clonus bilaterally. Neurovascular: Radial pulse intact, 2+ bilaterally. Cap refill under 3 seconds in digits upper extremities. - Labs CBC & Chem 7: 12/26/23 03:01 12/26/23 03:01 Labs: Abnormal Lab Results - Last 24 Hours (Table) 12/25/23 12/25/23 12/25/23 Range/Units 04:00 04:00 11:10 WBC 11.82 H (4.50-10.00) X 10*3/uL RBC 2.42 L (4.10-5.20) X 10*6/uL Hgb 7.8 L (12.0-15.0) g/dL Hct 25.1 L (37.2-46.3) % MCV 103.7 H (80.0-97.0) FL MCH 32.2 H (27.0-32.0) pg MCHC 31.1 L (32.0-37.0) g/dL RDW 15.8 H (11.5-14.5) % Neutrophils # 9.96 H (1.80-7.70) X 10*3/uL Lymphocytes # 0.75 L (0.90-5.00) X 10*3/uL Eosinophils # 0.54 H (0.04-0.35) X 10*3/uL Carbon Dioxide 32.8 H (21.6-31.8) mmol/L BUN 37.5 H (9.0-27.0) mg/dL Est GFR (CKD-EPI) 51 L (>=60) BUN/Creatinine Ratio 34.09 H (12.00-20.00) Ratio Glucose 140 H (70-110) mg/dL POC Glucose (mg/dL) 155 H (70-110) mg/dL Calcium 7.6 L (8.7-10.3) mg/dL AST 90 H (13-35) U/L ALT 72 H (8-44) U/L Alkaline Phosphatase 392 H (41-126) U/L Total Protein 4.5 L (6.2-8.2) g/dL Albumin 2.1 L (3.8-4.9) g/dL Albumin/Globulin Ratio 0.88 L (1.60-3.17) Ratio 12/25/23 12/25/23 12/26/23 Range/Units 16:32 21:29 06:36 WBC (4.50-10.00) X 10*3/uL RBC (4.10-5.20) X 10*6/uL Hgb (12.0-15.0) g/dL Hct (37.2-46.3) % MCV (80.0-97.0) FL MCH (27.0-32.0) pg MCHC (32.0-37.0) g/dL RDW (11.5-14.5) % Neutrophils # (1.80-7.70) X 10*3/uL Lymphocytes # (0.90-5.00) X 10*3/uL Eosinophils # (0.04-0.35) X 10*3/uL Carbon Dioxide (21.6-31.8) mmol/L BUN (9.0-27.0) mg/dL Est GFR (CKD-EPI) (>=60) BUN/Creatinine Ratio (12.00-20.00) Ratio Glucose (70-110) mg/dL POC Glucose (mg/dL) 122 H 160 H 125 H (70-110) mg/dL Calcium (8.7-10.3) mg/dL AST (13-35) U/L ALT (8-44) U/L Alkaline Phosphatase (41-126) U/L Total Protein (6.2-8.2) g/dL Albumin (3.8-4.9) g/dL Albumin/Globulin Ratio (1.60-3.17) Ratio Microbiology - Last 24 Hours (Table) 12/24/23 11:30 Gram Stain - Preliminary Hip - Right 12/24/23 11:30 Gram Stain - Preliminary Hip - Right 12/24/23 11:30 Gram Stain - Preliminary Hip - Right 12/24/23 06:50 Blood Culture - Preliminary Blood 12/24/23 11:30 Gram Stain - Preliminary Hip - Right Assessment and Plan Assessment: Postop day 2: Right Hip Incision and Drainage with Irrigation and Debridement Plan: -Appreciate end user consultant and team management. -Activity: Ambulate QID, OOB all meals, up and about, limit lifting bending twisting to less than 5 lbs. Use walker or cane if needed for stability. -Daily PT/OT, increase ambulation strength and balance. -Pain control: Adequate at this time -Meds: reviewed -Hgb 7.6, Hct 24.2; ordered 1 unit of RBC to be transfused today. -Awaiting wound cultures results -GI ppx: senna, Miralax -DC randall when up and about, bedside commode if needed -DVT PPX: Lovenox -Hygiene: Shower today. Maintain dressing clean and dry. Meticulous cleaning after BMs away from the incision site -Drains: Maintain wound vac and hemovac for now. Continue to monitor and record output q shift. We will discontinue Wound vac tomorrow morning. -Encourage IS 10x/hr -Dispo: Anticipate return discharge to rehab in 72hrs. *I reviewed and discussed this case with my attending Dr. Newby, whom has reviewed this chart and films and is in agreement with assessment and plan of care as outlined above. I have personally seen and examined the patient, performed the documentation and the assessment and plan as written. Number of minutes spent on the visit: 20m.
[2023-12-26 11:32] LABS: Glucose,Whole Blood 162 mg/dL (70-110)
--- NOTE | 2023-12-26 11:50 | P.PN ---
Subjective Progress Note Date: 12/26/23 Principal diagnosis: Reason for follow-up is right hip abscess/MRSA Patient is a 78-year-old female with a past medical history significant for diabetes mellitus hypertension hyperlipidemia patient recently did have a intramedullary nailing for a right intertrochanteric fracture and subsequently the patient did underwent right hemiarthroplasty on November 15, 2023 and removal of the intramedullary nailing, did have issue with drainage from the right hip incision and recent outpatient culture positive for MRSA in this patient who is status post I&D of the right hip and antibiotic bead placement. On today's evaluation that is 12/26/2023, Patient is afebrile this morning patient denies having any chest pain shortness of breath or cough, the patient is currently on 1 L nasal cannula oxygen, patient denies any abdominal pain no diarrhea no nausea no vomiting, pain to the right hip has decreased in intensity. Patient white count is up to 14.60 today, creatinine is 1.1 cultures are growing presumptive MRSA blood culture has been negative so far Objective - Vital Signs Vital signs: Vital Signs Temp 97.7 F 12/26/23 07:00 Pulse 75 12/26/23 08:23 Resp 17 12/26/23 07:00 BP 118/63 12/26/23 08:23 Pulse Ox 95 12/26/23 07:00 FiO2 Intake & Output 12/25/23 12/26/23 12/26/23 18:59 06:59 18:59 Output Total 350 100 250 Balance -350 -100 -250 Output: Drainage 100 Right Hip 100 Urine 350 250 Other: Voiding Method Indwelling Catheter Indwelling Catheter # Bowel Movements 1 - Exam GENERAL DESCRIPTION: An elderly female lying in bed in no distress RESPIRATORY SYSTEM: Unlabored breathing , decreased breath sounds at bases HEART: S1 S2 regular rate and rhythm , ABDOMEN: Soft , no tenderness EXTREMITIES: No edema feet - Labs CBC & Chem 7: 12/26/23 03:01 12/26/23 03:01 Labs: Abnormal Lab Results - Last 24 Hours (Table) 12/25/23 12/25/23 12/25/23 Range/Units 11:10 16:32 21:29 WBC (4.50-10.00) X 10*3/uL RBC (4.10-5.20) X 10*6/uL Hgb (12.0-15.0) g/dL Hct (37.2-46.3) % MCV (80.0-97.0) FL MCH (27.0-32.0) pg MCHC (32.0-37.0) g/dL RDW (11.5-14.5) % Immature Gran # (0.00-0.04) X 10*3/uL Neutrophils # (1.80-7.70) X 10*3/uL Lymphocytes # (0.90-5.00) X 10*3/uL Eosinophils # (0.04-0.35) X 10*3/uL BUN (9.0-27.0) mg/dL Est GFR (CKD-EPI) (>=60) BUN/Creatinine Ratio (12.00-20.00) Ratio Glucose (70-110) mg/dL POC Glucose (mg/dL) 155 H 122 H 160 H (70-110) mg/dL Calcium (8.7-10.3) mg/dL AST (13-35) U/L ALT (8-44) U/L Alkaline Phosphatase (41-126) U/L Total Protein (6.2-8.2) g/dL Albumin (3.8-4.9) g/dL Albumin/Globulin Ratio (1.60-3.17) Ratio 12/26/23 12/26/23 12/26/23 Range/Units 03:01 03:01 06:36 WBC 14.60 H (4.50-10.00) X 10*3/uL RBC 2.32 L (4.10-5.20) X 10*6/uL Hgb 7.6 L (12.0-15.0) g/dL Hct 24.2 L (37.2-46.3) % MCV 104.3 H (80.0-97.0) FL MCH 32.8 H (27.0-32.0) pg MCHC 31.4 L (32.0-37.0) g/dL RDW 16.0 H (11.5-14.5) % Immature Gran # 0.07 H (0.00-0.04) X 10*3/uL Neutrophils # 12.54 H (1.80-7.70) X 10*3/uL Lymphocytes # 0.80 L (0.90-5.00) X 10*3/uL Eosinophils # 0.43 H (0.04-0.35) X 10*3/uL BUN 35.6 H (9.0-27.0) mg/dL Est GFR (CKD-EPI) 51 L (>=60) BUN/Creatinine Ratio 32.36 H (12.00-20.00) Ratio Glucose 135 H (70-110) mg/dL POC Glucose (mg/dL) 125 H (70-110) mg/dL Calcium 7.2 L (8.7-10.3) mg/dL AST 44 H (13-35) U/L ALT 49 H (8-44) U/L Alkaline Phosphatase 313 H (41-126) U/L Total Protein 4.4 L (6.2-8.2) g/dL Albumin 2.1 L (3.8-4.9) g/dL Albumin/Globulin Ratio 0.91 L (1.60-3.17) Ratio Microbiology - Last 24 Hours (Table) 12/24/23 11:30 Gram Stain - Preliminary Hip - Right Wound Culture - Preliminary 12/24/23 11:30 Gram Stain - Preliminary Hip - Right Wound Culture - Preliminary Presumptive MRSA 12/24/23 11:30 Gram Stain - Preliminary Hip - Right Wound Culture - Preliminary 12/24/23 11:30 Gram Stain - Preliminary Hip - Right Tissue Culture - Preliminary 12/24/23 06:50 Blood Culture - Preliminary Blood Assessment and Plan (1) Abscess of right hip Current Visit: Yes Status: Acute Code(s): L02.415 - CUTANEOUS ABSCESS OF RIGHT LOWER LIMB SNOMED Code(s): 423214 (2) MRSA (methicillin resistant Staphylococcus aureus) infection Current Visit: Yes Status: Acute Code(s): A49.02 - METHICILLIN RESIS STAPH INFECTION, UNSP SITE SNOMED Code(s): 625116630 (3) Allergy to cephalosporin Current Visit: Yes Status: Acute Code(s): Z88.1 - ALLERGY STATUS TO OTHER ANTIBIOTIC AGENTS SNOMED Code(s): 178770022 (4) Fluid collection at surgical site Current Visit: Yes Status: Acute Code(s): T88.8XXA - OTH COMPLICATIONS OF SURGICAL AND MEDICAL CARE, NEC, INIT SNOMED Code(s): 859329979 (5) Postoperative infection Current Visit: Yes Status: Acute Code(s): T81.40XA - INFECTION FOLLOWING A PROCEDURE, UNSPECIFIED, INIT SNOMED Code(s): 65329593 Plan: 1patient with a nonhealing wound to the right hip in this patient who is status post right hip hemiarthroplasty on November 15, 2023 subsequently noticed to have any drainage and did have a culture done on 12/21/2023 that has been positive for MRSA with a CT suspicious for fluid collection in this patient who is status post I&D of the right hip placement of antibiotic beads deep in the right hip and closure of the wound operative report did not mention deep infection down to the TFL with operative culture currently pending 2cephalexin allergy that will limit the number of antibiotics safe to use 3patient local culture growing presumptive MRSA we will wait for the blood culture to be finalized before placing a PICC line for outpatient IV antibiotic therapy currently on vancomycin will watch white count closely which seem to be slightly trending up Dictation was produced using [employer] dictation software. please excuse any grammatical, word or spelling errors. Time with Patient: Less than 30
[2023-12-26 16:24] LABS: Glucose,Whole Blood 127 mg/dL (70-110)
[2023-12-26 20:50] LABS: Glucose,Whole Blood 166 mg/dL (70-110)
[2023-12-27 04:14] LABS: ALT 33 U/L (4-34); AST 27 U/L (14-36); African American GFR (CKD) 53 (>60 ml/min/1.73 sqM); Albumin 1.7 g/dL (3.5-5.0); Albumin/Globulin Ratio 0.6; Alkaline Phosphatase 278 U/L (38-126); Anion Gap -2 mmol/L; Blood Urea Nitrogen 39 mg/dL (7-17); Calcium 6.9 mg/dL (8.4-10.2); Carbon Dioxide 31 mmol/L (22-30); Chloride 103 mmol/L (98-107); Globulin 2.8 g/dL; Glucose 101 mg/dL (74-99); Non-African American GFR(CKD) 46 (>60 ml/min/1.73 sqM); Potassium 3.7 mmol/L (3.5-5.1); Sodium 132 mmol/L (137-145); Total Bilirubin 1.5 mg/dL (0.2-1.3); Total Protein 4.5 g/dL (6.3-8.2)
[2023-12-27 04:17] LABS: Basophils % (A) 0 %; Eosinophils # (A) 0.4 k/uL (0-0.7); Eosinophils % (A) 2 %; HCT 27.4 % (34.0-46.0); HGB 8.7 gm/dL (11.4-16.0); Hypochromasia Slight; Lymphocytes % (A) 6 %; MCH 31.9 pg (25.0-35.0); MCHC 31.9 g/dL (31.0-37.0); Macrocytosis Slight; Mean Platelet Volume 7.2; Monocytes # (A) 0.8 k/uL (0-1.0); Monocytes % (A) 5 %; Neutrophils # (A) 13.3 k/uL (1.3-7.7); Neutrophils % (A) 85 %; Platelet Count 232 k/uL (150-450); RBC 2.74 m/uL (3.80-5.40); RDW 15.8 % (11.5-15.5); WBC 15.7 k/uL (3.8-10.6)
[2023-12-27 06:17] LABS: Glucose,Whole Blood 123 mg/dL (70-110)
--- NOTE | 2023-12-27 08:25 | P.PN ---
Subjective Progress Note Date: 12/27/23 Principal diagnosis: Recent Right hip hemiarthroplasty Right hip pain Right hip incision drainage Patient seen and examined this morning. Patient is resting comfortably in bed. Patient reports pain to the right hip, encourage use of ice packs. Pain medication being brought in by RN. She states her pain is managed on current regimen. Surgical incision of the right hip, Prevena wound vac has been removed. Incision is well approximated with sutures intact. Incision has been cleaned with Chlorhexidine swabs and new dressing applied. Hemovac is present with 80 mL output overnight. Patient denies any numbness or tingling into her right lower extremity. She is able to wiggle her toes and rotate her ankle. Patient Received 1 unit RBC yesterday, hemoglobin and hematocrit are now stable. Wound cultures is resulting in preliminary as presumptive MRSA. Patient has complaint of decreased appetite, encourage patient to increase her oral intake if anything protein to continue to help her heal. Encourage intake of Protein shakes. Objective - Vital Signs Vital signs: Vital Signs Temp 98.5 F 12/27/23 02:00 Pulse 90 12/27/23 02:00 Resp 14 12/27/23 02:00 BP 112/68 12/27/23 02:00 Pulse Ox 96 12/27/23 02:00 FiO2 Intake & Output 12/26/23 12/27/23 12/27/23 18:59 06:59 18:59 Intake Total 310 540 0 Output Total 250 580 Balance 60 -40 0 Weight 136.078 kg Intake: Oral 540 0 Blood Product 310 Rc As-1 Unit 310 [id number] Output: Drainage 80 Right Hip 80 Urine 250 500 Other: Voiding Method Indwelling Catheter Indwelling Catheter # Bowel Movements 1 - Exam Right hip: Inspection: Surgical incision over the right hip, Prevena wound VAC has been removed, edges are well-approximated with sutures intact. Hemovac drain is present with 80 mL output overnight. Sensation: Sensation is equal, symmetric, bilaterally intact throughout the upper and lower extremities Palpation: There is mild to moderate tenderness around the incision site. Range of motion: Patient does have full range of motion bilateral upper and Left lower extremities on exam. Patient does have limited range of motion of the right lower extremity due to surgical procedure. Motor: 5/5 in all major motor groups in the bilateral upper extremities, 4/5 left lower extremity, 4-/5 right lower extremity. Special tests: Negative Homans bilaterally. Negative Tanisha bilaterally. Negative clonus bilaterally. Neurovascular: Radial pulse intact, 2+ bilaterally. Cap refill under 3 seconds in digits upper extremities. - Labs CBC & Chem 7: 12/27/23 03:17 12/27/23 03:17 Labs: Abnormal Lab Results - Last 24 Hours (Table) 12/26/23 12/26/23 12/26/23 Range/Units 03:01 03:01 10:40 WBC 14.60 H (4.50-10.00) X 10*3/uL RBC 2.32 L (4.10-5.20) X 10*6/uL Hgb 7.6 L (12.0-15.0) g/dL Hct 24.2 L (37.2-46.3) % MCV 104.3 H (80.0-97.0) FL MCH 32.8 H (27.0-32.0) pg MCHC 31.4 L (32.0-37.0) g/dL RDW 16.0 H (11.5-14.5) % Immature Gran # 0.07 H (0.00-0.04) X 10*3/uL Neutrophils # 12.54 H (1.80-7.70) X 10*3/uL Lymphocytes # 0.80 L (0.90-5.00) X 10*3/uL Eosinophils # 0.43 H (0.04-0.35) X 10*3/uL Sodium (137-145) mmol/L Carbon Dioxide (22-30) mmol/L BUN 35.6 H (9.0-27.0) mg/dL Creatinine (0.52-1.04) mg/dL Est GFR (CKD-EPI) 51 L (>=60) BUN/Creatinine Ratio 32.36 H (12.00-20.00) Ratio Glucose 135 H (70-110) mg/dL POC Glucose (mg/dL) (70-110) mg/dL Calcium 7.2 L (8.7-10.3) mg/dL Total Bilirubin (0.2-1.3) mg/dL AST 44 H (13-35) U/L ALT 49 H (8-44) U/L Alkaline Phosphatase 313 H (41-126) U/L Total Protein 4.4 L (6.2-8.2) g/dL Albumin 2.1 L (3.8-4.9) g/dL Albumin/Globulin Ratio 0.91 L (1.60-3.17) Ratio Crossmatch See Detail 12/26/23 12/26/23 12/26/23 Range/Units 11:31 16:21 20:49 WBC (4.50-10.00) X 10*3/uL RBC (4.10-5.20) X 10*6/uL Hgb (12.0-15.0) g/dL Hct (37.2-46.3) % MCV (80.0-97.0) FL MCH (27.0-32.0) pg MCHC (32.0-37.0) g/dL RDW (11.5-14.5) % Immature Gran # (0.00-0.04) X 10*3/uL Neutrophils # (1.80-7.70) X 10*3/uL Lymphocytes # (0.90-5.00) X 10*3/uL Eosinophils # (0.04-0.35) X 10*3/uL Sodium (137-145) mmol/L Carbon Dioxide (22-30) mmol/L BUN (9.0-27.0) mg/dL Creatinine (0.52-1.04) mg/dL Est GFR (CKD-EPI) (>=60) BUN/Creatinine Ratio (12.00-20.00) Ratio Glucose (70-110) mg/dL POC Glucose (mg/dL) 162 H 127 H 166 H (70-110) mg/dL Calcium (8.7-10.3) mg/dL Total Bilirubin (0.2-1.3) mg/dL AST (13-35) U/L ALT (8-44) U/L Alkaline Phosphatase (41-126) U/L Total Protein (6.2-8.2) g/dL Albumin (3.8-4.9) g/dL Albumin/Globulin Ratio (1.60-3.17) Ratio Crossmatch 12/27/23 12/27/23 12/27/23 Range/Units 03:17 03:17 06:16 WBC 15.7 H (4.50-10.00) X 10*3/uL RBC 2.74 L (4.10-5.20) X 10*6/uL Hgb 8.7 L (12.0-15.0) g/dL Hct 27.4 L (37.2-46.3) % MCV (80.0-97.0) FL MCH (27.0-32.0) pg MCHC (32.0-37.0) g/dL RDW 15.8 H (11.5-14.5) % Immature Gran # (0.00-0.04) X 10*3/uL Neutrophils # 13.3 H (1.80-7.70) X 10*3/uL Lymphocytes # (0.90-5.00) X 10*3/uL Eosinophils # (0.04-0.35) X 10*3/uL Sodium 132 L (137-145) mmol/L Carbon Dioxide 31 H (22-30) mmol/L BUN 39 H (9.0-27.0) mg/dL Creatinine 1.13 H (0.52-1.04) mg/dL Est GFR (CKD-EPI) (>=60) BUN/Creatinine Ratio (12.00-20.00) Ratio Glucose 101 H (70-110) mg/dL POC Glucose (mg/dL) 123 H (70-110) mg/dL Calcium 6.9 L (8.7-10.3) mg/dL Total Bilirubin 1.5 H (0.2-1.3) mg/dL AST (13-35) U/L ALT (8-44) U/L Alkaline Phosphatase 278 H (41-126) U/L Total Protein 4.5 L (6.2-8.2) g/dL Albumin 1.7 L (3.8-4.9) g/dL Albumin/Globulin Ratio (1.60-3.17) Ratio Crossmatch Microbiology - Last 24 Hours (Table) 12/24/23 11:30 Gram Stain - Final Hip - Right Wound Culture - Final Methicillin resist S. aureus 12/24/23 11:30 Gram Stain - Final Hip - Right Tissue Culture - Final Methicillin resist S. aureus 12/24/23 11:30 Gram Stain - Final Hip - Right Wound Culture - Final Methicillin resist S. aureus 12/24/23 11:30 Gram Stain - Final Hip - Right Wound Culture - Final 12/24/23 06:50 Blood Culture - Preliminary Blood Assessment and Plan Assessment: Postop day 3: Right Hip Incision and Drainage with Irrigation and Debridement Plan: -Appreciate remediation bioanalytics consultant and team management. -Activity: Ambulate QID, OOB all meals, up and about, limit lifting bending twisting to less than 5 lbs. Use walker or cane if needed for stability. -Daily PT/OT, increase ambulation strength and balance. - Wound cultures demonstrating presumptive MRSA, continue with Dr. Joe's recommendation -Pain control: Adequate at this time -Meds: reviewed -Awaiting wound cultures results -GI ppx: senna, Miralax -DC randall when up and about, bedside commode if needed -DVT PPX: Lovenox -Hygiene: Shower today. Maintain dressing clean and dry. Meticulous cleaning after BMs away from the incision site -Drains: Maintain hemovac for now. Continue to monitor and record output q shift. -Encourage IS 10x/hr -Dispo: Anticipate return discharge to rehab in 48hrs. *I reviewed and discussed this case with my attending Dr. Newby, whom has reviewed this chart and films and is in agreement with assessment and plan of care as outlined above. I have personally seen and examined the patient, performed the documentation and the assessment and plan as written. Number of minutes spent on the visit: 20m.
--- NOTE | 2023-12-27 08:36 | P.PN ---
Subjective Progress Note Date: 12/26/23 HISTORY OF PRESENT ILLNESS: This is a 78-year-old female with a previous medical history signif icant for hypertension and hypertensive cardiovascular disease, hyperlipidemia, diabetes mellitus type 2, obesity, osteoarthritis, chronic low back pain, chronic kidney disease stage 3b, patient underwent a intramedullary nailing for a right intertrochanter Fracture about a year ago and she went to [facility] for subacute rehabilitation for quite some time, then she was doing fine, using a walker at home when all of a sudden she could not put any pressure on the right lower extremity patient ended up staying in bed for quite some time, until her family brought her to the ER at that time she was found to have a failure of the intramedullary nailing that was placed about a year ago in December 2022 and she was seen by orthopedic and the intramedullary nailing was removed and the patient underwent right hemiarthroplasty that was done on November 15, [address] Newby, patient was sent to [facility] for physical therapy rehabilitation I have been following the patient on a regular basis, patient was also following up with Dr. Newby but recently the patient developed to have a significant drainage from the right hip area initially the patient was started on cephalexin 500 mg orally 3 times every day for 10 days which made the wound appeared to be better, patient had her parul removed from her surgeon and few days later patient developed to have a significant swelling and drainage from the upper part of the incision with a brown bloody discharge material were sent for cultur e showed presumptive Staphylococcus aureus patient was not able to put any pressure on the right lower extremity she was sent to the ER for CT scan of the right lower extremity that showed to a pocket of fluid collection cannot rule out abscesses versus seroma patient did not have any white count at this time, patient will be admitted to the hospital until orthopedic surgery we have been consulted for medical management orthopedic surgery was consulted, patient is scheduled to go to a washout tomorrow morning and she was started already on IV antibiotic in the form of vancomycin deep culture will be done as well as blood culture will be done at the same time we will follow-up with the patient while she is in the hospital. 12/23: Patient just got back from the OR she underwent incision and drainage as well as irrigation of right hemiarthroplasty with a wound VAC placement that was done today by Dr. Newby, patient is laying down in bed in no apparent distress, she stated that her pain is well-controlled, she has a wound VAC in place, she is currently on D5 half-normal saline at 75 cc an hour, she did have episode of hypoglycemia, she did receive 42 units last night, we will decrease her Lantus to 32 units at bedtime monitor the patient symptoms very closely, continue with a sliding scale insulin for now, continue current pain management, infectious disease consultation from Dr. Goode, continue vancomycin 2 g IV piggyback every 24 hours, pharmacy to dose its peak and trough. 12/24: Patient is laying down in bed in no apparent distress, she is rating her pain in the right hip at about 6 out of 10 at this time, she will be getting some hydrocodone today, she denies any chest pain, she has no shortness of breath, she has no abdominal pain at this time, she has not had a bowel movement, she slept okay last night, she continues to have a poor appetite, her blood glucoses start to climb up again we will switch her IV fluid to normal saline at 75 cc an hour, and continue with a sliding scale insulin for now. 12/25: Patient is doing better today, she denies any chest pain, shortness of breath, she is in better spirits, she has no abdominal pain, we will continue current bowel care, continue to evaluate the patient with physical therapy, patient has a wound VAC at the right hip area, she has been seen in consultation by infectious disease recommended vancomycin 2 g IV piggyback every 24 hours, this will go on for 6 weeks, patient will need to have a PICC line, after obtaining the final results of the blood cultures, we will continue to monitor the patient very closely. REVIEW OF SYSTEMS: Constitutional: No documented fever, no chills, no night sweats. No weight change. Positive for weakness, fatigue or lethargy. No daytime sleepiness. EENT: No headache. No blurred vision or double vision, no loss of vision. No loss of Hearing, no ringing in the ears, no dizziness. No nasal drainage or congestion. No epistaxis. No sore throat. Lungs: minimal shortness of breath, no cough, no sputum production. No wheezing. Reports dyspnea with activity. Cardiovascular: No chest pain, no lower extremity edema. No palpitations. No paroxysmal nocturnal dyspnea. No orthopnea. No lightheadedness or dizziness. No syncopal episodes. Abdominal: Reports no abdominal pain. No nausea, vomiting. No diarrhea. No constipation. No bloody or tarry stools reports loss of appetite. Genitourinary: No dysuria, increased frequency, urgency. No urinary retention. Has a Kay catheter in place Musculoskeletal: No myalgias. positive for muscle weakness, positive for gait dysfunction, no frequent falls. positive for back pain. No neck pain. Integumentary: There are wound VAC to the right hip with a drain in place.., no lesions. No rash or pruritus. No unusual bruising. No change in hair or nails. Neurologic: No aphasia. No facial droop. No change in mentation. No head injury. No headache. No paralysis. No paresthesia. Psychiatric: No depression. No anxiety. No mood swings. Endocrine: No abnormal blood sugars. No weight change. PHYSICAL EXAMINATION: General: 78-year-old female laying in bed in no apparent distress. HEENT: Head is atraumatic, normocephalic, pupils were equal round reactive to light and recommendation, extraocular muscle movement were intact, sclera nonicteric, conjunctivae were pale, mucous membranes of the mouth are somewhat dry. Neck: Supple, no JVP, normal carotid upstroke bilaterally, no lymphadenopathy. Chest: Decreased breath sounds at the bases, few rhonchi, no expiratory wheezes, no chest wall tenderness, no intercostal retractions. Heart: First heart sound is normal, second heart sound is normal there is systolic ejection murmur 2/6 in the left sternal border Abdomen: Soft, obese, nontender, nondistended, positive bowel sounds hepatosplenomegaly. Extremities: There is +1 edema no calf tenderness DP +1 bilaterally, there is a wound VAC to the right hip with a drain in place. Neurologic examination: Patient is awake alert and oriented X3, cranial nerves II-12 appear grossly intact, muscle power were 5 out of 5 in upper extremities and patient is barely able to pick her right lower extremity off the mattress, left lower extremity is 3 out of 5 in intensity. ASSESSMENT AND PLAN: 1. Postoperative day #2 status post incision and drainage with debridement of the right hemiarthroplasty that was done on November 15, 2023 with antibiotic beads placed in and the wound VAC placement for infected right hemiarthroplasty with MRSA continue current pain management, continue wound VAC, continue with IV antibiotic in the form of vancomycin 2 g IV piggyback every 24 hours, pharmacy to dose his peak and trough, patient may need to have an antibiotic for the next 6 weeks with a PICC line placement down the line. 2. MRSA infection of right hemiarthroplasty with sepsis. Continue IV fluid resuscitation in the form of normal saline 75 cc an hour, continue patient on IV antibiotic in the form of vancomycin 2 g piggyback every 24 hours, infectious disease following, patient will need to have a PICC line for 6 weeks of IV antibiotic. 3. Acute kidney injury due to poor oral intake of fluid and possible sepsis and chronic kidney disease stage III. Continue patient on IV fluid changed the IV fluid to normal saline at 75 cc an hour. Repeat the patient CMP tomorrow morning 4. Hypertension and hypertensive cardiovascular disease. Continue patient on carvedilol 6.25 mg orally twice every day, losartan 100 mg once every day, monitor the patient very closely. 5. Mixed hyperlipidemia. Continue patient on atorvastatin 80 mg daily, as well as ezetimibe 10 mg once every day. 6. COPD. Continue patient on DuoNeb 3 mL nebulization 4 times every day as needed. 7. Chronic diastolic heart failure appears stable at this time. Continue carvedilol 6.25 mg orally twice every day as well as losartan 50 mg orally once every day, will hold off torsemide for now. 8. History of remote lung cancer status post partial lobectomy in 2007 9. Osteoarthritis. Continue current pain management. Start the patient on Tylenol 650 mg orally every 4 hours as needed patient patient also has morphine sulfate as needed, along with hydrocodone 7.5 mg every 6 hours as needed. 10. Osteopenia/osteoporosis, patient will be required to be started on Prolia as an outpatient. 11. Diabetes mellitus type 2. Continue patient on sliding scale insulin because of hypoglycemia. 12. DVT prophylaxis. Continue patient on Lovenox 30 mg subcutaneous every 12 hours 13. GI prophylaxis. Continue famotidine 20 mg orally once every day, continue Protonix 40 mg IV push every 24 hours 14. Chronic kidney disease stage III. Appears stable at this time, avoid hypotension and nephrotoxins, we will continue on IV fluid normal saline at 75 cc an hour. 15. Medical debility. Physical therapy evaluation. 16. Social work consultation for discharge planning to subacute rehabilitation at [facility]. 17. Guarded prognosis. Objective - Vital Signs Vital signs: Vital Signs Temp 98.3 F 12/26/23 02:00 Pulse 84 12/26/23 02:00 Resp 16 12/26/23 02:00 BP 110/63 12/26/23 02:00 Pulse Ox 95 12/26/23 02:00 FiO2 Intake & Output 12/25/23 12/25/23 12/26/23 06:59 18:59 06:59 Intake Total Output Total 350 Balance -350 Intake: Oral Output: Drainage Right Hip Urine 350 Other: Voiding Method Indwelling Catheter Indwelling Catheter - Labs CBC & Chem 7: 12/27/23 03:17 12/27/23 03:17 Labs: Abnormal Lab Results - Last 24 Hours (Table) 12/25/23 12/25/23 12/25/23 Range/Units 04:00 04:00 06:48 WBC 11.82 H (4.50-10.00) X 10*3/uL RBC 2.42 L (4.10-5.20) X 10*6/uL Hgb 7.8 L (12.0-15.0) g/dL Hct 25.1 L (37.2-46.3) % MCV 103.7 H (80.0-97.0) FL MCH 32.2 H (27.0-32.0) pg MCHC 31.1 L (32.0-37.0) g/dL RDW 15.8 H (11.5-14.5) % Neutrophils # 9.96 H (1.80-7.70) X 10*3/uL Lymphocytes # 0.75 L (0.90-5.00) X 10*3/uL Eosinophils # 0.54 H (0.04-0.35) X 10*3/uL Carbon Dioxide 32.8 H (21.6-31.8) mmol/L BUN 37.5 H (9.0-27.0) mg/dL Est GFR (CKD-EPI) 51 L (>=60) BUN/Creatinine Ratio 34.09 H (12.00-20.00) Ratio Glucose 140 H (70-110) mg/dL POC Glucose (mg/dL) 168 H (70-110) mg/dL Calcium 7.6 L (8.7-10.3) mg/dL AST 90 H (13-35) U/L ALT 72 H (8-44) U/L Alkaline Phosphatase 392 H (41-126) U/L Total Protein 4.5 L (6.2-8.2) g/dL Albumin 2.1 L (3.8-4.9) g/dL Albumin/Globulin Ratio 0.88 L (1.60-3.17) Ratio 12/25/23 12/25/23 12/25/23 Range/Units 11:10 16:32 21:29 WBC (4.50-10.00) X 10*3/uL RBC (4.10-5.20) X 10*6/uL Hgb (12.0-15.0) g/dL Hct (37.2-46.3) % MCV (80.0-97.0) FL MCH (27.0-32.0) pg MCHC (32.0-37.0) g/dL RDW (11.5-14.5) % Neutrophils # (1.80-7.70) X 10*3/uL Lymphocytes # (0.90-5.00) X 10*3/uL Eosinophils # (0.04-0.35) X 10*3/uL Carbon Dioxide (21.6-31.8) mmol/L BUN (9.0-27.0) mg/dL Est GFR (CKD-EPI) (>=60) BUN/Creatinine Ratio (12.00-20.00) Ratio Glucose (70-110) mg/dL POC Glucose (mg/dL) 155 H 122 H 160 H (70-110) mg/dL Calcium (8.7-10.3) mg/dL AST (13-35) U/L ALT (8-44) U/L Alkaline Phosphatase (41-126) U/L Total Protein (6.2-8.2) g/dL Albumin (3.8-4.9) g/dL Albumin/Globulin Ratio (1.60-3.17) Ratio Microbiology - Last 24 Hours (Table) 12/24/23 11:30 Gram Stain - Preliminary Hip - Right 12/24/23 11:30 Gram Stain - Preliminary Hip - Right 12/24/23 11:30 Gram Stain - Preliminary Hip - Right 12/24/23 06:50 Blood Culture - Preliminary Blood 12/24/23 11:30 Gram Stain - Preliminary Hip - Right
[2023-12-27 11:40] LABS: Glucose,Whole Blood 122 mg/dL (70-110)
[2023-12-27 15:47] LABS: African American GFR (CKD) 62 (>60 ml/min/1.73 sqM); Non-African American GFR(CKD) 54 (>60 ml/min/1.73 sqM)
[2023-12-27] MEDS: VANCOMYCIN TROUGH DUE 1 EACH MISC MISCELLANE ONE (16:18)
[2023-12-27 16:44] LABS: Glucose,Whole Blood 168 mg/dL (70-110)
--- NOTE | 2023-12-27 19:12 | P.PN ---
Subjective Progress Note Date: 12/27/23 HISTORY OF PRESENT ILLNESS: This is a 78-year-old female with a previous medical history signif icant for hypertension and hypertensive cardiovascular disease, hyperlipidemia, diabetes mellitus type 2, obesity, osteoarthritis, chronic low back pain, chronic kidney disease stage 3b, patient underwent a intramedullary nailing for a right intertrochanter Fracture about a year ago and she went to [facility] for subacute rehabilitation for quite some time, then she was doing fine, using a walker at home when all of a sudden she could not put any pressure on the right lower extremity patient ended up staying in bed for quite some time, until her family brought her to the ER at that time she was found to have a failure of the intramedullary nailing that was placed about a year ago in December 2022 and she was seen by orthopedic and the intramedullary nailing was removed and the patient underwent right hemiarthroplasty that was done on November 15, [address] Newby, patient was sent to [facility] for physical therapy rehabilitation I have been following the patient on a regular basis, patient was also following up with Dr. Newby but recently the patient developed to have a significant drainage from the right hip area initially the patient was started on cephalexin 500 mg orally 3 times every day for 10 days which made the wound appeared to be better, patient had her parul removed from her surgeon and few days later patient developed to have a significant swelling and drainage from the upper part of the incision with a brown bloody discharge material were sent for cultur e showed presumptive Staphylococcus aureus patient was not able to put any pressure on the right lower extremity she was sent to the ER for CT scan of the right lower extremity that showed to a pocket of fluid collection cannot rule out abscesses versus seroma patient did not have any white count at this time, patient will be admitted to the hospital until orthopedic surgery we have been consulted for medical management orthopedic surgery was consulted, patient is scheduled to go to a washout tomorrow morning and she was started already on IV antibiotic in the form of vancomycin deep culture will be done as well as blood culture will be done at the same time we will follow-up with the patient while she is in the hospital. 12/23: Patient just got back from the OR she underwent incision and drainage as well as irrigation of right hemiarthroplasty with a wound VAC placement that was done today by Dr. Nebwy, patient is laying down in bed in no apparent distress, she stated that her pain is well-controlled, she has a wound VAC in place, she is currently on D5 half-normal saline at 75 cc an hour, she did have episode of hypoglycemia, she did receive 42 units last night, we will decrease her Lantus to 32 units at bedtime monitor the patient symptoms very closely, continue with a sliding scale insulin for now, continue current pain management, infectious disease consultation from Dr. Goode, continue vancomycin 2 g IV piggyback every 24 hours, pharmacy to dose its peak and trough. 12/24: Patient is laying down in bed in no apparent distress, she is rating her pain in the right hip at about 6 out of 10 at this time, she will be getting some hydrocodone today, she denies any chest pain, she has no shortness of breath, she has no abdominal pain at this time, she has not had a bowel movement, she slept okay last night, she continues to have a poor appetite, her blood glucoses start to climb up again we will switch her IV fluid to normal saline at 75 cc an hour, and continue with a sliding scale insulin for now. 12/25: Patient is doing better today, she denies any chest pain, shortness of breath, she is in better spirits, she has no abdominal pain, we will continue current bowel care, continue to evaluate the patient with physical therapy, patient has a wound VAC at the right hip area, she has been seen in consultation by infectious disease recommended vancomycin 2 g IV piggyback every 24 hours, this will go on for 6 weeks, patient will need to have a PICC line, after obtaining the final results of the blood cultures, we will continue to monitor the patient very closely. 12/26: Patient is laying down in bed continues to have some pain in the right hip area, her wound VAC was taken out, she does have the drain in place, she continues to have the dressing on the right side, she continues to have increased swelling both lower extremities, will discontinue IV fluid at this time, will give the patient Lasix 40 mg IV push x 1, then follow-up with the patient very closely increase her activity level, physical therapy evaluation, started the patient on Glucerna twice every day, I will follow-up with the patient very closely, the plan is for the patient to have a PICC line placement and IV antibiotic for the next 6 weeks. REVIEW OF SYSTEMS: Constitutional: No documented fever, no chills, no night sweats. No weight change. Positive for weakness, fatigue or lethargy. No daytime sleepiness. EENT: No headache. No blurred vision or double vision, no loss of vision. No loss of Hearing, no ringing in the ears, no dizziness. No nasal drainage or congestion. No epistaxis. No sore throat. Lungs: minimal shortness of breath, no cough, no sputum production. No wheezing. Reports dyspnea with activity. Cardiovascular: No chest pain, no lower extremity edema. No palpitations. No paroxysmal nocturnal dyspnea. No orthopnea. No lightheadedness or dizziness. No syncopal episodes. Abdominal: Reports no abdominal pain. No nausea, vomiting. No diarrhea. No constipation. No bloody or tarry stools reports loss of appetite. Genitourinary: No dysuria, increased frequency, urgency. No urinary retention. Has a Kay catheter in place Musculoskeletal: No myalgias. positive for muscle weakness, positive for gait dysfunction, no frequent falls. positive for back pain. No neck pain. Integumentary: There are wound VAC to the right hip with a drain in place.., no lesions. No rash or pruritus. No unusual bruising. No change in hair or nail s. Neurologic: No aphasia. No facial droop. No change in mentation. No head injury. No headache. No paralysis. No paresthesia. Psychiatric: No depression. No anxiety. No mood swings. Endocrine: No abnormal blood sugars. No weight change. PHYSICAL EXAMINATION: General: 78-year-old female laying in bed in no apparent distress. HEENT: Head is atraumatic, normocephalic, pupils were equal round reactive to light and recommendation, extraocular muscle movement were intact, sclera no nicteric, conjunctivae were pale, mucous membranes of the mouth are somewhat dry. Neck: Supple, no JVP, normal carotid upstroke bilaterally, no lymphadenopathy. Chest: Decreased breath sounds at the bases, few rhonchi, no expiratory wheezes, no chest wall tenderness, no intercostal retractions. Heart: First heart sound is normal, second heart sound is normal there is systolic ejection murmur 2/6 in the left sternal border Abdomen: Soft, obese, nontender, nondistended, positive bowel sounds hepa tosplenomegaly. Extremities: There is +1 edema no calf tenderness DP +1 bilaterally, there is a wound VAC to the right hip with a drain in place. Neurologic examination: Patient is awake alert and oriented X3, cranial nerves II-12 appear grossly intact, muscle power were 5 out of 5 in upper extremities and patient is barely able to pick her right lower extremity off the mattress, left lower extremity is 3 out of 5 in intensity. ASSESSMENT AND PLAN: 1. Postoperative day #3 status post incision and drainage with debridement of the right hemiarthroplasty that was done on November 15, 2023 with antibiotic beads placed in and the wound VAC placement since it was removed for infected right hemiarthroplasty with MRSA continue current pain management, continue with IV antibiotic in the form of vancomycin 2 g IV piggyback every 24 hours, pharmacy to dose his peak and trough, patient may need to have an antibiotic for the next 6 weeks with a PICC line placement down the line. 2. MRSA infection of right hemiarthroplasty with sepsis. Continue IV biotic in the form of vancomycin 2 g every back every 24 hours, pharmacy to dose his peak and trough, discontinue IV fluid at this point in time. 3. Acute kidney injury due to poor oral intake of fluid and possible sepsis and chronic kidney disease stage III. Resolved, discontinue IV fluid resuscitation, give the patient Lasix 40 mg IV push x 1. 4. Hypertension and hypertensive cardiovascular disease. Continue patient on carvedilol 6.25 mg orally twice every day, losartan 100 mg once every day, monitor the patient very closely. 5. Mixed hyperlipidemia. Continue patient on atorvastatin 80 mg daily, as well as ezetimibe 10 mg once every day. 6. COPD. Continue patient on DuoNeb 3 mL nebulization 4 times every day as needed. 7. Chronic diastolic heart failure appears stable at this time. Continue carvedilol 6.25 mg orally twice every day as well as losartan 50 mg orally once every day, discontinue IV fluids start the patient on Lasix 40 mg IV push x 1. 8. History of remote lung cancer status post partial lobectomy in 2007 9. Osteoarthritis. Continue current pain management. Start the patient on Tylenol 650 mg orally every 4 hours as needed patient patient also has morphine sulfate as needed, along with hydrocodone 7.5 mg every 6 hours as needed. 10. Osteopenia/osteoporosis, patient will be required to be started on Prolia as an outpatient. 11. Diabetes mellitus type 2. Continue patient on sliding scale insulin because of hypoglycemia. 12. DVT prophylaxis. Continue patient on Lovenox 30 mg subcutaneous every 12 hours 13. GI prophylaxis. Continue famotidine 20 mg orally once every day, continue Protonix 40 mg IV push every 24 hours 14. Chronic kidney disease stage III. Appears stable at this time, avoid hypotension and nephrotoxins, discontinue IV fluids start the patient on Lasix 40 mg IV push x 1. 15. Medical debility. Physical therapy evaluation. 16. Social work consultation for discharge planning to subacute rehabilitation at [facility]. 17. Guarded prognosis. Objective - Vital Signs Vital signs: Vital Signs Temp 98.5 F 12/27/23 02:00 Pulse 90 12/27/23 02:00 Resp 14 12/27/23 02:00 BP 112/68 12/27/23 02:00 Pulse Ox 96 12/27/23 02:00 FiO2 Intake & Output 12/26/23 12/27/23 12/27/23 18:59 06:59 18:59 Intake Total 310 540 0 Output Total 250 580 Balance 60 -40 0 Weight 136.078 kg Intake: Oral 540 0 Blood Product 310 Rc As-1 Unit 310 [id number] Output: Drainage 80 Right Hip 80 Urine 250 500 Other: Voiding Method Indwelling Catheter Indwelling Catheter # Bowel Movements 1 - Labs CBC & Chem 7: 12/27/23 03:17 12/27/23 15:15 Labs: Abnormal Lab Results - Last 24 Hours (Table) 12/26/23 12/26/23 12/26/23 Range/Units 03:01 10:40 11:31 WBC (3.8-10.6) k/uL RBC (3.80-5.40) m/uL Hgb (11.4-16.0) gm/dL Hct (34.0-46.0) % RDW (11.5-15.5) % Neutrophils # (1.3-7.7) k/uL Sodium (137-145) mmol/L Carbon Dioxide (22-30) mmol/L BUN 35.6 H (9.0-27.0) mg/dL Creatinine (0.52-1.04) mg/dL Est GFR (CKD-EPI) 51 L (>=60) BUN/Creatinine Ratio 32.36 H (12.00-20.00) Ratio Glucose 135 H (70-110) mg/dL POC Glucose (mg/dL) 162 H (70-110) mg/dL Calcium 7.2 L (8.7-10.3) mg/dL Total Bilirubin (0.2-1.3) mg/dL AST 44 H (13-35) U/L ALT 49 H (8-44) U/L Alkaline Phosphatase 313 H (41-126) U/L Total Protein 4.4 L (6.2-8.2) g/dL Albumin 2.1 L (3.8-4.9) g/dL Albumin/Globulin Ratio 0.91 L (1.60-3.17) Ratio Crossmatch See Detail 12/26/23 12/26/23 12/27/23 Range/Units 16:21 20:49 03:17 WBC 15.7 H (3.8-10.6) k/uL RBC 2.74 L (3.80-5.40) m/uL Hgb 8.7 L (11.4-16.0) gm/dL Hct 27.4 L (34.0-46.0) % RDW 15.8 H (11.5-15.5) % Neutrophils # 13.3 H (1.3-7.7) k/uL Sodium (137-145) mmol/L Carbon Dioxide (22-30) mmol/L BUN (9.0-27.0) mg/dL Creatinine (0.52-1.04) mg/dL Est GFR (CKD-EPI) (>=60) BUN/Creatinine Ratio (12.00-20.00) Ratio Glucose (70-110) mg/dL POC Glucose (mg/dL) 127 H 166 H (70-110) mg/dL Calcium (8.7-10.3) mg/dL Total Bilirubin (0.2-1.3) mg/dL AST (13-35) U/L ALT (8-44) U/L Alkaline Phosphatase (41-126) U/L Total Protein (6.2-8.2) g/dL Albumin (3.8-4.9) g/dL Albumin/Globulin Ratio (1.60-3.17) Ratio Crossmatch 12/27/23 12/27/23 Range/Units 03:17 06:16 WBC (3.8-10.6) k/uL RBC (3.80-5.40) m/uL Hgb (11.4-16.0) gm/dL Hct (34.0-46.0) % RDW (11.5-15.5) % Neutrophils # (1.3-7.7) k/uL Sodium 132 L (137-145) mmol/L Carbon Dioxide 31 H (22-30) mmol/L BUN 39 H (9.0-27.0) mg/dL Creatinine 1.13 H (0.52-1.04) mg/dL Est GFR (CKD-EPI) (>=60) BUN/Creatinine Ratio (12.00-20.00) Ratio Glucose 101 H (70-110) mg/dL POC Glucose (mg/dL) 123 H (70-110) mg/dL Calcium 6.9 L (8.7-10.3) mg/dL Total Bilirubin 1.5 H (0.2-1.3) mg/dL AST (13-35) U/L ALT (8-44) U/L Alkaline Phosphatase 278 H (41-126) U/L Total Protein 4.5 L (6.2-8.2) g/dL Albumin 1.7 L (3.8-4.9) g/dL Albumin/Globulin Ratio (1.60-3.17) Ratio Crossmatch Microbiology - Last 24 Hours (Table) 12/24/23 11:30 Gram Stain - Final Hip - Right Wound Culture - Final Methicillin resist S. aureus 12/24/23 11:30 Gram Stain - Final Hip - Right Tissue Culture - Final Methicillin resist S. aureus 12/24/23 11:30 Gram Stain - Final Hip - Right Wound Culture - Final Methicillin resist S. aureus 12/24/23 11:30 Gram Stain - Final Hip - Right Wound Culture - Final 12/24/23 06:50 Blood Culture - Preliminary Blood
[2023-12-27] MEDS: FUROSEMIDE 10 MG/ML 4 ML VIAL IV STA (20:16)
[2023-12-27 20:47] LABS: Glucose,Whole Blood 173 mg/dL (70-110)
--- NOTE | 2023-12-27 22:39 | P.PN ---
Subjective Progress Note Date: 12/27/23 Principal diagnosis: Reason for follow-up is right hip abscess/MRSA Patient is a 78-year-old female with a past medical history significant for diabetes mellitus hypertension hyperlipidemia patient recently did have a intramedullary nailing for a right intertrochanteric fracture and subsequently the patient did underwent right hemiarthroplasty on November 15, 2023 and removal of the intramedullary nailing, did have issue with drainage from the right hip incision and recent outpatient culture positive for MRSA in this patient who is status post I&D of the right hip and antibiotic bead placement. On today's evaluation that is 12/27/2023,the patient denies any fever or any chills, patient is breathing comfortably on 3 L current oxygen the patient denies chest pain shortness of breath and no significant cough, patient denies abdominal pain, no nausea vomiting or diarrhea. Patient mentioned dressing to the right hip for change today and having more pain. Patient did have a creatinine of 0.99, vancomycin trough is 22.6 culture positive for MRSA blood culture negative Objective - Vital Signs Vital signs: Vital Signs Temp 98.4 F 12/27/23 08:00 Pulse 97 12/27/23 08:00 Resp 20 12/27/23 08:00 BP 126/64 12/27/23 08:00 Pulse Ox 97 12/27/23 08:00 FiO2 Intake & Output 12/26/23 12/27/23 12/27/23 18:59 06:59 18:59 Intake Total 310 540 0 Output Total 250 580 Balance 60 -40 0 Weight 136.078 kg Intake: Oral 540 0 Blood Product 310 Rc As-1 Unit 310 [id number] Output: Drainage 80 Right Hip 80 Urine 250 500 Other: Voiding Method Indwelling Catheter Indwelling Catheter # Bowel Movements 1 - Exam GENERAL DESCRIPTION: An elderly female lying in bed in no distress RESPIRATORY SYSTEM: Unlabored breathing , decreased breath sounds at bases HEART: S1 S2 regular rate and rhythm , ABDOMEN: Soft , no tenderness EXTREMITIES: No edema feet - Labs CBC & Chem 7: 12/27/23 03:17 12/27/23 15:15 Labs: Abnormal Lab Results - Last 24 Hours (Table) 12/26/23 12/26/23 12/26/23 Range/Units 10:40 16:21 20:49 WBC (3.8-10.6) k/uL RBC (3.80-5.40) m/uL Hgb (11.4-16.0) gm/dL Hct (34.0-46.0) % RDW (11.5-15.5) % Neutrophils # (1.3-7.7) k/uL Sodium (137-145) mmol/L Carbon Dioxide (22-30) mmol/L BUN (7-17) mg/dL Creatinine (0.52-1.04) mg/dL Glucose (74-99) mg/dL POC Glucose (mg/dL) 127 H 166 H (70-110) mg/dL Calcium (8.4-10.2) mg/dL Total Bilirubin (0.2-1.3) mg/dL Alkaline Phosphatase (38-126) U/L Total Protein (6.3-8.2) g/dL Albumin (3.5-5.0) g/dL Crossmatch See Detail 12/27/23 12/27/23 12/27/23 Range/Units 03:17 03:17 06:16 WBC 15.7 H (3.8-10.6) k/uL RBC 2.74 L (3.80-5.40) m/uL Hgb 8.7 L (11.4-16.0) gm/dL Hct 27.4 L (34.0-46.0) % RDW 15.8 H (11.5-15.5) % Neutrophils # 13.3 H (1.3-7.7) k/uL Sodium 132 L (137-145) mmol/L Carbon Dioxide 31 H (22-30) mmol/L BUN 39 H (7-17) mg/dL Creatinine 1.13 H (0.52-1.04) mg/dL Glucose 101 H (74-99) mg/dL POC Glucose (mg/dL) 123 H (70-110) mg/dL Calcium 6.9 L (8.4-10.2) mg/dL Total Bilirubin 1.5 H (0.2-1.3) mg/dL Alkaline Phosphatase 278 H (38-126) U/L Total Protein 4.5 L (6.3-8.2) g/dL Albumin 1.7 L (3.5-5.0) g/dL Crossmatch 12/27/23 Range/Units 11:38 WBC (3.8-10.6) k/uL RBC (3.80-5.40) m/uL Hgb (11.4-16.0) gm/dL Hct (34.0-46.0) % RDW (11.5-15.5) % Neutrophils # (1.3-7.7) k/uL Sodium (137-145) mmol/L Carbon Dioxide (22-30) mmol/L BUN (7-17) mg/dL Creatinine (0.52-1.04) mg/dL Glucose (74-99) mg/dL POC Glucose (mg/dL) 122 H (70-110) mg/dL Calcium (8.4-10.2) mg/dL Total Bilirubin (0.2-1.3) mg/dL Alkaline Phosphatase (38-126) U/L Total Protein (6.3-8.2) g/dL Albumin (3.5-5.0) g/dL Crossmatch Microbiology - Last 24 Hours (Table) 12/24/23 11:30 Anaerobic Culture - Preliminary Hip - Right 12/24/23 11:30 Anaerobic Culture - Preliminary Hip - Right 12/24/23 11:30 Anaerobic Culture - Preliminary Hip - Right 12/24/23 11:30 Anaerobic Culture - Preliminary Hip - Right 12/24/23 11:30 Gram Stain - Final Hip - Right Wound Culture - Final Methicillin resist S. aureus 12/24/23 11:30 Gram Stain - Final Hip - Right Tissue Culture - Final Methicillin resist S. aureus 12/24/23 11:30 Gram Stain - Final Hip - Right Wound Culture - Final Methicillin resist S. aureus 12/24/23 11:30 Gram Stain - Final Hip - Right Wound Culture - Final 12/24/23 06:50 Blood Culture - Preliminary Blood Assessment and Plan (1) Abscess of right hip Current Visit: Yes Status: Acute Code(s): L02.415 - CUTANEOUS ABSCESS OF RIGHT LOWER LIMB SNOMED Code(s): 525443 (2) MRSA (methicillin resistant Staphylococcus aureus) infection Current Visit: Yes Status: Acute Code(s): A49.02 - METHICILLIN RESIS STAPH INFECTION, UNSP SITE SNOMED Code(s): 395717723 (3) Allergy to cephalosporin Current Visit: Yes Status: Acute Code(s): Z88.1 - ALLERGY STATUS TO OTHER ANTIBIOTIC AGENTS SNOMED Code(s): 950093579 (4) Fluid collection at surgical site Current Visit: Yes Status: Acute Code(s): T88.8XXA - OTH COMPLICATIONS OF SURGICAL AND MEDICAL CARE, NEC, INIT SNOMED Code(s): 228983922 (5) Postoperative infection Current Visit: Yes Status: Acute Code(s): T81.40XA - INFECTION FOLLOWING A PROCEDURE, UNSPECIFIED, INIT SNOMED Code(s): 85693576 Plan: 1patient with a nonhealing wound to the right hip in this patient who is status post right hip hemiarthroplasty on November 15, 2023 subsequently noticed to have any drainage and did have a culture done on 12/21/2023 that has been positive for MRSA with a CT suspicious for fluid collection in this patient who is status post I&D of the right hip placement of antibiotic beads deep in the right hip and closure of the wound operative report did not mention deep infection down to the TFL with operative culture currently pending 2cephalexin allergy that will limit the number of antibiotics safe to use 3patient local culture growing MRSA blood culture has been negative PICC line has been ordered for outpatient IV antibiotic therapy Dictation was produced using [employer] dictation software. please excuse any grammatical, word or spelling errors. Time with Patient: Less than 30
[2023-12-28 04:13] LABS: ALT 24 U/L (4-34); AST 22 U/L (14-36); African American GFR (CKD) 49 (>60 ml/min/1.73 sqM); Albumin 1.6 g/dL (3.5-5.0); Albumin/Globulin Ratio 0.6; Alkaline Phosphatase 247 U/L (38-126); Anion Gap -2 mmol/L; Blood Urea Nitrogen 42 mg/dL (7-17); Calcium 7.3 mg/dL (8.4-10.2); Carbon Dioxide 31 mmol/L (22-30); Chloride 103 mmol/L (98-107); Globulin 2.7 g/dL; Glucose 125 mg/dL (74-99); Non-African American GFR(CKD) 43 (>60 ml/min/1.73 sqM); Sodium 132 mmol/L (137-145); Total Bilirubin 0.8 mg/dL (0.2-1.3); Total Protein 4.3 g/dL (6.3-8.2)
[2023-12-28 06:55] LABS: Glucose,Whole Blood 133 mg/dL (70-110)
--- NOTE | 2023-12-28 08:21 | P.PN ---
Subjective Progress Note Date: 12/28/23 Principal diagnosis: Recent Right hip hemiarthroplasty Right hip pain Right hip incision drainage Patient seen and examined this morning. Patient is resting comfortably in bed. Patient reports pain to the right hip, encourage use of ice packs. Pain medication will be adjusted. Surgical incision of the right hip, dressing is CDI. Hemovac is present with 75 mL output overnight. Patient denies any numbness or tingling into her right lower extremity. She is able to wiggle her toes and rotate her ankle. Wound cultures is resulting in preliminary as presumptive MRSA. Patient has complaint of decreased appetite, encourage patient to increase her oral intake if anything protein to continue to help her heal. Encourage intake of Protein shakes. Objective - Vital Signs Vital signs: Vital Signs Temp 98.5 F 12/28/23 02:00 Pulse 81 12/28/23 02:00 Resp 13 12/28/23 02:00 BP 124/65 12/28/23 02:00 Pulse Ox 96 12/28/23 04:33 FiO2 Intake & Output 12/27/23 12/28/23 12/28/23 18:59 06:59 18:59 Intake Total 118 Output Total 500 Balance -382 Intake: Oral 118 Output: Urine 500 Other: Voiding Method Indwelling Catheter Indwelling Catheter # Bowel Movements 2 - Exam Right hip: Inspection: Surgical incision over the right hip, dressing is CDI. Hemovac drain is present with 75 mL output overnight. Sensation: Sensation is equal, symmetric, bilaterally intact throughout the upper and lower extremities Palpation: There is mild to moderate tenderness around the incision site. Range of motion: Patient does have full range of motion bilateral upper and Left lower extremities on exam. Patient does have limited range of motion of the right lower extremity due to surgical procedure. Motor: 5/5 in all major motor groups in the bilateral upper extremities, 4/5 left lower extremity, 4-/5 right lower extremity. Special tests: Negative Homans bilaterally. Negative Tanisha bilaterally. Negative clonus bilaterally. Neurovascular: Radial pulse intact, 2+ bilaterally. Cap refill under 3 seconds in digits upper extremities. - Labs CBC & Chem 7: 12/27/23 03:17 12/28/23 03:35 Labs: Abnormal Lab Results - Last 24 Hours (Table) 12/27/23 12/27/23 12/27/23 Range/Units 11:38 16:42 20:45 Sodium (137-145) mmol/L Carbon Dioxide (22-30) mmol/L BUN (7-17) mg/dL Creatinine (0.52-1.04) mg/dL Glucose (74-99) mg/dL POC Glucose (mg/dL) 122 H 168 H 173 H (70-110) mg/dL Calcium (8.4-10.2) mg/dL Alkaline Phosphatase (38-126) U/L Total Protein (6.3-8.2) g/dL Albumin (3.5-5.0) g/dL 12/28/23 12/28/23 Range/Units 03:35 06:54 Sodium 132 L (137-145) mmol/L Carbon Dioxide 31 H (22-30) mmol/L BUN 42 H (7-17) mg/dL Creatinine 1.20 H (0.52-1.04) mg/dL Glucose 125 H (74-99) mg/dL POC Glucose (mg/dL) 133 H (70-110) mg/dL Calcium 7.3 L (8.4-10.2) mg/dL Alkaline Phosphatase 247 H (38-126) U/L Total Protein 4.3 L (6.3-8.2) g/dL Albumin 1.6 L (3.5-5.0) g/dL Microbiology - Last 24 Hours (Table) 12/24/23 06:50 Blood Culture - Preliminary Blood 12/24/23 11:30 Anaerobic Culture - Preliminary Hip - Right 12/24/23 11:30 Anaerobic Culture - Preliminary Hip - Right 12/24/23 11:30 Anaerobic Culture - Preliminary Hip - Right 12/24/23 11:30 Anaerobic Culture - Preliminary Hip - Right 12/24/23 11:30 Gram Stain - Final Hip - Right Wound Culture - Final Methicillin resist S. aureus 12/24/23 11:30 Gram Stain - Final Hip - Right Tissue Culture - Final Methicillin resist S. aureus 12/24/23 11:30 Gram Stain - Final Hip - Right Wound Culture - Final Methicillin resist S. aureus 12/24/23 11:30 Gram Stain - Final Hip - Right Wound Culture - Final Assessment and Plan Assessment: Postop day 4: Right Hip Incision and Drainage with Irrigation and Debridement Plan: -Appreciate leadership development consultant and team management. -Activity: Ambulate QID, OOB all meals, up and about, limit lifting bending twisting to less than 5 lbs. Use walker or cane if needed for stability. -Daily PT/OT, increase ambulation strength and balance. - Wound cultures demonstrating presumptive MRSA, continue with Dr. Joe's recommendation -Pain control: Adequate at this time -Meds: reviewed -Awaiting wound cultures results -GI ppx: senna, Miralax -DC randall when up and about, bedside commode if needed -DVT PPX: Lovenox -Hygiene: Maintain dressing clean and dry. -Drains: Maintain hemovac for now. Continue to monitor and record output q shift. -Encourage IS 10x/hr -Dispo: Anticipate return discharge to rehab in 24-48hrs. *I reviewed and discussed this case with my attending Dr. Newby, whom has reviewed this chart and films and is in agreement with assessment and plan of care as outlined above. I have personally seen and examined the patient, performed the documentation and the assessment and plan as written. Number of minutes spent on the visit: 20m.
[2023-12-28 08:28] LABS: Basophils # (A) 0.03 X 10*3/uL (0.00-0.10); Basophils % (A) 0.2 %; Eosinophils # (A) 0.29 X 10*3/uL (0.04-0.35); HCT 25.9 % (37.2-46.3); Lymphocytes # (A) 1.07 X 10*3/uL (0.90-5.00); Lymphocytes % (A) 7.3 %; MCH 30.5 pg (27.0-32.0); MCHC 30.9 g/dL (32.0-37.0); MCV 98.9 FL (80.0-97.0); Mean Platelet Volume 9.7 FL (9.5-12.2); Monocytes # (A) 1.21 X 10*3/uL (0.20-1.00); Monocytes % (A) 8.3 %; NRBC Per 100 WBC 0 X 10*3/uL (0.00-0.01); Neutrophils % (A) 81.3 %; Platelet Count 215 X 10*3/uL (140-440); RBC 2.62 X 10*6/uL (4.10-5.20); RDW 16.6 % (11.5-14.5); WBC 14.63 X 10*3/uL (4.50-10.00)
[2023-12-28] MEDS: traMADol 50 MG TAB PO SCH (09:06)
--- NOTE | 2023-12-28 09:54 | CDI ---
Documentation Clarification Form Date: 12/28/2023 From: Shadia Castro RN CCDS Phone: [phone] Admit Date: 12/26/2023 12:03:00 PM Patient Name: Fe Spaulding Visit Number: [id number] Discharge Date: ATTENTION: The Clinical Documentation Specialists (CDI) and [facility] Coding Staff appreciate your assistance in clarifying documentation. Please respond to the clarification below the line at the bottom and electronically sign. The CDI & [facility] Coding staff will review the response and follow-up if needed. Please note: Queries are made part of the Legal Health Record. If you have any questions, please contact the author of this message via ITS. Doctor/Provider: Abisai Newby, DO: Please clarify if there is an additional diagnosis and/or clinical significance related to tis patient's hemoglobin values. History/Risk Factors: 78-year-old female with a history of CKD, HTN, DM2 status post right hemiarthroplasty for failed right intertrochanteric nail on 11/14 who recently developed drainage from incision site and is now status post incision and drainage with debridement and antibiotic bead placement Clinical indicators: 12/23 Incision and drainage with irrigation and debridement right hip, with evacuation of bloody hematoma at incision and again from the deep space, EBL 200ml 12/25 Orthopedic PN, Subjective: "Patient continues to have precipitous drop in her hgb and hct, we will transfuse 1unit of RBC." 12/22-12/27 Hemoglobin: 8.8, 8.4, 7.8, 7.6, 8.7, 8.0 Hematocrit: 27.6, 26.6, 25.1, 24.2, 27.4, 25.9 Treatment: PRBC one-unit transfused 12/25 Normal Saline IV 75cc/hour 12/24-12/26 Is there an additional diagnosis and/or clinical significance related to the above lab result/information: [ ] Acute blood loss anemia [ ] Acute on chronic blood loss anemia [ ] No additional diagnosis/Not clinically significant [ ] Unable to determine [ ] Other, please specify Acute on chronic blood loss anemia along with likely marrow suppression due to age, comorbid conditions. Medicine query warranted. MTDD
[2023-12-28 10:58] LABS: Glucose,Whole Blood 173 mg/dL (70-110)
--- NOTE | 2023-12-28 11:51 | P.PN ---
Subjective Progress Note Date: 12/28/23 Principal diagnosis: Reason for follow-up is right hip abscess/MRSA Patient is a 78-year-old female with a past medical history significant for diabetes mellitus hypertension hyperlipidemia patient recently did have a intramedullary nailing for a right intertrochanteric fracture and subsequently the patient did underwent right hemiarthroplasty on November 15, 2023 and removal of the intramedullary nailing, did have issue with drainage from the right hip incision and recent outpatient culture positive for MRSA in this patient who is status post I&D of the right hip and antibiotic bead placement. On today's evaluation that is 12/28/2023,the patient remains to be afebrile, patient is on 2 L nasal cannula supplemental oxygen and denies any shortness of breath no chest pain or cough.Patient denies having any nausea or vomiting, no abdominal pain and no diarrhea complaining of pain to the right hip area but no worsening. Patient white count is 14.63 creatinine 1.20 blood culture have been negative Objective - Vital Signs Vital signs: Vital Signs Temp 97.4 F L 12/28/23 08:00 Pulse 87 12/28/23 08:00 Resp 16 12/28/23 08:00 BP 110/61 12/28/23 08:00 Pulse Ox 97 12/28/23 10:24 FiO2 Intake & Output 12/27/23 12/28/23 12/28/23 18:59 06:59 18:59 Intake Total 118 Output Total 500 75 Balance -382 -75 Intake: Oral 118 Output: Drainage 75 Right Hip 75 Urine 500 Other: Voiding Method Indwelling Catheter Indwelling Catheter Indwelling Catheter # Bowel Movements 2 - Exam GENERAL DESCRIPTION: An elderly female lying in bed in no distress RESPIRATORY SYSTEM: Unlabored breathing , decreased breath sounds at bases HEART: S1 S2 regular rate and rhythm , ABDOMEN: Soft , no tenderness EXTREMITIES: No edema feet - Labs CBC & Chem 7: 12/28/23 03:35 12/28/23 03:35 Labs: Abnormal Lab Results - Last 24 Hours (Table) 12/27/23 12/27/23 12/28/23 Range/Units 16:42 20:45 03:35 WBC (4.50-10.00) X 10*3/uL RBC (4.10-5.20) X 10*6/uL Hgb (12.0-15.0) g/dL Hct (37.2-46.3) % MCV (80.0-97.0) FL MCHC (32.0-37.0) g/dL RDW (11.5-14.5) % Immature Gran # (0.00-0.04) X 10*3/uL Neutrophils # (1.80-7.70) X 10*3/uL Monocytes # (0.20-1.00) X 10*3/uL Sodium 132 L (137-145) mmol/L Carbon Dioxide 31 H (22-30) mmol/L BUN 42 H (7-17) mg/dL Creatinine 1.20 H (0.52-1.04) mg/dL Glucose 125 H (74-99) mg/dL POC Glucose (mg/dL) 168 H 173 H (70-110) mg/dL Calcium 7.3 L (8.4-10.2) mg/dL Alkaline Phosphatase 247 H (38-126) U/L Total Protein 4.3 L (6.3-8.2) g/dL Albumin 1.6 L (3.5-5.0) g/dL 12/28/23 12/28/23 12/28/23 Range/Units 03:35 06:54 10:57 WBC 14.63 H (4.50-10.00) X 10*3/uL RBC 2.62 L (4.10-5.20) X 10*6/uL Hgb 8.0 L (12.0-15.0) g/dL Hct 25.9 L (37.2-46.3) % MCV 98.9 H (80.0-97.0) FL MCHC 30.9 L (32.0-37.0) g/dL RDW 16.6 H (11.5-14.5) % Immature Gran # 0.13 H (0.00-0.04) X 10*3/uL Neutrophils # 11.90 H (1.80-7.70) X 10*3/uL Monocytes # 1.21 H (0.20-1.00) X 10*3/uL Sodium (137-145) mmol/L Carbon Dioxide (22-30) mmol/L BUN (7-17) mg/dL Creatinine (0.52-1.04) mg/dL Glucose (74-99) mg/dL POC Glucose (mg/dL) 133 H 173 H (70-110) mg/dL Calcium (8.4-10.2) mg/dL Alkaline Phosphatase (38-126) U/L Total Protein (6.3-8.2) g/dL Albumin (3.5-5.0) g/dL Microbiology - Last 24 Hours (Table) 12/24/23 06:50 Blood Culture - Preliminary Blood 12/24/23 11:30 Anaerobic Culture - Preliminary Hip - Right 12/24/23 11:30 Anaerobic Culture - Preliminary Hip - Right 12/24/23 11:30 Anaerobic Culture - Preliminary Hip - Right 12/24/23 11:30 Anaerobic Culture - Preliminary Hip - Right 12/24/23 11:30 Gram Stain - Final Hip - Right Wound Culture - Final Methicillin resist S. aureus 12/24/23 11:30 Gram Stain - Final Hip - Right Tissue Culture - Final Methicillin resist S. aureus 12/24/23 11:30 Gram Stain - Final Hip - Right Wound Culture - Final Methicillin resist S. aureus 12/24/23 11:30 Gram Stain - Final Hip - Right Wound Culture - Final Assessment and Plan (1) Abscess of right hip Current Visit: Yes Status: Acute Code(s): L02.415 - CUTANEOUS ABSCESS OF RIGHT LOWER LIMB SNOMED Code(s): 450241 (2) MRSA (methicillin resistant Staphylococcus aureus) infection Current Visit: Yes Status: Acute Code(s): A49.02 - METHICILLIN RESIS STAPH INFECTION, UNSP SITE SNOMED Code(s): 540185799 (3) Allergy to cephalosporin Current Visit: Yes Status: Acute Code(s): Z88.1 - ALLERGY STATUS TO OTHER ANTIBIOTIC AGENTS SNOMED Code(s): 610463993 (4) Fluid collection at surgical site Current Visit: Yes Status: Acute Code(s): T88.8XXA - OTH COMPLICATIONS OF SURGICAL AND MEDICAL CARE, NEC, INIT SNOMED Code(s): 642865404 (5) Postoperative infection Current Visit: Yes Status: Acute Code(s): T81.40XA - INFECTION FOLLOWING A PROCEDURE, UNSPECIFIED, INIT SNOMED Code(s): 03085954 Plan: 1patient with a nonhealing wound to the right hip in this patient who is status post right hip hemiarthroplasty on November 15, 2023 subsequently noticed to have any drainage and did have a culture done on 12/21/2023 that has been positive for MRSA with a CT suspicious for fluid collection in this patient who is status post I&D of the right hip placement of antibiotic beads deep in the right hip and closure of the wound operative report did not mention deep infection down to the TFL with operative culture currently pending 2cephalexin allergy that will limit the number of antibiotics safe to use 3patient local culture growing MRSA blood culture has been negative patient has received a PICC line plan is for a 6-week course of IV vancomycin pharmacy to dose followed by suppressive oral antibiotic therapy Dictation was produced using [employer] dictation software. please excuse any gra mmatical, word or spelling errors.
[2023-12-28 16:00] LABS: Glucose,Whole Blood 153 mg/dL (70-110)
[2023-12-28] MEDS: VANCOMYCIN 1,750 MG in SODIUM CHLORIDE 0.9% 500 ML 500 ML IVPB SCH (17:35)
[2023-12-28 21:02] LABS: Glucose,Whole Blood 166 mg/dL (70-110)
[2023-12-29 04:12] LABS: African American GFR (CKD) 46 (>60 ml/min/1.73 sqM); Non-African American GFR(CKD) 40 (>60 ml/min/1.73 sqM)
[2023-12-29 06:54] LABS: Glucose,Whole Blood 128 mg/dL (70-110)
--- NOTE | 2023-12-29 09:58 | P.PN ---
Subjective Progress Note Date: 12/29/23 Principal diagnosis: Recent Right hip hemiarthroplasty Right hip pain Right hip incision drainage Patient was seen at bedside this morning lying in; position with Hemovac drain and dressing present over right hip. Patient says she is still having pain to the right hip and does note some minor improvement since surgery several days ago. Patient notes she has been trying to perform gentle range of motion exercises while resting in bed. Patient denies any other significant orthopedic issues at this time. Objective - Vital Signs Vital signs: Vital Signs Temp 98.3 F 12/29/23 06:54 Pulse 84 12/29/23 06:54 Resp 17 12/29/23 06:54 BP 112/69 12/29/23 06:54 Pulse Ox 96 12/29/23 06:54 FiO2 Intake & Output 12/28/23 12/29/23 12/29/23 18:59 06:59 18:59 Intake Total 118 Output Total 375 600 Balance -257 -600 Intake: Oral 118 Output: Drainage 75 Right Hip 75 Urine 300 600 Other: Voiding Method Indwelling Catheter Indwelling Catheter # Bowel Movements 1 - Exam Inspection: Surgical incision over the right hip, dressing is CDI. Hemovac drain is present with 75 mL output overnight. Sensation: Sensation is equal, symmetric, bilaterally intact throughout the upper and lower extremities Palpation: There is mild to moderate tenderness around the incision site. Range of motion: Patient does have full range of motion bilateral upper and Left lower extremities on exam. Patient does have limited range of motion of the right lower extremity due to surgical procedure. Motor: 5/5 in all major motor groups in the bilateral upper extremities, 4/5 left lower extremity, 4-/5 right lower extremity. Special tests: Negative Homans bilaterally. Negative Tanisha bilaterally. Negative clonus bilaterally. Neurovascular: Radial pulse intact, 2+ bilaterally. Cap refill under 3 seconds in digits upper extremities. - Labs CBC & Chem 7: 12/28/23 03:35 12/29/23 03:03 Labs: Abnormal Lab Results - Last 24 Hours (Table) 12/28/23 12/28/23 12/28/23 Range/Units 10:57 15:59 21:01 Creatinine (0.52-1.04) mg/dL POC Glucose (mg/dL) 173 H 153 H 166 H (70-110) mg/dL 12/29/23 12/29/23 Range/Units 03:03 06:53 Creatinine 1.27 H (0.52-1.04) mg/dL POC Glucose (mg/dL) 128 H (70-110) mg/dL Assessment and Plan Assessment: Recent Right hip hemiarthroplasty Right hip pain Right hip incision drainage Postop day 5 s/p Right Hip Incision and Drainage with Irrigation and Debridement Plan: 1. Recent Right hip hemiarthroplasty; Right hip pain; Right hip incision drainage-surgery performed 12/24/2023 - right Hip Incision and Drainage with Irrigation and Debridement. Patient stable bedside this morning. Hemovac drain was removed at bedside this morning and dressing was changed. Incision appears to be healing well. Sutures well aligned and approximated at this time. Negative for any active drainage. Continue to work with PT/OT daily. Perform gentle range of motion exercises while resting in bed. Patient admitted under medicine. Patient stable from orthopedic standpoint for discharge. At this time orthopedics is signing off. Please do not hesitate to contact us for any further questions. Follow-up in office with Dr. Newby in 10 days. 2. Appreciate medical management 3. Pain management -tramadol 4 DVT prophylaxis -Lovenox 5. GI prophylaxis -lactulose; Protonix 6. PT/OT -weightbearing as tolerated with walker and assistance 7. Encourage incentive spirometer use Time with Patient: Less than 30
[2023-12-29 11:37] LABS: Glucose,Whole Blood 178 mg/dL (70-110)
--- NOTE | 2023-12-29 13:52 | P.PN ---
Subjective Progress Note Date: 12/29/23 Principal diagnosis: Reason for follow-up is right hip abscess/MRSA Patient is a 78-year-old female with a past medical history significant for diabetes mellitus hypertension hyperlipidemia patient recently did have a intramedullary nailing for a right intertrochanteric fracture and subsequently the patient did underwent right hemiarthroplasty on November 15, 2023 and removal of the intramedullary nailing, did have issue with drainage from the right hip incision and recent outpatient culture positive for MRSA in this patient who is status post I&D of the right hip and antibiotic bead placement. On today's evaluation that is 12/29/2023, the patient continues to be afebrile, the patient is on room air and breathing comfortably, the Pt denies having any chest pain or cough, the patient denies having any abdominal pain no vomiting or any diarrhea still pain to the right hip area but no worsening. Patient did have a creatinine 1.27 blood culture has been negative Objective - Vital Signs Vital signs: Vital Signs Temp 98.3 F 12/29/23 06:54 Pulse 84 12/29/23 06:54 Resp 16 12/29/23 08:00 BP 112/69 12/29/23 06:54 Pulse Ox 96 12/29/23 06:54 FiO2 Intake & Output 12/28/23 12/29/23 12/29/23 18:59 06:59 18:59 Intake Total 118 Output Total 375 600 Balance -257 -600 Intake: Oral 118 Output: Drainage 75 Right Hip 75 Urine 300 600 Other: Voiding Method Indwelling Catheter Indwelling Catheter Indwelling Catheter # Bowel Movements 1 - Exam GENERAL DESCRIPTION: An elderly female lying in bed in no distress RESPIRATORY SYSTEM: Unlabored breathing , decreased breath sounds at bases HEART: S1 S2 regular rate and rhythm , ABDOMEN: Soft , no tenderness EXTREMITIES: No edema feet - Labs CBC & Chem 7: 12/28/23 03:35 12/29/23 03:03 Labs: Abnormal Lab Results - Last 24 Hours (Table) 12/28/23 12/28/23 12/29/23 Range/Units 15:59 21:01 03:03 Creatinine 1.27 H (0.52-1.04) mg/dL POC Glucose (mg/dL) 153 H 166 H (70-110) mg/dL 12/29/23 12/29/23 Range/Units 06:53 11:35 Creatinine (0.52-1.04) mg/dL POC Glucose (mg/dL) 128 H 178 H (70-110) mg/dL Microbiology - Last 24 Hours (Table) 12/24/23 11:30 Anaerobic Culture - Final Hip - Right 12/24/23 11:30 Anaerobic Culture - Final Hip - Right 12/24/23 11:30 Anaerobic Culture - Final Hip - Right 12/24/23 11:30 Anaerobic Culture - Final Hip - Right Assessment and Plan (1) Abscess of right hip Current Visit: Yes Status: Acute Code(s): L02.415 - CUTANEOUS ABSCESS OF RIGHT LOWER LIMB SNOMED Code(s): 406889 (2) MRSA (methicillin resistant Staphylococcus aureus) infection Current Visit: Yes Status: Acute Code(s): A49.02 - METHICILLIN RESIS STAPH INFECTION, UNSP SITE SNOMED Code(s): 677482884 (3) Allergy to cephalosporin Current Visit: Yes Status: Acute Code(s): Z88.1 - ALLERGY STATUS TO OTHER ANTIBIOTIC AGENTS SNOMED Code(s): 162401703 (4) Fluid collection at surgical site Current Visit: Yes Status: Acute Code(s): T88.8XXA - OTH COMPLICATIONS OF SURGICAL AND MEDICAL CARE, NEC, INIT SNOMED Code(s): 662950250 (5) Postoperative infection Current Visit: Yes Status: Acute Code(s): T81.40XA - INFECTION FOLLOWING A PROCEDURE, UNSPECIFIED, INIT SNOMED Code(s): 90471467 Plan: 1patient with a nonhealing wound to the right hip in this patient who is status post right hip hemiarthroplasty on November 15, 2023 subsequently noticed to have any drainage and did have a culture done on 12/21/2023 that has been positive for MRSA with a CT suspicious for fluid collection in this patient who is status post I&D of the right hip placement of antibiotic beads deep in the right hip and closure of the wound operative report did not mention deep infection down to the TFL with operative culture currently pending 2patient local culture growing MRSA blood culture has been negative patient has received a PICC line 3-plan is for a 6-week course of IV vancomycin pharmacy to dose followed by s uppressive oral antibiotic therapy Dictation was produced using [employer] dictation software. please excuse any grammatical, word or spelling errors.
[2023-12-29 16:39] LABS: Glucose,Whole Blood 198 mg/dL (70-110)
--- NOTE | 2023-12-29 18:42 | P.PN ---
Subjective Progress Note Date: 12/28/23 HISTORY OF PRESENT ILLNESS: This is a 78-year-old female with a previous medical history signif icant for hypertension and hypertensive cardiovascular disease, hyperlipidemia, diabetes mellitus type 2, obesity, osteoarthritis, chronic low back pain, chronic kidney disease stage 3b, patient underwent a intramedullary nailing for a right intertrochanter Fracture about a year ago and she went to [facility] for subacute rehabilitation for quite some time, then she was doing fine, using a walker at home when all of a sudden she could not put any pressure on the right lower extremity patient ended up staying in bed for quite some time, until her family brought her to the ER at that time she was found to have a failure of the intramedullary nailing that was placed about a year ago in December 2022 and she was seen by orthopedic and the intramedullary nailing was removed and the patient underwent right hemiarthroplasty that was done on November 15, [address] Newby, patient was sent to [facility] for physical therapy rehabilitation I have been following the patient on a regular basis, patient was also following up with Dr. Newby but recently the patient developed to have a significant drainage from the right hip area initially the patient was started on cephalexin 500 mg orally 3 times every day for 10 days which made the wound appeared to be better, patient had her parul removed from her surgeon and few days later patient developed to have a significant swelling and drainage from the upper part of the incision with a brown bloody discharge material were sent for cultur e showed presumptive Staphylococcus aureus patient was not able to put any pressure on the right lower extremity she was sent to the ER for CT scan of the right lower extremity that showed to a pocket of fluid collection cannot rule out abscesses versus seroma patient did not have any white count at this time, patient will be admitted to the hospital until orthopedic surgery we have been consulted for medical management orthopedic surgery was consulted, patient is scheduled to go to a washout tomorrow morning and she was started already on IV antibiotic in the form of vancomycin deep culture will be done as well as blood culture will be done at the same time we will follow-up with the patient while she is in the hospital. 12/23: Patient just got back from the OR she underwent incision and drainage as well as irrigation of right hemiarthroplasty with a wound VAC placement that was done today by Dr. Newby, patient is laying down in bed in no apparent distress, she stated that her pain is well-controlled, she has a wound VAC in place, she is currently on D5 half-normal saline at 75 cc an hour, she did have episode of hypoglycemia, she did receive 42 units last night, we will decrease her Lantus to 32 units at bedtime monitor the patient symptoms very closely, continue with a sliding scale insulin for now, continue current pain management, infectious disease consultation from Dr. Goode, continue vancomycin 2 g IV piggyback every 24 hours, pharmacy to dose its peak and trough. 12/24: Patient is laying down in bed in no apparent distress, she is rating her pain in the right hip at about 6 out of 10 at this time, she will be getting some hydrocodone today, she denies any chest pain, she has no shortness of breath, she has no abdominal pain at this time, she has not had a bowel movement, she slept okay last night, she continues to have a poor appetite, her blood glucoses start to climb up again we will switch her IV fluid to normal saline at 75 cc an hour, and continue with a sliding scale insulin for now. 12/25: Patient is doing better today, she denies any chest pain, shortness of breath, she is in better spirits, she has no abdominal pain, we will continue current bowel care, continue to evaluate the patient with physical therapy, patient has a wound VAC at the right hip area, she has been seen in consultation by infectious disease recommended vancomycin 2 g IV piggyback every 24 hours, this will go on for 6 weeks, patient will need to have a PICC line, after obtaining the final results of the blood cultures, we will continue to monitor the patient very closely. 12/26: Patient is laying down in bed continues to have some pain in the right hip area, her wound VAC was taken out, she does have the drain in place, she continues to have the dressing on the right side, she continues to have increased swelling both lower extremities, will discontinue IV fluid at this time, will give the patient Lasix 40 mg IV push x 1, then follow-up with the patient very closely increase her activity level, physical therapy evaluation, started the patient on Glucerna twice every day, I will follow-up with the patient very closely, the plan is for the patient to have a PICC line placement and IV antibiotic for the next 6 weeks. 12/27: Patient is laying down in bed she continues to have some pain in the right hip area, she had a PICC line placed in the right upper extremity, she denies any chest pain, or shortness of breath at this time, she did receive Lasix ye sterday, she is very hard to ambulate, she has been followed by orthopedic surgery as well, we will plan for the patient to be transferred to [facility] hopefully the next 1 or 2 days for physical therapy and rehabilitation. REVIEW OF SYSTEMS: Constitutional: No documented fever, no chills, no night sweats. No weight change. Positive for weakness, fatigue or lethargy. No daytime sleepiness. EENT: No headache. No blurred vision or double vision, no loss of vision. No loss of Hearing, no ringing in the ears, no dizziness. No nasal drainage or congestion. No epistaxis. No sore throat. Lungs: minimal shortness of breath, no cough, no sputum production. No wheezing. Reports dyspnea with activity. Cardiovascular: No chest pain, no lower extremity edema. No palpitations. No paroxysmal nocturnal dyspnea. No orthopnea. No lightheadedness or dizziness. No syncopal episodes. Abdominal: Reports no abdominal pain. No nausea, vomiting. No diarrhea. No constipation. No bloody or tarry stools reports loss of appetite. Genitourinary: No dysuria, increased frequency, urgency. No urinary retention. Has a Kay catheter in place Musculoskeletal: No myalgias. positive for muscle weakness, positive for gait dysfunction, no frequent falls. positive for back pain. No neck pain. Integumentary: There are wound VAC to the right hip with a drain in place.., no lesions. No rash or pruritus. No unusual bruising. No change in hair or nails. Neurologic: No aphasia. No facial droop. No change in mentation. No head injury. No headache. No paralysis. No paresthesia. Psychiatric: No depression. No anxiety. No mood swings. Endocrine: No abnormal blood sugars. No weight change. PHYSICAL EXAMINATION: General: 78-year-old female laying in bed in no apparent distress. HEENT: Head is atraumatic, normocephalic, pupils were equal round reactive to light and recommendation, extraocular muscle movement were intact, sclera nonicteric, conjunctivae were pale, mucous membranes of the mouth are somewhat dry. Neck: Supple, no JVP, normal carotid upstroke bilaterally, no lymphadenopathy. Chest: Decreased breath sounds at the bases, few rhonchi, no expiratory wheezes, no chest wall tenderness, no intercostal retractions. Heart: First heart sound is normal, second heart sound is normal there is systolic ejection murmur 2/6 in the left sternal border Abdomen: Soft, obese, nontender, nondistended, positive bowel sounds hepatosplenomegaly. Extremities: There is +1 edema no calf tenderness DP +1 bilaterally, there is a wound VAC to the right hip with a drain in place. Neurologic examination: Patient is awake alert and oriented X3, cranial nerves II-12 appear grossly intact, muscle power were 5 out of 5 in upper extremities and patient is barely able to pick her right lower extremity off the mattress, left lower extremity is 3 out of 5 in intensity. ASSESSMENT AND PLAN: 1. Postoperative day #4 status post incision and drainage with debridement of the right hemiarthroplasty that was done on November 15, 2023 with antibiotic beads placed in and the wound VAC placement since it was removed for infected right hemiarthroplasty with MRSA continue current pain management, continue with IV antibiotic in the form of vancomycin 2 g IV piggyback every 24 hours, pharmacy to dose his peak and trough, patient may need to have an antibiotic for the next 6 weeks with a PICC line placement down the line. 2. MRSA infection of right hemiarthroplasty with sepsis. Continue IV biotic in the form of vancomycin 2 g every back every 24 hours, pharmacy to dose his peak and trough, discontinue IV fluid at this point in time. 3. Acute kidney injury due to poor oral intake of fluid and possible sepsis and chronic kidney disease stage III. Resolved, discontinue IV fluid resuscitation, give the patient Lasix 40 mg IV push x 1. 4. Hypertension and hypertensive cardiovascular disease. Continue patient on carvedilol 6.25 mg orally twice every day, losartan 100 mg once every day, monitor the patient very closely. 5. Mixed hyperlipidemia. Continue patient on atorvastatin 80 mg daily, as well as ezetimibe 10 mg once every day. 6. COPD. Continue patient on DuoNeb 3 mL nebulization 4 times every day as needed. 7. Chronic diastolic heart failure appears stable at this time. Continue carvedilol 6.25 mg orally twice every day as well as losartan 50 mg orally once every day, discontinue IV fluids start the patient on Lasix 40 mg IV push x 1. 8. History of remote lung cancer status post partial lobectomy in 2007 9. Osteoarthritis. Continue current pain management. Start the patient on Tylenol 650 mg orally every 4 hours as needed patient patient also has morphine sulfate as needed, along with hydrocodone 7.5 mg every 6 hours as needed. 10. Osteopenia/osteoporosis, patient will be required to be started on Prolia as an outpatient. 11. Diabetes mellitus type 2. Continue patient on sliding scale insulin because of hypoglycemia. 12. DVT prophylaxis. Continue patient on Lovenox 30 mg subcutaneous every 12 hours 13. GI prophylaxis. Continue famotidine 20 mg orally once every day, continue Protonix 40 mg IV push every 24 hours 14. Chronic kidney disease stage III. Appears stable at this time, avoid hypotension and nephrotoxins, discontinue IV fluids start the patient on Lasix 40 mg IV push x 1. 15. Medical debility. Physical therapy evaluation. 16. Social work consultation for discharge planning to subacute rehabilitation at [facility]. 17. Guarded prognosis. Objective - Vital Signs Vital signs: Vital Signs Temp 97.8 F 12/28/23 13:29 Pulse 71 12/28/23 13:29 Resp 16 12/28/23 13:29 BP 112/66 12/28/23 13:29 Pulse Ox 96 12/28/23 13:29 FiO2 Intake & Output 12/27/23 12/28/23 12/28/23 18:59 06:59 18:59 Intake Total 118 118 Output Total 500 75 Balance -382 43 Intake: Oral 118 118 Output: Drainage 75 Right Hip 75 Urine 500 Other: Voiding Method Indwelling Catheter Indwelling Catheter Indwelling Catheter # Bowel Movements 2 1 - Labs CBC & Chem 7: 12/28/23 03:35 12/29/23 03:03 Labs: Abnormal Lab Results - Last 24 Hours (Table) 12/27/23 12/27/23 12/28/23 Range/Units 16:42 20:45 03:35 WBC (4.50-10.00) X 10*3/uL RBC (4.10-5.20) X 10*6/uL Hgb (12.0-15.0) g/dL Hct (37.2-46.3) % MCV (80.0-97.0) FL MCHC (32.0-37.0) g/dL RDW (11.5-14.5) % Immature Gran # (0.00-0.04) X 10*3/uL Neutrophils # (1.80-7.70) X 10*3/uL Monocytes # (0.20-1.00) X 10*3/uL Sodium 132 L (137-145) mmol/L Carbon Dioxide 31 H (22-30) mmol/L BUN 42 H (7-17) mg/dL Creatinine 1.20 H (0.52-1.04) mg/dL Glucose 125 H (74-99) mg/dL POC Glucose (mg/dL) 168 H 173 H (70-110) mg/dL Calcium 7.3 L (8.4-10.2) mg/dL Alkaline Phosphatase 247 H (38-126) U/L Total Protein 4.3 L (6.3-8.2) g/dL Albumin 1.6 L (3.5-5.0) g/dL 12/28/23 12/28/23 12/28/23 Range/Units 03:35 06:54 10:57 WBC 14.63 H (4.50-10.00) X 10*3/uL RBC 2.62 L (4.10-5.20) X 10*6/uL Hgb 8.0 L (12.0-15.0) g/dL Hct 25.9 L (37.2-46.3) % MCV 98.9 H (80.0-97.0) FL MCHC 30.9 L (32.0-37.0) g/dL RDW 16.6 H (11.5-14.5) % Immature Gran # 0.13 H (0.00-0.04) X 10*3/uL Neutrophils # 11.90 H (1.80-7.70) X 10*3/uL Monocytes # 1.21 H (0.20-1.00) X 10*3/uL Sodium (137-145) mmol/L Carbon Dioxide (22-30) mmol/L BUN (7-17) mg/dL Creatinine (0.52-1.04) mg/dL Glucose (74-99) mg/dL POC Glucose (mg/dL) 133 H 173 H (70-110) mg/dL Calcium (8.4-10.2) mg/dL Alkaline Phosphatase (38-126) U/L Total Protein (6.3-8.2) g/dL Albumin (3.5-5.0) g/dL 12/28/23 Range/Units 15:59 WBC (4.50-10.00) X 10*3/uL RBC (4.10-5.20) X 10*6/uL Hgb (12.0-15.0) g/dL Hct (37.2-46.3) % MCV (80.0-97.0) FL MCHC (32.0-37.0) g/dL RDW (11.5-14.5) % Immature Gran # (0.00-0.04) X 10*3/uL Neutrophils # (1.80-7.70) X 10*3/uL Monocytes # (0.20-1.00) X 10*3/uL Sodium (137-145) mmol/L Carbon Dioxide (22-30) mmol/L BUN (7-17) mg/dL Creatinine (0.52-1.04) mg/dL Glucose (74-99) mg/dL POC Glucose (mg/dL) 153 H (70-110) mg/dL Calcium (8.4-10.2) mg/dL Alkaline Phosphatase (38-126) U/L Total Protein (6.3-8.2) g/dL Albumin (3.5-5.0) g/dL Microbiology - Last 24 Hours (Table) 12/24/23 06:50 Blood Culture - Preliminary Blood 12/24/23 11:30 Anaerobic Culture - Preliminary Hip - Right 12/24/23 11:30 Anaerobic Culture - Preliminary Hip - Right 12/24/23 11:30 Anaerobic Culture - Preliminary Hip - Right 12/24/23 11:30 Anaerobic Culture - Preliminary Hip - Right
[2023-12-29] MEDS: HYDROcodone/APAP 7.5-325MG 1 EACH TAB PO PRN (20:10)
[2023-12-29 20:58] LABS: Glucose,Whole Blood 178 mg/dL (70-110)
[2023-12-30 04:38] LABS: ALT 25 U/L (4-34); AST 35 U/L (14-36); African American GFR (CKD) 38 (>60 ml/min/1.73 sqM); Albumin 1.6 g/dL (3.5-5.0); Albumin/Globulin Ratio 0.6; Alkaline Phosphatase 249 U/L (38-126); Anion Gap 0 mmol/L; Blood Urea Nitrogen 48 mg/dL (7-17); Calcium 7.7 mg/dL (8.4-10.2); Carbon Dioxide 29 mmol/L (22-30); Chloride 102 mmol/L (98-107); Globulin 2.8 g/dL; Glucose 104 mg/dL (74-99); Non-African American GFR(CKD) 33 (>60 ml/min/1.73 sqM); Potassium 4.2 mmol/L (3.5-5.1); Sodium 131 mmol/L (137-145); Total Bilirubin 1.1 mg/dL (0.2-1.3); Total Protein 4.4 g/dL (6.3-8.2)
[2023-12-30 06:42] LABS: Glucose,Whole Blood 120 mg/dL (70-110)
[2023-12-30] MEDS: ZINC OXIDE PASTE (Z-GUARD) 1 APPLIC TOPICAL SCH (09:27)
[2023-12-30 09:39] LABS: Basophils # (A) 0.03 X 10*3/uL (0.00-0.10); Basophils % (A) 0.2 %; Eosinophils # (A) 0.41 X 10*3/uL (0.04-0.35); Eosinophils % (A) 2.4 %; HCT 25.4 % (37.2-46.3); HGB 7.8 g/dL (12.0-15.0); Lymphocytes # (A) 1.51 X 10*3/uL (0.90-5.00); MCH 31.8 pg (27.0-32.0); MCHC 30.7 g/dL (32.0-37.0); MCV 103.7 FL (80.0-97.0); Mean Platelet Volume 9.8 FL (9.5-12.2); Monocytes # (A) 1.43 X 10*3/uL (0.20-1.00); Monocytes % (A) 8.5 %; NRBC Per 100 WBC 0 X 10*3/uL (0.00-0.01); Neutrophils # (A) 13.19 X 10*3/uL (1.80-7.70); Neutrophils % (A) 78.7 %; Platelet Count 262 X 10*3/uL (140-440); RBC 2.45 X 10*6/uL (4.10-5.20); RDW 15.7 % (11.5-14.5); WBC 16.77 X 10*3/uL (4.50-10.00)
[2023-12-30 11:36] LABS: Glucose,Whole Blood 179 mg/dL (70-110)
--- NOTE | 2023-12-30 12:04 | P.PN ---
Subjective Progress Note Date: 12/29/23 HISTORY OF PRESENT ILLNESS: This is a 78-year-old female with a previous medical history signif icant for hypertension and hypertensive cardiovascular disease, hyperlipidemia, diabetes mellitus type 2, obesity, osteoarthritis, chronic low back pain, chronic kidney disease stage 3b, patient underwent a intramedullary nailing for a right intertrochanter Fracture about a year ago and she went to [facility] for subacute rehabilitation for quite some time, then she was doing fine, using a walker at home when all of a sudden she could not put any pressure on the right lower extremity patient ended up staying in bed for quite some time, until her family brought her to the ER at that time she was found to have a failure of the intramedullary nailing that was placed about a year ago in December 2022 and she was seen by orthopedic and the intramedullary nailing was removed and the patient underwent right hemiarthroplasty that was done on November 15, [address] Newby, patient was sent to [facility] for physical therapy rehabilitation I have been following the patient on a regular basis, patient was also following up with Dr. Newby but recently the patient developed to have a significant drainage from the right hip area initially the patient was started on cephalexin 500 mg orally 3 times every day for 10 days which made the wound appeared to be better, patient had her parul removed from her surgeon and few days later patient developed to have a significant swelling and drainage from the upper part of the incision with a brown bloody discharge material were sent for cultur e showed presumptive Staphylococcus aureus patient was not able to put any pressure on the right lower extremity she was sent to the ER for CT scan of the right lower extremity that showed to a pocket of fluid collection cannot rule out abscesses versus seroma patient did not have any white count at this time, patient will be admitted to the hospital until orthopedic surgery we have been consulted for medical management orthopedic surgery was consulted, patient is scheduled to go to a washout tomorrow morning and she was started already on IV antibiotic in the form of vancomycin deep culture will be done as well as blood culture will be done at the same time we will follow-up with the patient while she is in the hospital. 12/23: Patient just got back from the OR she underwent incision and drainage as well as irrigation of right hemiarthroplasty with a wound VAC placement that was done today by Dr. Newby, patient is laying down in bed in no apparent distress, she stated that her pain is well-controlled, she has a wound VAC in place, she is currently on D5 half-normal saline at 75 cc an hour, she did have episode of hypoglycemia, she did receive 42 units last night, we will decrease her Lantus to 32 units at bedtime monitor the patient symptoms very closely, continue with a sliding scale insulin for now, continue current pain management, infectious disease consultation from Dr. Goode, continue vancomycin 2 g IV piggyback every 24 hours, pharmacy to dose its peak and trough. 12/24: Patient is laying down in bed in no apparent distress, she is rating her pain in the right hip at about 6 out of 10 at this time, she will be getting some hydrocodone today, she denies any chest pain, she has no shortness of breath, she has no abdominal pain at this time, she has not had a bowel movement, she slept okay last night, she continues to have a poor appetite, her blood glucoses start to climb up again we will switch her IV fluid to normal saline at 75 cc an hour, and continue with a sliding scale insulin for now. 12/25: Patient is doing better today, she denies any chest pain, shortness of breath, she is in better spirits, she has no abdominal pain, we will continue current bowel care, continue to evaluate the patient with physical therapy, patient has a wound VAC at the right hip area, she has been seen in consultation by infectious disease recommended vancomycin 2 g IV piggyback every 24 hours, this will go on for 6 weeks, patient will need to have a PICC line, after obtaining the final results of the blood cultures, we will continue to monitor the patient very closely. 12/26: Patient is laying down in bed continues to have some pain in the right hip area, her wound VAC was taken out, she does have the drain in place, she continues to have the dressing on the right side, she continues to have increased swelling both lower extremities, will discontinue IV fluid at this time, will give the patient Lasix 40 mg IV push x 1, then follow-up with the patient very closely increase her activity level, physical therapy evaluation, started the patient on Glucerna twice every day, I will follow-up with the patient very closely, the plan is for the patient to have a PICC line placement and IV antibiotic for the next 6 weeks. 12/27: Patient is laying down in bed she continues to have some pain in the right hip area, she had a PICC line placed in the right upper extremity, she denies any chest pain, or shortness of breath at this time, she did receive Lasix ye sterday, she is very hard to ambulate, she has been followed by orthopedic surgery as well, we will plan for the patient to be transferred to [facility] hopefully the next 1 or 2 days for physical therapy and rehabilitation. 12/28: Patient is laying down in bed in no apparent distress, has no chest pain, shortness of breath, she is eating a little better today about 25 to 30% of her meal, she has had a bowel movement, she has no more diarrhea at this time, she continues to have a Kay catheter in place, we will monitor the patient input and output and daily weight, she continues to have some swelling both lower extremities, we will monitor the patient closely patient has been maintained on the current pain management, she will be placed back on her hydrocodone for pain control, and she was taken off the tramadol. Physical therapy evaluation, likely the patient will be transferred back to [facility] hopefully in the next 24 hours. 12/29: Patient is laying down in bed she appears to be a bit better today, she is having less pain in the right hip, patient was started on hydrocodone 7.5/325 1 tablet every 8 hours as needed discontinue tramadol, continue with physical therapy evaluation, continue to ambulate the patient, patient has a PICC line in the right upper extremity, with the plan is to give the patient IV antibiotic for the next 6 weeks, she is returned back to [facility] hopefully the next 24 hours. REVIEW OF SYSTEMS: Constitutional: No documented fever, no chills, no night sweats. No weight change. Positive for weakness, fatigue or lethargy. No daytime sleepiness. EENT: No headache. No blurred vision or double vision, no loss of vision. No loss of Hearing, no ringing in the ears, no dizziness. No nasal drainage or congestion. No epistaxis. No sore throat. Lungs: minimal shortness of breath, no cough, no sputum production. No wheezing. Reports dyspnea with activity. Cardiovascular: No chest pain, no lower extremity edema. No palpitations. No paroxysmal nocturnal dyspnea. No orthopnea. No lightheadedness or dizziness. No syncopal episodes. Abdominal: Reports no abdominal pain. No nausea, vomiting. No diarrhea. No constipation. No bloody or tarry stools reports loss of appetite. Genitourinary: No dysuria, increased frequency, urgency. No urinary retention. Has a Kay catheter in place Musculoskeletal: No myalgias. positive for muscle weakness, positive for gait dysfunction, no frequent falls. positive for back pain. No neck pain. Integumentary: There incision to the right hip area that is covered with dressing, interval removal of the wound VAC in the drain. No lesions. No rash or pruritus. No unusual bruising. No change in hair or nails. Neurologic: No aphasia. No facial droop. No change in mentation. No head injury. No headache. No paralysis. No paresthesia. Psychiatric: No depression. No anxiety. No mood swings. Endocrine: No abnormal blood sugars. No weight change. PHYSICAL EXAMINATION: General: 78-year-old female laying in bed in no apparent distress. HEENT: Head is atraumatic, normocephalic, pupils were equal round reactive to light and recommendation, extraocular muscle movement were intact, sclera nonicteric, conjunctivae were pale, mucous membranes of the mouth are somewhat dry. Neck: Supple, no JVP, normal carotid upstroke bilaterally, no lymphadenopathy. Chest: Decreased breath sounds at the bases, few rhonchi, no expiratory wheezes, no chest wall tenderness, no intercostal retractions. Heart: First heart sound is normal, second heart sound is normal there is systolic ejection murmur 2/6 in the left sternal border Abdomen: Soft, obese, nontender, nondistended, positive bowel sounds hepatosplenomegaly. Extremities: There is +1 edema no calf tenderness DP +1 bilaterally, the right hip wound is covered with dressing, there is no drain or wound VAC anymore. Neurologic examination: Patient is awake alert and oriented X3, cranial nerves II-12 appear grossly intact, muscle power were 5 out of 5 in upper extremities she is 2 out of 5 in the right lower extremity, and 3 out of 5 in the left lower extremity. ASSESSMENT AND PLAN: 1. Postoperative day #6 status post incision and drainage with debridement of the right hemiarthroplasty that was done on November 15, 2023 with antibiotic beads placed in and the wound VAC placement since it was removed for infected right hemiarthroplasty with MRSA continue current pain management, continue with IV antibiotic in the form of vancomycin 2 g IV piggyback every 24 hours, pharmacy to dose his peak and trough, patient may need to have an antibiotic for the next 6 weeks with a PICC line placement down the line. 2. MRSA infection of right hemiarthroplasty with sepsis. Continue IV biotic in the form of vancomycin 2 g every back every 24 hours, pharmacy to dose his peak and trough, discontinue IV fluid at this point in time. 3. Acute kidney injury due to poor oral intake of fluid and possible sepsis and chronic kidney disease stage III. Resolved, discontinue IV fluid resuscitation, give the patient Lasix 40 mg IV push x 1. 4. Hypertension and hypertensive cardiovascular disease. Continue patient on carvedilol 6.25 mg orally twice every day, losartan 100 mg once every day, monitor the patient very closely. 5. Mixed hyperlipidemia. Continue patient on atorvastatin 80 mg daily, as well as ezetimibe 10 mg once every day. 6. COPD. Continue patient on DuoNeb 3 mL nebulization 4 times every day as needed. 7. Chronic diastolic heart failure appears stable at this time. Continue carvedilol 6.25 mg orally twice every day as well as losartan 50 mg orally once every day, discontinue IV fluids start the patient on Lasix 40 mg IV push x 1. 8. History of remote lung cancer status post partial lobectomy in 2007 9. Osteoarthritis. Continue current pain management. Start the patient on Tylenol 650 mg orally every 4 hours as needed patient patient also has morphine sulfate as needed, along with hydrocodone 7.5 mg every 6 hours as needed. 10. Osteopenia/osteoporosis, patient will be required to be started on Prolia as an outpatient. 11. Diabetes mellitus type 2. Continue patient on sliding scale insulin because of hypoglycemia. 12. DVT prophylaxis. Continue patient on Lovenox 30 mg subcutaneous every 12 hours 13. GI prophylaxis. Continue famotidine 20 mg orally once every day, continue Protonix 40 mg IV push every 24 hours 14. Chronic kidney disease stage III. Appears stable at this time, avoid hypotension and nephrotoxins, discontinue IV fluids start the patient on Lasix 40 mg IV push x 1. 15. Medical debility. Physical therapy evaluation. 16. Social work consultation for discharge planning to subacute rehabilitation at [facility]. 17. Guarded prognosis. 18. Hopefully [facility] tomorrow morning Objective - Vital Signs Vital signs: Vital Signs Temp 98.5 F 12/29/23 13:57 Pulse 89 12/29/23 13:57 Resp 17 12/29/23 13:57 BP 103/59 12/29/23 13:57 Pulse Ox 96 12/29/23 13:57 FiO2 Intake & Output 12/28/23 12/29/23 12/29/23 18:59 06:59 18:59 Intake Total 118 Output Total 375 600 300 Balance -257 -600 -300 Weight 136.078 kg Intake: Oral 118 Output: Drainage 75 Right Hip 75 Urine 300 600 300 Other: Voiding Method Indwelling Catheter Indwelling Catheter Indwelling Catheter # Bowel Movements 1 - Labs CBC & Chem 7: 12/30/23 03:51 12/30/23 03:51 Labs: Abnormal Lab Results - Last 24 Hours (Table) 12/28/23 12/29/23 12/29/23 Range/Units 21:01 03:03 06:53 Creatinine 1.27 H (0.52-1.04) mg/dL POC Glucose (mg/dL) 166 H 128 H (70-110) mg/dL 12/29/23 12/29/23 Range/Units 11:35 16:38 Creatinine (0.52-1.04) mg/dL POC Glucose (mg/dL) 178 H 198 H (70-110) mg/dL Microbiology - Last 24 Hours (Table) 12/24/23 06:50 Blood Culture - Final Blood 12/24/23 11:30 Anaerobic Culture - Final Hip - Right 12/24/23 11:30 Anaerobic Culture - Final Hip - Right 12/24/23 11:30 Anaerobic Culture - Final Hip - Right 12/24/23 11:30 Anaerobic Culture - Final Hip - Right
--- NOTE | 2023-12-30 12:40 | P.PN ---
Subjective Progress Note Date: 12/30/23 Principal diagnosis: Reason for follow-up is right hip abscess/MRSA Patient is a 78-year-old female with a past medical history significant for diabetes mellitus hypertension hyperlipidemia patient recently did have a intramedullary nailing for a right intertrochanteric fracture and subsequently the patient did underwent right hemiarthroplasty on November 15, 2023 and removal of the intramedullary nailing, did have issue with drainage from the right hip incision and recent outpatient culture positive for MRSA in this patient who is status post I&D of the right hip and antibiotic bead placement. On today's evaluation that is 12/30/2023, Patient is afebrile patient is currently on 2 L nasal oxygen and is breathing comfortably no distress seem to be slightly sleepy lethargic today not a bit good historian no vomiting diarrhea any change reported by the nursing staff. Patient white count is 16.77, creatinine is 1.51 Objective - Vital Signs Vital signs: Vital Signs Temp 97.8 F 12/30/23 06:59 Pulse 75 12/30/23 06:59 Resp 16 12/30/23 06:59 BP 101/59 12/30/23 06:59 Pulse Ox 96 12/30/23 06:59 FiO2 Intake & Output 12/29/23 12/30/23 12/30/23 18:59 06:59 18:59 Output Total 300 600 Balance -300 -600 Weight 136.078 kg Output: Urine 300 600 Other: Voiding Method Indwelling Catheter Indwelling Catheter # Bowel Movements 1 - Exam GENERAL DESCRIPTION: An elderly female lying in bed in no distress RESPIRATORY SYSTEM: Unlabored breathing , decreased breath sounds at bases HEART: S1 S2 regular rate and rhythm , ABDOMEN: Soft , no tenderness EXTREMITIES: No edema feet - Labs CBC & Chem 7: 12/30/23 03:51 12/30/23 03:51 Labs: Abnormal Lab Results - Last 24 Hours (Table) 12/29/23 12/29/23 12/29/23 Range/Units 11:35 16:38 20:57 WBC (4.50-10.00) X 10*3/uL RBC (4.10-5.20) X 10*6/uL Hgb (12.0-15.0) g/dL Hct (37.2-46.3) % MCV (80.0-97.0) FL MCHC (32.0-37.0) g/dL RDW (11.5-14.5) % Immature Gran # (0.00-0.04) X 10*3/uL Neutrophils # (1.80-7.70) X 10*3/uL Monocytes # (0.20-1.00) X 10*3/uL Eosinophils # (0.04-0.35) X 10*3/uL Sodium (137-145) mmol/L BUN (7-17) mg/dL Creatinine (0.52-1.04) mg/dL Glucose (74-99) mg/dL POC Glucose (mg/dL) 178 H 198 H 178 H (70-110) mg/dL Calcium (8.4-10.2) mg/dL Alkaline Phosphatase (38-126) U/L Total Protein (6.3-8.2) g/dL Albumin (3.5-5.0) g/dL 12/30/23 12/30/23 12/30/23 Range/Units 03:51 03:51 06:40 WBC 16.77 H (4.50-10.00) X 10*3/uL RBC 2.45 L (4.10-5.20) X 10*6/uL Hgb 7.8 L (12.0-15.0) g/dL Hct 25.4 L (37.2-46.3) % MCV 103.7 H (80.0-97.0) FL MCHC 30.7 L (32.0-37.0) g/dL RDW 15.7 H (11.5-14.5) % Immature Gran # 0.20 H (0.00-0.04) X 10*3/uL Neutrophils # 13.19 H (1.80-7.70) X 10*3/uL Monocytes # 1.43 H (0.20-1.00) X 10*3/uL Eosinophils # 0.41 H (0.04-0.35) X 10*3/uL Sodium 131 L (137-145) mmol/L BUN 48 H (7-17) mg/dL Creatinine 1.51 H (0.52-1.04) mg/dL Glucose 104 H (74-99) mg/dL POC Glucose (mg/dL) 120 H (70-110) mg/dL Calcium 7.7 L (8.4-10.2) mg/dL Alkaline Phosphatase 249 H (38-126) U/L Total Protein 4.4 L (6.3-8.2) g/dL Albumin 1.6 L (3.5-5.0) g/dL Microbiology - Last 24 Hours (Table) 12/24/23 06:50 Blood Culture - Final Blood 12/24/23 11:30 Anaerobic Culture - Final Hip - Right 12/24/23 11:30 Anaerobic Culture - Final Hip - Right 12/24/23 11:30 Anaerobic Culture - Final Hip - Right 12/24/23 11:30 Anaerobic Culture - Final Hip - Right Assessment and Plan (1) Abscess of right hip Current Visit: Yes Status: Acute Code(s): L02.415 - CUTANEOUS ABSCESS OF RIGHT LOWER LIMB SNOMED Code(s): 719243 (2) MRSA (methicillin resistant Staphylococcus aureus) infection Current Visit: Yes Status: Acute Code(s): A49.02 - METHICILLIN RESIS STAPH INFECTION, UNSP SITE SNOMED Code(s): 782978919 (3) Allergy to cephalosporin Current Visit: Yes Status: Acute Code(s): Z88.1 - ALLERGY STATUS TO OTHER ANTIBIOTIC AGENTS SNOMED Code(s): 031939353 (4) Fluid collection at surgical site Current Visit: Yes Status: Acute Code(s): T88.8XXA - OTH COMPLICATIONS OF SURGICAL AND MEDICAL CARE, NEC, INIT SNOMED Code(s): 320646094 (5) Postoperative infection Current Visit: Yes Status: Acute Code(s): T81.40XA - INFECTION FOLLOWING A PROCEDURE, UNSPECIFIED, INIT SNOMED Code(s): 72324183 Plan: 1patient with a nonhealing wound to the right hip in this patient who is status post right hip hemiarthroplasty on November 15, 2023 subsequently noticed to have any drainage and did have a culture done on 12/21/2023 that has been positive for MRSA with a CT suspicious for fluid collection in this patient who is status post I&D of the right hip placement of antibiotic beads deep in the right hip and closure of the wound operative report did not mention deep inf ection down to the TFL with operative culture currently pending 2patient local culture growing MRSA blood culture has been negative patient has received a PICC line 3-patient noticed to have worsening of her kidney function we will go ahead and discontinue the vancomycin switched to daptomycin and will monitor clinical course closely Dictation was produced using [employer] dictation software. please excuse any grammatical, word or spelling errors. Time with Patient: Less than 30
[2023-12-30] MEDS: SODIUM FERRIC GLUCONAT-SUCROSE 125 MG in SODIUM CHLORIDE 0.9% 100 ML IVPB ONE (13:45)
[2023-12-30] MEDS: DAPTOmycin 500 MG in SODIUM CHLORIDE 0.9% 50 ML IVPB SCH (13:46)
[2023-12-30 14:29] VITALS: RESP 18
[2023-12-30] MEDS: VANCOMYCIN TROUGH DUE 1 EACH MISC MISCELLANE ONE (16:12)
[2023-12-30 16:37] LABS: Glucose,Whole Blood 170 mg/dL (70-110)
[2023-12-30 20:19] LABS: Glucose,Whole Blood 230 mg/dL (70-110)
[2023-12-31 06:40] LABS: Glucose,Whole Blood 147 mg/dL (70-110)
[2023-12-31] MEDS: ACETAMINOPHEN TAB 325 MG TAB PO PRN (07:42)
[2023-12-31 08:18] VITALS: TEMP 98
[2023-12-31] MEDS: FUROSEMIDE 10 MG/ML 4 ML VIAL IV ONE (09:17)
[2023-12-31 11:41] LABS: Glucose,Whole Blood 219 mg/dL (70-110)
--- NOTE | 2023-12-31 13:51 | P.DS ---
Providers Date of admission: 12/26/23 12:03 Expected date of discharge: 12/31/23 Attending physician: Mitra Malik Consults: 12/23/23 16:52 Consult Physician Urgent Consulting Provider: Abisai Newby Consult Reason/Comments: known Do you want consulting provider notified?: Yes 12/23/23 16:56 Consult Physician Routine Consulting Provider: Tiburcio Joe Consult Reason/Comments: infection Do you want consulting provider notified?: Yes Primary care physician: Mitra Malik Hospital Course: HISTORY OF PRESENT ILLNESS: This is a 78-year-old female with a previous medical history significant for hypertension and hypertensive cardiovascular disease, hyperlipidemia, diabetes mellitus type 2, obesity, osteoarthritis, chronic low back pain, chronic kidney disease stage 3b, patient underwent a intramedullary nailing for a right intertrochanter Fracture about a year ago and she went to [facility] for subacute rehabilitation for quite some time, then she was doing fin e, using a walker at home when all of a sudden she could not put any pressure on the right lower extremity patient ended up staying in bed for quite some time, until her family brought her to the ER at that time she was found to have a failure of the intramedullary nailing that was placed about a year ago in December 2022 and she was seen by orthopedic and the intramedullary nailing was removed and the patient underwent right hemiarthroplasty that was done on November 15, [address] New[address], patient was sent to [facility] for physical therapy rehabilitation I have been following the patient on a regular basis, patient was also following up with Dr. Newby but recently the patient developed to have a significant drainage from the right hip area initially the patient was started on cephalexin 500 mg orally 3 times every day for 10 days which made the wound appeared to be better, patient had her parul removed from her surgeon and few days later patient developed to have a significant swelling and drainage from the upper part of the incision with a brown bloody discharge material were sent for culture showed presumptive Staphylococcus aureus patient was not able to put any pressure on the right lower extremity she was sent to the ER for CT scan of the right lower extremity that showed to a pocket of fluid collection cannot rule out abscesses versus seroma patient did not have any white count at this time, patient will be admitted to the hospital until orthopedic surgery we have been consulted for medical management orthopedic surgery was consulted, patient is scheduled to go to a washout tomorrow morning and she was started already on IV antibiotic in the form of vancomycin deep culture will be done as well as blood culture will be done at the same time we will follow-up with the patient while she is in the hospital. 12/23: Patient just got back from the OR she underwent incision and drainage as well as irrigation of right hemiarthroplasty with a wound VAC placement that was done today by Dr. Newby, patient is laying down in bed in no apparent distress, she stated that her pain is well-controlled, she has a wound VAC in place, she is currently on D5 half-normal saline at 75 cc an hour, she did have episode of hypoglycemia, she did receive 42 units last night, we will decrease her Lantus to 32 units at bedtime monitor the patient symptoms very closely, continue with a sliding scale insulin for now, continue current pain management, infectious disease consultation from Dr. Goode, continue vancomycin 2 g IV piggyback every 24 hours, pharmacy to dose its peak and trough. 12/24: Patient is laying down in bed in no apparent distress, she is rating her pain in the right hip at about 6 out of 10 at this time, she will be getting some hydrocodone today, she denies any chest pain, she has no shortness of breath, she has no abdominal pain at this time, she has not had a bowel movement, she slept okay last night, she continues to have a poor appetite, her blood glucoses start to climb up again we will switch her IV fluid to normal saline at 75 cc an hour, and continue with a sliding scale insulin for now. 12/25: Patient is doing better today, she denies any chest pain, shortness of breath, she is in better spirits, she has no abdominal pain, we will continue current bowel care, continue to evaluate the patient with physical therapy, patient has a wound VAC at the right hip area, she has been seen in consultation by infectious disease recommended vancomycin 2 g IV piggyback every 24 hours, this will go on for 6 weeks, patient will need to have a PICC line, after obtaining the final results of the blood cultures, we will continue to monitor the patient very closely. 12/26: Patient is laying down in bed continues to have some pain in the right hip area, her wound VAC was taken out, she does have the drain in place, she continues to have the dressing on the right side, she continues to have increased swelling both lower extremities, will discontinue IV fluid at this time, will give the patient Lasix 40 mg IV push x 1, then follow-up with the patient very closely increase her activity level, physical therapy evaluation, started the patient on Glucerna twice every day, I will follow-up with the patient very closely, the plan is for the patient to have a PICC line placement and IV antibiotic for the next 6 weeks. 12/27: Patient is laying down in bed she continues to have some pain in the right hip area, she had a PICC line placed in the right upper extremity, she denies any chest pain, or shortness of breath at this time, she did receive Lasix yesterday, she is very hard to ambulate, she has been followed by orthopedic surgery as well, we will plan for the patient to be transferred to [facility] hopefully the next 1 or 2 days for physical therapy and rehabilitation. 12/28: Patient is laying down in bed in no apparent distress, has no chest pain, shortness of breath, she is eating a little better today about 25 to 30% of her meal, she has had a bowel movement, she has no more diarrhea at this time, she continues to have a Kay catheter in place, we will monitor the patient input and output and daily weight, she continues to have some swelling both lower extremities, we will monitor the patient closely patient has been maintained on the current pain management, she will be placed back on her hydrocodone for pain control, and she was taken off the tramadol. Physical therapy evaluation, likely the patient will be transferred back to [facility] hopefully in the next 24 hours. 12/29: Patient is laying down in bed she appears to be a bit better today, she is having less pain in the right hip, patient was started on hydrocodone 7.5/325 1 tablet every 8 hours as needed discontinue tramadol, continue with physical t herapy evaluation, continue to ambulate the patient, patient has a PICC line in the right upper extremity, with the plan is to give the patient IV antibiotic for the next 6 weeks, she is to be returned back to [facility] 12/30: Patient is laying down in bed in no apparent distress, she continues to have a Kay catheter in place, she was switched to Tylenol, does not want to take any pain medication at this point in time, we will continue to monitor the patient very closely, she will be able to be discharged to [facility] and we will follow-up with the patient as an outpatient next week. Discharge diagnoses: 1. Postoperative day #6 status post incision and drainage with debridement of the right hemiarthroplasty that was done on November 15, 2023 with antibiotic beads placed 2. MRSA infection of right hemiarthroplasty with sepsis. 3. Acute kidney injury due to poor oral intake of fluid and possible sepsis and chronic kidney disease stage III. 4. Hypertension and hypertensive cardiovascular disease. 5. Mixed hyperlipidemia. 6. COPD. 7. Chronic diastolic heart failure appears stable at this time. 8. History of remote lung cancer status post partial lobectomy in 2007 9. Osteoarthritis. 10. Osteopenia/osteoporosis, 11. Diabetes mellitus type 2. 12. Chronic kidney disease stage III. 13. Medical debility. Plan - Discharge Summary Discharge Rx Participant: No New Discharge Prescriptions: New DAPTOmycin [Cubicin] 500 mg IV Q48H 42 Days #22 each Discontinued Atorvastatin [Lipitor] 80 mg PO HS@2100 No Action Aspirin EC [Ecotrin Low Dose] 81 mg PO DAILY@0800 Ezetimibe [Zetia] 10 mg PO DAILY@0800 carvediloL [Coreg] 6.25 mg PO BID@0800,1700 Ondansetron [Zofran] 4 mg PO Q8H PRN PRN Reason: Nausea Magnesium Hydroxide [Milk of Magnesia Concentrate] 7,200 mg PO DAILY PRN PRN Reason: Constipation HYDROcodone/APAP 7.5-325MG [[place] 7.5-325] 1 tab PO Q6HR PRN PRN Reason: Pain bisacodyL [Dulcolax] 10 mg RECTAL DAILY PRN PRN Reason: Constipation Na Phos,M-B/Na Phos,Di-Ba [Fleet Adult] 133 ml RECTAL DIRECTED PRN PRN Reason: Constipation Nystatin 100,000 Unit/gm Powd [Mycostatin Powder] 1 applic TOPICAL TID Acetaminophen Tab [Tylenol] 650 mg PO Q6HR Liquacel 30 ml PO BID@08,17 Enoxaparin [Lovenox] 30 mg SQ Q12HR@08,21 Ferrous Sulfate [Iron (65 MG Elemental)] 325 mg PO BID@0800,1700 Sennosides/Docusate Sodium [Senna Plus 8.6-50 mg Softgel] 2 cap PO HS@2100 Insulin Detemir (Levemir) [Levemir] 42 unit SQ HS@2100 Tamsulosin [Flomax] 0.4 mg PO DAILY@0800 Torsemide [Demadex] 20 mg PO DAILY@0800 Losartan Potassium 50 mg PO DAILY@0800 Ipratropium-Albuterol Nebulize [Duoneb 0.5 mg-3 mg/3 ml Soln] 3 ml INHALATION RT-TID PRN PRN Reason: Shortness Of Breath Or Wheezing INSULIN ASPART (NovoLOG) [NovoLOG (formulary)] See Protocol SQ ACHS@07,11,1630,2130 Shivam Packet 1 packet PO BID@ Famotidine [Pepcid] 20 mg PO DAILY@0600 Lactulose 20 gm PO DAILY@0800 Citalopram Hydrobromide [CeleXA] 10 mg PO DAILY@0800 Discharge Medication List Aspirin EC [Ecotrin Low Dose] 81 mg PO DAILY@0800 10/15/22 [History] Ezetimibe [Zetia] 10 mg PO DAILY@0800 10/15/22 [History] Torsemide [Demadex] 20 mg PO DAILY@0800 01/20/23 [History] Losartan Potassium 50 mg PO DAILY@0800 11/10/23 [History] carvediloL [Coreg] 6.25 mg PO BID@0800,1700 11/10/23 [History] Acetaminophen Tab [Tylenol] 650 mg PO Q6HR 12/23/23 [History] Citalopram Hydrobromide [CeleXA] 10 mg PO DAILY@0800 12/23/23 [History] Enoxaparin [Lovenox] 30 mg SQ Q12HR@08,21 12/23/23 [History] Famotidine [Pepcid] 20 mg PO DAILY@0600 12/23/23 [History] Ferrous Sulfate [Iron (65 MG Elemental)] 325 mg PO BID@0800,1700 12/23/23 [History] HYDROcodone/APAP 7.5-325MG [[place] 7.5-325] 1 tab PO Q6HR PRN 12/23/23 [History] INSULIN ASPART (NovoLOG) [NovoLOG (formulary)] See Protocol SQ ACHS@07,11,1630,2130 12/23/23 [History] Insulin Detemir (Levemir) [Levemir] 42 unit SQ HS@209912/23/23 [History] Ipratropium-Albuterol Nebulize [Duoneb 0.5 mg-3 mg/3 ml Soln] 3 ml INHALATION RT-TID PRN 12/23/23 [History] Shivam Packet 1 packet PO BID@12/23/23 [History] Lactulose 20 gm PO DAILY@0812/23/23 [History] Liquacel 30 ml PO BID@,12/23/23 [History] Magnesium Hydroxide [Milk of Magnesia Concentrate] 7,200 mg PO DAILY PRN 12/23/23 [History] Na Phos,M-B/Na Phos,Di-Ba [Fleet Adult] 133 ml RECTAL DIRECTED PRN 12/23/23 [History] Nystatin 100,000 Unit/gm Powd [Mycostatin Powder] 1 applic TOPICAL TID 12/23/23 [History] Ondansetron [Zofran] 4 mg PO Q8H PRN 12/23/23 [History] Sennosides/Docusate Sodium [Senna Plus 8.6-50 mg Softgel] 2 cap PO HS@209912/23/23 [History] Tamsulosin [Flomax] 0.4 mg PO DAILY@0812/23/23 [History] bisacodyL [Dulcolax] 10 mg RECTAL DAILY PRN 12/23/23 [History] DAPTOmycin [Cubicin] 500 mg IV Q48H 42 Days #22 each 12/31/23 [Rx] Follow up Appointment(s)/Referral(s): Mitra Malik MD [Primary Care Provider] - 1-2 days Maria Guadalupe Mcdonald [NON-STAFF] - As Needed Abisai Newby DO [Doctor of Osteopathic Medicine] - 10 Days Tiburcio Joe MD [STAFF PHYSICIAN] - 1 Week Ambulatory/Diagnostic Orders: Basic Metabolic Panel [LAB.AMB] Location: None Selected C Reactive Protein [LAB.AMB] Location: None Selected Complete Blood Count w/diff [LAB.AMB] Location: None Selected Erythrocyte Sedimentation Rate [LAB.AMB] Location: None Selected Activity/Diet/Wound Care/Special Instructions: Orthopedic Discharge Instructions: 1. Wound care and infection precautions, keep incision dry and covered while showering, no lotions, creams, moisturizers. No soaking, pools, hot tubs. Do not scrub over incision. 2. Weight-bear as tolerated with walker / cane until follow-up. 3. Ice and elevate when necessary. Do not exceed 20 minutes per hour with ice pack. 4. Utilize compression sleeve until seen at first follow up appointment. 5. Pain meds and anticoagulants per prescription. 6. Pain medication has potential to cause constipation. Increase oral fluid and fiber intake. Contact primary care provider if you have not had a bowel movement within 48 hours after discharge. 7. No anti-inflammatory medication until discussed at first post operative visit, this including Motrin, Aleve, Mobic, Diclofenac. 8. Follow up in office at [address] Abisai Newby 9. Follow up with your primary care doctor 7-10 days after discharge. 10. Contact [facility] with any questions, .
--- NOTE | 2023-12-31 13:54 | P.PN ---
Subjective Progress Note Date: 12/30/23 HISTORY OF PRESENT ILLNESS: This is a 78-year-old female with a previous medical history signif icant for hypertension and hypertensive cardiovascular disease, hyperlipidemia, diabetes mellitus type 2, obesity, osteoarthritis, chronic low back pain, chronic kidney disease stage 3b, patient underwent a intramedullary nailing for a right intertrochanter Fracture about a year ago and she went to [facility] for subacute rehabilitation for quite some time, then she was doing fine, using a walker at home when all of a sudden she could not put any pressure on the right lower extremity patient ended up staying in bed for quite some time, until her family brought her to the ER at that time she was found to have a failure of the intramedullary nailing that was placed about a year ago in December 2022 and she was seen by orthopedic and the intramedullary nailing was removed and the patient underwent right hemiarthroplasty that was done on November 15, [address] Newby, patient was sent to [facility] for physical therapy rehabilitation I have been following the patient on a regular basis, patient was also following up with Dr. Newby but recently the patient developed to have a significant drainage from the right hip area initially the patient was started on cephalexin 500 mg orally 3 times every day for 10 days which made the wound appeared to be better, patient had her parul removed from her surgeon and few days later patient developed to have a significant swelling and drainage from the upper part of the incision with a brown bloody discharge material were sent for cultur e showed presumptive Staphylococcus aureus patient was not able to put any pressure on the right lower extremity she was sent to the ER for CT scan of the right lower extremity that showed to a pocket of fluid collection cannot rule out abscesses versus seroma patient did not have any white count at this time, patient will be admitted to the hospital until orthopedic surgery we have been consulted for medical management orthopedic surgery was consulted, patient is scheduled to go to a washout tomorrow morning and she was started already on IV antibiotic in the form of vancomycin deep culture will be done as well as blood culture will be done at the same time we will follow-up with the patient while she is in the hospital. 12/23: Patient just got back from the OR she underwent incision and drainage as well as irrigation of right hemiarthroplasty with a wound VAC placement that was done today by Dr. Newby, patient is laying down in bed in no apparent distress, she stated that her pain is well-controlled, she has a wound VAC in place, she is currently on D5 half-normal saline at 75 cc an hour, she did have episode of hypoglycemia, she did receive 42 units last night, we will decrease her Lantus to 32 units at bedtime monitor the patient symptoms very closely, continue with a sliding scale insulin for now, continue current pain management, infectious disease consultation from Dr. Goode, continue vancomycin 2 g IV piggyback every 24 hours, pharmacy to dose its peak and trough. 12/24: Patient is laying down in bed in no apparent distress, she is rating her pain in the right hip at about 6 out of 10 at this time, she will be getting some hydrocodone today, she denies any chest pain, she has no shortness of breath, she has no abdominal pain at this time, she has not had a bowel movement, she slept okay last night, she continues to have a poor appetite, her blood glucoses start to climb up again we will switch her IV fluid to normal saline at 75 cc an hour, and continue with a sliding scale insulin for now. 12/25: Patient is doing better today, she denies any chest pain, shortness of breath, she is in better spirits, she has no abdominal pain, we will continue current bowel care, continue to evaluate the patient with physical therapy, patient has a wound VAC at the right hip area, she has been seen in consultation by infectious disease recommended vancomycin 2 g IV piggyback every 24 hours, this will go on for 6 weeks, patient will need to have a PICC line, after obtaining the final results of the blood cultures, we will continue to monitor the patient very closely. 12/26: Patient is laying down in bed continues to have some pain in the right hip area, her wound VAC was taken out, she does have the drain in place, she continues to have the dressing on the right side, she continues to have increased swelling both lower extremities, will discontinue IV fluid at this time, will give the patient Lasix 40 mg IV push x 1, then follow-up with the patient very closely increase her activity level, physical therapy evaluation, started the patient on Glucerna twice every day, I will follow-up with the patient very closely, the plan is for the patient to have a PICC line placement and IV antibiotic for the next 6 weeks. 12/27: Patient is laying down in bed she continues to have some pain in the right hip area, she had a PICC line placed in the right upper extremity, she denies any chest pain, or shortness of breath at this time, she did receive Lasix ye sterday, she is very hard to ambulate, she has been followed by orthopedic surgery as well, we will plan for the patient to be transferred to [facility] hopefully the next 1 or 2 days for physical therapy and rehabilitation. 12/28: Patient is laying down in bed in no apparent distress, has no chest pain, shortness of breath, she is eating a little better today about 25 to 30% of her meal, she has had a bowel movement, she has no more diarrhea at this time, she continues to have a Kay catheter in place, we will monitor the patient input and output and daily weight, she continues to have some swelling both lower extremities, we will monitor the patient closely patient has been maintained on the current pain management, she will be placed back on her hydrocodone for pain control, and she was taken off the tramadol. Physical therapy evaluation, likely the patient will be transferred back to [facility] hopefully in the next 24 hours. 12/29: Patient is laying down in bed she appears to be a bit better today, she is having less pain in the right hip, patient was started on hydrocodone 7.5/325 1 tablet every 8 hours as needed discontinue tramadol, continue with physical therapy evaluation, continue to ambulate the patient, patient has a PICC line in the right upper extremity, with the plan is to give the patient IV antibiotic for the next 6 weeks, she is returned back to [facility] hopefully the next 24 hours. REVIEW OF SYSTEMS: Constitutional: No documented fever, no chills, no night sweats. No weight change. Positive for weakness, fatigue or lethargy. No daytime sleepiness. EENT: No headache. No blurred vision or double vision, no loss of vision. No loss of Hearing, no ringing in the ears, no dizziness. No nasal drainage or congestion. No epistaxis. No sore throat. Lungs: minimal shortness of breath, no cough, no sputum production. No wheezing. Reports dyspnea with activity. Cardiovascular: No chest pain, no lower extremity edema. No palpitations. No paroxysmal nocturnal dyspnea. No orthopnea. No lightheadedness or dizziness. No syncopal episodes. Abdominal: Reports no abdominal pain. No nausea, vomiting. No diarrhea. No constipation. No bloody or tarry stools reports loss of appetite. Genitourinary: No dysuria, increased frequency, urgency. No urinary retention. Has a Kay catheter in place Musculoskeletal: No myalgias. positive for muscle weakness, positive for gait dysfunction, no frequent falls. positive for back pain. No neck pain. Integumentary: There incision to the right hip area that is covered with dressing, interval removal of the wound VAC in the drain. No lesions. No rash or pruritus. No unusual bruising. No change in hair or nails. Neurologic: No aphasia. No facial droop. No change in mentation. No head injury. No headache. No paralysis. No paresthesia. Psychiatric: No depression. No anxiety. No mood swings. Endocrine: No abnormal blood sugars. No weight change. PHYSICAL EXAMINATION: General: 78-year-old female laying in bed in no apparent distress. HEENT: Head is atraumatic, normocephalic, pupils were equal round reactive to light and recommendation, extraocular muscle movement were intact, sclera nonicteric, conjunctivae were pale, mucous membranes of the mouth are somewhat dry. Neck: Supple, no JVP, normal carotid upstroke bilaterally, no lymphadenopathy. Chest: Decreased breath sounds at the bases, few rhonchi, no expiratory wheezes, no chest wall tenderness, no intercostal retractions. Heart: First heart sound is normal, second heart sound is normal there is systolic ejection murmur 2/6 in the left sternal border Abdomen: Soft, obese, nontender, nondistended, positive bowel sounds hepatosplenomegaly. Extremities: There is +1 edema no calf tenderness DP +1 bilaterally, the right hip wound is covered with dressing, there is no drain or wound VAC anymore. Neurologic examination: Patient is awake alert and oriented X3, cranial nerves II-12 appear grossly intact, muscle power were 5 out of 5 in upper extremities she is 2 out of 5 in the right lower extremity, and 3 out of 5 in the left lower extremity. ASSESSMENT AND PLAN: 1. Postoperative day #6 status post incision and drainage with debridement of the right hemiarthroplasty that was done on November 15, 2023 with antibiotic beads placed in and the wound VAC placement since it was removed for infected right hemiarthroplasty with MRSA continue current pain management, continue with IV antibiotic in the form of vancomycin 2 g IV piggyback every 24 hours, pharmacy to dose his peak and trough, patient may need to have an antibiotic for the next 6 weeks with a PICC line placement down the line. 2. MRSA infection of right hemiarthroplasty with sepsis. Continue IV biotic in the form of vancomycin 2 g every back every 24 hours, pharmacy to dose his peak and trough, discontinue IV fluid at this point in time. 3. Acute kidney injury due to poor oral intake of fluid and possible sepsis and chronic kidney disease stage III. Resolved, discontinue IV fluid resuscitation, give the patient Lasix 40 mg IV push x 1. 4. Hypertension and hypertensive cardiovascular disease. Continue patient on carvedilol 6.25 mg orally twice every day, losartan 100 mg once every day, monitor the patient very closely. 5. Mixed hyperlipidemia. Continue patient on atorvastatin 80 mg daily, as well as ezetimibe 10 mg once every day. 6. COPD. Continue patient on DuoNeb 3 mL nebulization 4 times every day as needed. 7. Chronic diastolic heart failure appears stable at this time. Continue carvedilol 6.25 mg orally twice every day as well as losartan 50 mg orally once every day, discontinue IV fluids start the patient on Lasix 40 mg IV push x 1. 8. History of remote lung cancer status post partial lobectomy in 2007 9. Osteoarthritis. Continue current pain management. Start the patient on Tylenol 650 mg orally every 4 hours as needed patient patient also has morphine sulfate as needed, along with hydrocodone 7.5 mg every 6 hours as needed. 10. Osteopenia/osteoporosis, patient will be required to be started on Prolia as an outpatient. 11. Diabetes mellitus type 2. Continue patient on sliding scale insulin because of hypoglycemia. 12. DVT prophylaxis. Continue patient on Lovenox 30 mg subcutaneous every 12 hours 13. GI prophylaxis. Continue famotidine 20 mg orally once every day, continue Protonix 40 mg IV push every 24 hours 14. Chronic kidney disease stage III. Appears stable at this time, avoid hypotension and nephrotoxins, discontinue IV fluids start the patient on Lasix 40 mg IV push x 1. 15. Medical debility. Physical therapy evaluation. 16. Social work consultation for discharge planning to subacute rehabilitation at [facility]. 17. Guarded prognosis. 18. Hopefully [facility] tomorrow morning Objective - Vital Signs Vital signs: Vital Signs Temp 98.0 F 12/31/23 06:55 Pulse 81 12/31/23 07:30 Resp 18 12/31/23 07:30 BP 112/70 12/31/23 06:55 Pulse Ox 95 12/31/23 06:55 FiO2 Intake & Output 12/30/23 12/31/23 12/31/23 18:59 06:59 18:59 Output Total 475 Balance -475 Output: Urine 475 Other: Voiding Method Indwelling Catheter Indwelling Catheter Indwelling Catheter - Labs CBC & Chem 7: 12/30/23 03:51 12/30/23 03:51 Labs: Abnormal Lab Results - Last 24 Hours (Table) 12/30/23 12/30/23 12/31/23 Range/Units 16:36 20:18 06:39 POC Glucose (mg/dL) 170 H 230 H 147 H (70-110) mg/dL 12/31/23 Range/Units 11:40 POC Glucose (mg/dL) 219 H (70-110) mg/dL
--- NOTE | 2023-12-31 14:10 | P.PN ---
Subjective Progress Note Date: 12/31/23 Principal diagnosis: Reason for follow-up is right hip abscess/MRSA Patient is a 78-year-old female with a past medical history significant for diabetes mellitus hypertension hyperlipidemia patient recently did have a intramedullary nailing for a right intertrochanteric fracture and subsequently the patient did underwent right hemiarthroplasty on November 15, 2023 and removal of the intramedullary nailing, did have issue with drainage from the right hip incision and recent outpatient culture positive for MRSA in this patient who is status post I&D of the right hip and antibiotic bead placement. On today's evaluation that is 12/31/2023, patient has been afebrile, patient is breathing comfortably and is currently on 2 L current oxygen patient denies having any significant cough no chest pain, patient denies nausea vomiting or diarrhea and no abdominal pain, still complaining of pain to the right hip but no worsening. No new lab has been obtained today Objective - Vital Signs Vital signs: Vital Signs Temp 98.0 F 12/31/23 06:55 Pulse 81 12/31/23 06:55 Resp 18 12/31/23 06:55 BP 112/70 12/31/23 06:55 Pulse Ox 95 12/31/23 06:55 FiO2 Intake & Output 12/30/23 12/31/23 12/31/23 18:59 06:59 18:59 Output Total 475 Balance -475 Output: Urine 475 Other: Voiding Method Indwelling Catheter Indwelling Catheter - Exam GENERAL DESCRIPTION: An elderly female lying in bed in no distress RESPIRATORY SYSTEM: Unlabored breathing , decreased breath sounds at bases HEART: S1 S2 regular rate and rhythm , ABDOMEN: Soft , no tenderness EXTREMITIES: No edema feet - Labs CBC & Chem 7: 12/30/23 03:51 12/30/23 03:51 Labs: Abnormal Lab Results - Last 24 Hours (Table) 12/30/23 12/30/23 12/30/23 Range/Units 03:51 11:35 16:36 WBC 16.77 H (4.50-10.00) X 10*3/uL RBC 2.45 L (4.10-5.20) X 10*6/uL Hgb 7.8 L (12.0-15.0) g/dL Hct 25.4 L (37.2-46.3) % MCV 103.7 H (80.0-97.0) FL MCHC 30.7 L (32.0-37.0) g/dL RDW 15.7 H (11.5-14.5) % Immature Gran # 0.20 H (0.00-0.04) X 10*3/uL Neutrophils # 13.19 H (1.80-7.70) X 10*3/uL Monocytes # 1.43 H (0.20-1.00) X 10*3/uL Eosinophils # 0.41 H (0.04-0.35) X 10*3/uL POC Glucose (mg/dL) 179 H 170 H (70-110) mg/dL 12/30/23 12/31/23 Range/Units 20:18 06:39 WBC (4.50-10.00) X 10*3/uL RBC (4.10-5.20) X 10*6/uL Hgb (12.0-15.0) g/dL Hct (37.2-46.3) % MCV (80.0-97.0) FL MCHC (32.0-37.0) g/dL RDW (11.5-14.5) % Immature Gran # (0.00-0.04) X 10*3/uL Neutrophils # (1.80-7.70) X 10*3/uL Monocytes # (0.20-1.00) X 10*3/uL Eosinophils # (0.04-0.35) X 10*3/uL POC Glucose (mg/dL) 230 H 147 H (70-110) mg/dL Assessment and Plan (1) Abscess of right hip Current Visit: Yes Status: Acute Code(s): L02.415 - CUTANEOUS ABSCESS OF RIGHT LOWER LIMB SNOMED Code(s): 120332 (2) MRSA (methicillin resistant Staphylococcus aureus) infection Current Visit: Yes Status: Acute Code(s): A49.02 - METHICILLIN RESIS STAPH INFECTION, UNSP SITE SNOMED Code(s): 341075401 (3) Allergy to cephalosporin Current Visit: Yes Status: Acute Code(s): Z88.1 - ALLERGY STATUS TO OTHER ANTIBIOTIC AGENTS SNOMED Code(s): 066933239 (4) Fluid collection at surgical site Current Visit: Yes Status: Acute Code(s): T88.8XXA - OTH COMPLICATIONS OF SURGICAL AND MEDICAL CARE, NEC, INIT SNOMED Code(s): 909310987 (5) Postoperative infection Current Visit: Yes Status: Acute Code(s): T81.40XA - INFECTION FOLLOWING A PROCEDURE, UNSPECIFIED, INIT SNOMED Code(s): 34341235 Plan: 1patient with a nonhealing wound to the right hip in this patient who is status post right hip hemiarthroplasty on November 15, 2023 subsequently noticed to have any drainage and did have a culture done on 12/21/2023 that has been positive for MRSA with a CT suspicious for fluid collection in this patient who is status post I&D of the right hip placement of antibiotic beads deep in the right hip and closure of the wound operative report did not mention deep infection down to the TFL with operative culture currently pending 2patient local culture growing MRSA blood culture has been negative patient has received a PICC line 3-patient noticed to have worsening of her kidney function and the patient biotic has been switched over to daptomycin as of yesterday plan is for 6-week course of antibiotic on discharge medication has been entered to her discharge instruction this morning Dictation was produced using [employer] dictation software. please excuse any grammatical, word or spelling errors. Time with Patient: Less than 30
[2023-12-31 14:53] VITALS: BP 117/57; PULSE 67
--- NOTE | 2023-12-31 19:34 | P.PN ---
Progress Note - Text Progress Note Date: 12/31/23 (Delayed charting due to internet. Seen at 0730 This AM) Pt s/e. She did OK overnight. She has some pain in her hip. She has not been up. Dressing has been changed and is saturated this AM. She states she does not have any fevers chills or other issues at this time. AOX3, NAD Mild TTP of the left hip She has weeping of the left hip wound that is serous in nature and likey due to her 3rd spacing in this leg as well as the abx beads deep. The wound otherwise looks to be in good condition and healing. She has good strength in DF/PF/EHL/FHL of the RLE and LLE. 2/4 DP/PT pulses. Compartments soft, compressive. 3+ pitting edema of the RLE. 2+ of the LLE. Body habitus is preventing her from moving much. She has dependent edema of the buttock region and low back as well as hip. SILT L2-S1 BLE. Neg Enrico's b/l. Labs reviewed. IMaging reviewed Assessment: Pt is s/p washout of right hip conversion from failed nail to hemiarthroplasty due to fluid accumulation and likely MRSA infection Morbid obesity Complex medical patient Plan: Changed dressing today. Maintin incision CDI. Change dressings whenever mildly saturated. Clean with ETOH only. WBAT RLE with posterior hip percautions Cont ABX per ID, PICC with 6-12 weeks plus likely lifetime suppression Pain control PRN PT/OT daily GI/DVT ppx FU in office in 10 days for evaluation Stable per ORTHO for IONA/ECF Discussed plan and treatment with patient and she is comfortable with it all. She will likley return to [facility] today.
[2024-01-01] MEDS ORDERED: TORSEMIDE 20 MG TAB PO SCH (09:00)
--- NOTE | 2024-01-05 11:04 | CDI ---
Documentation Clarification Form Date: 01/05/2024 10:31:54 AM From: Araceli Adan Phone: Admit Date: 12/26/2023 12:03:00 PM Patient Name: Fe Spaulding Visit Number: [id number] Discharge Date: 12/31/2023 04:38:00 PM ATTENTION: The Clinical Documentation Specialists (CDI) and [facility] Coding Staff appreciate your assistance in clarifying documentation. Please respond to the clarification below the line at the bottom and electronically sign. The CDI & [facility] Coding staff will review the response and follow-up if needed. Please note: Queries are made part of the Legal Health Record. If you have any questions, please contact the author of this message via ITS. Doctor/Provider: Abisai Newby Hematoma is documented on 12/23 OP note. Additional clarification regarding Hematoma is requested. 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 Procedure performed: INCISION AND DRAINAGE WITH IRRIGATION AND DEBRIDEMENT RIGHT HIP 25 x 12 x 10 cm USING THE FOLLOWING: -SKIN KNIFE TO REMOVE AND FRESHEN SKIN EDGES -CURETTE TO DEBRIDE SOFT TISSUE AND FASCIA -RONGURE TO DEBRIDE BONE AND MUSCLE -IRRIGANT 3L ANCEF SOLUTION; 3 L GENTAMYCIN SOLUTION; 6L NSS; 3L IRRICEPT; 2 L BETADINE 1L HYDROX SOLOTION 3%; 6L NSS COMPLEX CLOSURE, 4 LAYER OVER DRAIN, 25 x12 x 10 cm RIGHT HIP PLACEMENT OF ANTIBIOTIC BEADS DEEP RIGHT HIP History/Risk Factors: DM2, Obesity, CKD 3b, HTN Clinical Indicators: Patient underwent a intramedullary nailing for a right intertrochanter fracture about a year ago. After rehab and discharge home patient all of a sudden could not put any pressure on right lower extremity and was found to have a failure of the intramedullary nailing. The intramedullary nailing was removed and a hemiarthroplasty was performed on November 15, 2023. Patient admitted 12/25 this time for washout of a collection pocket in the right hip. - 12/23 OP note statement of "Skin incision was made over the previous incision site, lateral over the right hip, and there was bloody hematoma return... There was flucctuence that was palpated deep to the TFL. The TFL was then split in line with its fibers and again hematoma was evacuated from the deep space. Deep and intermediate cultures were taken as well as tissue from the deep hematoma was sent for culture." Treatment: vancomycin 2 g IV piggyback every 24 hours for 6 weeks Please clarify if Hematoma is a complication of the surgical procedure? [ ] Yes [X ] No [ ] Other, please specify [ ] Unable to determine MTDD
--- NOTE | 2024-01-06 08:38 | CDI ---
Documentation Clarification Form Date: 01/06/2024 08:22:02 AM From: Araceli Adan Phone: Admit Date: 12/26/2023 12:03:00 PM Patient Name: Fe Spaulding Visit Number: [id number] Discharge Date: 12/31/2023 04:38:00 PM ATTENTION: The Clinical Documentation Specialists (CDI) and [facility] Coding Staff appreciate your assistance in clarifying documentation. Please respond to the clarification below the line at the bottom and electronically sign. The CDI & [facility] Coding staff will review the response and follow-up if needed. Please note: Queries are made part of the Legal Health Record. If you have any questions, please contact the author of this message via ITS. Doctor/Provider: Abisai Newby A debridement is documented on 12/23 Op note. Unfortunately, some required elements have not been documented. Additional clarification regarding the procedure is requested. History/Risk Factors: Patient underwent intramedullary nailing for a right intertrochanter fracture about a year ago. After rehab and discharge home patient was found to have a failure of the intramedullary nailing.The intramedullary nailing was removed and a hemiarthroplasty was performed on November 15, 2023. Clinical Indicators: Patient admitted 12/25 for washout of a collection pocket in the right hip. OP note states "Rongure to debride bone and muscle" & "Bone was debrided with rongure and made to bleed over the lateral aspect as to create a bleeding bed for ST to attach to for healing." Treatment: Incision and drainage with irrigation and debridement right hip 25 x 12 x 10 cm, Placement of antibiotic beads deep right hip Please clarify the procedure performed: [X ] Excisional debridement (the removal of necrotic, devitalized tissue or slough by means of cutting away of tissue) [ ] Non-excisional debridement (the removal of necrotic, devitalized tissue or slough by means of flushing, brushing, or washing. (Irrigation) [ ] Other; please specify Five elements required for accurate and compliant documentation of a debridement: -Technique used (e.g., excisional, excised, cutting, brushing, jet lavage etc.) -Instrument(s) used (e.g., scalpel, curette, etc.) -Nature of the tissue removed (e.g., necrotic, devitalized tissues, non-viable tissue, etc.) -Appearance and size of the wound (e.g., down to fresh bleeding tissue, 7cm x 10cm, etc.) -Depth of the debridement* (e.g., skin, subcutaneous tissue, fascia, muscle, bone, etc.) MTDD
== END 2023-12-31 16:38 | DRG 498 ==
LOC: EC 12:27 → 4SSUR 18:03 → OBSVTOIN 12-26 12:03
PROVIDERS: ADMIT Internal Medicine; ATTEND Internal Medicine
PROC: 0JCL0ZZ Extirpation of Matter from Right Upper Leg Subcutaneous Tissue and Fascia, Open Approach (ICD-10-PCS; 2023-12-24)
PROC: 3E0U029 Introduction of Other Anti-infective into Joints, Open Approach (ICD-10-PCS; 2023-12-24)
PROC: 0QB60ZZ Excision of Right Upper Femur, Open Approach (ICD-10-PCS; principal; 2023-12-24 12:00)
PROC: 30233N1 Transfusion of Nonautologous Red Blood Cells into Peripheral Vein, Percutaneous Approach (ICD-10-PCS; 2023-12-26)
PROC: 02HV33Z Insertion of Infusion Device into Superior Vena Cava, Percutaneous Approach (ICD-10-PCS; 2023-12-27)
PROC: 4A02X4A Measurement of Cardiac Electrical Activity, Guidance, External Approach (ICD-10-PCS; 2023-12-27)
DX: T84.51XA Infection and inflammatory reaction due to internal right hip prosthesis, initial encounter (principal); A41.02 Sepsis due to Methicillin resistant Staphylococcus aureus; D62 Acute posthemorrhagic anemia; I13.0 Hypertensive heart and chronic kidney disease with heart failure and stage 1 through stage 4 chronic kidney disease, or unspecified chronic kidney disease; I50.32 Chronic diastolic (congestive) heart failure; N17.9 Acute kidney failure, unspecified; Z68.43 Body mass index [BMI] 50.0-59.9, adult; M96.840 Postprocedural hematoma of a musculoskeletal structure following a musculoskeletal system procedure; E66.01 Morbid (severe) obesity due to excess calories; E11.22 Type 2 diabetes mellitus with diabetic chronic kidney disease; E11.649 Type 2 diabetes mellitus with hypoglycemia without coma; E78.2 Mixed hyperlipidemia; J44.9 Chronic obstructive pulmonary disease, unspecified; N18.32 Chronic kidney disease, stage 3b; M19.90 Unspecified osteoarthritis, unspecified site; G89.29 Other chronic pain; M81.0 Age-related osteoporosis without current pathological fracture; Y83.1 Surgical operation with implant of artificial internal device as the cause of abnormal reaction of the patient, or of later complication, without mention of misadventure at the time of the procedure; Z88.1 Allergy status to other antibiotic agents; Z79.4 Long term (current) use of insulin; Z79.82 Long term (current) use of aspirin; Z79.899 Other long term (current) drug therapy; Z85.118 Personal history of other malignant neoplasm of bronchus and lung; Z90.2 Acquired absence of lung [part of]; Z85.828 Personal history of other malignant neoplasm of skin
CPT/HCPCS: 36415; 36573; 71045; 80053; 80202; 82565; 83605; 85025; 85610; 85652; 85730; 86140; 86850; 86900; 86901; 86920; 87040; 87070; 87075; 87077; 87186; 87205; 87324; 94760; 96361; 96365; 96366; 96375; 96376; 99285

== ENCOUNTER → 2024-01-11 | Outpatient (CLI) | payer MEDICARE, BC ==
--- NOTE | 2024-01-11 12:30 | XR ---
EXAMINATION TYPE: XR Hip Complete RT DATE OF EXAM: 01/11/2024 10:11 AM COMPARISON: 01/21/2023 CLINICAL INDICATION: Female, 78 years old with history of S72.001A FRACTURE OF UNSP PART OF NECK OF R IGHT FE; TECHNIQUE: XR Hip Complete RT; Frontal and lateral views FINDINGS: Post arthroplasty changes with fixation screws, hardware is intact, alignment is appropriat e. No evidence of fracture. No evidence of any acute osseous pathology or joint dislocation. IMPRESSION: Hip arthroplasty with hardware intact and in appropriate alignment. No acute fracture. [facility], , 01/11/2024 12:28 PM
== END | disposition home or self-care (01) ==
LOC: RADXRMAIN 09:17
PROVIDERS: ATTEND Orthopaedic Surgery
DX: S72.001A Fracture of unspecified part of neck of right femur, initial encounter for closed fracture (principal); Z96.641 Presence of right artificial hip joint
CPT/HCPCS: 73502

== ENCOUNTER 2024-02-02 13:47 | Emergency (ER) | payer MEDICARE, BC ==
--- NOTE | 2024-02-02 13:50 | ED ---
Recheck HPI - General Stated Complaint: infection Time Seen by Provider: 02/02/24 13:49 Source: RN notes reviewed, old records reviewed Mode of arrival: EMS Limitations: no limitations - History of Present Illness Initial Comments: This is an 78-year-old female to the ER for evaluation. Patient is septic arthritis of the right hip and femur. Postoperative surgery infection, patient having significant weakness pain swelling and recurrent infection of the right hip, patient has had prior washouts of this right hip, patient had an initial fall with a femur fracture and has since had hip replacement surgery of the right hip MD Complaint: wound re-check, abnormal lab, needs IV antibiotics, medication refill request -: unknown Returns Today for: needs IV antibiotics, persistent/worsening pain related to initial visit Symptoms Since Prior Visit: worsening pain, worsening swelling, worsening redness Context: planned re-check, called for abnormal lab result Associated Symptoms: none Treatments Prior to Arrival: other (0) - Related Data Home Medications Medication Instructions Recorded Confirmed Ezetimibe [Zetia] 10 mg PO DAILY@0800 10/15/22 12/23/23 Torsemide [Demadex] 20 mg PO DAILY@0800 01/20/23 12/23/23 Losartan Potassium 50 mg PO DAILY@0800 11/10/23 12/23/23 carvediloL [Coreg] 6.25 mg PO BID@0800,1700 11/10/23 12/23/23 Acetaminophen Tab [Tylenol] 650 mg PO Q6HR 12/23/23 12/23/23 Citalopram Hydrobromide [CeleXA] 10 mg PO DAILY@0800 12/23/23 12/23/23 Famotidine [Pepcid] 20 mg PO DAILY@0600 12/23/23 12/23/23 Ferrous Sulfate [Iron (65 MG 325 mg PO BID@0800,1700 12/23/23 12/23/23 Elemental)] INSULIN ASPART (NovoLOG) [NovoLOG See Protocol SQ 12/23/23 12/23/23 (formulary)] ACHS@07,11,1630,2130 Ipratropium-Albuterol Nebulize 3 ml INHALATION RT-TID PRN 12/23/23 12/23/23 [Duoneb 0.5 mg-3 mg/3 ml Soln] Shivam Packet 1 packet PO BID@08,17 12/23/23 12/23/23 Lactulose 20 gm PO DAILY@0800 12/23/23 12/23/23 Magnesium Hydroxide [Milk of 7,200 mg PO DAILY PRN 12/23/23 12/23/23 Magnesia Concentrate] Na Phos,M-B/Na Phos,Di-Ba [Fleet 133 ml RECTAL DIRECTED PRN 12/23/23 12/23/23 Adult] Nystatin 100,000 Unit/gm Powd 1 applic TOPICAL TID 12/23/23 12/23/23 [Mycostatin Powder] Ondansetron [Zofran] 4 mg PO Q8H PRN 12/23/23 12/23/23 Sennosides/Docusate Sodium [Senna 2 cap PO HS@2100 12/23/23 12/23/23 Plus 8.6-50 mg Softgel] Tamsulosin [Flomax] 0.4 mg PO DAILY@0800 12/23/23 12/23/23 bisacodyL [Dulcolax] 10 mg RECTAL DAILY PRN 12/23/23 12/23/23 Previous Rx's Medication Instructions Recorded DAPTOmycin [Cubicin] 500 mg IV Q48H 42 Days #22 each 12/31/23 DAPTOmycin [Cubicin] 500 mg IVPB Q48H each 12/31/23 Enoxaparin [Lovenox] 30 mg SQ BID each 12/31/23 Allergies Allergy/AdvReac Type Severity Reaction Status Date / Time cephalexin Allergy Rash/Hives, Verified 02/02/24 14:00 redness, swelling Review of Systems ROS Statement: Those systems with pertinent positive or pertinent negative responses have been documented in the HPI. ROS Other: All systems not noted in ROS Statement are negative. Past Medical History Past Medical History: Cancer, Diabetes Mellitus, Hyperlipidemia, Hypertension Additional Past Medical History / Comment(s): hx. lung cancer 2006, current R femur fracture History of Any Multi-Drug Resistant Organisms: None Reported Date of last positivie culture/infection: 12/24/23 MDRO Source:: rt hip Past Surgical History: Cholecystectomy, Hernia Repair, Joint Replacement Additional Past Surgical History / Comment(s): partial lobectomy 2007, R femur surgery/hardware, total L knee Past Anesthesia/Blood Transfusion Reactions: No Reported Reaction Past Psychological History: No Psychological Hx Reported Additional Psychological History / Comment(s): Pt's grandson resides with her. She uses a walker. Smoking Status: Never smoker Past Alcohol Use History: None Reported Past Drug Use History: None Reported - Past Family History Mother Family Medical History: Cancer General Exam General appearance: alert, in no apparent distress Head exam: Present: atraumatic, normocephalic, normal inspection Eye exam: Present: normal appearance, PERRL, EOMI. Absent: scleral icterus, conjunctival injection, periorbital swelling ENT exam: Present: normal exam, mucous membranes moist Neck exam: Present: normal inspection. Absent: tenderness, meningismus, lymphadenopathy Respiratory exam: Present: normal lung sounds bilaterally. Absent: respiratory distress, wheezes, rales, rhonchi, stridor Cardiovascular Exam: Present: regular rate, normal rhythm, normal heart sounds. Absent: systolic murmur, diastolic murmur, rubs, gallop, clicks GI/Abdominal exam: Present: soft, normal bowel sounds. Absent: distended, tenderness, guarding, rebound, rigid Extremities exam: Present: normal inspection, full ROM, normal capillary refill. Absent: tenderness, pedal edema, joint swelling, calf tenderness Back exam: Present: normal inspection Neurological exam: Present: alert, oriented X3, CN II-XII intact Psychiatric exam: Present: normal affect, normal mood Skin exam: Present: warm, dry, intact, normal color. Absent: rash Course Vital Signs 02/02/24 13:56 Temperature 98 F Pulse Rate 88 Respiratory 20 Rate Blood Pressure 118/49 O2 Sat by Pulse 100 Oximetry - Reevaluation(s) Reevaluation #1: 02/02/24 13:50 Medical records reviewed Reevaluation #2: 02/02/24 16:09 Patient has no change in symptoms here in the ER Reevaluation #3: 02/02/24 16:09 Patient informed of results and questions answered Reevaluation #4: Was pt. sent in by a medical professional or institution (, PA, HAND DECORATOR, urgent care, hospital, or [facility]...) When possible be specific @ -no Did you speak to anyone other than the patient for history (EMS, parent, family, police, friend...)? What history was obtained from this source @ -no Did you review nursing and triage notes (agree or disagree)? Why? @ -agree Are old charts reviewed (outside hosp., previous admission, EMS record, old EKG, old radiological studies, urgent care reports/EKG's, [facility] records)? Report findings @ -yes Differential Diagnosis (chest pain, altered mental status, abdominal pain women, abdominal pain men, vaginal bleeding, weakness, fever, dyspnea, syncope, headache, dizziness, GI bleed, back pain, seizure, CVA, palpatations, mental health, musculoskeletal)? @ -prior EKG interpreted by me (3pts min.). @ -yes X-rays interpreted by me (1pt min.). @ -yes negative for acute disease CT interpreted by me (1pt min.). @ -no U/S interpreted by me (1pt. min.). @ -no What testing was considered but not performed or refused? (CT, X-rays, U/S, labs)? Why? @ -none What meds were considered but not given or refused? Why? @ -none Did you discuss the management of the patient with other professionals (professionals i.e. , PA, HAND DECORATOR, lab, RT, psych nurse, sexual assault social worker, corporation lawyer, teacher, chief digital media officer, patient case manager)? Give summary @ -no Was smoking cessation discussed for >3mins.? @ -no Was critical care preformed (if so, how long)? @ -no Were there social determinants of health that impacted care today? How? (Homeles sness, low income, unemployed, alcoholism, drug addiction, transportation, low edu. Level, literacy, decrease access to med. care, [facility], rehab)? @ -none Was there de-escalation of care discussed even if they declined (Discuss DNR or withdrawal of care, Hospice)? DNR status @ -no What co-morbidities impacted this encounter? (DM, HTN, Smoking, COPD, CAD, Cancer, CVA, ARF, Chemo, Hep., AIDS, mental health diagnosis, sleep apnea, morbid obesity)? @ -none Was patient admitted / discharged? Hospital course, mention meds given and route, prescriptions, significant lab abnormalities, going to OR and other pertinent info. @ - Undiagnosed new problem with uncertain prognosis? @ -no Drug Therapy requiring intensive monitoring for toxicity (Heparin, Nitro, Insulin, Cardizem)? @ -no Were any procedures done? @ -no Diagnosis/symptom? @ - Acute, or Chronic, or Acute on Chronic? @ -Acute Uncomplicated (without systemic symptoms) or Complicated (systemic symptoms)? @ -Complicated Side effects of treatment? @ -no Exacerbation, Progression, or Severe Exacerbation? @ -exacerbation Poses a threat to life or bodily function? How? (Chest pain, [place], [place], pneumonia, PE, COPD, DKA, ARF, appy, cholecystitis, CVA, Diverticulitis, Homicidal, Suicidal, threat to staff... and all critical care pts) @ -yes - Consultations Consultation #1: Spoke with orthopedics on-call in this hospital unable to take care of this patient Consultation #2: Spoke with Dr. Malik who is patient's primary care recommend transfer to [facility] Consultation #3: Spoke with [facility] accepting of transfer Medical Decision Making - Medical Decision Making 78 female to ER for evaluation of right septic arthritis femur infection postoperative infection. Patient has had prior washout secondary to this infection which has been unsuccessful, patient initial injury was a femur fracture and further right hip replacement. Patient is on IV antibiotics and will be transferred to outside facility - Lab Data Result diagrams: 02/02/24 14:17 02/02/24 14:17 Lab Results 02/02/24 02/02/24 02/02/24 Range/Units 14:17 14:17 14:17 WBC 17.0 H (3.8-10.6) k/uL RBC 2.86 L (3.80-5.40) m/uL Hgb 9.2 L (11.4-16.0) gm/dL Hct 28.9 L (34.0-46.0) % MCV 100.9 H (80.0-100.0) fL MCH 32.3 (25.0-35.0) pg MCHC 32.0 (31.0-37.0) g/dL RDW 14.5 (11.5-15.5) % Plt Count 311 (150-450) k/uL MPV 6.7 Neutrophils % 84 % Lymphocytes % 10 % Monocytes % 3 % Eosinophils % 2 % Basophils % 0 % Neutrophils # 14.4 H (1.3-7.7) k/uL Lymphocytes # 1.7 (1.0-4.8) k/uL Monocytes # 0.6 (0-1.0) k/uL Eosinophils # 0.3 (0-0.7) k/uL Basophils # 0.0 (0-0.2) k/uL Hypochromasia Moderate Macrocytosis Slight PT 11.7 (10.0-12.5) sec INR 1.1 (<1.2) APTT 29.8 (22.0-30.0) sec Sodium 129 L (137-145) mmol/L Potassium 4.1 (3.5-5.1) mmol/L Chloride 95 L (98-107) mmol/L Carbon Dioxide 38 H (22-30) mmol/L Anion Gap -4 mmol/L BUN 64 H (7-17) mg/dL Creatinine 1.60 H (0.52-1.04) mg/dL Est GFR (CKD-EPI)AfAm 35 (>60 ml/min/1.73 sqM) Est GFR (CKD-EPI)NonAf 30 (>60 ml/min/1.73 sqM) Glucose 147 H (74-99) mg/dL Plasma Lactic Acid Terrell (0.7-2.0) mmol/L Calcium 8.0 L (8.4-10.2) mg/dL Phosphorus 3.6 (2.5-4.5) mg/dL Magnesium 1.7 (1.6-2.3) mg/dL Total Bilirubin 0.4 (0.2-1.3) mg/dL AST 21 (14-36) U/L ALT 17 (4-34) U/L Alkaline Phosphatase 274 H (38-126) U/L Troponin I (0.000-0.034) ng/mL C-Reactive Protein 15.1 H (<1.0) mg/dL NT-Pro-B Natriuret Pep 1710 pg/mL Total Protein 5.3 L (6.3-8.2) g/dL Albumin 1.9 L (3.5-5.0) g/dL 02/02/24 02/02/24 Range/Units 14:17 14:17 WBC (3.8-10.6) k/uL RBC (3.80-5.40) m/uL Hgb (11.4-16.0) gm/dL Hct (34.0-46.0) % MCV (80.0-100.0) fL MCH (25.0-35.0) pg MCHC (31.0-37.0) g/dL RDW (11.5-15.5) % Plt Count (150-450) k/uL MPV Neutrophils % % Lymphocytes % % Monocytes % % Eosinophils % % Basophils % % Neutrophils # (1.3-7.7) k/uL Lymphocytes # (1.0-4.8) k/uL Monocytes # (0-1.0) k/uL Eosinophils # (0-0.7) k/uL Basophils # (0-0.2) k/uL Hypochromasia Macrocytosis PT (10.0-12.5) sec INR (<1.2) APTT (22.0-30.0) sec Sodium (137-145) mmol/L Potassium (3.5-5.1) mmol/L Chloride (98-107) mmol/L Carbon Dioxide (22-30) mmol/L Anion Gap mmol/L BUN (7-17) mg/dL Creatinine (0.52-1.04) mg/dL Est GFR (CKD-EPI)AfAm (>60 ml/min/1.73 sqM) Est GFR (CKD-EPI)NonAf (>60 ml/min/1.73 sqM) Glucose (74-99) mg/dL Plasma Lactic Acid Terrell 1.4 (0.7-2.0) mmol/L Calcium (8.4-10.2) mg/dL Phosphorus (2.5-4.5) mg/dL Magnesium (1.6-2.3) mg/dL Total Bilirubin (0.2-1.3) mg/dL AST (14-36) U/L ALT (4-34) U/L Alkaline Phosphatase (38-126) U/L Troponin I <0.012 (0.000-0.034) ng/mL C-Reactive Protein (<1.0) mg/dL NT-Pro-B Natriuret Pep pg/mL Total Protein (6.3-8.2) g/dL Albumin (3.5-5.0) g/dL - EKG Data -: EKG Interpreted by Me (EKG is sinus 73 MT 154 QRS 77 QTc 397) Disposition Clinical Impression: Right hip pain, Postoperative infection, Septic arthritis of hip, Infected prosthesis of right hip Disposition: OTHER INSTITUTION NOT DEFINED Condition: Serious Is patient prescribed a controlled substance at d/c from ED?: No Referrals: Mitra Malik MD [Primary Care Provider] - 1-2 days Time of Disposition: 16:00
[2024-02-02 14:00] VITALS: TEMP 98
[2024-02-02 14:31] LABS: Basophils % (A) 0 %; Eosinophils # (A) 0.3 k/uL (0-0.7); Eosinophils % (A) 2 %; HCT 28.9 % (34.0-46.0); HGB 9.2 gm/dL (11.4-16.0); Hypochromasia Moderate; Lymphocytes # (A) 1.7 k/uL (1.0-4.8); Lymphocytes % (A) 10 %; MCH 32.3 pg (25.0-35.0); MCV 100.9 fL (80.0-100.0); Macrocytosis Slight; Mean Platelet Volume 6.7; Monocytes # (A) 0.6 k/uL (0-1.0); Monocytes % (A) 3 %; Neutrophils # (A) 14.4 k/uL (1.3-7.7); Neutrophils % (A) 84 %; Platelet Count 311 k/uL (150-450); RBC 2.86 m/uL (3.80-5.40); RDW 14.5 % (11.5-15.5)
[2024-02-02] MEDS: SODIUM CHLORIDE 0.9% 1,000 ML IV STA ×2 (14:45→14:47)
[2024-02-02 14:50] LABS: INR 1.1 (<1.2); Partial Thromboplastin Time 29.8 sec (22.0-30.0); Prothrombin Time 11.7 sec (10.0-12.5)
[2024-02-02] MEDS ORDERED: VANCOMYCIN IV PER PHARMACY 1 EACH MISC MISCELLANE PRN (14:53)
[2024-02-02] MEDS: VANCOMYCIN 2,000 MG in SODIUM CHLORIDE 0.9% 500 ML 500 ML IVPB ONE (15:24)
[2024-02-02 15:37] LABS: ALT 17 U/L (4-34); AST 21 U/L (14-36); African American GFR (CKD) 35 (>60 ml/min/1.73 sqM); Albumin 1.9 g/dL (3.5-5.0); Alkaline Phosphatase 274 U/L (38-126); Anion Gap -4 mmol/L; Blood Urea Nitrogen 64 mg/dL (7-17); Carbon Dioxide 38 mmol/L (22-30); Chloride 95 mmol/L (98-107); Glucose 147 mg/dL (74-99); Magnesium 1.7 mg/dL (1.6-2.3); Non-African American GFR(CKD) 30 (>60 ml/min/1.73 sqM); Phosphorus 3.6 mg/dL (2.5-4.5); Potassium 4.1 mmol/L (3.5-5.1); Sodium 129 mmol/L (137-145); Total Bilirubin 0.4 mg/dL (0.2-1.3); Total Protein 5.3 g/dL (6.3-8.2)
[2024-02-02 15:42] LABS: NT-Pro-B-Type Natriuretic Pept 1710 pg/mL
[2024-02-02 16:09] LABS: C Reactive Protein 15.1 mg/dL (<1.0)
[2024-02-02 18:12] VITALS: BP 113/88; PULSE 70; RESP 14
[2024-02-03] MEDS ORDERED: VANCOMYCIN 2,000 MG in SODIUM CHLORIDE 0.9% 500 ML 500 ML IVPB ONE (12:00)
== END 2024-02-02 18:05 | disposition other institution (70) ==
LOC: EC 13:47
DX: T84.51XA Infection and inflammatory reaction due to internal right hip prosthesis, initial encounter (principal); M00.051 Staphylococcal arthritis, right hip; Z88.1 Allergy status to other antibiotic agents
CPT/HCPCS: 99285; 96361; 96365; 96366; 36415; 93005; 83880; 80053; 83605; 83735; 84100; 84484; 85025; 85610; 85730; 86140; 87040; J3370

== ENCOUNTER 2024-02-20 18:44 | Emergency (ER) | payer MEDICARE, BC ==
--- NOTE | 2024-02-20 19:28 | ED ---
General Adult HPI - General Chief complaint: Recheck/Abnormal Lab/Rx Stated complaint: Low potassium Time Seen by Provider: 02/20/24 18:51 Source: patient, EMS Mode of arrival: EMS - History of Present Illness Initial comments: Patient is an 78-year-old female presenting today for hypokalemia. She currently denies any symptoms, denies lightheadedness, dizziness, vomiting, chest pain, shortness of breath, diarrhea. Potassium outpatient labs at facility was 2.7. Does take turosemide. Denies additional complaints. States that she is at [facility] due to recent hip surgery. - Related Data Home Medications Medication Instructions Recorded Confirmed Ezetimibe [Zetia] 10 mg PO DAILY@0800 10/15/22 12/23/23 Torsemide [Demadex] 20 mg PO DAILY@0800 01/20/23 12/23/23 Losartan Potassium 50 mg PO DAILY@0800 11/10/23 12/23/23 carvediloL [Coreg] 6.25 mg PO BID@0800,1700 11/10/23 12/23/23 Acetaminophen Tab [Tylenol] 650 mg PO Q6HR 12/23/23 12/23/23 Citalopram Hydrobromide [CeleXA] 10 mg PO DAILY@0800 12/23/23 12/23/23 Famotidine [Pepcid] 20 mg PO DAILY@0600 12/23/23 12/23/23 Ferrous Sulfate [Iron (65 MG 325 mg PO BID@0800,1700 12/23/23 12/23/23 Elemental)] INSULIN ASPART (NovoLOG) [NovoLOG See Protocol SQ 12/23/23 12/23/23 (formulary)] ACHS@07,11,1630,2130 Ipratropium-Albuterol Nebulize 3 ml INHALATION RT-TID PRN 12/23/23 12/23/23 [Duoneb 0.5 mg-3 mg/3 ml Soln] Shivam Packet 1 packet PO BID@08,17 12/23/23 12/23/23 Lactulose 20 gm PO DAILY@0800 12/23/23 12/23/23 Magnesium Hydroxide [Milk of 7,200 mg PO DAILY PRN 12/23/23 12/23/23 Magnesia Concentrate] Na Phos,M-B/Na Phos,Di-Ba [Fleet 133 ml RECTAL DIRECTED PRN 12/23/23 12/23/23 Adult] Nystatin 100,000 Unit/gm Powd 1 applic TOPICAL TID 12/23/23 12/23/23 [Mycostatin Powder] Ondansetron [Zofran] 4 mg PO Q8H PRN 12/23/23 12/23/23 Sennosides/Docusate Sodium [Senna 2 cap PO HS@2100 12/23/23 12/23/23 Plus 8.6-50 mg Softgel] Tamsulosin [Flomax] 0.4 mg PO DAILY@0800 12/23/23 12/23/23 bisacodyL [Dulcolax] 10 mg RECTAL DAILY PRN 12/23/23 12/23/23 Previous Rx's Medication Instructions Recorded DAPTOmycin [Cubicin] 500 mg IV Q48H 42 Days #22 each 12/31/23 DAPTOmycin [Cubicin] 500 mg IVPB Q48H each 12/31/23 Enoxaparin [Lovenox] 30 mg SQ BID each 12/31/23 Allergies Allergy/AdvReac Type Severity Reaction Status Date / Time cephalexin Allergy Rash/Hives, Verified 02/20/24 19:00 redness, swelling Review of Systems ROS Statement: Those systems with pertinent positive or pertinent negative responses have been documented in the HPI. ROS Other: All systems not noted in ROS Statement are negative. Past Medical History Past Medical History: Cancer, Diabetes Mellitus, Hyperlipidemia, Hypertension Additional Past Medical History / Comment(s): hx. lung cancer 2006, current R femur fracture History of Any Multi-Drug Resistant Organisms: MRSA Date of last positivie culture/infection: 12/24/23 MDRO Source:: rt hip Past Surgical History: Cholecystectomy, Hernia Repair, Joint Replacement Additional Past Surgical History / Comment(s): partial lobectomy 2007, R femur surgery/hardware, total L knee Past Anesthesia/Blood Transfusion Reactions: No Reported Reaction Past Psychological History: No Psychological Hx Reported Smoking Status: Never smoker Past Alcohol Use History: None Reported Past Drug Use History: None Reported - Past Family History Mother Family Medical History: Cancer General Exam - General Exam Comments Initial Comments: PE: CONSTITUTIONAL: No apparent distress, well appearing SKIN: Warm, dry, no jaundice, hives or petechiae EYES: Pupils are equally round, extraocular movements intact without nystagmus, clear conjunctiva, non-icteric sclera HENT: Normocephalic, atraumatic, moist mucus membranes, oropharynx clear without exudates NECK: , Full range of motion, normal appearance PULMONARY: Clear to auscultation without wheezes, rhonchi, or rales, normal excursion, no accessory muscle use and no stridor CARDIOVASCULAR: Regular rate, rhythm, normal S1 and S2. No appreciated murmurs, rubs or gallops. Strong radial pulses with intact distal perfusion. 1+ bilateral lower extremity edema GASTROINTESTINAL: Soft, active bowel sounds throughout, non-tender, non- distended, no palpable masses, no rebound or guarding. No hepatosplenomegaly MUSCULOSKELETAL: Extremities have no gross deformity, no edema, redness, or swelling. NEUROLOGIC:_a/o x 3, GCS 15, normal mentation and speech. No focal neurologic deficits PSYCHIATRIC:_normal mood and affect, thought process is clear and linear Course Vital Signs 02/20/24 02/20/24 02/20/24 18:51 21:00 23:00 Temperature 97.8 F Pulse Rate 79 70 80 Respiratory 20 18 18 Rate Blood Pressure 157/72 124/64 132/81 O2 Sat by Pulse 95 95 95 Oximetry 02/21/24 02/21/24 01:00 04:20 Temperature 97.9 F Pulse Rate 78 99 Respiratory 18 16 Rate Blood Pressure 128/69 121/63 O2 Sat by Pulse 95 95 Oximetry EKG Findings - EKG Comments: EKG Findings:: Sinus rhythm with occasional PVC, rate 83 bpm, intervals within acceptable limits, low voltage EKG, no ST elevations or depressions. Compared to EKG performed on 02/02/2024, flattening of the QRS, present aVL, otherwise no significant changes from prior Medical Decision Making - Medical Decision Making Was pt. sent in by a medical professional or institution (, PA, CALL CENTRE SUPERVISOR, urgent care, hospital, or usp...) When possible be specific @ -Patient was sent in by [facility] for hypokalemia Did you speak to anyone other than the patient for history (EMS, parent, family, police, friend...)? What history was obtained from this source @ -No Did you review nursing and triage notes (agree or disagree)? Why? @ -I reviewed and agree with nursing and triage notes Were old charts reviewed (outside hosp., previous admission, EMS record, old EKG, old radiological studies, urgent care reports/EKG's, usp records)? Report findings @Medical records reviewed, I reviewed labs summary that was provided by patient's facility, shows potassium of 2.7 on outpatient labs. Reviewed patient's medication list, patient does take turosemide. Differential Diagnosis (chest pain, altered mental status, abdominal pain women, abdominal pain men, vaginal bleeding, weakness, fever, dyspnea, syncope, headache, dizziness, GI bleed, back pain, seizure, CVA, palpatations, mental health, musculoskeletal)? Differential diagnose remains broad over top considerations include hypokalemia secondary to torsemide side effects, inadequate dietary intake, other medication side effect, lab error this is not an all-inclusive list EKG interpreted by me (3pts min.). @ -As above X-rays interpreted by me (1pt min.). @ -None done CT interpreted by me (1pt min.). @ -None done U/S interpreted by me (1pt. min.). @ -None done What testing was considered but not performed or refused? (CT, X-rays, U/S, labs)? Why? @ -None What meds were considered but not given or refused? Why? @ -None Did you discuss the management of the patient with other professionals (professionals i.e. , PA, CALL CENTRE SUPERVISOR, lab, RT, psych nurse, clinical social worker, clod puller, teacher, physics technical officer, telephonic nurse case manager)? Give summary @ -No Was smoking cessation discussed for >3mins.? @ -No Was critical care preformed (if so, how long)? @ -No Were there social determinants of health that impacted care today? How? (Homelessness, low income, unemployed, alcoholism, drug addiction, transportation, low edu. Level, literacy, decrease access to med. care, long-term, rehab)? @ -No Was there de-escalation of care discussed even if they declined (Discuss DNR or withdrawal of care, Hospice)? @ -No What co-morbidities impacted this encounter? (DM, HTN, Smoking, COPD, CAD, Cancer, CVA, ARF, Chemo, Hep., AIDS, mental health diagnosis, sleep apnea, morbid obesity)? @Hypertension, diabetes Was patient admitted / discharged? Hospital course, mention meds given and route, prescriptions, significant lab abnormalities, going to OR and other pertinent info. Discharged -Patient is a pleasant 78-year-old female presenting today for hypokalemia noted on outpatient labs. Currently asymptomatic. Will recheck BMP prior to administering potassium, to confirm extent of hypokalemia as well as obtain EKG to assess for findings consistent with hypokalemia. K 3.1, increased from this morning at which it was 2.7, sodium 132, creatinine is actually decreased from this morning when it was 1.3, now 1.27, calcium 7.7 slightly increased from this morning's measurement which was 7.4, magnesium within acceptable limits at 1.7. Will administer 20 mEq IV through PICC line and 40 mg milliequivalents oral which should bring patient's K up to acceptable limits. Plan for discharge after K administration. She requested Tylenol for her right hip due to postop pain. Ordered 650mg Tylenol. Patient was unable to tolerate Effer-K oral potassium solution, and vomited it back up and felt that she also vomited up her Tylenol with this so offered patient potassium pill and will order [place] for pain control due to uncertainty of how much Tylenol patient was able to keep down. Discussed with patient anticipated discharge after administration of potassium. Patient agreeable with plan of care. Patient was able to tolerate 40 mEq of K-Dur. Discharged in stable condition. Undiagnosed new problem with uncertain prognosis? @ -No Drug Therapy requiring intensive monitoring for toxicity (Heparin, Nitro, Insulin, Cardizem)? @ -No Were any procedures done? @ -No Diagnosis/symptom? @Hypo-kalemia Acute, or Chronic, or Acute on Chronic? @ -Acute Uncomplicated (without systemic symptoms) or Complicated (systemic symptoms)? @Uncomplicated Side effects of treatment? @ -No Exacerbation, Progression, or Severe Exacerbation? @ -No Poses a threat to life or bodily function? How? (Chest pain, [place], [place], pneumonia, PE, COPD, DKA, ARF, appy, cholecystitis, CVA, Diverticulitis, Homicidal, Suicidal, threat to staff... and all critical care pts) @ -No - Lab Data Result diagrams: 02/20/24 20:03 Lab Results 02/20/24 02/20/24 Range/Units 20:03 20:03 Sodium 132 L (137-145) mmol/L Potassium 3.1 L (3.5-5.1) mmol/L Chloride 97 L (98-107) mmol/L Carbon Dioxide 33 H (22-30) mmol/L Anion Gap 2 mmol/L BUN 62 H (7-17) mg/dL Creatinine 1.27 H (0.52-1.04) mg/dL Est GFR (CKD-EPI)AfAm 46 (>60 ml/min/1.73 sqM) Est GFR (CKD-EPI)NonAf 40 (>60 ml/min/1.73 sqM) Glucose 168 H (74-99) mg/dL Calcium 7.7 L (8.4-10.2) mg/dL Magnesium 1.7 (1.6-2.3) mg/dL Disposition Clinical Impression: Hypokalemia, Hypocalcemia Disposition: HOME SELF-CARE Condition: Good Instructions (If sedation given, give patient instructions): Hypokalemia (ED) Additional Instructions: Every disease is a spectrum and a small chance still exists that a serious condition could develop, for this reason, please monitor yourself closely for new, symptoms, lightheadedness, dizziness, shortness of breath, chest pain, feeling like you are going to lose consciousness, fever, inability to tolerate/keep down fluids or your medications, inability to follow up with outpatient providers as instructed and should you experience these symptoms or should you have any further concerns for your wellbeing please return to the ED or call 911 immediately. Please have your potassium and calcium levels rechecked within the next 24 to 48 hours. Please increase potassium intake over the next 48 hours with leafy greens, potatoes, oranges/orange juice, etc PLEASE call your primary care physician as soon as possible to arrange / discuss plan for followup appointment. Appointment in the next 1-3 days is strongly encouraged if possible. PLEASE let us know here before you leave if there is anything further we can do to be of any assistance. Take care and feel Better! Is patient prescribed a controlled substance at d/c from ED?: No Referrals: Mitra Malik MD [Primary Care Provider] - 1-2 days
[2024-02-20 20:25] LABS: African American GFR (CKD) 46 (>60 ml/min/1.73 sqM); Anion Gap 2 mmol/L; Blood Urea Nitrogen 62 mg/dL (7-17); Calcium 7.7 mg/dL (8.4-10.2); Carbon Dioxide 33 mmol/L (22-30); Chloride 97 mmol/L (98-107); Glucose 168 mg/dL (74-99); Non-African American GFR(CKD) 40 (>60 ml/min/1.73 sqM); Potassium 3.1 mmol/L (3.5-5.1); Sodium 132 mmol/L (137-145)
[2024-02-20] MEDS: POTASSIUM CHLORIDE 20 MEQ in WATER FOR INJECTION 1 100ML.BAG IVPB STA (22:33)
[2024-02-20] MEDS: POTASSIUM BICARBONATE/CIT AC 20 MEQ TABLET.EFF PO ONE (22:33)
[2024-02-20] MEDS: ACETAMINOPHEN TAB 500 MG TAB PO STA (22:38)
[2024-02-20] MEDS: ACETAMINOPHEN TAB 325 MG TAB PO STA (23:32)
[2024-02-21] MEDS: HYDROcodone/APAP 5-325MG 1 EACH TAB PO STA (00:07)
[2024-02-21] MEDS: POTASSIUM CHLORIDE ER 20 MEQ TAB.ER PO STA (00:08)
[2024-02-21 04:30] VITALS: BP 121/63; PULSE 99; RESP 16; TEMP 97.9
== END 2024-02-21 04:20 | disposition home or self-care (01) ==
LOC: EC 18:44
DX: E87.6 Hypokalemia (principal); E83.51 Hypocalcemia; Z88.1 Allergy status to other antibiotic agents
CPT/HCPCS: 36415; 93005; 80048; 83735; 99285; 96365; 96366; J3480

== ENCOUNTER → 2024-03-02 | Outpatient (CLI) | payer MEDICARE, BC ==
--- NOTE | 2024-03-02 09:49 | XR ---
EXAMINATION TYPE: XR femur 2 views RT, XR pelvis AP view DATE OF EXAM: 03/02/2024 9:16 AM COMPARISON: 01/11/2024 CLINICAL INDICATION: Female, 78 years old with history of S72.141A RIGHT HIP IT FRACTURE, , FINDINGS: Pelvis: SI joints appear symmetric and intact. Pubic symphysis is intact. [id number] degenerative elam e of the left hip with superolateral joint space narrowing and subchondral sclerosis. Multiple coils project in the lateral pelvic soft tissue is suggesting prior mesh repair. There is marked osteopenia . There is bone loss of the right femoral head and femoral neck with cement lisa and nail in the intertr ochanteric region and proximal femoral shaft. There is proximal migration of the femur so that the le sser trochanter is nearly at the same level as the acetabulum. Overlying skin parul. Femur: On the frog-leg lateral view, there is a fragmentary appearance to the greater trochanter. Severe ost eopenia limits evaluation of the distal femur. There appears to be moderate to advanced tricompartmen bronson degenerative change. No maurisio displaced fracture seen. IMPRESSION (pelvis and right femur): 1. Removal of the patient's right hip hemiarthroplasty and 2 screws which were previously within the greater trochanter. 2. Placement of a cemented stem component. The lack of a prosthetic head and neck results in proximal migration of the femur with the lesser trochanter nearly at the same level as the acetabulum. 3. On the frog-leg lateral view, there is a fragmentary appearance to the greater trochanter. 4. Marked osteopenia limiting assessment of the distal femur and knee. Suspect moderate to severe und erlying osteoarthrosis of the knee. [facility], , 03/02/2024 9:47 AM
== END | disposition home or self-care (01) ==
LOC: RADXRMAIN 08:35
PROVIDERS: ATTEND Orthopaedic Surgery
DX: S72.141A Displaced intertrochanteric fracture of right femur, initial encounter for closed fracture (principal); M85.88 Other specified disorders of bone density and structure, other site
CPT/HCPCS: 72170

== ENCOUNTER → 2024-08-10 | Outpatient (CLI) | payer MEDICARE, BC ==
--- NOTE | 2024-08-10 10:37 | XR ---
EXAMINATION TYPE: XR Hip Limited RT DATE OF EXAM: 08/10/2024 10:18 AM COMPARISON: 04/13/2024 CLINICAL INDICATION: Female, 79 years old with history of S72.141A R hip fx, pain TECHNIQUE: XR Hip Limited RT XX views were obtained. FINDINGS: There is evidence of hip replacement removal. Intramedullary lisa and methylmethacrylate material pers ists. There is fracture noted involving the greater trochanter and likely the lesser trochanter with the degree of callus formation seen. Otherwise the appearance is stable relative to prior examination . IMPRESSION: As above [facility], , 08/10/2024 10:35 AM
== END | disposition home or self-care (01) ==
LOC: RADXRMAIN 09:07
PROVIDERS: ATTEND Orthopaedic Surgery
DX: S72.141A Displaced intertrochanteric fracture of right femur, initial encounter for closed fracture (principal); Z96.641 Presence of right artificial hip joint; X58.XXXA Exposure to other specified factors, initial encounter
CPT/HCPCS: 73501